=== PATIENT | male | born 1950 | race Caucasian/White ===

== ENCOUNTER 2019-11-28 08:07 | Outpatient (REF) | payer MEDICARE, MEDICAID, SELFPAY ==
[2019-11-28 08:52] LABS: MANUAL DIFF FLAG NO
[2019-11-28 08:55] LABS: Basophils Absolute Auto 0.1 X10*3/uL (0.0-0.2); Basophils Percent Auto 0.6 % (0-2); Eosinophils Absolute Auto 0.5 X10*3/uL (0.0-0.4); Eosinophils Percent Auto 5.3 % (0-4); Hematocrit 42.8 % (42-52); Hemoglobin 14.1 g/dl (14.0-18.0); Imm Gran Abs Auto 0.03 X10*3/uL (0.00-0.03); Imm Gran Pct Auto 0.3 % (0.0-0.4); Lymphocytes Percent Auto 22.2 % (20-40); Mean Corpuscular HGB Conc 32.9 g/dl (31.0-36.0); Mean Corpuscular Hemoglobin 32.6 pg (27.0-33.0); Mean Corpuscular Volume 98.8 fL (80-98); Mean Platelet Volume 11.3 fL (9.4-12.4); Monocytes Absolute Auto 0.8 X10*3/uL (0.1-1.2); Monocytes Percent Auto 8.6 % (2-11); Neutrophils Absolute Auto 5.7 X10*3/uL (2.0-8.3); Platelet Count 175 X10*3/uL (160-400); Red Blood Count 4.33 X10*6/uL (4.60-5.80); Red Cell Distribution Width 14.8 % (11.0-16.0); White Blood Count 9.1 X10*3/uL (4.8-10.8)
[2019-11-28 09:18] LABS: Alanine Aminotransferase 37 U/L (0-40); Albumin Level 4.1 g/dL (3.5-5.0); Alkaline Phosphatase 116 U/L (39-117); Anion Gap 10 (12-20); Aspartate Amino Transferase 24 U/L (5-37); Bilirubin Total 0.6 mg/dL (0.0-1.0); Blood Urea Nitrogen 16 mg/dL (9-16); Calcium 8.7 mg/dL (8.4-10.2); Carbon Dioxide 28 mmol/L (22-29); Chloride 107 mmol/L (96-108); Cholesterol 112 mg/dL; Estimated Glomerular Filt Rate > 60; Glucose Fasting 97 mg/dL (60-99); HDL Cholesterol 36 mg/dL; LDL Cholesterol Calculated 64 mg/dl; Potassium 4.4 mmol/l (3.3-5.1); Sodium 141 mmol/L (135-145); Total Protein 6.4 g/dL (6.5-8.0); Triglycerides 60 mg/dL
[2019-11-28 09:22] LABS: Digoxin 0.7 ng/mL (0.8-2.0)
[2019-11-28 09:23] LABS: B Type Natriuretic Peptide 89 pg/mL (<100)
[2019-11-28 09:29] LABS: Estimated Average Glucose 108 mg/dL; Hemoglobin A1c % 5.4 %
[2019-11-28 09:39] LABS: T4 Thyroxine 7.2 ug/dL (4.5-12.0); Thyroid Stimulating Hormone 1.44 mIU/mL (0.32-4.0)
[2019-11-29 19:50] LABS: Folate 13.4 ng/mL (> or = 4.0); Vitamin B12 320 pg/mL (200-900)
== END 2019-11-28 08:08 | disposition home or self-care (01) ==
LOC: HO.LAB 08:07
PROVIDERS: PCP Internal Medicine; Visit Provider Internal Medicine
DX: I48.19 Other persistent atrial fibrillation (principal); E78.00 Pure hypercholesterolemia, unspecified; I10 Essential (primary) hypertension; J45.909 Unspecified asthma, uncomplicated; G47.33 Obstructive sleep apnea (adult) (pediatric); R73.02 Impaired glucose tolerance (oral); Z79.899 Other long term (current) drug therapy
CPT/HCPCS: 36415; 80053; 80061; 80162; 82607; 82746; 83036; 83880; 84436; 84443; 85025

== ENCOUNTER → 2020-02-06 14:12 | Outpatient (BNVA) | payer MEDICARE, MEDICAID, SELFPAY | PROVIDERS: PCP Internal Medicine; Visit Provider Internal Medicine | DX: Z13.89 Encounter for screening for other disorder (principal) | CPT/HCPCS: Q3014 ==

== ENCOUNTER 2020-08-26 10:08 | Outpatient (REF) | payer MEDICARE, MEDICAID, SELFPAY ==
--- NOTE | ~2020-08-26 | CT_ITS ---
EXAMINATION: CT CHEST SCREENING CLINICAL INFORMATION: Lung cancer screening COMPARISON: Previous chest x-ray April 2018 TECHNIQUE: Multidetector volumetric CT imaging of the chest is performed without contrast using low dose technique. Additional 2D coronal and sagittal reformatted images and axial 3D maximum intensity projection (MIP) images are generated on the CT workstation. This CT examination was performed using dose optimization techniques as appropriate, variously including the following: *Automated exposure control *Adjustment of mA and/or kV according to patient size (this includes techniques or standardized protocols for targeted exams where dose is matched to indication/reason for exam; i.e. extremities or head) *Use of iterative reconstruction technique DLP: 156 mGy-cm FINDINGS: LUNGS: There is evidence of emphysema. There is a 4 mm groundglass attenuation left upper lobe nodule axial image 93 series. The lungs are otherwise clear. MEDIASTINUM: There are small mediastinal lymph nodes. There is severe coronary artery calcification. The mediastinum is otherwise normal. PLEURA: There is no pleural effusion. No pleural mass or thickening. AXILLA: No lymphadenopathy. UPPER ABDOMEN: There is diverticulosis of the colon. OSSEOUS STRUCTURES: There are degenerative changes of the spine. There are postsurgical changes to the right distal clavicle. CT/CT lung screening IMPRESSION: Emphysema. Small 4 mm groundglass attenuation left upper lobe nodule. Severe coronary artery calcification. ASSESSMENT: Lung-RADS category 2: Benign RECOMMENDATION: Annual low-dose chest CT follow-up recommended.
== END 2020-08-26 10:09 | disposition home or self-care (01) ==
LOC: HO.CT 10:08
PROVIDERS: PCP Internal Medicine; Visit Provider Physician Assistant Medical
DX: Z12.2 Encounter for screening for malignant neoplasm of respiratory organs (principal); F17.210 Nicotine dependence, cigarettes, uncomplicated
CPT/HCPCS: 71271

== ENCOUNTER → 2020-08-28 11:16 | Outpatient (BNVA) | payer MEDICARE, MEDICAID, SELFPAY | PROVIDERS: PCP Internal Medicine; Visit Provider Physician Assistant Medical | DX: F17.210 Nicotine dependence, cigarettes, uncomplicated (principal) ==

== ENCOUNTER → 2020-09-03 10:50 | Outpatient (BNVA) | payer MEDICARE, MEDICAID, SELFPAY | PROVIDERS: PCP Internal Medicine; Visit Provider Family Medicine Adult Medicine | DX: M47.812 Spondylosis without myelopathy or radiculopathy, cervical region (principal); M47.816 Spondylosis without myelopathy or radiculopathy, lumbar region; Z79.899 Other long term (current) drug therapy | CPT/HCPCS: 99202 ==

== ENCOUNTER → 2020-09-22 08:27 | Outpatient (BNVA) | payer MEDICARE, MEDICAID, SELFPAY | PROVIDERS: PCP Internal Medicine; Visit Provider Family Medicine Adult Medicine | DX: M47.812 Spondylosis without myelopathy or radiculopathy, cervical region (principal); M47.816 Spondylosis without myelopathy or radiculopathy, lumbar region | CPT/HCPCS: 99212; Q3014 ==

== ENCOUNTER → 2020-10-09 09:47 | Outpatient (BNVA) | payer MEDICARE, MEDICAID, SELFPAY | PROVIDERS: PCP Internal Medicine; Visit Provider Internal Medicine | DX: M47.812 Spondylosis without myelopathy or radiculopathy, cervical region (principal); M47.816 Spondylosis without myelopathy or radiculopathy, lumbar region; Z79.891 Long term (current) use of opiate analgesic | CPT/HCPCS: 99212 ==

== ENCOUNTER → 2020-10-21 10:23 | Outpatient (REF) | payer MEDICARE, MEDICAID, SELFPAY ==
--- NOTE | 2020-10-21 10:15 | ECG_ITS ---
Hook-up date: 2020-10-21 11:35:00 Duration: 26:15:00 Test Indications: PERSISTANT AFIB Medications: 166256 QRS complexes 54 Ventricular ectopics which represent <1 % of total QRS comp. * Supraventricular ectopics which represent % of total QRS comp. * Paced QRS complexs which represent % of total QRS comp. VENTRICULAR ECTOPY 52 Isolated 0 Bigeminal Cycles 1 Couplets 0 Runs 0 Beats in Runs * Beats LONGEST at * BPM at :: -- * Beats FASTEST at * BPM at :: -- SUPRAVENTRICULAR ECTOPY * Isolated * Couplets * Runs * Beats in Runs * Beats LONGEST at * BPM at :: -- * Beats FASTEST at * BPM at :: -- HEART RATES 49 MIN at 07:00:02 2020-10-22 84 AVG 170 MAX at 18:51:42 2020-10-21 LONGEST RR 2.2960 secs at 07:29:20 2020-10-22 S-T LEVELS Channel 1 - 128 mm at 11:35:00 2020-10-21 - 128 mm at 11:35:00 2020-10-21 Channel 2 - 128 mm at 11:35:00 2020-10-21 - 128 mm at 11:35:00 2020-10-21 Channel 3 - 128 mm at 03:05:41 -- - 128 mm at 03:05:41 Basic rhythm Atrial fibrillation No long pause or profound bradycardia Overall adequate rate control with avergae HR of 84 bpm Rare Premature ventricular complexes Patient reported symptoms corrleated with AF Referred By: Wally Sen Overread By: FABIOLA MCMULLEN MD
--- NOTE | 2020-10-21 10:36 | CA_ITS ---
Transthoracic Echocardiogram Patient (Last, First, Middle): Alli Latham A Gender: Male Date of : 1950 Age: 70 Procedure Date: 10/21/2020 Procedure Type: Transthoracic Echocardiogram Location: OP Height: 177.8 cm Weight: 106.6 kg BSA: 2.24 m2 Heart Rate: bpm BP: 136 / 80 mmHg Foreign Policy Officer: Referring MD: Wally Sen MD Symptoms: I48.19 - Other persistent atrial fibrillation Study Quality: Fair ECG Rhythm: Atrial Fibrillation Conclusions: - 1. Normal LV systolic function 2. Mildly dilated left atrium 3. Normal cardiac valvular Doppler 4. Normal RV systolic pressure 5. No pericardial effusion Findings Left Ventricle Normal left ventricular size, thickness, and systolic function. The visually estimated ejection fraction is between 60-65%. Diastolic function is indeterminate on the basis of available data. Right Ventricle Normal right ventricular cavity size and systolic function. Atria The left atrium is mildly dilated. There is lipomatous hypertrophy of the interatrial septum. There is no evidence of interatrial shunt. The right atrium is likely dilated. Aortic Valve The aortic valve structure and function is likely normal. There is no aortic valve stenosis. There is no aortic valve regurgitation. Mitral Valve Normal mitral valve structure and function. There is trace mitral valve regurgitation. There is no mitral valve stenosis. Pulmonic Valve The pulmonic valve was not well visualized. Tricuspid Valve Likely normal tricuspid valve structure and function. Mildly elevated right atrial pressure. There is no evidence of pulmonary hypertension. Great Vessels All visible segments of the aorta are normal in size. The pulmonary artery was not well visualized. Venous The inferior vena cava is moderately dilated and collapses less than 50% with inspiration. Pericardium/Pleural There is no evidence of pericardial effusion. Prior Study Comparison No significant change compared to prior study dated: 09/18/2019. Measurements 2D Linear Measurements IVSd: 1.33 0.6-0.9/0.6-1.0 cm LVIDd: 4.06 3.9-5.3/4.2-5.9 cm LVIDd Index: 1.81 2.4-3.2/2.2-3.1 cm/m2 LVIDs: 2.74 2.0-3.6 cm LVPWd: 1.36 0.7-1.1 cm Ao Root: 3.20 2.1-3.5 cm LA Diam: 4.20 2.7-3.8/3.0-4.0 cm LAIDs Index: 1.88 1.5-2.3 cm/m2 LV Mass: 250.25 67-162/88-224 g LV Mass Index: 111.72 43-95/49-115 g/m2 LVOT Diam: 2.10 3.0+(-)1.3 cm Mitral Valve MV Pk E: 1.29 MV Decel Time: 136.00 E'Lateral: 8.38 E'Medial: 8.49 E/E' Med: 15.20 E/E' Lat: 15.40 PHT: 40.00 MVA PHT: 5.50 Decel [place]: 9.45 Aortic Valve AoV Pk Ramiro: 1.88 AoV Mn Ramiro: 1.15 AoV VTI: 0.36 AoV Pk Grad: 14.00 Aov Mn Grad: 6.00 STEPHANIE Cont.VTI: 2.20 LVOT LVOT Pk Ramiro: 1.12 LVOT Mn Ramiro: 0.81 LVOT VTI: 0.23 LVOT Pk Grad: 5.00 LVOT Mn Grad: 3.00 LVOT Diam: 2.10 LVOT Area: 3.46 Diastolic Function MV Pk E: 1.29 E'Medial: 8.49 E/E' Med: 15.20 E' Laterial: 8.38 E/E' Lat: 15.40 Tricuspid Valve TR Pk Ramiro: 2.66 TR Pk Grad: 28.00 RA Press: 8.00 RVSP: 36.00 Great Vessels Aorta Ao Root-2D: 3.20 2.0-3.7 cm Ao Asc: 2.90 2.1-3.4 cm Pulmonary Valve PV Pk Ramiro: 1.25 Peak PV Grad: 6.00 Updated in Other Vendor System with Status of Final Boubacar Santiago MD electronically signed on 10/22/2020 12:14:36 PM with status of Final
== END ==
LOC: HO.CARD 10:23
PROVIDERS: Visit Provider Internal Medicine
DX: I48.19 Other persistent atrial fibrillation (principal)
CPT/HCPCS: 93225; 93226; 93306

== ENCOUNTER → 2020-10-21 10:26 | Outpatient (REF) | payer MEDICARE, MEDICAID, SELFPAY | LOC: HO.CARD 10:26 | PROVIDERS: Visit Provider Internal Medicine | DX: Z13.89 Encounter for screening for other disorder (principal) ==

== ENCOUNTER → 2020-10-29 09:21 | Outpatient (BNVA) | payer MEDICARE, MEDICAID, SELFPAY | PROVIDERS: PCP Internal Medicine; Visit Provider Family Medicine Adult Medicine | DX: Z51.81 Encounter for therapeutic drug level monitoring (principal); M17.0 Bilateral primary osteoarthritis of knee; M47.812 Spondylosis without myelopathy or radiculopathy, cervical region; M47.816 Spondylosis without myelopathy or radiculopathy, lumbar region | CPT/HCPCS: 99212 ==

== ENCOUNTER → 2020-11-04 10:05 | Outpatient (BNVA) | payer MEDICARE, MEDICAID, SELFPAY | PROVIDERS: PCP Internal Medicine; Visit Provider Internal Medicine | DX: I48.19 Other persistent atrial fibrillation (principal); I48.3 Typical atrial flutter; I10 Essential (primary) hypertension; G47.33 Obstructive sleep apnea (adult) (pediatric); Z79.01 Long term (current) use of anticoagulants; Z99.89 Dependence on other enabling machines and devices | CPT/HCPCS: Q3014 ==

== ENCOUNTER → 2020-11-26 09:10 | Outpatient (BNVA) | payer MEDICARE, MEDICAID, SELFPAY | PROVIDERS: PCP Internal Medicine; Visit Provider Family Medicine Adult Medicine | DX: Z51.81 Encounter for therapeutic drug level monitoring (principal); M47.812 Spondylosis without myelopathy or radiculopathy, cervical region; M47.816 Spondylosis without myelopathy or radiculopathy, lumbar region; G47.33 Obstructive sleep apnea (adult) (pediatric); Z99.89 Dependence on other enabling machines and devices; Z87.891 Personal history of nicotine dependence | CPT/HCPCS: 99212 ==

== ENCOUNTER 2020-11-27 08:06 | Outpatient (REF) | payer MEDICARE, MEDICAID, SELFPAY ==
[2020-11-27 10:12] LABS: MANUAL DIFF FLAG NO
[2020-11-27 10:18] LABS: Basophils Percent Auto 0.4 % (0-2); Eosinophils Absolute Auto 0.4 X10*3/uL (0.0-0.4); Hematocrit 42.7 % (42-52); Hemoglobin 14.4 g/dl (14.0-18.0); Imm Gran Abs Auto 0.03 X10*3/uL (0.00-0.03); Imm Gran Pct Auto 0.4 % (0.0-0.4); Lymphocytes Absolute Auto 1.9 X10*3/uL (1.2-4.9); Lymphocytes Percent Auto 23.4 % (20-40); Mean Corpuscular HGB Conc 33.7 g/dl (31.0-36.0); Mean Corpuscular Hemoglobin 33.9 pg (27.0-33.0); Mean Corpuscular Volume 100.5 fL (80-98); Mean Platelet Volume 11.3 fL (9.4-12.4); Monocytes Absolute Auto 0.9 X10*3/uL (0.1-1.2); Monocytes Percent Auto 11.2 % (2-11); Neutrophils Absolute Auto 4.9 X10*3/uL (2.0-8.3); Neutrophils Percent Auto 59.6 % (45-73); Platelet Count 177 X10*3/uL (160-400); Red Blood Count 4.25 X10*6/uL (4.60-5.80); Red Cell Distribution Width 13.4 % (11.0-16.0); White Blood Count 8.2 X10*3/uL (4.8-10.8)
[2020-11-27 10:33] LABS: Alanine Aminotransferase 26 U/L (0-40); Albumin Level 4.2 g/dL (3.5-5.0); Alkaline Phosphatase 111 U/L (39-117); Anion Gap 12 (12-20); Aspartate Amino Transferase 23 U/L (5-37); Bilirubin Total 0.7 mg/dL (0.0-1.0); Blood Urea Nitrogen 14 mg/dL (9-16); Calcium 9.1 mg/dL (8.4-10.2); Carbon Dioxide 26 mmol/L (22-29); Chloride 103 mmol/L (96-108); Cholesterol 128 mg/dL; Estimated Glomerular Filt Rate > 60; Glucose Random 103 mg/dL (60-115); HDL Cholesterol 44 mg/dL; LDL Cholesterol Calculated 67 mg/dl; Potassium 4.1 mmol/L (3.3-5.1); Sodium 137 mmol/L (135-145); Total Protein 6.9 g/dL (6.5-8.0); Triglycerides 86 mg/dL
[2020-11-27 10:36] LABS: B Type Natriuretic Peptide 96 pg/mL (<100)
[2020-11-27 10:38] LABS: Estimated Average Glucose 111 mg/dL; Hemoglobin A1c % 5.5 %
[2020-11-27 10:42] LABS: Digoxin 0.8 ng/mL (0.8-2.0)
[2020-11-27 10:56] LABS: Free T4 (Free Thyroxine) 1.11 ng/dL (0.71-1.85)
[2020-11-27 11:10] LABS: Folate > 20.0 ng/mL (> or = 4.0); Vitamin B12 333 pg/mL (200-900)
== END 2020-11-27 08:07 | disposition home or self-care (01) ==
LOC: HO.10HDL 08:06
PROVIDERS: Absent Provider Internal Medicine; Visit Provider Internal Medicine
DX: E78.00 Pure hypercholesterolemia, unspecified (principal); I10 Essential (primary) hypertension; I48.19 Other persistent atrial fibrillation; Z79.899 Other long term (current) drug therapy
CPT/HCPCS: 36415; 80053; 80061; 80162; 82607; 82746; 83036; 83880; 84439; 84443; 85025

== ENCOUNTER → 2020-12-24 09:23 | Outpatient (BNVA) | payer MEDICARE, MEDICAID, SELFPAY | PROVIDERS: PCP Internal Medicine; Visit Provider Family Medicine Adult Medicine | DX: M47.812 Spondylosis without myelopathy or radiculopathy, cervical region (principal); M47.816 Spondylosis without myelopathy or radiculopathy, lumbar region; G47.33 Obstructive sleep apnea (adult) (pediatric); Z87.891 Personal history of nicotine dependence; Z99.89 Dependence on other enabling machines and devices; Z79.899 Other long term (current) drug therapy | CPT/HCPCS: 99212 ==

== ENCOUNTER → 2021-01-28 09:50 | Outpatient (BNVA) | payer MEDICARE, MEDICAID, SELFPAY | PROVIDERS: PCP Internal Medicine; Visit Provider Nurse Practitioner Family | DX: Z51.81 Encounter for therapeutic drug level monitoring (principal); M47.812 Spondylosis without myelopathy or radiculopathy, cervical region; M47.816 Spondylosis without myelopathy or radiculopathy, lumbar region; M17.0 Bilateral primary osteoarthritis of knee | CPT/HCPCS: 99212 ==

== ENCOUNTER → 2021-02-22 10:24 | Outpatient (BNVA) | payer MEDICARE, MEDICAID, SELFPAY | PROVIDERS: PCP Internal Medicine; Visit Provider Anesthesiology | DX: Z51.81 Encounter for therapeutic drug level monitoring (principal); F11.20 Opioid dependence, uncomplicated; M47.812 Spondylosis without myelopathy or radiculopathy, cervical region; M47.816 Spondylosis without myelopathy or radiculopathy, lumbar region; M17.0 Bilateral primary osteoarthritis of knee | CPT/HCPCS: 99212 ==

== ENCOUNTER → 2021-03-22 08:28 | Outpatient (BNVA) | payer MEDICARE, MEDICAID, SELFPAY | PROVIDERS: PCP Internal Medicine; Visit Provider Nurse Practitioner Family | DX: M47.812 Spondylosis without myelopathy or radiculopathy, cervical region (principal); M47.816 Spondylosis without myelopathy or radiculopathy, lumbar region; M17.0 Bilateral primary osteoarthritis of knee; Z79.891 Long term (current) use of opiate analgesic | CPT/HCPCS: 99212 ==

== ENCOUNTER → 2021-03-30 08:33 | Outpatient (BNVA) | payer MEDICARE, MEDICAID, SELFPAY | PROVIDERS: PCP Internal Medicine; Referring Provider Internal Medicine; Visit Provider Internal Medicine | DX: I48.19 Other persistent atrial fibrillation (principal); I48.3 Typical atrial flutter; I10 Essential (primary) hypertension; G47.33 Obstructive sleep apnea (adult) (pediatric); Z79.01 Long term (current) use of anticoagulants; Z99.89 Dependence on other enabling machines and devices | CPT/HCPCS: 93005; 99212 ==

== ENCOUNTER → 2021-04-19 08:51 | Outpatient (BNVA) | payer MEDICARE, MEDICAID, SELFPAY | PROVIDERS: PCP Internal Medicine; Visit Provider Nurse Practitioner Family | DX: M47.812 Spondylosis without myelopathy or radiculopathy, cervical region (principal); M47.816 Spondylosis without myelopathy or radiculopathy, lumbar region; M17.0 Bilateral primary osteoarthritis of knee; Z79.891 Long term (current) use of opiate analgesic | CPT/HCPCS: 99212 ==

== ENCOUNTER → 2021-05-17 08:51 | Outpatient (BNVA) | payer MEDICARE, MEDICAID, SELFPAY | PROVIDERS: PCP Internal Medicine; Visit Provider Nurse Practitioner Family | DX: Z51.81 Encounter for therapeutic drug level monitoring (principal); F11.20 Opioid dependence, uncomplicated; M47.812 Spondylosis without myelopathy or radiculopathy, cervical region; M47.816 Spondylosis without myelopathy or radiculopathy, lumbar region; M17.0 Bilateral primary osteoarthritis of knee | CPT/HCPCS: 99212 ==

== ENCOUNTER 2021-05-17 09:31 | Outpatient (REF) | payer MEDICARE, MEDICAID, SELFPAY ==
[2021-05-17 10:47] LABS: MANUAL DIFF FLAG NO
[2021-05-17 11:05] LABS: Basophils Percent Auto 0.6 % (0-2); Eosinophils Absolute Auto 0.3 X10*3/uL (0.0-0.4); Eosinophils Percent Auto 4.7 % (0-4); Hematocrit 43.1 % (42.0-52.0); Hemoglobin 14.2 g/dl (14.0-18.0); Imm Gran Abs Auto 0.02 X10*3/uL (0.00-0.03); Imm Gran Pct Auto 0.3 % (0.0-0.4); Lymphocytes Absolute Auto 1.5 X10*3/uL (1.2-4.9); Lymphocytes Percent Auto 20.8 % (20-40); Mean Corpuscular HGB Conc 32.9 g/dl (31.0-36.0); Mean Corpuscular Hemoglobin 32.5 pg (27.0-33.0); Mean Corpuscular Volume 98.6 fL (80.0-98.0); Mean Platelet Volume 11.6 fL (9.4-12.4); Monocytes Absolute Auto 0.8 X10*3/uL (0.1-1.2); Monocytes Percent Auto 11.1 % (2-11); Neutrophils Absolute Auto 4.5 x10*3/uL (2.0-8.3); Neutrophils Percent Auto 62.5 % (45-73); Platelet Count 170 X10*3/uL (160-400); Red Blood Count 4.37 X10*6/uL (4.60-5.80); Red Cell Distribution Width 13.7 % (11.0-16.0); White Blood Count 7.2 X10*3/uL (4.8-10.8)
[2021-05-17 11:10] LABS: Alanine Aminotransferase 46 U/L (0-40); Albumin Level 4.2 g/dL (3.5-5.0); Alkaline Phosphatase 119 U/L (39-117); Anion Gap 11 (12-20); Aspartate Amino Transferase 34 U/L (5-37); Bilirubin Total 0.9 mg/dL (0.0-1.0); Blood Urea Nitrogen 17 mg/dL (9-16); Calcium 9.4 mg/dL (8.4-10.2); Carbon Dioxide 29 mmol/L (22-29); Chloride 104 mmol/L (96-108); Cholesterol 140 mg/dL; Estimated Glomerular Filt Rate > 60; Glucose Random 108 mg/dL (60-115); HDL Cholesterol 56 mg/dL; LDL Cholesterol Calculated 70 mg/dl; Potassium 3.8 mmol/L (3.3-5.1); Sodium 140 mmol/L (135-145); Total Protein 7.1 g/dL (6.5-8.0); Triglycerides 70 mg/dL
[2021-05-17 11:32] LABS: Folate 12.2 ng/mL (> or = 4.0); Vitamin B12 311 pg/mL (200-900)
[2021-05-17 11:35] LABS: Free T4 (Free Thyroxine) 1.11 ng/dL (0.71-1.85); Thyroid Stimulating Hormone 1.51 uIU/mL (0.32-4.0)
[2021-05-17 12:02] LABS: B Type Natriuretic Peptide 100 pg/mL (<100)
[2021-05-17 12:15] LABS: Digoxin < 0.3 ng/mL (0.8-2.0)
== END 2021-05-17 09:32 | disposition home or self-care (01) ==
LOC: HO.10HDL 09:31
PROVIDERS: Visit Provider Internal Medicine
DX: M17.0 Bilateral primary osteoarthritis of knee (principal); M47.812 Spondylosis without myelopathy or radiculopathy, cervical region; M47.816 Spondylosis without myelopathy or radiculopathy, lumbar region; E78.00 Pure hypercholesterolemia, unspecified; I10 Essential (primary) hypertension; I48.19 Other persistent atrial fibrillation; I48.91 Unspecified atrial fibrillation; Z79.899 Other long term (current) drug therapy
CPT/HCPCS: 36415; 80053; 80061; 80162; 82607; 82746; 83880; 84439; 84443; 85025; 99212

== ENCOUNTER → 2021-06-14 09:52 | Outpatient (BNVA) | payer MEDICARE, MEDICAID, SELFPAY | PROVIDERS: PCP Internal Medicine; Visit Provider Nurse Practitioner Family | DX: M47.812 Spondylosis without myelopathy or radiculopathy, cervical region (principal); M17.0 Bilateral primary osteoarthritis of knee; J43.1 Panlobular emphysema; G47.33 Obstructive sleep apnea (adult) (pediatric); Z79.891 Long term (current) use of opiate analgesic; Z99.89 Dependence on other enabling machines and devices | CPT/HCPCS: 99212 ==

== ENCOUNTER → 2021-07-08 09:29 | Outpatient (BNVA) | payer MEDICARE, MEDICAID, SELFPAY | PROVIDERS: PCP Internal Medicine; Visit Provider Internal Medicine Pulmonary Disease | DX: J43.1 Panlobular emphysema (principal); G47.33 Obstructive sleep apnea (adult) (pediatric); Z99.89 Dependence on other enabling machines and devices | CPT/HCPCS: 99202 ==

== ENCOUNTER → 2021-07-12 09:22 | Outpatient (BNVA) | payer MEDICARE, MEDICAID, SELFPAY | PROVIDERS: PCP Internal Medicine; Visit Provider Nurse Practitioner Family | DX: Z51.81 Encounter for therapeutic drug level monitoring (principal); F11.20 Opioid dependence, uncomplicated; M47.812 Spondylosis without myelopathy or radiculopathy, cervical region; M47.816 Spondylosis without myelopathy or radiculopathy, lumbar region; M17.0 Bilateral primary osteoarthritis of knee | CPT/HCPCS: 99212 ==

== ENCOUNTER → 2021-08-09 09:15 | Outpatient (BNVA) | payer MEDICARE, MEDICAID, SELFPAY | PROVIDERS: PCP Internal Medicine; Visit Provider Nurse Practitioner Family | DX: Z51.81 Encounter for therapeutic drug level monitoring (principal); M47.812 Spondylosis without myelopathy or radiculopathy, cervical region; M47.816 Spondylosis without myelopathy or radiculopathy, lumbar region; M17.0 Bilateral primary osteoarthritis of knee; G47.20 Circadian rhythm sleep disorder, unspecified type; Z79.891 Long term (current) use of opiate analgesic | CPT/HCPCS: 99212 ==

== ENCOUNTER → 2021-08-17 11:04 | Outpatient (REF) | payer MEDICARE, MEDICAID, SELFPAY ==
--- NOTE | 2021-08-17 11:09 | HM_ITS ---
* Total monitoring time 2 days and 21 hours. * Underlying rhythm is atrial fibrillation. Average rate 87/Min. Range 50 to 179/Min. * About 10% of the time, rate greater than 100/Min. * One pause noted, 2.5 seconds during daytime hours. * Occasional PVCs, minimal burden. * Patient symptoms documented include dizziness, shortness of breath, rapid heartbeat all correlating with atrial fibrillation but rate during those times seem controlled. * During rapid ventricular rate, there is evidence of ST depression in the EKG. Correlate clinically. MTDD
== END ==
LOC: HO.CARD 11:04
PROVIDERS: PCP Internal Medicine; Visit Provider Internal Medicine
DX: I48.19 Other persistent atrial fibrillation (principal)
CPT/HCPCS: 93242

== ENCOUNTER → 2021-09-06 09:23 | Outpatient (BNVA) | payer MEDICARE, MEDICAID, SELFPAY | PROVIDERS: PCP Internal Medicine; Visit Provider Nurse Practitioner Family | DX: Z79.891 Long term (current) use of opiate analgesic (principal) | CPT/HCPCS: 99211 ==

== ENCOUNTER → 2021-10-04 09:10 | Outpatient (BNVA) | payer MEDICARE, MEDICAID, SELFPAY | PROVIDERS: PCP Internal Medicine; Referring Provider Internal Medicine; Visit Provider Internal Medicine | DX: Z51.81 Encounter for therapeutic drug level monitoring (principal); I25.10 Atherosclerotic heart disease of native coronary artery without angina pectoris; I48.19 Other persistent atrial fibrillation; I10 Essential (primary) hypertension; G47.33 Obstructive sleep apnea (adult) (pediatric); F11.20 Opioid dependence, uncomplicated; Z99.89 Dependence on other enabling machines and devices | CPT/HCPCS: 99211; 99212 ==

== ENCOUNTER → 2021-10-19 09:18 | Outpatient (REF) | payer MEDICARE, MEDICAID, SELFPAY ==
--- NOTE | ~2021-10-19 | NM_ITS ---
Lexiscan Myocardial perfusion study Indication: Coronary artery calcification on CT scan, assess for ischemia Technique: The patient was brought in for a Lexiscan perfusion study on 10/19/2021 and was injected 0.4 mg of Lexiscan intravenously. Within a minute of this injection 40 mCi of sestamibi was given intravenously. Images were obtained using the SPECT gamma camera interlaced with the gating device. Images were obtained in supine position. Resting perfusion study was performed on 10/21/2021. Patient was administered 40 mCi of sestamibi intravenously at rest. Images were then obtained in supine position. Total DLP 182mGy-cm. Images were processed with the software and compared side to side in short axis, horizontal long axis and vertical long axis views. Findings: Raw acquisition reviewed. Arms by the patient's side. The stress perfusion study showed mildly diminished tracer uptake in parts of anterior septum and minimally in the anterior wall. However, there is improvement with CT attenuation correction and hence suggestive of soft tissue attenuation artifact. The gated study shows normal LV systolic function with calculated LVEF of 69%. LV cavity is normal in size. The gated study shows normal wall thickening and contraction of segments. Resting study shows diminished tracer uptake along the anterior wall. There is improvement with CT attenuation correction and hence could all be from soft tissue attenuation artifact. Gating at rest reveals normal wall motion with ejection fraction at 75%. The findings are consistent with no clear reversible or fixed perfusion defects. NM/NM cardiolite stress test Impression: 1. Myocardial perfusion imaging study shows likely normal myocardial perfusion. 2. Gated LVEF is 69% during stress and 74% during rest. 3. Transient ischemic dilatation not present. EKG component of the test reported separately.
--- NOTE | 2021-10-19 09:20 | CA_ITS ---
Acquisition Time: 2021-10-19 09:40:20 Total Exercise Time: 00:02:00 Test Indications: AFIB, AFLUTTER Medications: SEE CHART Protocol: LEXISCAN Max HR: 088 BPM 59% of Pred: 147 BPM Max BP: 132/074 mmHG Max Work Load: 1.0 METS Pharmacological stress test with Lexiscan injection, while sitting and kicking his legs, without anginal symptoms, with isolated PVCs, with normotensive response to injection, with nondiagnostic EKG for ischemia. Nuclear images pending. Test reviewed with Dr Santiago Referred By: Wally Sen Overread By: KO DE LEON
== END ==
LOC: HO.CARD 09:18
PROVIDERS: Visit Provider Internal Medicine
DX: I25.10 Atherosclerotic heart disease of native coronary artery without angina pectoris (principal)
CPT/HCPCS: 78452; 93017; A9500; J0280; J2785

== ENCOUNTER → 2021-11-05 10:20 | Outpatient (BNVA) | payer MEDICARE, MEDICAID, SELFPAY | PROVIDERS: PCP Internal Medicine; Visit Provider Nurse Practitioner Family | DX: Z51.81 Encounter for therapeutic drug level monitoring (principal); F11.20 Opioid dependence, uncomplicated; M47.812 Spondylosis without myelopathy or radiculopathy, cervical region; M47.816 Spondylosis without myelopathy or radiculopathy, lumbar region; K59.00 Constipation, unspecified; M17.0 Bilateral primary osteoarthritis of knee | CPT/HCPCS: 99212 ==

== ENCOUNTER → 2021-12-03 09:21 | Outpatient (BNVA) | payer MEDICARE, MEDICAID, SELFPAY | PROVIDERS: PCP Internal Medicine; Visit Provider Nurse Practitioner Family | DX: Z51.81 Encounter for therapeutic drug level monitoring (principal); Z79.899 Other long term (current) drug therapy | CPT/HCPCS: 99211 ==

== ENCOUNTER → 2021-12-31 08:22 | Outpatient (BNVA) | payer MEDICARE, MEDICAID, SELFPAY | PROVIDERS: PCP Internal Medicine; Visit Provider Nurse Practitioner Family | DX: M47.812 Spondylosis without myelopathy or radiculopathy, cervical region (principal); M47.816 Spondylosis without myelopathy or radiculopathy, lumbar region; M17.0 Bilateral primary osteoarthritis of knee; Z79.891 Long term (current) use of opiate analgesic; K59.00 Constipation, unspecified | CPT/HCPCS: 99212 ==

== ENCOUNTER → 2022-01-31 14:54 | Outpatient (BNVA) | payer MEDICARE, MEDICAID, SELFPAY | PROVIDERS: PCP Internal Medicine; Visit Provider Nurse Practitioner Family | DX: M47.812 Spondylosis without myelopathy or radiculopathy, cervical region (principal); M47.816 Spondylosis without myelopathy or radiculopathy, lumbar region; M17.0 Bilateral primary osteoarthritis of knee; Z79.891 Long term (current) use of opiate analgesic | CPT/HCPCS: 99212 ==

== ENCOUNTER → 2022-03-01 12:52 | Outpatient (BNVA) | payer MEDICARE, MEDICAID, SELFPAY | PROVIDERS: PCP Internal Medicine; Visit Provider Nurse Practitioner Family | DX: Z51.81 Encounter for therapeutic drug level monitoring (principal); F11.20 Opioid dependence, uncomplicated | CPT/HCPCS: 99211 ==

== ENCOUNTER → 2022-03-17 13:26 | Outpatient (BNVA) | payer MEDICARE, MEDICAID, SELFPAY | PROVIDERS: PCP Internal Medicine; Visit Provider Internal Medicine | DX: I25.10 Atherosclerotic heart disease of native coronary artery without angina pectoris (principal); I48.19 Other persistent atrial fibrillation; I10 Essential (primary) hypertension; G47.33 Obstructive sleep apnea (adult) (pediatric); Z99.89 Dependence on other enabling machines and devices; Z87.891 Personal history of nicotine dependence | CPT/HCPCS: 93005; 99212 ==

== ENCOUNTER → 2022-03-18 13:15 | Outpatient (REF) | payer MEDICARE, MEDICAID, SELFPAY ==
--- NOTE | 2022-03-18 13:21 | CA_ITS ---
Transthoracic Echocardiogram Patient (Last, First, Middle): Alli Latham A Gender: Male Date of : 1950 Age: 71 Procedure Date: 03/18/2022 Procedure Type: Transthoracic Echocardiogram Location: OP Height: 180.34 cm Weight: 117.94 kg BSA: 2.36 m2 Heart Rate: bpm BP: 126 / 80 mmHg Watermaster: Referring MD: Wally Sen MD Symptoms: I25.10 - Atherosclerotic heart disease of [place] coronary artery without... Study Quality: Good ECG Rhythm: Atrial Fibrillation Conclusions: - The left ventricular systolic function is normal. The calculated ejection fraction is 68% by biplane method. - No obvious valvular pathology seen on this study. Findings Left Ventricle Normal left ventricular cavity size. There is moderately increased left ventricular wall thickness. The left ventricular systolic function is normal. The calculated ejection fraction is 68% by biplane method. There is no evidence of regional wall motion abnormalities. Diastolic function is indeterminate on the basis of available data. Right Ventricle Normal right ventricular cavity size and systolic function. Atria Both atria are normal in size. Aortic Valve The aortic valve was not well visualized. There is no aortic valve stenosis. There is no aortic valve regurgitation. Mitral Valve There is mild mitral annular calcification. There is trace mitral valve regurgitation. There is no mitral valve stenosis. Pulmonic Valve The pulmonic valve is likely normal. Tricuspid Valve Normal tricuspid valve structure. There is trace tricuspid valve regurgitation. There is no evidence of pulmonary hypertension. Great Vessels The asc aorta is normal in size. Venous The inferior vena cava is normal in size and collapses greater than 50% with inspiration. Pericardium/Pleural There is no evidence of pericardial effusion. Prior Study Comparison No significant change compared to prior study dated: 10/21/2020. Recommendations, Care & Conclusions No obvious valvular pathology seen on this study. Measurements 2D Linear Measurements IVSd: 1.31 0.6-0.9/0.6-1.0 cm LVIDd: 4.74 3.9-5.3/4.2-5.9 cm LVIDd Index: 2.01 2.4-3.2/2.2-3.1 cm/m2 LVIDs: 3.05 2.0-3.6 cm LVPWd: 1.26 0.7-1.1 cm Ao Root: 3.40 2.1-3.5 cm LA Diam: 4.90 2.7-3.8/3.0-4.0 cm LAIDs Index: 2.08 1.5-2.3 cm/m2 LV Mass: 295.49 67-162/88-224 g LV Mass Index: 125.21 43-95/49-115 g/m2 LVOT Diam: 2.00 3.0+(-)1.3 cm 2D Systolic Function EF 4C: 65.00 >55% EF 2C: 69.70 >55% EF BiP: 67.90 >55% Mitral Valve MV Pk E: 1.48 MV Decel Time: 172.00 E'Lateral: 7.94 E'Medial: 7.18 E/E' Med: 20.60 E/E' Lat: 18.60 PHT: 50.00 MVA PHT: 4.40 Decel [place]: 8.59 Aortic Valve AoV Pk Ramiro: 1.99 AoV Mn Ramiro: 1.26 AoV VTI: 0.36 AoV Pk Grad: 16.00 Aov Mn Grad: 8.00 STEPHANIE Cont.VTI: 2.06 LVOT LVOT Pk Ramiro: 1.21 LVOT Mn Ramiro: 0.77 LVOT VTI: 0.23 LVOT Pk Grad: 6.00 LVOT Mn Grad: 3.00 LVOT Diam: 2.00 LVOT Area: 3.14 Diastolic Function MV Pk E: 1.48 E'Medial: 7.18 E/E' Med: 20.60 E' Laterial: 7.94 E/E' Lat: 18.60 Right Ventricle TAPSE (mm): 27.00 TVS' Ramiro: 16.00 Tricuspid Valve TR Pk Ramiro: 2.12 TR Pk Grad: 18.00 RA Press: 3.00 RVSP: 21.00 Great Vessels Aorta Ao Root-2D: 3.40 2.0-3.7 cm Ao Asc: 3.10 2.1-3.4 cm Pulmonary Valve PV Pk Ramiro: 1.21 Peak PV Grad: 6.00 Updated in Other Vendor System with Status of Final Wally Sen MD electronically signed on 03/20/2022 12:36:24 PM with status of Final
[2022-03-18 13:58] LABS: Hematocrit 40.7 % (42.0-52.0); Hemoglobin 13.5 g/dl (14.0-18.0); Mean Corpuscular HGB Conc 33.2 g/dl (31.0-36.0); Mean Corpuscular Hemoglobin 31.7 pg (27.0-33.0); Mean Corpuscular Volume 95.5 fL (80.0-98.0); Platelet Count 200 X10*3/uL (160-400); Red Blood Count 4.26 X10*6/uL (4.60-5.80); Red Cell Distribution Width 14.2 % (11.0-16.0); White Blood Count 8.8 X10*3/uL (4.8-10.8)
[2022-03-18 14:07] LABS: INTERNATIONAL NORM RATIO 1.4 (0.9-1.1); Prothrombin Time 16.7 SEC (10.0-13.1)
[2022-03-18 14:43] LABS: Anion Gap 13 (12-20); Blood Urea Nitrogen 21 mg/dL (9-16); Calcium 9.4 mg/dL (8.4-10.2); Carbon Dioxide 28 mmol/L (22-29); Chloride 105 mmol/L (96-108); Cholesterol 117 mg/dL; Estimated Glomerular Filt Rate 56; Glucose Random 100 mg/dL (60-115); HDL Cholesterol 46 mg/dL; LDL Cholesterol Calculated 51 mg/dl; Potassium 4.2 mmol/L (3.3-5.1); Sodium 142 mmol/L (135-145); Triglycerides 102 mg/dL
[2022-03-18 15:22] LABS: Folate 12.7 ng/mL (> or = 4.0); Vitamin B12 430 pg/mL (200-900)
== END ==
LOC: HO.CARD 13:15
PROVIDERS: Internal Medicine; Visit Provider Internal Medicine
DX: I25.10 Atherosclerotic heart disease of native coronary artery without angina pectoris (principal); E78.00 Pure hypercholesterolemia, unspecified
CPT/HCPCS: 36415; 80048; 80061; 82607; 82746; 85027; 85610; 93306

== ENCOUNTER → 2022-03-28 09:48 | Outpatient (BNVA) | payer MEDICARE, MEDICAID, SELFPAY | PROVIDERS: PCP Internal Medicine; Referring Provider Internal Medicine; Visit Provider Internal Medicine | DX: I25.10 Atherosclerotic heart disease of native coronary artery without angina pectoris (principal); I48.19 Other persistent atrial fibrillation; I10 Essential (primary) hypertension; G47.33 Obstructive sleep apnea (adult) (pediatric); R06.02 Shortness of breath; Z79.01 Long term (current) use of anticoagulants; Z79.899 Other long term (current) drug therapy; Z99.89 Dependence on other enabling machines and devices | CPT/HCPCS: 93242; 99212 ==

== ENCOUNTER → 2022-03-28 10:53 | Outpatient (REF) | payer MEDICARE, MEDICAID, SELFPAY ==
--- NOTE | 2022-03-28 11:00 | HM_ITS ---
* Total monitoring time approximately 3 days. * Underlying rhythm is atrial fibrillation. Average ventricular rate 64/Min. Range 33 to 119/Min. * Only 0.13% of the time, rate > 100/Min. * Pauses noted. Longest 3.5 seconds during daytime hours. * Shortness of breath in diary correlated with atrial fibrillation at a rate of 86/Min. Another episode of shortness of breath correlates with atrial fibrillation at 48/Min (but mentioned to be sleeping). * Overall, well controlled atrial fibrillation. Pauses do not reach significance. MTDD
== END ==
LOC: HO.CARD 10:53
PROVIDERS: PCP Internal Medicine; Visit Provider Internal Medicine
DX: Z13.89 Encounter for screening for other disorder (principal)
CPT/HCPCS: 93242

== ENCOUNTER → 2022-03-29 12:48 | Outpatient (BNVA) | payer MEDICARE, MEDICAID, SELFPAY | PROVIDERS: PCP Internal Medicine; Visit Provider Nurse Practitioner Family | DX: M47.812 Spondylosis without myelopathy or radiculopathy, cervical region (principal); M17.0 Bilateral primary osteoarthritis of knee; Z79.891 Long term (current) use of opiate analgesic | CPT/HCPCS: 99212 ==

== ENCOUNTER 2022-04-04 08:28 | Outpatient (REF) | payer MEDICARE, MEDICAID, SELFPAY ==
--- NOTE | ~2022-04-04 | CT_ITS ---
EXAMINATION: CT CHEST SCREENING CLINICAL INFORMATION: Former smoker. Quit 1 year ago. 40 pack year history. COMPARISON: Previous chest CT August 2020 TECHNIQUE: Multidetector volumetric CT imaging of the chest is performed without contrast using low dose technique. Additional 2D coronal and sagittal reformatted images and axial 3D maximum intensity projection (MIP) images are generated on the CT workstation. This CT examination was performed using dose optimization techniques as appropriate, variously including the following: *Automated exposure control *Adjustment of mA and/or kV according to patient size (this includes techniques or standardized protocols for targeted exams where dose is matched to indication/reason for exam; i.e. extremities or head) *Use of iterative reconstruction technique DLP: 96 mGy-cm FINDINGS: LUNGS: Mild emphysema. The lungs are clear with no evidence of inflammation or nodules. No endobronchial or endotracheal lesion. MEDIASTINUM: Atherosclerotic disease. Normal heart size. Normal caliber thoracic aorta. No pericardial effusion. Small stable mediastinal lymph nodes. CORONARY ARTERY CALCIFICATION: Severe PLEURA: There is no pleural effusion. No pleural mass or thickening. AXILLA: No lymphadenopathy. UPPER ABDOMEN: Unremarkable OSSEOUS STRUCTURES: Degenerative changes of the spine. CT/CT lung screening IMPRESSION: Mild emphysema. No pulmonary nodule. Severe coronary artery calcification. ASSESSMENT: Lung-RADS category 1: Negative RECOMMENDATION: Annual low-dose chest CT follow-up.
== END 2022-04-04 08:29 | disposition home or self-care (01) ==
LOC: HO.CT 08:28
PROVIDERS: PCP Internal Medicine; Visit Provider Physician Assistant Medical
DX: Z12.2 Encounter for screening for malignant neoplasm of respiratory organs (principal); Z87.891 Personal history of nicotine dependence
CPT/HCPCS: 71271

== ENCOUNTER → 2022-04-25 14:34 | Outpatient (BNVA) | payer MEDICARE, MEDICAID, SELFPAY | PROVIDERS: PCP Internal Medicine; Referring Provider Internal Medicine; Visit Provider Internal Medicine | DX: I25.10 Atherosclerotic heart disease of native coronary artery without angina pectoris (principal); I48.19 Other persistent atrial fibrillation; I11.0 Hypertensive heart disease with heart failure; I50.32 Chronic diastolic (congestive) heart failure; G47.33 Obstructive sleep apnea (adult) (pediatric); Z79.01 Long term (current) use of anticoagulants; Z79.899 Other long term (current) drug therapy; Z99.89 Dependence on other enabling machines and devices | CPT/HCPCS: 99212 ==

== ENCOUNTER → 2022-04-26 13:21 | Outpatient (BNVA) | payer MEDICARE, MEDICAID, SELFPAY | PROVIDERS: PCP Internal Medicine; Visit Provider Nurse Practitioner Family | DX: Z51.81 Encounter for therapeutic drug level monitoring (principal); M47.812 Spondylosis without myelopathy or radiculopathy, cervical region; M47.816 Spondylosis without myelopathy or radiculopathy, lumbar region; M17.0 Bilateral primary osteoarthritis of knee; Z79.891 Long term (current) use of opiate analgesic | CPT/HCPCS: 99212 ==

== ENCOUNTER → 2022-05-24 09:09 | Outpatient (BNVA) | payer MEDICARE, MEDICAID, SELFPAY | PROVIDERS: PCP Internal Medicine; Visit Provider Nurse Practitioner Family | DX: M47.812 Spondylosis without myelopathy or radiculopathy, cervical region (principal); M47.816 Spondylosis without myelopathy or radiculopathy, lumbar region; M17.0 Bilateral primary osteoarthritis of knee; G89.4 Chronic pain syndrome; Z79.891 Long term (current) use of opiate analgesic; Z79.899 Other long term (current) drug therapy | CPT/HCPCS: 36415; 80053; 80162; 83880; 99212 ==

== ENCOUNTER 2022-05-24 09:46 | Outpatient (REF) | payer MEDICARE, MEDICAID, SELFPAY ==
[2022-05-24 11:09] LABS: Alanine Aminotransferase 26 U/L (0-40); Albumin Level 4.1 g/dL (3.5-5.0); Alkaline Phosphatase 111 U/L (39-117); Anion Gap 14 (12-20); Aspartate Amino Transferase 24 U/L (5-37); Bilirubin Total 0.8 mg/dL (0.0-1.0); Blood Urea Nitrogen 14 mg/dL (9-16); Carbon Dioxide 27 mmol/L (22-29); Chloride 104 mmol/L (96-108); Estimated Glomerular Filt Rate > 60; Glucose Random 107 mg/dL (60-115); Potassium 4.4 mmol/L (3.3-5.1); Sodium 141 mmol/L (135-145)
[2022-05-24 11:11] LABS: B Type Natriuretic Peptide 240 pg/mL (<100)
[2022-05-24 11:13] LABS: Digoxin 0.7 ng/mL (0.8-2.0)
== END 2022-05-24 09:47 | disposition home or self-care (01) ==
LOC: HO.10HDL 09:46
PROVIDERS: Visit Provider Internal Medicine
DX: Z13.89 Encounter for screening for other disorder (principal)
CPT/HCPCS: 36415; 80053; 80162; 83880

== ENCOUNTER → 2022-06-21 09:05 | Outpatient (BNVA) | payer MEDICARE, MEDICAID, SELFPAY | PROVIDERS: PCP Internal Medicine; Visit Provider Nurse Practitioner Family | DX: M17.0 Bilateral primary osteoarthritis of knee (principal); M47.812 Spondylosis without myelopathy or radiculopathy, cervical region; M47.816 Spondylosis without myelopathy or radiculopathy, lumbar region; M62.838 Other muscle spasm; G89.4 Chronic pain syndrome; Z79.891 Long term (current) use of opiate analgesic | CPT/HCPCS: 99212 ==

== ENCOUNTER → 2022-07-19 11:23 | Outpatient (BNVA) | payer MEDICARE, MEDICAID, SELFPAY | PROVIDERS: PCP Internal Medicine; Visit Provider Nurse Practitioner Family | DX: Z79.891 Long term (current) use of opiate analgesic (principal) | CPT/HCPCS: 99211 ==

== ENCOUNTER → 2022-07-25 14:23 | Outpatient (BNVA) | payer MEDICARE, MEDICAID, SELFPAY | PROVIDERS: PCP Internal Medicine; Referring Provider Internal Medicine; Visit Provider Internal Medicine | DX: I11.0 Hypertensive heart disease with heart failure (principal); I50.32 Chronic diastolic (congestive) heart failure; I25.10 Atherosclerotic heart disease of native coronary artery without angina pectoris; I48.19 Other persistent atrial fibrillation; G47.33 Obstructive sleep apnea (adult) (pediatric); Z99.89 Dependence on other enabling machines and devices | CPT/HCPCS: 99212 ==

== ENCOUNTER → 2022-08-16 10:41 | Outpatient (BNVA) | payer MEDICARE, MEDICAID, SELFPAY | PROVIDERS: PCP Internal Medicine; Visit Provider Registered Nurse Emergency | DX: Z79.891 Long term (current) use of opiate analgesic (principal) | CPT/HCPCS: 99211 ==

== ENCOUNTER 2022-09-20 10:48 | Outpatient (AMB) | payer MEDICARE, MEDICAID, SELFPAY ==
--- NOTE | 2022-09-20 10:50 | MHC.OFFVIS ---
Intake Vital Signs 09/20/22 10:56 Height 5 ft 11 in Weight 259 lb 2 oz BMI 36.1 BP 129/67 Blood Pressure Location Lt brachial Position Sitting Pulse 75 Pulse Source Pulse Oximeter Pulse Oximetry (%) 98 Oxygen Delivery Method Room Air Intake Visit Reasons: Pill count Intake Note: Alli comes in today for a pill count to morphine, patient should have 38 tablets and presents with 43 tablets which he last took today 09/20/22 at 6:30am. Pain today 6.5/10. Corporate Strategy Analyst Required: No Accompanied by: Self / Same As Patient Allergies No Known Allergies Allergy (Verified 09/20/22 10:57) HPI HPI Comments History of Present Illness Details Alli presents today for a pill count. Patient is supposed to have morphine IR 15 mg #38 pills, in his possession has #43 pills. This demonstrates a responsible attitude in regards to the medication regimen. Patient reports adequate analgesia on morphine IR 15 mg BID prn for his back and knee pain without noted side effects. Denies any fever, chest pain, headaches, palpitations, nausea, sedation, weakness or urinary retention except occasional constipation. 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 Degenerative joint disease of cervical and lumbar spine Hypercholesterolemia Insomnia Obesity Obstructive sleep apnea on CPAP (~03/2015) Peripheral vascular disease Persistent atrial fibrillation (~2014) Personal history of nicotine dependence Tobacco abuse Surgical History History of bilateral cataract extraction History of cardioversion (~2018) History of carpal tunnel release History of colonoscopy History of hip replacement, total History of removal of cyst History of spinal surgery History of vitrectomy (~11/2019) Family History Father Myocardial infarction Sister Multiple sclerosis Social History Household Members: Spouse Housing: House Alcohol intake: former Patient Tobacco Use Status: Former Tobacco user Quit Date: ~5 weeks ago Years Smoked: 54 on/off - 30pyh e-Cigarette/Vaping Use: Never Used Second Hand Smoke Exposure: Yes Current occupational status: retired Cognitive needs: No Hearing needs: No Vision needs: Yes Review of Systems Const All systems reviewed & are unremarkable except as noted in HPI and below ENT Reports Normal hearing present Neuro Reports Normal hearing present, Denies Abnormal speech present, Denies confusion and Denies Sensory deficit (Neuro) Psych Denies confusion Physical Exam Vital Signs: Last Vital Signs Pulse 75 09/20/22 10:56 BP 129/67 09/20/22 10:56 Pulse Ox 98 09/20/22 10:56 Oxygen Delivery Method Room Air 09/20/22 10:56 BMI result Body Mass Index 36.1 Const General: cooperative, no acute distress, alert, awake and well groomed; No confusion Nutritional Appearance: well nourished and obese Orientation/consciousness: patient oriented x3 and No confusion HEENT Ears: hearing grossly normal bilaterally Eyes General: appearance normal, both eyes and all related structures EOM: EOMs intact bilaterally Neck Neck: Yes normal visual inspection, Yes no lymphadenopathy, No anterior neck swelling and Yes no JVD Resp Effort & Inspection: normal respiratory effort, able to speak in complete sentences, no audible wheezes, no cough, no respiratory distress and symmetric chest movement Cardio Jugular venous distension: no JVD Bruits: no carotid bruits Peripheral pulses: radial pulses present GI Inspection: Yes normal to inspection, No distended and Yes obesity Palpation (GI): nontender Back/Spine/Pelvis Cervical Spine: cervical muscular tenderness, pain with cervical ROM, Cervical spine scars present, No Cervical spine tenderness and No step off deformity Thoracic/Lumbar Spine: No thoracic spinal tenderness and No lumbar spinal tenderness Skin General skin exam: no rashes or lesions noted Neuro General: patient oriented x3 and No confusion Cranial nerves: Yes Normal hearing present Cognition (Neuro): normal cognition Speech: No Abnormal speech present Gait exam (Neuro): Antalgic gait present and No Assistive device used Motor exam (neuro): 5/5 motor strength present throughout Sensory Exam: No Sensory deficit (Neuro) Psych Appearance: grossly normal and well kempt Mental Status: mental status grossly normal Speech and movement: Normal speech and movement present and Clear speech present Affect: normal affect Attitude: cooperative Thought process: Normal thought process present Thought content: Normal thought content present, suicidality (none), no hallucinations and No Depressive thoughts present Insight: Good insight present (Psych) Judgement: Good judgement present (Psych) Assessment & Plan Assessment & Plan (1) Chronic pain syndrome: Code(s): G89.4 - Chronic pain syndrome (2) Muscle spasms of neck: Code(s): M62.838 - Other muscle spasm (3) Opioid contract exists: Code(s): Z79.891 - group home (current) use of opiate analgesic (4) Degenerative joint disease of cervical and lumbar spine: Code(s): M47.812 - Spondylosis without myelopathy or radiculopathy, cervical region; M47.816 - Spondylosis without myelopathy or radiculopathy, lumbar region (5) Bilateral primary osteoarthritis of knee: Code(s): M17.0 - Bilateral primary osteoarthritis of knee Plan Patient has shown accountability for his medication regimen and the pill count was accurate. The patient reported no side effects. There is no evidence of misuse, abuse, or diversion at this time. Mass[employer] reviewed. Patient reports adequate analgesia with Morphine IR with improvement in breathing and pain control. Next morphine IR 15 mg BID prn script refill will be sent on 10/09/22. All questions were answered and patient agreed with the plan. Follow up in 4-5 weeks for pill count and sooner if needed. Medications: Refilled morphine Partial Fill upon patient request. 15 mg PO BID PRN 60 tabs 0RF pain 30 days G89.4 - Chronic pain syndrome, M17.0 - Bilateral primary osteoarthritis of knee, M47.812 - Spondylosis without myelopathy or radiculopathy, cervical region, M47.816 - Spondylosis without myelopathy or radiculopathy, lumbar region, Z79.891 - group home (current) use of opiate analgesic Coding Level of Care Code Est Pt Level 4 (75353) Diagnoses Chronic pain syndrome G89.4 Muscle spasms of neck M62.838 Opioid contract exists Z79.891 Degenerative joint disease of cervical and lumbar spine M47.812; M47.816 Bilateral primary osteoarthritis of knee M17.0
[2022-09-20 10:56] VITALS: BP 129/67; PULSE 75; O2SAT 98; BMI 36.1
== END 2022-09-20 11:00 | disposition home or self-care (01) ==
PROVIDERS: PCP Internal Medicine; Visit Provider Nurse Practitioner Family
DX: G89.4 Chronic pain syndrome (principal); M62.838 Other muscle spasm; Z79.891 Long term (current) use of opiate analgesic; M47.812 Spondylosis without myelopathy or radiculopathy, cervical region; M47.816 Spondylosis without myelopathy or radiculopathy, lumbar region; M17.0 Bilateral primary osteoarthritis of knee
CPT/HCPCS: 99214

== ENCOUNTER → 2022-09-20 10:48 | Outpatient (BNVA) | payer MEDICARE, MEDICAID, SELFPAY | PROVIDERS: PCP Internal Medicine; Visit Provider Nurse Practitioner Family | DX: Z51.81 Encounter for therapeutic drug level monitoring (principal); M62.838 Other muscle spasm; M47.812 Spondylosis without myelopathy or radiculopathy, cervical region; M47.816 Spondylosis without myelopathy or radiculopathy, lumbar region; M17.0 Bilateral primary osteoarthritis of knee; G89.4 Chronic pain syndrome; Z79.891 Long term (current) use of opiate analgesic | CPT/HCPCS: 99212 ==

== ENCOUNTER 2022-09-26 13:02 | Outpatient (AMB) | payer MEDICARE, MEDICAID, SELFPAY ==
[2022-09-26 13:10] VITALS: BP 138/72; PULSE 79; O2SAT 96; BMI 36.5
--- NOTE | 2022-09-26 13:10 | MHC.PC.OV ---
Vital Signs 09/26/22 13:10 Height 5 ft 11 in Weight 262 lb BMI 36.5 BP 138/72 Blood Pressure Location Lt brachial Position Sitting Pulse 79 Pulse Source Pulse Oximeter Pulse Oximetry (%) 96 Oxygen Delivery Method Room Air Intake Visit Reasons: CHF. Atrial fib Allergies No Known Allergies Allergy (Verified 09/26/22 13:11) Medication List - Last Reconciled 09/26/22 by Pauline Noriega MD albuterol sulfate 2.5 mg (3 mL) inhalation Q4-6H PRN apixaban (Eliquis) 5 mg PO BID 90 days atorvastatin 40 mg PO DAILY baclofen 10 mg PO TID PRN bupropion HCl (Wellbutrin SR) 150 mg PO QAM [CPAP full face mask 14 cm h20 humidified Air As directed] dapagliflozin propanediol (Farxiga) 5 mg (1/2 x 10 mg) PO DAILY digoxin 125 mcg PO DAILY diltiazem HCl ER 360 mg PO DAILY [id number]-[id number]-lvovtgxi 200-62.5-25 mcg (Trelegy Ellipta) 1 inh inhalation DAILY furosemide 80 mg (2 x 40 mg) PO DAILY 90 days furosemide (Lasix) 40 mg PO DAILY ipratropium-albuterol 20-100 mcg/actuation (Combivent Respimat) 1 puff PO QID metoprolol tartrate 25 mg PO BID 90 days morphine 15 mg PO BID PRN 30 days naloxone 4 mg/actuation (Narcan) 4 mg intranasal Q2M PRN polyethylene glycol 3350 (Miralax) 17 grams PO DAILY trazodone 50 mg PO BEDTIME PRN Tobacco use date assessed: 03/07/22 Fall risk assessment: No Falls in past year Last assessed Fall Risk: 09/26/22 Dental Screening Dental Screen Date: 09/26/22 Did you have a dental visit in the last 12 months?: Yes Did you have a dental problem in the last 6 months where you did not have access to dental care?: No Was dental information given to patient?: Patient has dentist HPI CHF. Atrial fib HPI Details 22-year-old obese male with congestive heart failure diastolic coronary artery disease obstructive sleep apnea hypertension atrial fibrillation COPD hypercholesterolemia last seen in May 2022 coming in for follow-up. Blood work requested. Patient is up-to-date with colonoscopy patient with the chronic pain seeing pain management for cervical and lumbar radiculopathy and bilateral arthritis of knee. Patient follows up with Pulmonary July 2022 increase in the diuretic to 120 mg once a day as for the CAD recent catheterization minimal irregularities patient has failed 2 cardioversions including amiodarone presently on diltiazem metoprolol digoxin and continue with anticoagulation for the obstructive sleep apnea on CPAP. Patient has been started on furosemide and Farga [facility] Medical History (Updated 09/26/22 @ 13:46 by Pauline Noriega MD) Bilateral primary osteoarthritis of knee COPD (chronic obstructive pulmonary disease) Current use of group home anticoagulation Degenerative joint disease of cervical and lumbar spine Hypercholesterolemia Insomnia Obesity Obstructive sleep apnea on CPAP (~03/2015) Peripheral vascular disease Persistent atrial fibrillation (~2014) Personal history of nicotine dependence Tobacco abuse Surgical History History of bilateral cataract extraction History of cardioversion (~2018) History of carpal tunnel release History of colonoscopy History of hip replacement, total History of removal of cyst History of spinal surgery History of vitrectomy (~11/2019) Family History Father Myocardial infarction Sister Multiple sclerosis Social History Household Members: Spouse Housing: House Alcohol intake: former Patient Tobacco Use Status: Former Tobacco user Quit Date: ~5 weeks ago Tobacco use type: Cigarette Years Smoked: 54 on/off - 30pyh e-Cigarette/Vaping Use: Never Used Second Hand Smoke Exposure: Yes Current occupational status: retired Cognitive needs: No Hearing needs: No Vision needs: Yes Questionnaire PHQ-9 Over the last 2 weeks, how often have you been bothered by any of the following problems? 1. Little interest or pleasure in doing things: not at all 2. Feeling down, depressed, or hopeless: not at all 3. Trouble falling or staying asleep, or sleeping too much: not at all 4. Feeling tired or having little energy: not at all 5. Poor appetite or overeating: not at all 6. Feeling bad about yourself - or that you are a failure or have let yourself or your family down: not at all 7. Trouble concentrating on things, such as reading the newspaper or watching television: not at all 8. Moving or speaking so slowly that other people could have noticed. Or the opposite - being so fidgety or restless that you have been moving around a lot more than usual: not at all 9. Thoughts that you would be better off or of hurting yourself in some way: not at all Total score: 0 Depression Screening Interpretation: Negative Source: Developed by Drs. Alli Chen, Miya Oneil, Umair Whitten and colleagues, with an educational megha from [employer]. Thrive Questionnaire Date Thrive assessed: 03/07/22 AUDIT C Alcohol Use Questionnaire (AUDIT-C) 1. How often do you have a drink containing alcohol?: 2-3 times a week 2. How many drinks containing alcohol do you have on a typical day when you are drinking?: 1 or 2 3. How often do you have six or more drinks on one occasion?: Never Total Score: 3 LUCY-7 AMB Questionnaire LUCY-7 Date LUCY - 7 assessed: 03/07/22 Source: Developed by Drs. Alli Chen, Miya Oneil, Umair Whitten and colleagues, with an educational megha from [employer]. Physical exam (Primary Care) Vital Signs: Last Vital Signs Pulse 79 09/26/22 13:10 BP 138/72 09/26/22 13:10 Pulse Ox 96 09/26/22 13:10 Oxygen Delivery Method Room Air 09/26/22 13:10 BMI result Body Mass Index 36.5 Tobacco/Smoking Status: Tobacco use Status Tobacco use date assessed 03/07/22 09/26/22 13:17 Patient Tobacco Use Status Former Tobacco user 09/26/22 13:17 Tobacco use type Cigarette 09/26/22 13:17 e-Cigarette/Vaping Use Never Used 09/26/22 13:17 PHQ-9: PHQ-9 Score PHQ-9: Total score 0 09/26/22 13:34 Depression Screening Interpretation: Negative Thrive Assessment: Date of Thrive Assessment Date Thrive assessed 03/07/22 09/26/22 13:17 Const General: alert; No acute distress Eyes Conjunctivae: conjunctivae normal Resp Auscultation: clear to auscultation bilaterally Cardio Rate: regular rate Rhythm: regular rhythm GI Inspection: Yes normal to inspection Extrem Other: 2+ edema in lower extremity General: Yes edema Assessment and Plan Assessment & Plan (1) Chronic diastolic (congestive) heart failure: Code(s): I50.32 - Chronic diastolic (congestive) heart failure Plan: Patient has been follow-up with cardiology increased diuretic and the started on Farxiga (2) Atherosclerotic cardiovascular disease: Code(s): I25.10 - Atherosclerotic heart disease of [place] coronary artery without angina pectoris Plan: Control the cholesterol, weight, blood pressure (3) YUNIEL on CPAP: Code(s): G47.33 - Obstructive sleep apnea (adult) (pediatric); Z99.89 - Dependence on other enabling machines and devices Plan: Continue with CPAP more than 4 hours a night and benefits from this (4) Essential hypertension: Code(s): I10 - Essential (primary) hypertension Plan: Continue with blood pressure medication. Decrease salt intake and exercise patient is on diltiazem 360 mg once a day metoprolol 25 mg twice a day (5) Persistent atrial fibrillation: Onset Date: ~2014 Code(s): I48.19 - Other persistent atrial fibrillation Plan: Continue with anticoagulation (6) COPD (chronic obstructive pulmonary disease): Code(s): J44.9 - Chronic obstructive pulmonary disease, unspecified Qualifiers: COPD type: emphysema Emphysema type: panlobular Qualified Code(s): J43.1 - Panlobular emphysema Plan: Continue with a inhaler as needed (7) Hypercholesterolemia: Code(s): E78.00 - Pure hypercholesterolemia, unspecified Plan: Avoid fried foods, chicken skin, eggs, butter margarine, pastries and meat. Be it pork or beef they have a lot of cholesterol LDL goal of less than 70 and triglyceride of less than 150 (8) Bilateral primary osteoarthritis of knee: Code(s): M17.0 - Bilateral primary osteoarthritis of knee Plan: Patient is seeing pain management and on narcotic pain medication (9) Insomnia: Code(s): G47.00 - Insomnia, unspecified (10) Peripheral vascular disease: Code(s): I73.9 - Peripheral vascular disease, unspecified Plan: When sitting down elevate the legs, exercise, and support stockings. Discussed about wrapping with Ananth to get the swelling down. Continue with diuretic but monitor for the renal function Medications: New trazodone 50 mg PO BEDTIME PRN 30 tabs 2RF sleep G47.00 - Insomnia, unspecified ipratropium-albuterol 20-100 mcg/actuation (Combivent Respimat) space evenly during waking hours 1 puff inhalation QID 4 grams 0RF G47.00 - Insomnia, unspecified Changed From dapagliflozin propanediol (Farxiga) 10 mg PO DAILY 90 tabs 3RF To dapagliflozin propanediol (Farxiga) 5 mg (1/2 x 10 mg) PO DAILY 90 tabs 3RF Coding Level of Care Code Est Pt Level 4 (10632) Diagnoses Chronic diastolic (congestive) heart failure I50.32 Atherosclerotic cardiovascular disease I25.10 YUNIEL on CPAP G47.33; Z99.89 Essential hypertension I10 Persistent atrial fibrillation I48.19 COPD (chronic obstructive pulmonary disease) J43.1 COPD type: emphysema Emphysema type: panlobular Hypercholesterolemia E78.00 Bilateral primary osteoarthritis of knee M17.0 Insomnia G47.00 Peripheral vascular disease I73.9
== END 2022-09-26 14:05 | disposition home or self-care (01) ==
PROVIDERS: Visit Provider Internal Medicine
DX: I11.0 Hypertensive heart disease with heart failure (principal); I50.32 Chronic diastolic (congestive) heart failure; I48.19 Other persistent atrial fibrillation; J43.1 Panlobular emphysema; I25.10 Atherosclerotic heart disease of native coronary artery without angina pectoris; G47.33 Obstructive sleep apnea (adult) (pediatric); Z99.89 Dependence on other enabling machines and devices; E78.00 Pure hypercholesterolemia, unspecified; M17.0 Bilateral primary osteoarthritis of knee; G47.00 Insomnia, unspecified; I73.9 Peripheral vascular disease, unspecified
CPT/HCPCS: 99214

== ENCOUNTER 2022-10-13 08:35 | Outpatient (REF) | payer MEDICARE, MEDICAID, SELFPAY ==
[2022-10-13 10:41] LABS: MANUAL DIFF FLAG NO
[2022-10-13 10:42] LABS: Basophils Absolute Auto 0.1 X10*3/uL (0.0-0.2); Basophils Percent Auto 0.5 % (0-2); Eosinophils Absolute Auto 0.4 X10*3/uL (0.0-0.4); Eosinophils Percent Auto 3.8 % (0-4); Hematocrit 39.6 % (42.0-52.0); Hemoglobin 12.5 g/dl (14.0-18.0); Imm Gran Abs Auto 0.06 X10*3/uL (0.00-0.03); Imm Gran Pct Auto 0.5 % (0.0-0.4); Immature Retic Fraction 20.3 % (2.3-13.4); Lymphocytes Absolute Auto 1.8 X10*3/uL (1.2-4.9); Lymphocytes Percent Auto 16.6 % (20-40); Mean Corpuscular HGB Conc 31.6 g/dl (31.0-36.0); Mean Corpuscular Hemoglobin 30.8 pg (27.0-33.0); Mean Corpuscular Volume 97.5 fL (80.0-98.0); Mean Platelet Volume 12.1 fL (9.4-12.4); Monocytes Absolute Auto 0.9 X10*3/uL (0.1-1.2); Monocytes Percent Auto 8.4 % (2-11); Neutrophils Absolute Auto 7.7 x10*3/uL (2.0-8.3); Neutrophils Percent Auto 70.2 % (45-73); Platelet Count 179 X10*3/uL (160-400); Red Blood Count 4.06 X10*6/uL (4.60-5.80); Red Cell Distribution Width 15.8 % (11.0-16.0); Retic HGB Equivalent 35.4 pg (30.0-35.0); Reticulocyte Percent 1.7 % (0.5-1.8); Reticulocytes Absolute 0.069 X10*6/uL (0.026-0.095)
[2022-10-13 11:09] LABS: Alanine Aminotransferase 22 U/L (0-40); Albumin Level 3.7 g/dL (3.5-5.0); Alkaline Phosphatase 88 U/L (39-117); Anion Gap 13 (12-20); Aspartate Amino Transferase 23 U/L (5-37); Bilirubin Total 0.6 mg/dL (0.0-1.0); Blood Urea Nitrogen 13 mg/dL (9-16); Calcium 9.3 mg/dL (8.4-10.2); Carbon Dioxide 27 mmol/L (22-29); Chloride 105 mmol/L (96-108); Estimated Glomerular Filt Rate 58; Glucose Random 113 mg/dL (60-115); Iron 44 mcg/dL (45-160); Percent Iron Saturation 17 % (15-50); Phosphorus 3.8 mg/dL (2.7-4.5); Potassium 4.3 mmol/L (3.3-5.1); Sodium 141 mmol/L (135-145); Total Iron Binding Capacity 259 mcg/dL (228-428); Total Protein 7.1 g/dL (6.5-8.0); Unsaturated Iron Binding 215 ug/dL
[2022-10-13 11:29] LABS: Ferritin 233 ng/mL (20-250); Free T4 (Free Thyroxine) 1.04 ng/dL (0.71-1.85); Thyroid Stimulating Hormone 1.76 uIU/mL (0.32-4.0)
[2022-10-13 11:33] LABS: Folate 11.3 ng/mL (> or = 4.0); Vitamin B12 438 pg/mL (200-900)
[2022-10-13 11:37] LABS: B Type Natriuretic Peptide 289 pg/mL (<100)
== END 2022-10-13 08:36 | disposition home or self-care (01) ==
LOC: HO.10HDL 08:35
PROVIDERS: Visit Provider Internal Medicine
DX: I50.32 Chronic diastolic (congestive) heart failure (principal)
CPT/HCPCS: 36415; 80053; 82607; 82728; 82746; 83540; 83735; 83880; 84100; 84439; 84443; 85025; 85045

== ENCOUNTER 2022-10-25 10:30 | Outpatient (AMB) | payer MEDICARE, MEDICAID, SELFPAY ==
--- NOTE | 2022-10-25 10:43 | MHC.OFFVIS ---
Intake Vital Signs 10/25/22 10:51 Height 5 ft 11 in Weight 255 lb 4 oz BMI 35.6 BP 131/63 Blood Pressure Location Rt brachial Position Sitting Pulse 71 Pulse Source Pulse Oximeter Pulse Oximetry (%) 98 Oxygen Delivery Method Room Air Intake Visit Reasons: Pill count Intake Note: Alli comes in today for a pill count to morphine, patient should have 28 tablets and presents with 34 tablets which he last took today 10/25/22 at 4am. Pain today 08/29. 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 Patient is supposed to have morphine IR 15 mg #28 pills, in his possession has #34 pills. This demonstrates a responsible attitude in regards to the medication regimen. Patient reports moderate pain relief on morphine IR 15 mg BID prn for his back and knee pain without noted side effects. However reports no pain relief for his chronic lower legs and foot pain. Patient denies previous vascular evaluation for PVD. He reports cold feet while wearing wool socks in 90 degree weather and hot burning pain with numbness and tingling in his lower legs with rest or ambulation. Patient is currently wearing compression stockings with mild ankle edema bilaterally. He is interested to undergo Vascular evaluation. Denies any fever, chest pain, headaches, palpitations, nausea, sedation, weakness or urinary retention except occasional constipation. 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 Degenerative joint disease of cervical and lumbar spine Hypercholesterolemia Insomnia Obesity Obstructive sleep apnea on CPAP (~03/2015) Peripheral vascular disease Persistent atrial fibrillation (~2014) Personal history of nicotine dependence Tobacco abuse Surgical History History of bilateral cataract extraction History of cardioversion (~2018) History of carpal tunnel release History of colonoscopy History of hip replacement, total History of removal of cyst History of spinal surgery History of vitrectomy (~11/2019) Family History Father Myocardial infarction Sister Multiple sclerosis Social History Household Members: Spouse Housing: House Alcohol intake: former Patient Tobacco Use Status: Former Tobacco user Quit Date: ~5 weeks ago Tobacco use type: Cigarette Years Smoked: 54 on/off - 30pyh e-Cigarette/Vaping Use: Never Used Second Hand Smoke Exposure: Yes Current occupational status: retired Cognitive needs: No Hearing needs: No Vision needs: Yes Review of Systems Const All systems reviewed & are unremarkable except as noted in HPI and below ENT Reports Normal hearing present Neuro Reports Normal hearing present, Denies Abnormal speech present and Denies confusion Psych Denies confusion Physical Exam Vital Signs: Last Vital Signs Pulse 71 10/25/22 10:51 BP 131/63 10/25/22 10:51 Pulse Ox 98 10/25/22 10:51 Oxygen Delivery Method Room Air 10/25/22 10:51 BMI result Body Mass Index 35.6 Const General: cooperative, no acute distress, alert, awake and well groomed; No confusion Nutritional Appearance: obese Orientation/consciousness: patient oriented x3 and No confusion HEENT Ears: hearing grossly normal bilaterally Eyes General: appearance normal, both eyes and all related structures EOM: EOMs intact bilaterally Resp Effort & Inspection: normal respiratory effort, able to speak in complete sentences, no audible wheezes, no cough and no respiratory distress Cardio Jugular venous distension: no JVD Bruits: no carotid bruits Peripheral pulses: radial pulses present, posterior tibial pulses present and dorsalis pedis present GI Inspection: Yes normal to inspection, No distended and Yes obesity Palpation (GI): Soft to palpation and nontender Back/Spine/Pelvis Cervical Spine: cervical muscular tenderness, pain with cervical ROM, Cervical spine scars present, No Cervical spine tenderness and No step off deformity Thoracic/Lumbar Spine: thoracic and lumbar spine normal to inspection, Lasegue's sign negative, pain with thoraco-lumbar ROM, No thoracic spinal tenderness and No lumbar spinal tenderness Skin General skin exam: no rashes or lesions noted Neuro General: patient oriented x3 and No confusion Cranial nerves: Yes Normal hearing present Cognition (Neuro): normal cognition Speech: No Abnormal speech present Gait exam (Neuro): Antalgic gait present and No Assistive device used Motor exam (neuro): 5/5 motor strength present throughout, no tremor noted and Motor abnormalities not present Extrem General: Yes capillary refill normal, Yes no calf tenderness and Yes pedal edema (ankle/pedal +1. Wearing compression stockings.) Psych Appearance: grossly normal and well kempt Mental Status: mental status grossly normal Speech and movement: Normal speech and movement present and Clear speech present Affect: normal affect Attitude: cooperative Thought process: Normal thought process present Thought content: Normal thought content present, suicidality (none), no hallucinations and No Depressive thoughts present Insight: Good insight present (Psych) Judgement: Good judgement present (Psych) Assessment & Plan Assessment & Plan (1) Chronic pain syndrome: Code(s): G89.4 - Chronic pain syndrome (2) Peripheral neuropathy: Code(s): G62.9 - Polyneuropathy, unspecified (3) Peripheral vascular disease: Code(s): I73.9 - Peripheral vascular disease, unspecified (4) Degenerative joint disease of cervical and lumbar spine: Code(s): M47.812 - Spondylosis without myelopathy or radiculopathy, cervical region; M47.816 - Spondylosis without myelopathy or radiculopathy, lumbar region (5) Bilateral primary osteoarthritis of knee: Code(s): M17.0 - Bilateral primary osteoarthritis of knee (6) Opioid contract exists: Code(s): Z79.891 - senior living (current) use of opiate analgesic Plan Patient has shown accountability for his medication regimen and the pill count was accurate. The patient reported no side effects. There is no evidence of misuse, abuse, or diversion at this time. MassPat reviewed. Patient reports adequate analgesia with Morphine IR. Next morphine IR 15 mg BID prn script refill will be sent on 11/08/22. Vascular Referral for chronic lower extremity and foot pain. If no significant findings, will proceed with Neurodiagnostic studies to evaluate peripheral neuropathy. Discussed Qutenza patch, informational brochure provided. In meantime, patient will start on gabapentin 300 mg at bedtime for one week and titrate up to twice daily starting 2nd week if well tolerated. Side effects and precautions were reviewed with patient. Patient reports taking gabapentin in the past with good tolerance. All questions were answered and patient agreed with the plan. Follow up in 4-5 weeks for pill count and sooner if needed. Orders: Referrals Vascular Surgery Referral G62.9 - Polyneuropathy, unspecified, I73.9 - Peripheral vascular disease, unspecified Medications: New gabapentin 300 mg PO BID 30 days 60 caps 0RF pain G62.9 - Polyneuropathy, unspecified, G89.4 - Chronic pain syndrome Refilled morphine Partial Fill upon patient request. 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
[2022-10-25 10:51] VITALS: BP 131/63; PULSE 71; O2SAT 98; BMI 35.6
== END 2022-10-25 11:03 | disposition home or self-care (01) ==
PROVIDERS: PCP Internal Medicine; Visit Provider Nurse Practitioner Family
DX: G89.4 Chronic pain syndrome (principal); G62.9 Polyneuropathy, unspecified; M47.812 Spondylosis without myelopathy or radiculopathy, cervical region; Z79.891 Long term (current) use of opiate analgesic; M47.816 Spondylosis without myelopathy or radiculopathy, lumbar region; M17.0 Bilateral primary osteoarthritis of knee
CPT/HCPCS: 99214

== ENCOUNTER → 2022-10-25 10:30 | Outpatient (BNVA) | payer MEDICARE, MEDICAID, SELFPAY | PROVIDERS: PCP Internal Medicine; Visit Provider Nurse Practitioner Family | DX: I11.0 Hypertensive heart disease with heart failure (principal); I50.32 Chronic diastolic (congestive) heart failure; I25.10 Atherosclerotic heart disease of native coronary artery without angina pectoris; I48.19 Other persistent atrial fibrillation; G47.33 Obstructive sleep apnea (adult) (pediatric); Z79.01 Long term (current) use of anticoagulants; Z79.899 Other long term (current) drug therapy; Z99.89 Dependence on other enabling machines and devices; G89.4 Chronic pain syndrome; G62.9 Polyneuropathy, unspecified; I73.9 Peripheral vascular disease, unspecified; M47.812 Spondylosis without myelopathy or radiculopathy, cervical region; M17.0 Bilateral primary osteoarthritis of knee; Z79.891 Long term (current) use of opiate analgesic | CPT/HCPCS: 99212 ==

== ENCOUNTER 2022-10-25 11:10 | Outpatient (AMB) | payer MEDICARE, MEDICAID, SELFPAY ==
[2022-10-25 11:12] VITALS: BP 136/64; PULSE 75; BMI 35.7
--- NOTE | 2022-10-25 11:12 | MHC.OFFVIS ---
Intake Vital Signs 10/25/22 11:12 Height 5 ft 11 in Weight 255 lb 11.779 oz BMI 35.7 BP 136/64 Blood Pressure Location Lt brachial Position Sitting Pulse 75 Intake Visit Reasons: 3 month f/u Intake Note: 3 month follow up Severity Of Illness Coordinator Required: No Accompanied by: Self / Same As Patient Allergies No Known Allergies Allergy (Verified 10/25/22 11:17) Medication List - Last Reconciled 10/25/22 by Wally Sen MD albuterol sulfate 2.5 mg (3 mL) inhalation Q4-6H PRN apixaban (Eliquis) 5 mg PO BID 90 days atorvastatin 40 mg PO DAILY baclofen 10 mg PO TID PRN bupropion HCl (Wellbutrin SR) 150 mg PO QAM [CPAP full face mask 14 cm h20 humidified Air As directed] dapagliflozin propanediol (Farxiga) 5 mg (1/2 x 10 mg) PO DAILY digoxin 125 mcg PO DAILY diltiazem HCl ER 360 mg PO DAILY kvcqfzcypgr-wfiaptrqf-fjmnzsal 200-62.5-25 mcg (Trelegy Ellipta) 1 inh inhalation DAILY furosemide 80 mg (2 x 40 mg) PO DAILY 90 days furosemide (Lasix) 40 mg PO DAILY gabapentin 300 mg PO BID 30 days ipratropium-albuterol 20-100 mcg/actuation (Combivent Respimat) 1 puff inhalation QID ipratropium-albuterol 20-100 mcg/actuation (Combivent Respimat) 1 puff PO QID metoprolol tartrate 25 mg PO BID 90 days morphine 15 mg PO BID PRN 30 days naloxone 4 mg/actuation (Narcan) 4 mg intranasal Q2M PRN polyethylene glycol 3350 (Miralax) 17 grams PO DAILY trazodone 50 mg PO BEDTIME PRN HPI HPI Comments History of Present Illness Details Alli returns for follow-up regarding follow-up of atrial flutter/fibrillation. Atrial flutter was originally detected during an office visit many years ago around 2014. At that time, he reverted back to sinus rhythm in a short time. He was okay for couple of years then started going back in atrial fibrillation. Cardioversion was unsuccessful. Even with amiodarone use we re-attempted but did not last and he went back into atrial fibrillation. Then he was left on rate control only. Overall, he is generally feeling okay. No specific complaints. Shortness of breath is at baseline. Has some leg swelling but under control. No angina. Otherwise, seems to be getting along okay. [facility] Medical History Bilateral primary osteoarthritis of knee COPD (chronic obstructive pulmonary disease) Current use of half-way anticoagulation Degenerative joint disease of cervical and lumbar spine Hypercholesterolemia Insomnia Obesity Obstructive sleep apnea on CPAP (~03/2015) Peripheral vascular disease Persistent atrial fibrillation (~2014) Personal history of nicotine dependence Tobacco abuse Surgical History History of bilateral cataract extraction History of cardioversion (~2018) History of carpal tunnel release History of colonoscopy History of hip replacement, total History of removal of cyst History of spinal surgery History of vitrectomy (~11/2019) Family History Father Myocardial infarction Sister Multiple sclerosis Social History Household Members: Spouse Housing: House Alcohol intake: former Patient Tobacco Use Status: Former Tobacco user Quit Date: ~5 weeks ago Tobacco use type: Cigarette Years Smoked: 54 on/off - 30pyh e-Cigarette/Vaping Use: Never Used Second Hand Smoke Exposure: Yes Current occupational status: retired Cognitive needs: No Hearing needs: No Vision needs: Yes Review of Systems Const Denies weakness ENT Denies dizziness Card Denies chest pain, Denies chest pain with activity, Denies syncope, Denies rapid heart rate, Denies pedal edema, Denies edema, Denies leg edema, Denies lightheadedness, Denies palpitations, Denies dyspnea, Denies dyspnea on exertion and Denies orthopnea Resp Denies cough, Denies dyspnea and Denies dyspnea on exertion GI Denies hematochezia and Denies change in stool character Musc Denies abnormal gait, Denies muscle cramps, Denies muscle weakness, Denies numbness, Denies radiating pain into limb and Denies tingling Neuro Denies abnormal gait, Denies dizziness, Denies syncope, Denies numbness, Denies tingling and Denies weakness Endo Denies palpitations Physical Exam Vital Signs: Last Vital Signs Pulse 75 10/25/22 11:12 BP 136/64 10/25/22 11:12 BMI result Body Mass Index 35.7 Const General: comfortable and no acute distress Orientation/consciousness: patient oriented x3 HEENT Other: Unremarkable Head: Yes normal to inspection Neck Neck: Yes normal visual inspection Chest Chest palpation & inspection: normal inspection of the chest Resp Auscultation: clear to auscultation bilaterally Cardio Palpation: normal PMI Heart sounds: S1 normal heart sound present, S2 normal heart sound present, no gallops, no murmurs and no rubs GI Palpation (GI): Soft to palpation Back/Spine/Pelvis Other: unremarkable Skin General skin exam: no rashes or lesions noted Neuro General: patient oriented x3 Extrem Other: 1+ edema b/l General: Yes normal to inspection Psych Mental Status: mental status grossly normal Assessment & Plan Assessment & Plan (1) Chronic diastolic (congestive) heart failure: Code(s): I50.32 - Chronic diastolic (congestive) heart failure Plan: Shortness of breath probably multifactorial. Likely some combination of CHF/COPD-asthma. Continue diuretics. Continue Farxiga. PFTs from 2016 had shown moderately severe obstructive pulmonary disease, consistent with asthma. This also likely contributes to his shortness of breath. (2) Atherosclerotic cardiovascular disease: Code(s): I25.10 - Atherosclerotic heart disease of [place] coronary artery without angina pectoris Plan: Cardiac catheterization showed minimal irregularities only but nothing otherwise of significance. No angina. Continue statins. (3) Persistent atrial fibrillation: Onset Date: ~2014 Code(s): I48.19 - Other persistent atrial fibrillation Plan: He has failed 2 cardioversions including with Amiodarone. Hence on rate control medications. On a combination of diltiazem, metoprolol, digoxin. Continue Eliquis. Holter shows well controlled atrial fibrillation. Stable digoxin levels. (4) Essential hypertension: Code(s): I10 - Essential (primary) hypertension Plan: Stable. No changes. (5) Obstructive sleep apnea on CPAP: Onset Date: ~03/2015 Code(s): G47.33 - Obstructive sleep apnea (adult) (pediatric); Z99.89 - Dependence on other enabling machines and devices Plan: CPAP. Plan Follow-up in 6 months. He will call us with any interim concerns. Coding Level of Care Code Est Pt Level 4 (49853) Diagnoses Chronic diastolic (congestive) heart failure I50.32 Atherosclerotic cardiovascular disease I25.10 Persistent atrial fibrillation I48.19 Essential hypertension I10 Obstructive sleep apnea on CPAP G47.33; Z99.89
== END 2022-10-25 11:31 | disposition home or self-care (01) ==
PROVIDERS: PCP Internal Medicine; Referring Provider Internal Medicine; Visit Provider Internal Medicine
DX: I50.32 Chronic diastolic (congestive) heart failure (principal); I25.10 Atherosclerotic heart disease of native coronary artery without angina pectoris; I48.19 Other persistent atrial fibrillation; I10 Essential (primary) hypertension; G47.33 Obstructive sleep apnea (adult) (pediatric); Z99.89 Dependence on other enabling machines and devices
CPT/HCPCS: 99214

== ENCOUNTER 2022-11-29 10:42 | Outpatient (AMB) | payer MEDICARE, MEDICAID, SELFPAY ==
--- NOTE | 2022-11-29 10:45 | MHC.OFFVIS ---
Intake Vital Signs 11/29/22 10:53 Height 5 ft 11 in Weight 252 lb 8 oz BMI 35.2 BP 136/69 Blood Pressure Location Lt brachial Position Sitting Pulse 72 Pulse Source Pulse Oximeter Pulse Oximetry (%) 97 Oxygen Delivery Method Room Air Intake Visit Reasons: Medication Count Intake Note: Alli comes in today for a pill count to morphine, patient should have 22 tablets and presents with 27 tablets which he last took today 11/29/22 at 5am. Pain today 09/29. Irrigation Equipment Remover Required: No Accompanied by: Self / Same As Patient Allergies No Known Allergies Allergy (Verified 11/29/22 10:52) HPI HPI Comments History of Present Illness Details Alli presents today for a pill count. Patient is supposed to have morphine IR 15 mg #22 pills, in his possession has #27 pills. This demonstrates a responsible attitude in regards to the medication regimen. Patient reports mild to moderate pain relief on morphine IR 15 mg BID prn for his back and knee pain without noted side effects but no pain relief for his worsening neck pain. He has limited cervical spine ROM, especially on the right with muscle stiffness and spasms. Reports chronic numbness and tingling in both hands with prior history of right carpal tunnel release. He has history of prior lumbar spine surgery for lumbar DDD and cervical spine surgery for spinal stenosis. Baclofen, gabapentin, Tylenol has been minimally effective. Reports worsening neck pain while working on his computer to the point that he cries due to significant neck pain. Patient is interested to undergo interventional treatments for his chronic neck pain. Will update his cervical spine imaging. Denies any fever, chest pain, headaches, palpitations, nausea, sedation, weakness or urinary retention except occasional constipation. 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 Degenerative joint disease of cervical and lumbar spine Hypercholesterolemia Insomnia Obesity Obstructive sleep apnea on CPAP (~03/2015) Peripheral vascular disease Persistent atrial fibrillation (~2014) Personal history of nicotine dependence Tobacco abuse Surgical History History of bilateral cataract extraction History of cardioversion (~2018) History of carpal tunnel release History of colonoscopy History of hip replacement, total History of removal of cyst History of spinal surgery History of vitrectomy (~11/2019) Family History Father Myocardial infarction Sister Multiple sclerosis Social History Household Members: Spouse Housing: House Alcohol intake: former Patient Tobacco Use Status: Former Tobacco user Quit Date: ~5 weeks ago Tobacco use type: Cigarette Years Smoked: 54 on/off - 30pyh e-Cigarette/Vaping Use: Never Used Second Hand Smoke Exposure: Yes Current occupational status: retired Cognitive needs: No Hearing needs: No Vision needs: Yes Review of Systems Const All systems reviewed & are unremarkable except as noted in HPI and below ENT Reports Normal hearing present Neuro Reports Normal hearing present, Denies Abnormal speech present, Denies confusion and Denies Sensory deficit (Neuro) Psych Denies confusion Physical Exam Vital Signs: Last Vital Signs Pulse 72 11/29/22 10:53 BP 136/69 11/29/22 10:53 Pulse Ox 97 11/29/22 10:53 Oxygen Delivery Method Room Air 11/29/22 10:53 BMI result Body Mass Index 35.2 Const General: cooperative, no acute distress, alert, awake and well groomed; No confusion Nutritional Appearance: well nourished and obese Orientation/consciousness: patient oriented x3 and No confusion HEENT Head: Yes normal to inspection and Yes normocephalic Ears: hearing grossly normal bilaterally General nose exam: No nasal discharge present Face and sinus: Yes normal facial exam and Yes face symmetric Eyes General: appearance normal, both eyes and all related structures Visual Donohue: normal visual donohue by confrontation Eyelids: Yes eyelids normal EOM: EOMs intact bilaterally Neck Neck: Yes normal visual inspection, Yes no lymphadenopathy, No anterior neck swelling, Yes no JVD and Yes prominent dorsocervical fat pad Resp Effort & Inspection: normal respiratory effort, able to speak in complete sentences, no audible wheezes, no cough and symmetric chest movement Cardio Jugular venous distension: no JVD Bruits: no carotid bruits Peripheral pulses: radial pulses present GI Inspection: Yes normal to inspection, No distended and Yes obesity Palpation (GI): Soft to palpation and nontender Back/Spine/Pelvis Cervical Spine: loss of normal cervical lordosis, cervical muscular tenderness, pain with cervical ROM, Cervical spine scars present, cervical spasm, No Cervical spine tenderness and No step off deformity Thoracic/Lumbar Spine: thoracic and lumbar spine normal to inspection, Thoracic/lumbar spine scar(s), paraspinal muscle tenderness, thoraco-lumbar ROM limited, No thoracic spinal tenderness and lumbar spinal tenderness at L4 and at L5 Skin General skin exam: no rashes or lesions noted Neuro General: patient oriented x3, moves all extremities and No confusion Cranial nerves: Yes Bilaterally intact EOM present, Yes Nystagmus not present, Yes Normal facial strength present, Yes Normal hearing present and Yes Ability to bilaterally rotate head present Cognition (Neuro): normal cognition Speech: No Abnormal speech present Gait exam (Neuro): Antalgic gait present and No Assistive device used Motor exam (neuro): 5/5 motor strength present throughout and no tremor noted Sensory Exam: No Sensory deficit (Neuro) Extrem General: Yes capillary refill normal, Yes no calf tenderness, No clubbing and No cyanosis Psych Appearance: grossly normal and well kempt Mental Status: mental status grossly normal Speech and movement: Normal speech and movement present and Clear speech present Affect: normal affect Attitude: cooperative Thought process: Normal thought process present Thought content: Normal thought content present, suicidality (none), no hallucinations and No Depressive thoughts present Insight: Good insight present (Psych) Judgement: Good judgement present (Psych) Results Reviewed Results Reviewed: XR CERVICAL SPINE 2017 FINDINGS: Examination showing degeneration, most noted in the articulating facets, which is significant. Upper cervical spine on the right and mid cervical spine right and left and lower cervical spine right greater than left. The alignment is normal. No significant posterior spurring is seen. The oblique imaging is suboptimal. I would consider foraminal narrowing at C3-C4 and C2-C3 on the right. Left foramina are inadequately visualized due to technique. There is no listhesis or compression injury. IMPRESSION: Degenerative changes which appear significant in the posterior articulating facets as described. Alignment is normal. No listhesis or compression injury. The foramina are inadequately visualized. Assessment & Plan Assessment & Plan (1) Cervical spondylosis: Code(s): M47.812 - Spondylosis without myelopathy or radiculopathy, cervical region (2) Degenerative cervical disc: Code(s): M50.30 - Other cervical disc degeneration, unspecified cervical region (3) Chronic pain syndrome: Code(s): G89.4 - Chronic pain syndrome (4) Peripheral neuropathy: Code(s): G62.9 - Polyneuropathy, unspecified (5) Degenerative joint disease of cervical and lumbar spine: Code(s): M47.812 - Spondylosis without myelopathy or radiculopathy, cervical region; M47.816 - Spondylosis without myelopathy or radiculopathy, lumbar region (6) Opioid contract exists: Code(s): Z79.891 - extermination inspector (current) 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 Will consider diagnostic cervical medial branch blocks for potential therapeutic injections, peripheral nerve stimulation or RFA procedures. Patient has shown accountability for his medication regimen and the pill count was accurate. The patient reported no side effects. There is no evidence of misuse, abuse, or diversion at this time. [employer] reviewed. Patient reports adequate analgesia with Morphine IR. Script sent for morphine IR 15 mg BID prn script refill will be sent on 12/09/22. Continue baclofen, Tylenol, and gabapentin. All questions were answered and patient agreed with the plan. Follow up in 4 weeks for pill count and sooner if needed. Orders: Orders XR cervical spine min 6V Today M47.812 - Spondylosis without myelopathy or radiculopathy, cervical region, M50.30 - Other cervical disc degeneration, unspecified cervical region Medications: Refilled morphine Partial Fill upon patient request. 15 mg PO BID 30 days PRN 60 tabs 0RF pain G89.4 - Chronic pain syndrome, M17.0 - Bilateral primary osteoarthritis of knee, M47.812 - Spondylosis without myelopathy or radiculopathy, cervical region, M47.816 - Spondylosis without myelopathy or radiculopathy, lumbar region, Z79.891 - extermination inspector (current) use of opiate analgesic Coding Level of Care Code Est Pt Level 4 (07268) Diagnoses Cervical spondylosis M47.812 Degenerative cervical disc M50.30 Chronic pain syndrome G89.4 Peripheral neuropathy G62.9 Degenerative joint disease of cervical and lumbar spine M47.812; M47.816 Opioid contract exists Z79.895
[2022-11-29 10:53] VITALS: BP 136/69; PULSE 72; O2SAT 97; BMI 35.2
== END 2022-11-29 11:08 | disposition home or self-care (01) ==
PROVIDERS: PCP Internal Medicine; Visit Provider Nurse Practitioner Family
DX: G89.4 Chronic pain syndrome (principal); M47.812 Spondylosis without myelopathy or radiculopathy, cervical region; M50.30 Other cervical disc degeneration, unspecified cervical region; Z79.891 Long term (current) use of opiate analgesic; G62.9 Polyneuropathy, unspecified; M47.816 Spondylosis without myelopathy or radiculopathy, lumbar region
CPT/HCPCS: 99214

== ENCOUNTER → 2022-11-29 10:42 | Outpatient (BNVA) | payer MEDICARE, MEDICAID, SELFPAY | PROVIDERS: PCP Internal Medicine; Visit Provider Nurse Practitioner Family | DX: Z51.81 Encounter for therapeutic drug level monitoring (principal); M47.812 Spondylosis without myelopathy or radiculopathy, cervical region; M50.30 Other cervical disc degeneration, unspecified cervical region; M47.816 Spondylosis without myelopathy or radiculopathy, lumbar region; G89.4 Chronic pain syndrome; G62.9 Polyneuropathy, unspecified; Z79.891 Long term (current) use of opiate analgesic | CPT/HCPCS: 99212 ==

== ENCOUNTER 2022-12-23 10:28 | Outpatient (REF) | payer MEDICARE, MEDICAID, SELFPAY ==
--- NOTE | ~2022-12-23 | XR_ITS ---
EXAMINATION: XR CERVICAL SPINE CLINICAL INFORMATION: Cervical spondylosis COMPARISON: None available. TECHNIQUE: 5 views of the cervical spine. FINDINGS: The visualized cervical vertebrae are intact with normal alignment. Odontoid process is intact with normal C1/C2 lateral masses alignment. Pre-dental interval is normal. Pre vertebral soft tissue is normal in thickness. Prominent bilateral apophyseal joints and uncovertebral joint osteophytes are present. Bilateral oblique x-rays of cervical spine show normal apophyseal joint alignment. However, evaluation of cervical neural foramina remains limited by suboptimal positioning. The left cervical neural foramina and right C2-C3 neural foramen appear patent. XR/XR cervical spine min 6V IMPRESSION: 1. Unchanged multilevel advanced cervical spondylosis. 2. No fracture or dislocation of cervical spine is seen.
== END 2022-12-23 10:29 | disposition home or self-care (01) ==
LOC: HO.XRAY 10:28
PROVIDERS: PCP Internal Medicine; Visit Provider Nurse Practitioner Family
DX: M47.812 Spondylosis without myelopathy or radiculopathy, cervical region (principal); M50.30 Other cervical disc degeneration, unspecified cervical region
CPT/HCPCS: 72052

== ENCOUNTER 2022-12-27 11:02 | Outpatient (AMB) | payer MEDICARE, MEDICAID, SELFPAY ==
--- NOTE | 2022-12-27 11:04 | A.OFFVIS_ITS ---
Intake Vital Signs 12/27/22 11:10 Height 5 ft 11 in Weight 258 lb 8 oz BMI 36.0 BP 113/79 Blood Pressure Location Lt brachial Position Sitting Pulse 91 Pulse Source Pulse Oximeter Pulse Oximetry (%) 94 Oxygen Delivery Method Room Air Intake Visit Reasons: PILL COUNT Intake Note: Alli comes in today for a pill count to morphine, patient should have 24 tablets and presents with 28 tablets which he last took today 12/27/22 at 5:30 am. Pain today 8.5 Residential Subcontractor Required: No Accompanied by: Self / Same As Patient Allergies No Known Allergies Allergy (Verified 12/27/22 11:11) HPI HPI Comments History of Present Illness Details Alli presents today for a pill count. Patient is supposed to have morphine IR 15 mg #24 pills, in his possession has #28 pills. This demonstrates a responsible attitude in regards to the medication regimen. Patient reports mild to moderate pain relief on morphine IR 15 mg BID prn for his neck, back and knee pain without noted side effects. Patient continues to endorse axial cervical spine pain with limited ROM, muscle stiffness and spasms. Reports chronic numbness and tingling in both hands with prior history of right carpal tunnel release. Recent cervical spine xray results reviewed with patient and noted below. Patient is interested to undergo interventional treatments for his chronic neck pain. Denies any fever, chest pain, headaches, palpitations, nausea, sedation, weakness or urinary retention except occasional constipation. Patient uses CPAP machine regularly and feels more rested when he uses it. [facility] [place] Medical History Personal history of nicotine dependence Obstructive sleep apnea on CPAP (~03/2015) Current use of [facility] anticoagulation Degenerative joint disease of cervical and lumbar spine Tobacco abuse Persistent atrial fibrillation (~2014) Peripheral vascular disease Obesity Insomnia COPD (chronic obstructive pulmonary disease) Bilateral primary osteoarthritis of knee Hypercholesterolemia Surgical History History of spinal surgery History of colonoscopy History of cardioversion (~2018) History of carpal tunnel release History of bilateral cataract extraction History of hip replacement, total History of removal of cyst History of vitrectomy (~11/2019) Family History Father Myocardial infarction Sister Multiple sclerosis Social History Household Members: Spouse Housing: House Alcohol intake: former Patient Tobacco Use Status: Former Tobacco user Quit Date: ~5 weeks ago Tobacco use type: Cigarette Years Smoked: 52 on/off - 30pyh e-Cigarette/Vaping Use: Never Used Second Hand Smoke Exposure: Yes Current occupational status: retired Cognitive needs: No Hearing needs: No Vision needs: Yes Review of Systems Const All systems reviewed & are unremarkable except as noted in HPI and below Denies body aches, Denies chills, Denies difficulty sleeping, Reports fatigue, Denies fever(s), Denies frequent falls, Denies malaise, Denies night sweats, Reports snoring (uses CPAP) and Denies weight loss ENT Reports Normal hearing present and Reports neck pain Card Denies dyspnea on exertion Resp Denies cough, Denies dyspnea on exertion, Reports snoring (uses CPAP) and Denies wheezing Musc Reports as per HPI, Reports back pain, Reports arthralgias, Denies joint swelling, Reports neck pain, Reports numbness, Reports radiating pain into limb, Reports stiffness and Reports tingling Neuro Reports Normal hearing present, Denies frequent falls, Reports numbness and Reports tingling Endo Reports fatigue Aller/Immun Denies wheezing Physical Exam Vital Signs: Last Vital Signs Pulse 91 12/27/22 11:10 BP 113/79 12/27/22 11:10 Pulse Ox 94 12/27/22 11:10 Oxygen Delivery Method Room Air 12/27/22 11:10 BMI result Body Mass Index 36.0 Const General: cooperative, no acute distress, alert and awake Nutritional Appearance: obese Orientation/consciousness: patient oriented x3 HEENT Head: Yes normal to inspection and Yes normocephalic Ears: hearing grossly normal bilaterally Eyes General: appearance normal, both eyes and all related structures Neck Neck: Yes normal visual inspection, Yes no lymphadenopathy, Yes supple, No anterior neck swelling, Yes no JVD and Yes prominent dorsocervical fat pad Resp Effort & Inspection: normal respiratory effort, able to speak in complete sentences, no audible wheezes, no cough and no respiratory distress Cardio Jugular venous distension: no JVD Bruits: no carotid bruits Peripheral pulses: radial pulses present Back/Spine/Pelvis Cervical Spine: loss of normal cervical lordosis, cervical muscular tenderness, pain with cervical ROM, Cervical spine scars present, cervical spasm, No Cervical spine tenderness and No step off deformity Thoracic/Lumbar Spine: thoracic and lumbar spine normal to inspection, Thoracic/lumbar spine scar(s), No thoracic spinal tenderness and lumbar spinal tenderness at L4 and at L5 Skin General skin exam: no rashes or lesions noted Neuro General: patient oriented x3 Cranial nerves: Yes Bilaterally intact EOM present, Yes Normal hearing present and Yes Ability to bilaterally rotate head present Cognition (Neuro): normal cognition Gait exam (Neuro): Antalgic gait present and No Assistive device used Motor exam (neuro): 5/5 motor strength present throughout and no tremor noted Extrem General: Yes capillary refill normal, Yes no calf tenderness, No clubbing and No cyanosis Psych Appearance: grossly normal Mental Status: mental status grossly normal Speech and movement: Normal speech and movement present Affect: normal affect Attitude: cooperative Thought process: Normal thought process present Thought content: Normal thought content present, suicidality (none), no hallucinations and No Depressive thoughts present Insight: Good insight present (Psych) Judgement: Good judgement present (Psych) Results Reviewed Results Reviewed: XR CERVICAL SPINE 12/23/22 FINDINGS: The visualized cervical vertebrae are intact with normal alignment. Odontoid process is intact with normal C1/C2 lateral masses alignment. Pre-dental interval is normal. Pre vertebral soft tissue is normal in thickness. Prominent bilateral apophyseal joints and uncovertebral joint osteophytes are present. Bilateral oblique x-rays of cervical spine show normal apophyseal joint alignment. However, evaluation of cervical neural foramina remains limited by suboptimal positioning. The left cervical neural foramina and right C2-C3 neural foramen appear patent. IMPRESSION: 1. Unchanged multilevel advanced cervical spondylosis. 2. No fracture or dislocation of cervical spine is seen. Assessment & Plan Assessment & Plan (1) Cervical spondylosis: Code(s): M47.812 - Spondylosis without myelopathy or radiculopathy, cervical region (2) Degenerative cervical disc: Code(s): M50.30 - Other cervical disc degeneration, unspecified cervical region (3) Chronic pain syndrome: Code(s): G89.4 - Chronic pain syndrome (4) Peripheral neuropathy: Code(s): G62.9 - Polyneuropathy, unspecified (5) Degenerative joint disease of cervical and lumbar spine: Code(s): M47.812 - Spondylosis without myelopathy or radiculopathy, cervical region; M47.816 - Spondylosis without myelopathy or radiculopathy, lumbar region (6) Opioid contract exists: Code(s): Z79.891 - longterm (current) use of opiate analgesic Plan Cervical spine imaging results reviewed with patient. Schedule diagnostic cervical medial branch blocks with local and fluoroscopy for potential therapeutic injections, peripheral nerve stimulation or RFA procedures.. Patient has shown accountability for his medication regimen and the pill count was accurate. The patient reported no side effects. There is no evidence of misuse, abuse, or diversion at this time. [employer] reviewed. Patient reports adequate analgesia with Morphine IR. Script sent for morphine IR 15 mg BID prn script refill will be sent on 01/08/23. Continue baclofen, Tylenol, and gabapentin. All questions were answered and patient agreed with the plan. Follow up in 4 weeks for pill count and sooner if needed. Medications: Refilled gabapentin 300 mg PO BID 60 caps 0RF pain 30 days G62.9 - Polyneuropathy, unspec ified, G89.4 - Chronic pain syndrome morphine Partial Fill upon patient request. 15 mg PO BID PRN 60 tabs 0RF pain 30 days G89.4 - Chronic pain syndrome, M17.0 - Bilateral primary osteoarthritis of knee, M47.812 - Spondylosis without myelopathy or radiculopathy, cervical region, M47.816 - Spondylosis without myelopathy or radiculopathy, lumbar region, Z79.891 - longterm (current) use of opiate analgesic Coding Level of Care Code Est Pt Level 4 (92198) Diagnoses Cervical spondylosis M47.812 Degenerative cervical disc M50.30 Chronic pain syndrome G89.4 Peripheral neuropathy G62.9 Degenerative joint disease of cervical and lumbar spine M47.812; M47.816 Opioid contract exists Z79.891
[2022-12-27 11:10] VITALS: BP 113/79; PULSE 91; O2SAT 94; BMI 36.0
== END 2022-12-27 11:20 | disposition home or self-care (01) ==
PROVIDERS: PCP Internal Medicine; Visit Provider Nurse Practitioner Family
DX: M47.812 Spondylosis without myelopathy or radiculopathy, cervical region (principal); M50.30 Other cervical disc degeneration, unspecified cervical region; G89.4 Chronic pain syndrome; G62.9 Polyneuropathy, unspecified; M47.816 Spondylosis without myelopathy or radiculopathy, lumbar region; Z79.891 Long term (current) use of opiate analgesic
CPT/HCPCS: 99214

== ENCOUNTER → 2022-12-27 11:02 | Outpatient (BNVA) | payer MEDICARE, MEDICAID, SELFPAY | PROVIDERS: PCP Internal Medicine; Visit Provider Nurse Practitioner Family | DX: M17.0 Bilateral primary osteoarthritis of knee (principal); M47.812 Spondylosis without myelopathy or radiculopathy, cervical region; M50.30 Other cervical disc degeneration, unspecified cervical region; M47.816 Spondylosis without myelopathy or radiculopathy, lumbar region; G89.4 Chronic pain syndrome; G62.9 Polyneuropathy, unspecified; I73.9 Peripheral vascular disease, unspecified; Z79.01 Long term (current) use of anticoagulants; Z79.891 Long term (current) use of opiate analgesic | CPT/HCPCS: 99212 ==

== ENCOUNTER 2023-01-04 12:24 | Outpatient (AMB) | payer MEDICARE, MEDICAID, SELFPAY ==
[2023-01-04 12:31] VITALS: BP 124/68; PULSE 89; O2SAT 95; BMI 35.7
--- NOTE | 2023-01-04 12:31 | MHC.PC.OV ---
Vital Signs 01/04/23 12:31 Height 5 ft 11 in Weight 256 lb BMI 35.7 BP 124/68 Blood Pressure Location Lt brachial Position Sitting Pulse 89 Pulse Source Pulse Oximeter Pulse Oximetry (%) 95 Oxygen Delivery Method Room Air Intake Visit Reasons: HTN, CHF Allergies No Known Allergies Allergy (Verified 01/04/23 12:31) Medication List - Last Reconciled 01/04/23 by Pauline Noriega MD albuterol sulfate 2.5 mg (3 mL) inhalation Q4-6H PRN apixaban (Eliquis) 5 mg PO BID 90 days ascorbic acid (vitamin C) 500 mg PO .QD atorvastatin 40 mg PO DAILY baclofen 10 mg PO TID PRN bupropion HCl (Wellbutrin SR) 150 mg PO QAM [CPAP full face mask 14 cm h20 humidified Air As directed] dapagliflozin propanediol (Farxiga) 5 mg (1/2 x 10 mg) PO DAILY digoxin 125 mcg PO DAILY diltiazem HCl ER 360 mg PO DAILY ferrous sulfate (Feosol) 325 mg PO DAILY [id number]-znqkfyvfz-acygyzpm 200-62.5-25 mcg (Trelegy Ellipta) 1 inh inhalation DAILY furosemide 80 mg (2 x 40 mg) PO DAILY 90 days furosemide (Lasix) 40 mg PO DAILY gabapentin 300 mg PO BID 30 days ipratropium-albuterol 20-100 mcg/actuation (Combivent Respimat) 1 puff inhalation QID ipratropium-albuterol 20-100 mcg/actuation (Combivent Respimat) 1 puff PO QID metoprolol tartrate 25 mg PO BID 90 days morphine 15 mg PO BID PRN 30 days naloxone 4 mg/actuation (Narcan) 4 mg intranasal Q2M PRN polyethylene glycol 3350 (Miralax) 17 grams PO DAILY trazodone 50 mg PO BEDTIME PRN Tobacco use date assessed: 03/07/22 Fall risk assessment: No Falls in past year Last assessed Fall Risk: 01/04/23 Dental Screening Dental Screen Date: 01/04/23 Did you have a dental visit in the last 12 months?: Yes Did you have a dental problem in the last 6 months where you did not have access to dental care?: No Was dental information given to patient?: Patient has dentist HPI HTN, CHF HPI Details 72-year-old obese male with congestive heart failure coronary artery disease obstructive sleep apnea hypertension atrial fibrillation COPD hypercholesterolemia osteoarthritis of the knee insomnia and peripheral vascular disease . Coming in today for follow-up last seen in September 2022 colonoscopy is up-to-date with his degenerative cervical disc cervical spondylosis and chronic pain on pain medication under pain management x-ray done in December 26 showing multilevel advanced cervical spondylosis. 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 Degenerative joint disease of cervical and lumbar spine Persistent atrial fibrillation (~2014) Peripheral vascular disease Obesity Insomnia COPD (chronic obstructive pulmonary disease) Bilateral primary osteoarthritis of knee Hypercholesterolemia Surgical History History of spinal surgery History of colonoscopy History of cardioversion (~2018) History of carpal tunnel release History of bilateral cataract extraction History of hip replacement, total History of removal of cyst History of vitrectomy (~11/2019) Family History Father Myocardial infarction Sister Multiple sclerosis Social History Household Members: Spouse Housing: House Alcohol intake: former Patient Tobacco Use Status: Former Tobacco user Quit Date: ~5 weeks ago Tobacco use type: Cigarette Years Smoked: 54 on/off - 30pyh e-Cigarette/Vaping Use: Never Used Second Hand Smoke Exposure: Yes Current occupational status: retired Cognitive needs: No Hearing needs: No Vision needs: Yes Questionnaire PHQ-9 Over the last 2 weeks, how often have you been bothered by any of the following problems? 1. Little interest or pleasure in doing things: not at all 2. Feeling down, depressed, or hopeless: not at all 3. Trouble falling or staying asleep, or sleeping too much: not at all 4. Feeling tired or having little energy: not at all 5. Poor appetite or overeating: not at all 6. Feeling bad about yourself - or that you are a failure or have let yourself or your family down: not at all 7. Trouble concentrating on things, such as reading the newspaper or watching television: not at all 8. Moving or speaking so slowly that other people could have noticed. Or the opposite - being so fidgety or restless that you have been moving around a lot more than usual: not at all 9. Thoughts that you would be better off or of hurting yourself in some way: not at all Total score: 0 Depression Screening Interpretation: Negative Depression Screening Done: Yes Source: Developed by Drs. Alli Chen, Miya Oneil, Umair Whitten and colleagues, with an educational megha from [employer]. Thrive Questionnaire Date Thrive assessed: 03/07/22 AUDIT C Alcohol Use Questionnaire (AUDIT-C) 1. How often do you have a drink containing alcohol?: 2-3 times a week 2. How many drinks containing alcohol do you have on a typical day when you are drinking?: 1 or 2 3. How often do you have six or more drinks on one occasion?: Never Total Score: 3 LUCY-7 AMB Questionnaire LUCY-7 Date LUCY - 7 assessed: 03/07/22 Source: Developed by Drs. Alli Chen, Miya Oneil, Umair Whitten and colleagues, with an educational megha from [employer]. Physical exam (Primary Care) Vital Signs: Oxygen Delivery Method Room Air 01/04/23 12:31 Tobacco/Smoking Status: Tobacco use Status Tobacco use date assessed 03/07/22 01/04/23 12:32 Patient Tobacco Use Status Former Tobacco user 01/04/23 12:32 Tobacco use type Cigarette 01/04/23 12:32 e-Cigarette/Vaping Use Never Used 01/04/23 12:32 Depression Screening Interpretation: Negative Thrive Assessment: Date of Thrive Assessment Date Thrive assessed 03/07/22 01/04/23 12:32 Const General: alert; No acute distress Eyes Conjunctivae: conjunctivae normal Resp Auscultation: clear to auscultation bilaterally Cardio Rate: regular rate Rhythm: regular rhythm GI Inspection: Yes normal to inspection Extrem General: Yes normal to inspection and No edema Assessment and Plan Assessment & Plan (1) Persistent atrial fibrillation: Onset Date: ~2014 Code(s): I48.19 - Other persistent atrial fibrillation Plan: Continue with anticoagulation. rate control strategy patient on Eliquis digoxin diltiazem (2) COPD (chronic obstructive pulmonary disease): Code(s): J44.9 - Chronic obstructive pulmonary disease, unspecified Qualifiers: COPD type: emphysema Emphysema type: panlobular Qualified Code(s): J43.1 - Panlobular emphysema Plan: Continue with inhaler on Trelegy (3) Hypercholesterolemia: Code(s): E78.00 - Pure hypercholesterolemia, unspecified Plan: Avoid fried foods, chicken skin, eggs, butter margarine, pastries and meat. Be it pork or beef they have a lot of cholesterol LDL goal of less than 70 patient is on atorvastatin 40 mg once a day (4) Obesity: Code(s): E66.9 - Obesity, unspecified Qualifiers: Body mass index: BMI 32.0-32.9 Obesity classification: adult class 1 (BMI 30 - 34.9) Obesity type: due to excess calories Serious obesity comorbidity presence: with serious comorbidity Qualified Code(s): E66.09 - Other obesity due to excess calories; Z68.32 - Body mass index [BMI] 32.0-32.9, adult Plan: Diet and exercise (5) Chronic diastolic (congestive) heart failure: Code(s): I50.32 - Chronic diastolic (congestive) heart failure Plan: Continue with diuretic and weigh daily patient has been placed on Farxiga (6) Cervical spondylosis: Code(s): M47.812 - Spondylosis without myelopathy or radiculopathy, cervical region Plan: Patient is under pain management on morphine (7) YUNIEL on CPAP: Code(s): G47.33 - Obstructive sleep apnea (adult) (pediatric); Z99.89 - Dependence on other enabling machines and devices Plan: Continue to use the CPAP more than 4 hours a night and benefits from this Orders: Orders Complete Blood Count Auto Diff 2 Months E78.00 - Pure hypercholesterolemia, unspecified Comprehensive Met. Panel 2 Months E78.00 - Pure hypercholesterolemia, unspecified Vitamin B12 and Folate 2 Months E78.00 - Pure hypercholesterolemia, unspecified Lipid Panel 2 Months E78.00 - Pure hypercholesterolemia, unspecified Reticulocyte Count 2 Months I48.19 - Other persistent atrial fibrillation Free T4 (Free Thyroxine) 2 Months E78.00 - Pure hypercholesterolemia, unspecified Thyroid Stimulating Hormone 2 Months E78.00 - Pure hypercholesterolemia, unspecified Ferritin 2 Months E78.00 - Pure hypercholesterolemia, unspecified IRON PROFILE 2 Months E78.00 - Pure hypercholesterolemia, unspecified B Type Natriuretic Peptide 2 Months I50.32 - Chronic diastolic (congestive) heart failure Medications: New ferrous sulfate (Feosol) 325 mg PO DAILY 30 tabs 3RF I50.32 - Chronic diastolic (congestive) heart failure ascorbic acid (vitamin C) 500 mg PO .QD 30 caps 0RF I50.32 - Chronic diastolic (congestive) heart failure Coding Level of Care Code Est Pt Level 4 (82955) Diagnoses Persistent atrial fibrillation I48.19 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 type: emphysema Emphysema type: panlobular Hypercholesterolemia E78.00 Class 1 obesity due to excess calories with serious comorbidity and body mass index (BMI) of 32.0 to 32.9 in adult E66.09; Z68.32 Body mass index: BMI 32.0-32.9 Obesity classification: adult class 1 (BMI 30 - 34.9) Obesity type: due to excess calories Serious obesity comorbidity presence: with serious comorbidity Chronic diastolic (congestive) heart failure I50.32 Cervical spondylosis M47.812 YUNIEL on CPAP G47.33; Z99.89
== END 2023-01-04 12:53 | disposition home or self-care (01) ==
PROVIDERS: PCP Internal Medicine; Visit Provider Internal Medicine
DX: I48.19 Other persistent atrial fibrillation (principal); J43.1 Panlobular emphysema; I50.32 Chronic diastolic (congestive) heart failure; E66.09 Other obesity due to excess calories; Z68.32 Body mass index [BMI] 32.0-32.9, adult; E78.00 Pure hypercholesterolemia, unspecified; M47.812 Spondylosis without myelopathy or radiculopathy, cervical region; G47.33 Obstructive sleep apnea (adult) (pediatric); Z99.89 Dependence on other enabling machines and devices
CPT/HCPCS: 99214

== ENCOUNTER 2023-01-05 11:24 | Outpatient (AMB) | payer MEDICARE, MEDICAID, SELFPAY ==
[2023-01-05 11:29] VITALS: BMI 35.7
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
== END 2023-01-05 11:47 | disposition home or self-care (01) ==
PROVIDERS: PCP Internal Medicine; Visit Provider Surgery Vascular Surgery
DX: I83.12 Varicose veins of left lower extremity with inflammation (principal)
CPT/HCPCS: 99203

== ENCOUNTER → 2023-01-05 11:24 | Outpatient (BNVA) | payer MEDICARE, MEDICAID, SELFPAY | PROVIDERS: PCP Internal Medicine; Visit Provider Surgery Vascular Surgery | DX: I83.12 Varicose veins of left lower extremity with inflammation (principal) | CPT/HCPCS: 99202 ==

== ENCOUNTER 2023-01-31 10:22 | Outpatient (AMB) | payer MEDICARE, MEDICAID, SELFPAY ==
--- NOTE | 2023-01-31 10:28 | A.OFFVIS_ITS ---
Intake Vital Signs 01/31/23 10:36 Height 5 ft 11 in Weight 255 lb BMI 35.6 BP 149/68 H Blood Pressure Location Lt brachial Position Sitting Pulse 79 Pulse Source Pulse Oximeter Pulse Oximetry (%) 94 Oxygen Delivery Method Room Air Intake Visit Reasons: Medication Count/lvm Intake Note: Alli comes in today for a pill count to morphine, patient should have 14 tablets and presents with 17 tablets which he last took today 01/31/23 at 5:30am. Pain today 5.5/10. Appointment Clerk Required: No Accompanied by: Self / Same As Patient Allergies No Known Allergies Allergy (Verified 01/31/23 10:37) HPI HPI Comments History of Present Illness Details Alli presents today for a pill count. Patient is supposed to have morphine IR 15 mg #14 pills, in his possession has #17 pills. This demonstrates a responsible attitude in regards to the medication regimen. Patient reports adequate analgesia on morphine IR 15 mg BID prn for his chronic pain generators, including neck, back and knee pain without noted side effects. Patient continues to endorse axial cervical spine pain with limited ROM, muscle stiffness and spasms. Patient is scheduled diagnostic cervical medial branch blocks on 02/15/2023 and 02/22/[address] Cifuentes. Denies any fever, chest pain, headaches, palpitations, nausea, sedation, weakness or urinary retention except occasional constipation. Patient uses CPAP machine regularly. Reports intermittent COPD exacerbations episodes. Patient encouraged to follow up with Dr. Fields who he last saw in June 2021. [facility] Medical History Degenerative cervical disc Shortness of breath Constipation Circadian rhythm sleep disorder Vision changes Personal history of nicotine dependence Tobacco abuse Obstructive sleep apnea on CPAP (~03/2015) Current use of [facility] anticoagulation Degenerative joint disease of cervical and lumbar spine Persistent atrial fibrillation (~2014) Peripheral vascular disease Obesity Insomnia COPD (chronic obstructive pulmonary disease) Bilateral primary osteoarthritis of knee Hypercholesterolemia Surgical History History of spinal surgery History of colonoscopy History of cardioversion (~2018) History of carpal tunnel release History of bilateral cataract extraction History of hip replacement, total History of removal of cyst History of vitrectomy (~11/2019) Family History Father Myocardial infarction Sister Multiple sclerosis Social History Household Members: Spouse Housing: House Alcohol intake: former Patient Tobacco Use Status: Former Tobacco user Quit Date: 08/31/2019 Tobacco use type: Cigarette Years Smoked: 52 on/off - 30pyh e-Cigarette/Vaping Use: Never Used Second Hand Smoke Exposure: Yes Current occupational status: retired Cognitive needs: No Hearing needs: No Vision needs: Yes Review of Systems Const All systems reviewed & are unremarkable except as noted in HPI and below Physical Exam Vital Signs: Last Vital Signs Pulse 79 01/31/23 10:36 BP 149/68 H 01/31/23 10:36 Pulse Ox 94 01/31/23 10:36 Oxygen Delivery Method Room Air 01/31/23 10:36 BMI result Body Mass Index 35.6 General: Appears afebrile. Alert and oriented. Mood and affect appropriate. Follows and participates in conversation appropriately. Respiratory effort is unlabored. Occasional nonproductive cough. Able to transition from sit to stand unassisted. Ambulates with bilaterally normal heel strike and toe off. Resp Effort & Inspection: normal respiratory effort, able to speak in complete sentences, no audible wheezes and symmetric chest movement Cardio Jugular venous distension: no JVD Rate: regular rate Rhythm: regular rhythm Bruits: no carotid bruits Peripheral pulses: radial pulses present bilateral Back/Spine/Pelvis Cervical Spine: cervical muscular tenderness, pain with cervical ROM and No Cervical spine tenderness Thoracic/Lumbar Spine: pain with thoraco-lumbar ROM, thoraco-lumbar ROM limited, No thoracic spinal tenderness and lumbar spinal tenderness Results Reviewed Results Reviewed: XR CERVICAL SPINE 12/23/22 FINDINGS: The visualized cervical vertebrae are intact with normal alignment. Odontoid process is intact with normal C1/C2 lateral masses alignment. Pre-dental interval is normal. Pre vertebral soft tissue is normal in thickness. Prominent bilateral apophyseal joints and uncovertebral joint osteophytes are present. Bilateral oblique x-rays of cervical spine show normal apophyseal joint alignment. However, evaluation of cervical neural foramina remains limited by suboptimal positioning. The left cervical neural foramina and right C2-C3 neural foramen appear patent. IMPRESSION: 1. Unchanged multilevel advanced cervical spondylosis. 2. No fracture or dislocation of cervical spine is seen. 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 Patient has shown accountability for his medication regimen and the pill count was accurate. The patient reported no side effects. There is no evidence of misuse, abuse, or diversion at this time. [employer] reviewed. Patient reports adequate analgesia with Morphine IR. Script sent for morphine IR 15 mg BID prn script refill will be sent on 02/06/23. Follow-up with Dr. Fields for COPD follow-up. All questions were answered and patient agreed with the plan. Follow up in 4 weeks for pill count and sooner if needed. Medications: Refilled morphine Partial Fill upon patient request. 15 mg PO BID PRN 60 tabs 0RF pain 30 days G89.4 - Chronic pain syndrome, M17.0 - Bilateral primary osteoarthritis of knee, M47.812 - Spondylosis without myelopathy or radiculopathy, cervical region, M47.816 - Spondylosis without myelopathy or radiculopathy, lumbar region, Z79.891 - [facility] (current) use of opiate analgesic Coding Level of Care Code Est Pt Level 4 (99575) Diagnoses Cervical spondylosis M47.812 Degenerative cervical disc M50.30 Chronic pain syndrome G89.4 Degenerative joint disease of cervical and lumbar spine M47.812; M47.816 Opioid contract exists Z79.894
[2023-01-31 10:36] VITALS: BP 149/68; PULSE 79; O2SAT 94; BMI 35.6
== END 2023-01-31 10:46 | disposition home or self-care (01) ==
PROVIDERS: PCP Internal Medicine; Visit Provider Nurse Practitioner Family
DX: G89.4 Chronic pain syndrome (principal); M47.812 Spondylosis without myelopathy or radiculopathy, cervical region; M47.816 Spondylosis without myelopathy or radiculopathy, lumbar region; Z79.891 Long term (current) use of opiate analgesic; M50.30 Other cervical disc degeneration, unspecified cervical region
CPT/HCPCS: 99214

== ENCOUNTER → 2023-01-31 10:22 | Outpatient (BNVA) | payer MEDICARE, MEDICAID, SELFPAY | PROVIDERS: PCP Internal Medicine; Visit Provider Nurse Practitioner Family | DX: Z51.81 Encounter for therapeutic drug level monitoring (principal); F11.20 Opioid dependence, uncomplicated; M47.812 Spondylosis without myelopathy or radiculopathy, cervical region; M50.30 Other cervical disc degeneration, unspecified cervical region; M47.816 Spondylosis without myelopathy or radiculopathy, lumbar region; G89.4 Chronic pain syndrome; Z79.891 Long term (current) use of opiate analgesic | CPT/HCPCS: 99212 ==

== ENCOUNTER 2023-02-15 05:35 | Outpatient (REF) | payer MEDICARE, MEDICAID, SELFPAY ==
--- NOTE | ~2023-02-15 | FL_ITS ---
EXAMINATION: XR FLUOROSCOPY WITH IMAGES CLINICAL INFORMATION: Spondylosis without myelopathy or radiculopathy, cervical region. COMPARISON: None available. TECHNIQUE: Fluoroscopy Supervised By: Dr. Ze Cifuentes. Fluoroscopy Time: 0.1 minute. Cumulative Dose: 3.71 mGy. DAP: 0.448 Gycm2. Images: 2. FINDINGS: Images demonstrate needle placement and contrast injection adjacent to the left lateral cervical spine. FL/FL guidance in treatment room IMPRESSION: Fluoroscopy guidance for pain management procedure.
== END 2023-02-15 05:36 | disposition home or self-care (01) ==
LOC: CF 05:35
PROVIDERS: Visit Provider Internal Medicine
DX: M47.812 Spondylosis without myelopathy or radiculopathy, cervical region (principal)
CPT/HCPCS: 64490; 64491

== ENCOUNTER 2023-02-15 08:26 | Outpatient (AMB) | payer MEDICARE, MEDICAID, SELFPAY ==
[2023-02-15 08:35] VITALS: BP 122/66; PULSE 88; RESP 12; O2SAT 95
--- NOTE | 2023-02-15 08:35 | MHC.OFFVIS ---
Intake Vital Signs 02/15/23 08:35 BP 122/66 Blood Pressure Location Lt brachial Position Sitting Respiration 12 Pulse 88 Pulse Source Pulse Oximeter Pulse Oximetry (%) 95 Oxygen Delivery Method Room Air Intake Visit Reasons: Left Dx C4-C5-C6 MBB Allergies No Known Allergies Allergy (Verified 02/15/23 08:35) HPI Left Dx C4-C5-C6 MBB HPI Details Patient presents for scheduled procedure. Denies any recent cough, cold, infection, fever or other significant changes in medical history since last office visit. [facility] Medical History Degenerative cervical disc Shortness of breath Constipation Circadian rhythm sleep disorder Vision changes Personal history of nicotine dependence Tobacco abuse Obstructive sleep apnea on CPAP (~03/2015) Current use of fci anticoagulation Degenerative joint disease of cervical and lumbar spine Persistent atrial fibrillation (~2014) Peripheral vascular disease Obesity Insomnia COPD (chronic obstructive pulmonary disease) Bilateral primary osteoarthritis of knee Hypercholesterolemia Surgical History History of spinal surgery History of colonoscopy History of cardioversion (~2018) History of carpal tunnel release History of bilateral cataract extraction History of hip replacement, total History of removal of cyst History of vitrectomy (~11/2019) Family History Father Myocardial infarction Sister Multiple sclerosis Social History Household Members: Spouse Housing: House Alcohol intake: former Patient Tobacco Use Status: Former Tobacco user Quit Date: 08/31/2019 Tobacco use type: Cigarette Years Smoked: 54 on/off - 30pyh e-Cigarette/Vaping Use: Never Used Second Hand Smoke Exposure: Yes Current occupational status: retired Cognitive needs: No Hearing needs: No Vision needs: Yes Physical Exam Vital Signs: Last Vital Signs Pulse 88 02/15/23 08:35 Resp 12 02/15/23 08:35 BP 122/66 02/15/23 08:35 Pulse Ox 95 02/15/23 08:35 Oxygen Delivery Method Room Air 02/15/23 08:35 Office Procedures Cervical/Thoracic Facet Inj Details: Diagnostic Cervical Medial Branch Block, Left C4, C5, C6 medial branches After obtaining written consent, pre-procedure blood pressure and pulse were recorded and are in the nursing record for review. The patient was placed in a lateral position. The respective cervical area was prepped with chloraprep and draped in sterile fashion. The skin over the target medial branch nerves was anesthetized with 0.5% lidocaine. A 25 gauge 1.5 inch needle was inserted into the target medial branch nerve under fluoroscopic guidance. No paresthesias were elicited with needle placement and aspiration was negative for blood and CSF. Next, 0.2cc of omnipaque 180 was injected to verify positioning. Next 0.5 ml 0.5% ropivicaine was injected (0.5 cc total per level). The identical procedure was performed at the remaining levels. The skin was cleansed and a sterile bandage was applied. Following the procedure the patient's vital signs were stable. The patient tolerated the procedure well and no complications were encountered. Following the procedure the patient's vital signs were stable. The patient was discharged home in good condition with post-procedural instructions. Time Out: Immediately prior to the procedure, the following was verbally confirmed that there is a signed consent form and that the correct patient, planned procedure, site and side are consistent with documentation and that necessary equipment and/or blood products are available prior to the start of the case. Complications: none EBL: <5 cc 96956 - second level, with Fluoroscopy Procedure code (CPT) selection complete Assessment & Plan Assessment & Plan (1) Cervical spondylosis: Code(s): M47.812 - Spondylosis without myelopathy or radiculopathy, cervical region Plan Patient is status post left C4, C5, C6 diagnostic MBBs. Patient tolerated procedure well and was discharged home in stable condition with discharge instructions. All questions were answered. We will follow-up via telephone or in clinic to assess response to therapy. A follow-up appointment was made during today's visit. Orders: Orders FL guidance in treatment room Today M47.812 - Spondylosis without myelopathy or radiculopathy, cervical region Coding Level of Care Code Procedure Only Diagnoses Cervical spondylosis M47.812 CPT Codes Facet Injection Cervical/Thoracic - CPT: 28152 - second level, with Fluoroscopy ([id number])
== END 2023-02-15 09:03 | disposition home or self-care (01) ==
LOC: HO.PMCPRC 08:26
PROVIDERS: PCP Internal Medicine; Visit Provider Internal Medicine
DX: M47.812 Spondylosis without myelopathy or radiculopathy, cervical region (principal)
CPT/HCPCS: 64490; 64491

== ENCOUNTER 2023-02-24 11:37 | Outpatient (AMB) | payer MEDICARE, MEDICAID, SELFPAY ==
--- NOTE | 2023-02-24 11:36 | A.OFFVIS_ITS ---
Intake Intake Visit Reasons: s/p odalys Dx C4-C5-C6 MBB/lvm Allergies No Known Allergies Allergy (Verified 02/28/23 10:08) HPI s/p odalys Dx C4-C5-C6 MBB/lvm HPI Details 72-year-old male who presents today via telehealth visit for a status post bilateral diagnostic C4-C5-C6 MBB. The patient reports no significant relief following the procedure. He has tried chiropractor manipulation for his neck. He has not tried acupuncture therapy and trigger point injections. Past procedures: 02/15/23: Diagnostic Cervical Medial Bra nch Block, Left C4, C5, C6 medial branches: No significant relief. 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 Degenerative joint disease of cervical and lumbar spine Persistent atrial fibrillation (~2014) Peripheral vascular disease Obesity Insomnia COPD (chronic obstructive pulmonary disease) Bilateral primary osteoarthritis of knee Hypercholesterolemia Surgical History History of spinal surgery History of colonoscopy History of cardioversion (~2018) History of carpal tunnel release History of bilateral cataract extraction History of hip replacement, total History of removal of cyst History of vitrectomy (~11/2019) Family History Father Myocardial infarction Sister Multiple sclerosis Social History Household Members: Spouse Housing: House Alcohol intake: former Patient Tobacco Use Status: Former Tobacco user Quit Date: 08/31/2019 Tobacco use type: Cigarette Years Smoked: 54 on/off - 30pyh e-Cigarette/Vaping Use: Never Used Second Hand Smoke Exposure: Yes Current occupational status: retired Cognitive needs: No Hearing needs: No Vision needs: Yes Review of Systems Const All systems reviewed & are unremarkable except as noted in HPI and below Results Reviewed Results Reviewed: No imaging is available for review. Assessment & Plan Assessment & Plan (1) Cervical spondylosis: Code(s): M47.812 - Spondylosis without myelopathy or radiculopathy, cervical region Plan The patient had no significant relief from the diagnostic facet blocks, so we will proceed with conservative measures for his neck pain. I recommended trying acupuncture, CBD topical cream, Gator topical cream, or trigger point injection as a possible treatment option. Patient will follow-up as needed. Scribed for Dr. Cifuentes by Juan Manuel Calhoun, medical technologist hematology, on 02/24/2022. I, Dr. Cifuentes, have personally reviewed and agree with the information entered by the scribe. Telehealth Telehealth Location of provider rendering services: practice address Location of patient: address on file Patient Identification confirmed using: Name, : Yes Telehealth method: voice only Patient verbally consented to treatment: Yes Patient verbally consented to billing insurance company: Yes Patient informed of any privacy concerns related to visit: Yes Minutes spent on Phone/Video with Pt.: 6 Coding Level of Care Code Tele Est Pt Level 3 (41632) Diagnoses Cervical spondylosis M47.812
== END 2023-02-24 11:53 | disposition home or self-care (01) ==
LOC: HO.PMC 11:37
PROVIDERS: PCP Internal Medicine; Visit Provider Internal Medicine
DX: M47.812 Spondylosis without myelopathy or radiculopathy, cervical region (principal)
CPT/HCPCS: 99441

== ENCOUNTER → 2023-02-24 11:37 | Outpatient (BNVA) | payer MEDICARE, MEDICAID, SELFPAY | PROVIDERS: PCP Internal Medicine; Visit Provider Internal Medicine ==

== ENCOUNTER 2023-02-28 09:57 | Outpatient (AMB) | payer MEDICARE, MEDICAID, SELFPAY ==
--- NOTE | 2023-02-28 10:00 | MHC.OFFVIS ---
Intake Vital Signs 02/28/23 10:08 Height 5 ft 11 in Weight 255 lb 6 oz BMI 35.6 BP 131/86 Blood Pressure Location Rt brachial Position Sitting Pulse 88 Pulse Source Pulse Oximeter Pulse Oximetry (%) 94 Oxygen Delivery Method Room Air Intake Visit Reasons: Pill Count Intake Note: Alli comes in today for a pill count to morphine, patient should have 20 tablets and presents with 25 tablets which he last took today 02/28/23 at 4am. Pain today 5.5/10. Patient also signed updated opioid contract in office, signed copy was provided to patient. 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 Patient is supposed to have morphine IR 15 mg #20 pills, in his possession has #25 pills. This demonstrates a responsible attitude in regards to the medication regimen. Patient reports adequate analgesia on morphine IR 15 mg BID prn for his chronic pain generators, including neck, back and knee pain without noted side effects. Patient continues to endorse axial cervical spine pain with limited ROM, muscle stiffness and spasms. Patient completed diagnostic cervical medial branch blocks on 02/15/2023 and 02/22/[address] Cifuentes without pain relief. He is interested in pursuing Acupuncture therapy for trial of cupping and acupressure treatments for chronic neck pain. Patient continues on long-term anticoagulation with Eliquis. Denies any fever, chest pain, headaches, palpitations, nausea, sedation, weakness or urinary retention except occasional constipation. Patient uses CPAP machine regularly. 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 Degenerative joint disease of cervical and lumbar spine Persistent atrial fibrillation (~2014) Peripheral vascular disease Obesity Insomnia COPD (chronic obstructive pulmonary disease) Bilateral primary osteoarthritis of knee Hypercholesterolemia Surgical History History of spinal surgery History of colonoscopy History of cardioversion (~2018) History of carpal tunnel release History of bilateral cataract extraction History of hip replacement, total History of removal of cyst History of vitrectomy (~11/2019) Family History Father Myocardial infarction Sister Multiple sclerosis Social History Household Members: Spouse Housing: House Alcohol intake: former Patient Tobacco Use Status: Former Tobacco user Quit Date: 08/31/2019 Tobacco use type: Cigarette Years Smoked: 54 on/off - 30pyh e-Cigarette/Vaping Use: Never Used Second Hand Smoke Exposure: Yes Current occupational status: retired Cognitive needs: No Hearing needs: No Vision needs: Yes Review of Systems Const All systems reviewed & are unremarkable except as noted in HPI and below Physical Exam Vital Signs: Last Vital Signs Pulse 88 02/28/23 10:08 BP 131/86 02/28/23 10:08 Pulse Ox 94 02/28/23 10:08 Oxygen Delivery Method Room Air 02/28/23 10:08 BMI result Body Mass Index 35.6 General: Appears afebrile. Alert and oriented. Mood and affect appropriate. Follows and participates in conversation appropriately. Respiratory effort is unlabored. Occasional nonproductive cough. Able to transition from sit to stand unassisted. Ambulates with bilaterally normal heel strike and toe off. Resp Effort & Inspection: normal respiratory effort, able to speak in complete sentences, no audible wheezes and symmetric chest movement Back/Spine/Pelvis Cervical Spine: cervical muscular tenderness, pain with cervical ROM and No Cervical spine tenderness Thoracic/Lumbar Spine: pain with thoraco-lumbar ROM, thoraco-lumbar ROM limited, No thoracic spinal tenderness and lumbar spinal tenderness Psych Appearance: grossly normal and well kempt Mental Status: mental status grossly normal Speech and movement: Normal speech and movement present and Clear speech present Affect: normal affect Attitude: cooperative Thought process: Normal thought process present Thought content: Normal thought content present, suicidality (none), no hallucinations and No Depressive thoughts present Insight: Good insight present (Psych) Judgement: Good judgement present (Psych) Assessment & Plan Assessment & Plan (1) Cervical spondylosis: Code(s): M47.812 - Spondylosis without myelopathy or radiculopathy, cervical region (2) Degenerative joint disease of cervical and lumbar spine: Code(s): M47.812 - Spondylosis without myelopathy or radiculopathy, cervical region; M47.816 - Spondylosis without myelopathy or radiculopathy, lumbar region (3) Chronic pain syndrome: Code(s): G89.4 - Chronic pain syndrome (4) Degenerative cervical disc: Code(s): M50.30 - Other cervical disc degeneration, unspecified cervical region (5) Opioid contract exists: Code(s): Z79.891 - custodial (current) use of opiate analgesic Plan Patient has shown accountability for his medication regimen and the pill count was accurate. The patient reported no side effects. There is no evidence of misuse, abuse, or diversion at this time. MassPat reviewed. Patient reports adequate analgesia with Morphine IR. Script sent for morphine IR 15 mg BID prn script refill will be sent on 03/10/23. Acupuncture referral for potential acupressure and cupping therapies. Patient is on Eliquis and will require prescribing physician to hold it prior to acupuncture treatment. All questions were answered and patient agreed with the plan. Follow up in 4 weeks for pill count and sooner if needed. Orders: Referrals Acupuncture Referral G89.4 - Chronic pain syndrome, M47.812 - Spondylosis without myelopathy or radiculopathy, cervical region, M47.816 - Spondylosis without myelopathy or radiculopathy, lumbar region Medications: Refilled morphine Partial Fill upon patient request. 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
[2023-02-28 10:08] VITALS: BP 131/86; PULSE 88; O2SAT 94; BMI 35.6
== END 2023-02-28 10:16 | disposition home or self-care (01) ==
LOC: HO.PMC 09:57
PROVIDERS: PCP Internal Medicine; Visit Provider Nurse Practitioner Family
DX: M47.812 Spondylosis without myelopathy or radiculopathy, cervical region (principal); M47.816 Spondylosis without myelopathy or radiculopathy, lumbar region; G89.4 Chronic pain syndrome; M50.30 Other cervical disc degeneration, unspecified cervical region; Z79.891 Long term (current) use of opiate analgesic
CPT/HCPCS: 99214

== ENCOUNTER → 2023-02-28 09:57 | Outpatient (BNVA) | payer MEDICARE, MEDICAID, SELFPAY | PROVIDERS: PCP Internal Medicine; Visit Provider Nurse Practitioner Family | DX: Z51.81 Encounter for therapeutic drug level monitoring (principal); M47.812 Spondylosis without myelopathy or radiculopathy, cervical region; M47.816 Spondylosis without myelopathy or radiculopathy, lumbar region; M50.30 Other cervical disc degeneration, unspecified cervical region; G89.4 Chronic pain syndrome; Z79.891 Long term (current) use of opiate analgesic | CPT/HCPCS: 99212 ==

== ENCOUNTER 2023-03-28 09:24 | Outpatient (AMB) | payer MEDICARE, MEDICAID, SELFPAY ==
--- NOTE | 2023-03-28 09:27 | MHC.OFFVIS ---
Intake Vital Signs 03/28/23 09:33 Height 5 ft 11 in Weight 255 lb BMI 35.6 BP 129/60 Blood Pressure Location Lt brachial Position Sitting Pulse 89 Pulse Source Pulse Oximeter Pulse Oximetry (%) 96 Oxygen Delivery Method Room Air Intake Visit Reasons: Pill Count confirmed Intake Note: Alli comes in today for a pill count to morphine, patient should have 24 tablets and presented with 31 tablets which he last took today 03/28/23 at 5am. 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 Patient is supposed to have morphine IR 15 mg #24 pills, in his possession has #31 pills. This demonstrates a responsible attitude in regards to the medication regimen. Patient reports adequate analgesia on morphine IR 15 mg BID prn for his chronic pain generators, including neck, back and knee pain without noted side effects. Patient continues to endorse axial cervical spine pain with limited ROM, muscle stiffness and spasms. Patient completed diagnostic cervical medial branch blocks on 02/15/2023 and 02/22/[address] Cifuentes without pain relief. Patient attended Acupuncture therapy 4 sessions with mild relief and significant out of pocket expenses. He is interested in TENS unit device for chronic neck pain with muscle stiffness and spasms. Denies any fever, chest pain, headaches, palpitations, nausea, sedation, weakness or urinary retention except occasional constipation. Patient uses CPAP machine regularly. [facility] Medical History Degenerative cervical disc Shortness of breath Constipation Circadian rhythm sleep disorder Vision changes Personal history of nicotine dependence Tobacco abuse Obstructive sleep apnea on CPAP (~03/2015) Current use of custodial anticoagulation Degenerative joint disease of cervical and lumbar spine Persistent atrial fibrillation (~2014) Peripheral vascular disease Obesity Insomnia COPD (chronic obstructive pulmonary disease) Bilateral primary osteoarthritis of knee Hypercholesterolemia Surgical History History of spinal surgery History of colonoscopy History of cardioversion (~2018) History of carpal tunnel release History of bilateral cataract extraction History of hip replacement, total History of removal of cyst History of vitrectomy (~11/2019) Family History Father Myocardial infarction Sister Multiple sclerosis Social History Household Members: Spouse Housing: House Alcohol intake: former Patient Tobacco Use Status: Former Tobacco user Quit Date: 08/31/2019 Tobacco use type: Cigarette Years Smoked: 52 on/off - 30pyh e-Cigarette/Vaping Use: Never Used Second Hand Smoke Exposure: Yes Current occupational status: retired Cognitive needs: No Hearing needs: No Vision needs: Yes Review of Systems Const All systems reviewed & are unremarkable except as noted in HPI and below Physical Exam General: Appears afebrile. Alert and oriented. Mood and affect appropriate. Follows and participates in conversation appropriately. Respiratory effort is unlabored. Occasional nonproductive cough. Able to transition from sit to stand unassisted. Ambulates with bilaterally normal heel strike and toe off. Neck Neck: Yes no lymphadenopathy, Yes supple, No anterior neck swelling, Yes no JVD and No prominent dorsocervical fat pad Resp Effort & Inspection: normal respiratory effort, able to speak in complete sentences, no audible wheezes, Actively coughing (occasional, non-productive), no respiratory distress and symmetric chest movement Back/Spine/Pelvis Cervical Spine: cervical muscular tenderness, pain with cervical ROM and No Cervical spine tenderness Thoracic/Lumbar Spine: thoracic and lumbar spine normal to inspection, pain with thoraco-lumbar ROM, thoraco-lumbar ROM limited, No thoracic spinal tenderness and lumbar spinal tenderness Psych Appearance: grossly normal and well kempt Mental Status: mental status grossly normal Speech and movement: Normal speech and movement present and Clear speech present Affect: normal affect Attitude: cooperative Thought process: Normal thought process present Thought content: Normal thought content present, suicidality (none), no hallucinations and No Depressive thoughts present Insight: Good insight present (Psych) Judgement: Good judgement present (Psych) Results Reviewed Results Reviewed: XR CERVICAL SPINE 12/23/22 FINDINGS: The visualized cervical vertebrae are intact with normal alignment. Odontoid process is intact with normal C1/C2 lateral masses alignment. Pre-dental interval is normal. Pre vertebral soft tissue is normal in thickness. Prominent bilateral apophyseal joints and uncovertebral joint osteophytes are present. Bilateral oblique x-rays of cervical spine show normal apophyseal joint alignment. However, evaluation of cervical neural foramina remains limited by suboptimal positioning. The left cervical neural foramina and right C2-C3 neural foramen appear patent. IMPRESSION: 1. Unchanged multilevel advanced cervical spondylosis. 2. No fracture or dislocation of cervical spine is seen. Assessment & Plan Assessment & Plan (1) Cervical spondylosis: Code(s): M47.812 - Spondylosis without myelopathy or radiculopathy, cervical region (2) Degenerative joint disease of cervical and lumbar spine: Code(s): M47.812 - Spondylosis without myelopathy or radiculopathy, cervical region; M47.816 - Spondylosis without myelopathy or radiculopathy, lumbar region (3) Chronic pain syndrome: Code(s): G89.4 - Chronic pain syndrome (4) Degenerative cervical disc: Code(s): M50.30 - Other cervical disc degeneration, unspecified cervical region (5) Opioid contract exists: Code(s): Z79.891 - assisted (current) use of opiate analgesic Plan Patient has shown accountability for his medication regimen and the pill count was accurate. The patient reported no side effects. There is no evidence of misuse, abuse, or diversion at this time. [employer] reviewed. Patient reports adequate analgesia with Morphine IR. Script sent for morphine IR 15 mg BID prn script refill will be sent on 04/10/23. Script faxed to [facility] for TENS unit for chronic neck pain with muscle stiffness and spasms. All questions were answered and patient agreed with the plan. Follow up in one month for pill count and sooner if needed. Medications: Refilled morphine Partial Fill upon patient request. 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
[2023-03-28 09:33] VITALS: BP 129/60; PULSE 89; O2SAT 96; BMI 35.6
== END 2023-03-28 09:45 | disposition home or self-care (01) ==
PROVIDERS: PCP Internal Medicine; Visit Provider Nurse Practitioner Family
DX: G89.4 Chronic pain syndrome (principal); M47.812 Spondylosis without myelopathy or radiculopathy, cervical region; M47.816 Spondylosis without myelopathy or radiculopathy, lumbar region; Z79.891 Long term (current) use of opiate analgesic; M50.30 Other cervical disc degeneration, unspecified cervical region; M62.838 Other muscle spasm
CPT/HCPCS: 99214

== ENCOUNTER → 2023-03-28 09:24 | Outpatient (BNVA) | payer MEDICARE, MEDICAID, SELFPAY | PROVIDERS: PCP Internal Medicine; Visit Provider Nurse Practitioner Family | DX: Z51.81 Encounter for therapeutic drug level monitoring (principal); M62.838 Other muscle spasm; M47.812 Spondylosis without myelopathy or radiculopathy, cervical region; M47.816 Spondylosis without myelopathy or radiculopathy, lumbar region; M50.30 Other cervical disc degeneration, unspecified cervical region; G89.4 Chronic pain syndrome; Z79.891 Long term (current) use of opiate analgesic | CPT/HCPCS: 99212 ==

== ENCOUNTER 2023-04-17 11:54 | Outpatient (REF) | payer MEDICARE, MEDICAID, SELFPAY ==
[2023-04-17 13:44] LABS: MANUAL DIFF FLAG NO
[2023-04-17 13:47] LABS: Basophils Absolute Auto 0.1 X10*3/uL (0.0-0.2); Basophils Percent Auto 0.5 % (0-2); Eosinophils Absolute Auto 0.3 X10*3/uL (0.0-0.4); Eosinophils Percent Auto 3.3 % (0-4); Hematocrit 42.6 % (42.0-52.0); Imm Gran Abs Auto 0.06 X10*3/uL (0.00-0.03); Imm Gran Pct Auto 0.6 % (0.0-0.4); Lymphocytes Absolute Auto 1.6 X10*3/uL (1.2-4.9); Lymphocytes Percent Auto 15.8 % (20-40); Mean Corpuscular HGB Conc 32.9 g/dl (31.0-36.0); Mean Corpuscular Hemoglobin 31.1 pg (27.0-33.0); Mean Corpuscular Volume 94.7 fL (80.0-98.0); Mean Platelet Volume 11.8 fL (9.4-12.4); Monocytes Absolute Auto 0.7 X10*3/uL (0.1-1.2); Monocytes Percent Auto 7.3 % (2-11); Neutrophils Absolute Auto 7.2 x10*3/uL (2.0-8.3); Neutrophils Percent Auto 72.5 % (45-73); Platelet Count 197 X10*3/uL (160-400); Red Cell Distribution Width 15.4 % (11.0-16.0); Retic HGB Equivalent 34.3 pg (30.0-35.0); Reticulocyte Percent 1.7 % (0.5-1.8); Reticulocytes Absolute 0.075 X10*6/uL (0.026-0.095); White Blood Count 9.9 X10*3/uL (4.8-10.8)
[2023-04-17 14:43] LABS: B Type Natriuretic Peptide 194 pg/mL (<100)
[2023-04-17 14:47] LABS: Alanine Aminotransferase 27 U/L (0-40); Albumin Level 4.1 g/dL (3.5-5.0); Alkaline Phosphatase 101 U/L (39-117); Anion Gap 13 (12-20); Aspartate Amino Transferase 22 U/L (5-37); Bilirubin Total 0.8 mg/dL (0.0-1.0); Blood Urea Nitrogen 21 mg/dL (9-16); Carbon Dioxide 25 mmol/L (22-29); Chloride 105 mmol/L (96-108); Cholesterol 106 mg/dL (<200); Estimated Glomerular Filt Rate > 60; Glucose Random 101 mg/dL (60-115); HDL Cholesterol 41 mg/dL (>40); Iron 74 mcg/dL (45-160); LDL Cholesterol Calculated 52 mg/dL (<100); Percent Iron Saturation 25 % (15-50); Potassium 3.4 mmol/L (3.3-5.1); Sodium 140 mmol/L (135-145); Total Iron Binding Capacity 294 mcg/dL (228-428); Total Protein 7.6 g/dL (6.5-8.0); Triglycerides 68 mg/dL (<150); Unsaturated Iron Binding 220 ug/dL
[2023-04-17 15:06] LABS: Ferritin 191 ng/mL (20-250); Thyroid Stimulating Hormone 0.78 uIU/mL (0.32-4.0)
[2023-04-17 15:12] LABS: Folate 10.3 ng/mL (> or = 4.0); Vitamin B12 1054 pg/mL (200-900)
== END 2023-04-17 11:55 | disposition home or self-care (01) ==
LOC: HO.HMGCLDS 11:54
PROVIDERS: PCP Internal Medicine; Visit Provider Internal Medicine
DX: I48.19 Other persistent atrial fibrillation (principal); I50.32 Chronic diastolic (congestive) heart failure; E78.00 Pure hypercholesterolemia, unspecified
CPT/HCPCS: 36415; 80053; 80061; 82607; 82728; 82746; 83540; 83880; 84439; 84443; 85025; 85045

== ENCOUNTER 2023-04-20 11:10 | Outpatient (AMB) | payer MEDICARE, MEDICAID, SELFPAY ==
[2023-04-20 11:11] VITALS: BP 158/76; PULSE 73; O2SAT 94; BMI 35.7
--- NOTE | 2023-04-20 11:11 | MHC.PC.OV ---
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 Patient is up-to-date with colonoscopy October 2014. Patient regularly follows up with pain management for cervical spondylosis with chronic pain syndrome. Patient follows up with vascular December 2022 peripheral vascular disease. 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 Degenerative joint disease of cervical and lumbar spine Persistent atrial fibrillation (~2014) Peripheral vascular disease Obesity Insomnia COPD (chronic obstructive pulmonary disease) Bilateral primary osteoarthritis of knee Hypercholesterolemia Surgical History History of spinal surgery History of colonoscopy History of cardioversion (~2018) History of carpal tunnel release History of bilateral cataract extraction History of hip replacement, total History of removal of cyst History of vitrectomy (~11/2019) Family History Father Myocardial infarction Sister Multiple sclerosis Social History Household Members: Spouse Housing: House Alcohol intake: former Patient Tobacco Use Status: Former Tobacco user Quit Date: 08/31/2019 Tobacco use type: Cigarette Years Smoked: 54 on/off - 30pyh e-Cigarette/Vaping Use: Never Used Second Hand Smoke Exposure: Yes Current occupational status: retired Cognitive needs: No Hearing needs: No Vision needs: Yes Questionnaire Thrive Questionnaire Date Thrive assessed: 03/07/22 AUDIT C Alcohol Use Questionnaire (AUDIT-C) 1. How often do you have a drink containing alcohol?: 2-3 times a week 2. How many drinks containing alcohol do you have on a typical day when you are drinking?: 1 or 2 3. How often do you have six or more drinks on one occasion?: Never Total Score: 3 LUCY-7 AMB Questionnaire LUCY-7 Date LUCY - 7 assessed: 04/20/23 Source: Developed by Drs. Alli Chen, Miya Oneil, Umair Whitten and colleagues, with an educational megha from [employer]. Physical exam (Primary Care) Vital Signs: Last Vital Signs Pulse 73 04/20/23 11:11 BP 158/76 H 04/20/23 11:11 Pulse Ox 94 04/20/23 11:11 Oxygen Delivery Method Room Air 04/20/23 11:11 BMI result Body Mass Index 35.7 Tobacco/Smoking Status: Tobacco use Status Tobacco use date assessed 04/20/23 04/20/23 11:12 Patient Tobacco Use Status Former Tobacco user 04/20/23 11:12 Tobacco use type Cigarette 04/20/23 11:12 e-Cigarette/Vaping Use Never Used 04/20/23 11:12 Thrive Assessment: Date of Thrive Assessment Date Thrive assessed 03/07/22 04/20/23 11:12 Const General: alert; No acute distress Eyes Conjunctivae: conjunctivae normal Resp Auscultation: clear to auscultation bilaterally Cardio Rate: regular rate Rhythm: regular rhythm GI Inspection: Yes normal to inspection Extrem General: Yes normal to inspection and No edema Assessment and Plan Assessment & Plan (1) YUNIEL on CPAP: Comment: CPAP Code(s): G47.33 - Obstructive sleep apnea (adult) (pediatric); Z99.89 - Dependence on other enabling machines and devices Plan: Continue to use the CPAP more than 4 hours a night and benefits from this (2) Persistent atrial fibrillation: Onset Date: ~2014 Code(s): I48.19 - Other persistent atrial fibrillation Plan: Continue with anticoagulation with Eliquis twice a day year blood work requested March 2023 (3) Essential hypertension: Code(s): I10 - Essential (primary) hypertension Plan: Continue with blood pressure medication. Decrease salt intake and exercise presently on diltiazem 360 mg once a day metoprolol 25 mg twice a day (4) COPD (chronic obstructive pulmonary disease): Code(s): J44.9 - Chronic obstructive pulmonary disease, unspecified Qualifiers: COPD type: emphysema Emphysema type: panlobular Qualified Code(s): J43.1 - Panlobular emphysema Plan: Continue with the inhaler as needed (5) Hypercholesterolemia: Code(s): E78.00 - Pure hypercholesterolemia, unspecified Plan: Avoid fried foods, chicken skin, eggs, butter margarine, pastries and meat. Be it pork or beef they have a lot of cholesterol LDL goal of less than 70 and triglyceride of less than 150 presently on atorvastatin 40 mg once a day (6) Atherosclerotic cardiovascular disease: Code(s): I25.10 - Atherosclerotic heart disease of [place] coronary artery without angina pectoris Plan: Control the cholesterol, weight, blood pressure, diabetes on anticoagulation (7) Chronic diastolic (congestive) heart failure: Code(s): I50.32 - Chronic diastolic (congestive) heart failure Plan: Continue with furosemide and keep weighing and recording every day (8) Otitis media: Comment: R ear Code(s): H66.90 - Otitis media, unspecified, unspecified ear Orders: Orders Comprehensive Met. Panel 6 Months I25.10 - Atherosclerotic heart disease of [place] coronary artery without angina pectoris B Type Natriuretic Peptide 6 Months I25.10 - Atherosclerotic heart disease of [place] coronary artery without angina pectoris Free T4 (Free Thyroxine) 6 Months I25.10 - Atherosclerotic heart disease of [place] coronary artery without angina pectoris Vitamin B12 and Folate 6 Months I25.10 - Atherosclerotic heart disease of [place] coronary artery without angina pectoris Lipid Panel 6 Months E78.00 - Pure hypercholesterolemia, unspecified, I25.10 - Atherosclerotic heart disease of [place] coronary artery without angina pectoris Complete Blood Count Auto Diff 6 Months I25.10 - Atherosclerotic heart disease of [place] coronary artery without angina pectoris Magnesium 6 Months I25.10 - Atherosclerotic heart disease of [place] coronary artery without angina pectoris Medications: New amoxicillin-pot clavulanate 875-125 mg 1 tab PO BID 14 tabs 0RF H66.90 - Otitis media, unspecified, unspecified ear qpscefep-asmzgwmqm-MR 3.5-10,000-1 mg/mL-unit/mL-% 4 drps otic (ear) right TID 10 days 10 mL 0RF H66.90 - Otitis media, unspecified, unspecified ear Coding Level of Care Code Est Pt Level 4 (26533) Diagnoses YUNIEL on CPAP G47.33; Z99.89 Persistent atrial fibrillation I48.19 Essential hypertension I10 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 type: emphysema Emphysema type: panlobular Hypercholesterolemia E78.00 Atherosclerotic cardiovascular disease I25.10 Chronic diastolic (congestive) heart failure I50.32 Otitis media H66.90
== END 2023-04-20 11:58 | disposition home or self-care (01) ==
PROVIDERS: PCP Internal Medicine; Visit Provider Internal Medicine
DX: I48.19 Other persistent atrial fibrillation (principal); J43.1 Panlobular emphysema; I50.32 Chronic diastolic (congestive) heart failure; G47.33 Obstructive sleep apnea (adult) (pediatric); Z99.89 Dependence on other enabling machines and devices; I10 Essential (primary) hypertension; E78.00 Pure hypercholesterolemia, unspecified; I25.10 Atherosclerotic heart disease of native coronary artery without angina pectoris; H66.91 Otitis media, unspecified, right ear
CPT/HCPCS: 99214

== ENCOUNTER 2023-04-27 09:25 | Outpatient (AMB) | payer MEDICARE, MEDICAID, SELFPAY ==
--- NOTE | 2023-04-27 09:27 | A.OFFVIS_ITS ---
Intake Vital Signs 04/27/23 09:33 Height 5 ft 11 in Weight 255 lb BMI 35.6 BP 124/72 Blood Pressure Location Lt brachial Position Sitting Pulse 89 Pulse Source Pulse Oximeter Pulse Oximetry (%) 97 Oxygen Delivery Method Room Air Intake Visit Reasons: Pill Count Intake Note: Alli comes in today for a pill count to morphine, patient should have 26 tablets and presents with 33 tablets which he last took today 04/27/23 at 5:30am. Pain today 5.5/10. [place] Sewer Required: No Accompanied by: Self / Same As Patient Allergies No Known Allergies Allergy (Verified 04/27/23 09:34) HPI HPI Comments History of Present Illness Details Alli presents today for a pill count. Patient is supposed to have morphine IR 15 mg #26 pills, in his possession has #33 pills. This demonstrates a responsible attitude in regards to the medication regimen. Patient reports adequate analgesia on morphine IR 15 mg BID prn for his chronic pain generators, including neck, back and knee pain without noted side effects. Patient reports current medication regime allows him to be less symptomatic and more functional. Denies any fever, chest pain, headaches, palpitations, nausea, sedation, weakness or urinary retention except occasional constipation. Patient uses CPAP machine regularly. Denies any recent cough, cold, infection, any significant changes in her medical history, medications or recent hospitalizations. [facility] Medical History Degenerative cervical disc Shortness of breath Constipation Circadian rhythm sleep disorder Vision changes Personal history of nicotine dependence Tobacco abuse Obstructive sleep apnea on CPAP (~03/2015) Current use of fpc anticoagulation Degenerative joint disease of cervical and lumbar spine Persistent atrial fibrillation (~2014) Peripheral vascular disease Obesity Insomnia COPD (chronic obstructive pulmonary disease) Bilateral primary osteoarthritis of knee Hypercholesterolemia Surgical History History of spinal surgery History of colonoscopy History of cardioversion (~2018) History of carpal tunnel release History of bilateral cataract extraction History of hip replacement, total History of removal of cyst History of vitrectomy (~11/2019) Family History Father Myocardial infarction Sister Multiple sclerosis Social History Household Members: Spouse Housing: House Alcohol intake: former Patient Tobacco Use Status: Former Tobacco user Quit Date: 08/31/2019 Tobacco use type: Cigarette Years Smoked: 54 on/off - 30pyh e-Cigarette/Vaping Use: Never Used Second Hand Smoke Exposure: Yes Current occupational status: retired Cognitive needs: No Hearing needs: No Vision needs: Yes Review of Systems Const All systems reviewed & are unremarkable except as noted in HPI and below Physical Exam Vital Signs: Last Vital Signs Pulse 89 04/27/23 09:33 BP 124/72 04/27/23 09:33 Pulse Ox 97 04/27/23 09:33 Oxygen Delivery Method Room Air 04/27/23 09:33 BMI result Body Mass Index 35.6 General: Appears afebrile. Alert and oriented. Mood and affect appropriate. Follows and participates in conversation appropriately. Respiratory effort is unlabored. Occasional nonproductive cough. Able to transition from sit to stand unassisted. Ambulates with bilaterally normal heel strike and toe off. Resp Effort & Inspection: normal respiratory effort, able to speak in complete sentences, no audible wheezes, Actively coughing (occasional, non-productive), no respiratory distress and symmetric chest movement Back/Spine/Pelvis Cervical Spine: cervical muscular tenderness, pain with cervical ROM and No Cervical spine tenderness Thoracic/Lumbar Spine: thoracic and lumbar spine normal to inspection, pain with thoraco-lumbar ROM, thoraco-lumbar ROM limited, No thoracic spinal tenderness and lumbar spinal tenderness Psych Appearance: grossly normal and well kempt Mental Status: mental status grossly normal Speech and movement: Normal speech and movement present and Clear speech present Affect: normal affect Attitude: cooperative Thought process: Normal thought process present Thought content: Normal thought content present, suicidality (none), no hallucinations and No Depressive thoughts present Insight: Good insight present (Psych) Judgement: Good judgement present (Psych) Results Reviewed Results Reviewed: XR CERVICAL SPINE 12/23/22 FINDINGS: The visualized cervical vertebrae are intact with normal alignment. Odontoid process is intact with normal C1/C2 lateral masses alignment. Pre-dental interval is normal. Pre vertebral soft tissue is normal in thickness. Prominent bilateral apophyseal joints and uncovertebral joint osteophytes are present. Bilateral oblique x-rays of cervical spine show normal apophyseal joint alignment. However, evaluation of cervical neural foramina remains limited by suboptimal positioning. The left cervical neural foramina and right C2-C3 neural foramen appear patent. IMPRESSION: 1. Unchanged multilevel advanced cervical spondylosis. 2. No fracture or dislocation of cervical spine is seen. MR LUMBAR SPINE WITHOUT IV CONTRAST 10/07/2015 CLINICAL INFORMATION: Back pain and bruising in the right buttock and thigh. FINDINGS: There are 5 nonrib-bearing lumbar-type vertebral bodies. Lumbar alignment is normal. The vertebral body heights are maintained. There is moderate disc volume loss at L1-L2. Disc desiccation at L1-L2 and L3-L4. Mild Modic type I degenerative endplate changes anteriorly at L1-L2. There is no additional bone marrow edema. There are no acute fractures. Conus terminates at the T12-L1 disc level. There is left iliopsoas muscle atrophy that is partially imaged. No additional significant soft tissue findings. L1-L2: There is a small annular disc bulge and there is mild bilateral facet arthropathy with no central canal stenosis and no significant foraminal stenosis. L2-L3: The disc contour is normal. There is no central canal stenosis and there is no foraminal stenosis. L3-L4: Small annular disc bulge exhibiting a ventral annular fissure. There is moderate bilateral facet arthropathy. There is no central canal stenosis and there is mild foraminal narrowing bilaterally, slightly greater on the right side. L4-L5: There is a diffuse annular disc bulge and there is severe bilateral hypertrophic facet arthropathy and ligamentum flavum thickening. No central canal stenosis. No significant foraminal stenosis. L5-S1: There is a diffuse annular disc bulge and there is severe left and moderate right hypertrophic facet arthropathy. There is no central canal stenosis and there is no foraminal stenosis. IMPRESSION: - Small disc bulges at the L1-L2, L3-L4, L4-L5, and L5-S1 levels, at L3-L4 associated with a ventral annular fissure. There is severe bilateral hypertrophic facet arthropathy at L4-L5 and severe left and moderate right hypertrophic facet arthropathy at L5-S1. No severe central canal stenosis and no severe foraminal stenosis within the lumbar spine. - Severe left iliopsoas muscle atrophy. Assessment & Plan Assessment & Plan (1) Cervical spondylosis: Code(s): M47.812 - Spondylosis without myelopathy or radiculopathy, cervical region (2) Degenerative joint disease of cervical and lumbar spine: Code(s): M47.812 - Spondylosis without myelopathy or radiculopathy, cervical region; M47.816 - Spondylosis without myelopathy or radiculopathy, lumbar region (3) Chronic pain syndrome: Code(s): G89.4 - Chronic pain syndrome (4) Degenerative cervical disc: Code(s): M50.30 - Other cervical disc degeneration, unspecified cervical region (5) Opioid contract exists: Code(s): Z79.891 - [facility] (current) use of opiate analgesic Plan Patient has shown accountability for his medication regimen and the pill count was accurate. The patient reported no side effects. There is no evidence of misuse, abuse, or diversion at this time. [employer] reviewed. Patient reports adequate analgesia with Morphine IR. Script sent for morphine IR 15 mg BID prn script refill will be sent on 05/08/23. All questions were answered and patient agreed with the plan. Follow up in one month for pill count and sooner if needed. Medications: Refilled morphine Partial Fill upon patient request. 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
[2023-04-27 09:33] VITALS: BP 124/72; PULSE 89; O2SAT 97; BMI 35.6
== END 2023-04-27 09:37 | disposition home or self-care (01) ==
PROVIDERS: PCP Internal Medicine; Visit Provider Nurse Practitioner Family
DX: G89.4 Chronic pain syndrome (principal); M47.812 Spondylosis without myelopathy or radiculopathy, cervical region; M47.816 Spondylosis without myelopathy or radiculopathy, lumbar region; Z79.891 Long term (current) use of opiate analgesic; M50.30 Other cervical disc degeneration, unspecified cervical region
CPT/HCPCS: 99214

== ENCOUNTER → 2023-04-27 09:25 | Outpatient (BNVA) | payer MEDICARE, MEDICAID, SELFPAY | PROVIDERS: PCP Internal Medicine; Visit Provider Nurse Practitioner Family | DX: Z51.81 Encounter for therapeutic drug level monitoring (principal); M47.812 Spondylosis without myelopathy or radiculopathy, cervical region; M47.816 Spondylosis without myelopathy or radiculopathy, lumbar region; M50.30 Other cervical disc degeneration, unspecified cervical region; G89.4 Chronic pain syndrome; Z79.891 Long term (current) use of opiate analgesic | CPT/HCPCS: 99212 ==

== ENCOUNTER 2023-06-01 09:01 | Outpatient (AMB) | payer MEDICARE, MEDICAID, SELFPAY ==
--- NOTE | 2023-06-01 09:10 | A.OFFVIS_ITS ---
Intake Vital Signs 06/01/23 09:19 Height 5 ft 11 in Weight 258 lb 8 oz BMI 36.0 BP 133/60 Blood Pressure Location Lt brachial Position Sitting Pulse 88 Pulse Source Pulse Oximeter Pulse Oximetry (%) 97 Oxygen Delivery Method Room Air Intake Visit Reasons: Pill Count Intake Note: Alli comes in today for a pill count to morphine, patient should have 16 tablets and presents with 22 tablets which he last took today 06/01/23 at 4am. 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 Patient is supposed to have morphine IR 15 mg #16 pills, in his possession has #22 pills. This demonstrates a responsible attitude in regards to the medication regimen. Patient reports inadequate analgesia on morphine IR 15 mg BID prn for his chronic pain generators, including neck, back and knee pain without noted side effects. Reports pain with movements, walking, bending, changing positions and cold and rainy weather. He has been taking OTC topical and oral medications, along with gabapentin and muscle relaxants with minimal relief. He was previously on oxycodone which minimally controlling his pain. Denies any recent trauma, injury or falls. Denies any fever, chest pain, headaches, palpitations, nausea, sedation, weakness or urinary retention except occasional constipation. Patient uses CPAP machine regularly. Denies daytime napping or dozing off during conversations. Denies any recent cough, cold, infection, any significant changes in his medical history, medications or recent hospitalizations. [facility] Medical History Degenerative cervical disc Shortness of breath Constipation Circadian rhythm sleep disorder Vision changes Personal history of nicotine dependence Tobacco abuse Obstructive sleep apnea on CPAP (~03/2015) Current use of welt slasher anticoagulation Degenerative joint disease of cervical and lumbar spine Persistent atrial fibrillation (~2014) Peripheral vascular disease Obesity Insomnia COPD (chronic obstructive pulmonary disease) Bilateral primary osteoarthritis of knee Hypercholesterolemia Surgical History History of spinal surgery History of colonoscopy History of cardioversion (~2018) History of carpal tunnel release History of bilateral cataract extraction History of hip replacement, total History of removal of cyst History of vitrectomy (~11/2019) Family History Father Myocardial infarction Sister Multiple sclerosis Social History Household Members: Spouse Housing: House Alcohol intake: former Patient Tobacco Use Status: Former Tobacco user Quit Date: 08/31/2019 Tobacco use type: Cigarette Years Smoked: 54 on/off - 30pyh e-Cigarette/Vaping Use: Never Used Second Hand Smoke Exposure: Yes Current occupational status: retired Cognitive needs: No Hearing needs: No Vision needs: Yes Review of Systems Const All systems reviewed & are unremarkable except as noted in HPI and below Physical Exam Vital Signs: Last Vital Signs Pulse 88 06/01/23 09:19 BP 133/60 06/01/23 09:19 Pulse Ox 97 06/01/23 09:19 Oxygen Delivery Method Room Air 06/01/23 09:19 BMI result Body Mass Index 36.0 General: Appears afebrile. Alert and oriented. Mood and affect appropriate. Follows and participates in conversation appropriately. Respiratory effort is unlabored. Occasional nonproductive cough. Able to transition from sit to stand unassisted. Ambulates with bilaterally normal heel strike and toe off. Resp Effort & Inspection: normal respiratory effort, able to speak in complete sentences, no audible wheezes, Actively coughing (occasional, non-productive), not labored, no respiratory distress, no stridor and no use of accessory muscles Back/Spine/Pelvis Cervical Spine: cervical muscular tenderness, pain with cervical ROM and No Cervical spine tenderness Thoracic/Lumbar Spine: thoracic and lumbar spine normal to inspection, pain with thoraco-lumbar ROM, thoraco-lumbar ROM limited, No thoracic spinal tenderness and lumbar spinal tenderness Psych Appearance: grossly normal and well kempt Mental Status: mental status grossly normal Speech and movement: Normal speech and movement present and Clear speech present Affect: normal affect Attitude: cooperative Thought process: Normal thought process present Thought content: Normal thought content present, suicidality (none), no halluc inations and No Depressive thoughts present Insight: Good insight present (Psych) Judgement: Good judgement present (Psych) Results Reviewed Results Reviewed: XR CERVICAL SPINE 12/23/22 FINDINGS: The visualized cervical vertebrae are intact with normal alignment. Odontoid process is intact with normal C1/C2 lateral masses alignment. Pre-dental interval is normal. Pre vertebral soft tissue is normal in thickness. Prominent bilateral apophyseal joints and uncovertebral joint osteophytes are present. Bilateral oblique x-rays of cervical spine show normal apophyseal joint alignment. However, evaluation of cervical neural foramina remains limited by suboptimal positioning. The left cervical neural foramina and right C2-C3 neural foramen appear patent. IMPRESSION: 1. Unchanged multilevel advanced cervical spondylosis. 2. No fracture or dislocation of cervical spine is seen. MR LUMBAR SPINE WITHOUT IV CONTRAST 10/07/2015 CLINICAL INFORMATION: Back pain and bruising in the right buttock and thigh. FINDINGS: There are 5 nonrib-bearing lumbar-type vertebral bodies. Lumbar alignment is normal. The vertebral body heights are maintained. There is moderate disc volume loss at L1-L2. Disc desiccation at L1-L2 and L3-L4. Mild Modic type I degenerative endplate changes anteriorly at L1-L2. There is no additional bone marrow edema. There are no acute fractures. Conus terminates at the T12-L1 disc level. There is left iliopsoas muscle atrophy that is partially imaged. No additional significant soft tissue findings. L1-L2: There is a small annular disc bulge and there is mild bilateral facet arthropathy with no central canal stenosis and no significant foraminal stenosis. L2-L3: The disc contour is normal. There is no central canal stenosis and there is no foraminal stenosis. L3-L4: Small annular disc bulge exhibiting a ventral annular fissure. There is moderate bilateral facet arthropathy. There is no central canal stenosis and there is mild foraminal narrowing bilaterally, slightly greater on the right side. L4-L5: There is a diffuse annular disc bulge and there is severe bilateral hypertrophic facet arthropathy and ligamentum flavum thickening. No central canal stenosis. No significant foraminal stenosis. L5-S1: There is a diffuse annular disc bulge and there is severe left and moderate right hypertrophic facet arthropathy. There is no central canal stenosis and there is no foraminal stenosis. IMPRESSION: - Small disc bulges at the L1-L2, L3-L4, L4-L5, and L5-S1 levels, at L3-L4 associated with a ventral annular fissure. There is severe bilateral hypertrophic facet arthropathy at L4-L5 and severe left and moderate right hypertrophic facet arthropathy at L5-S1. No severe central canal stenosis and no severe foraminal stenosis within the lumbar spine. - Severe left iliopsoas muscle atrophy. Assessment & Plan Assessment & Plan (1) Cervical spondylosis: Code(s): M47.812 - Spondylosis without myelopathy or radiculopathy, cervical region (2) Degenerative joint disease of cervical and lumbar spine: Code(s): M47.812 - Spondylosis without myelopathy or radiculopathy, cervical region; M47.816 - Spondylosis without myelopathy or radiculopathy, lumbar region (3) Chronic pain syndrome: Code(s): G89.4 - Chronic pain syndrome (4) Degenerative cervical disc: Code(s): M50.30 - Other cervical disc degeneration, unspecified cervical region (5) Opioid contract exists: Code(s): Z79.891 - [facility] (current) use of opiate analgesic Plan Patient has shown accountability for his medication regimen and the pill count was accurate. The patient reported no side effects. There is no evidence of misuse, abuse, or diversion at this time. MassPat reviewed. We discussed opioid rotation and adjustment to obtain adequate analgesia. We will proceed with increase in Morphine IR 15 mg from BID to TID prn for moderate-severe pain. Script sent for morphine IR 15 mg TID prn with advanced date of 06/06/23. Reviewed with patient the benefits and risks of opioids. Patient has Narcan at home. All questions were answered and patient agreed with the plan. Follow up in one month for pill count and sooner if needed. Medications: Changed From morphine Partial Fill upon patient request. 15 mg PO BID 30 days PRN 60 tabs 0RF pain G89.4 - Chronic pain syndrome, M17.0 - Bilateral primary osteoarthritis of knee, M47.812 - Spondylosis without myelopathy or radiculopathy, cervical region, M47.816 - Spondylosis without myelopathy or radiculopathy, lumbar region, Z79.891 - [facility] (current) use of opiate analgesic To morphine Partial Fill upon patient request. 15 mg PO Q8H 30 days PRN 90 tabs 0RF pain (scale score 7-10) G89.4 - Chronic pain syndrome, M17.0 - Bilateral primary osteoarthritis of knee, M47.812 - Spondylosis without myelopathy or radiculopathy, cervical region, M47.816 - Spondylosis without myelopathy or radiculopathy, lumbar region, Z79.891 - [facility] (current) use of opiate esthela lgesic Refilled gabapentin 300 mg PO BID 90 days 180 caps 3RF pain G62.9 - Polyneuropathy, unspecified, G89.4 - Chronic pain syndrome, M62.838 - Other muscle spasm Coding Level of Care Code Est Pt Level 4 (05165) Diagnoses Cervical spondylosis M47.812 Degenerative joint disease of cervical and lumbar spine M47.812; M47.816 Chronic pain syndrome G89.4 Degenerative cervical disc M50.30 Opioid contract exists Z79.891
[2023-06-01 09:19] VITALS: BP 133/60; PULSE 88; O2SAT 97; BMI 36.0
== END 2023-06-01 09:29 | disposition home or self-care (01) ==
PROVIDERS: PCP Internal Medicine; Visit Provider Nurse Practitioner Family
DX: G89.4 Chronic pain syndrome (principal); M47.812 Spondylosis without myelopathy or radiculopathy, cervical region; M47.816 Spondylosis without myelopathy or radiculopathy, lumbar region; Z79.891 Long term (current) use of opiate analgesic; M50.30 Other cervical disc degeneration, unspecified cervical region
CPT/HCPCS: 99214

== ENCOUNTER → 2023-06-01 09:01 | Outpatient (BNVA) | payer MEDICARE, MEDICAID, SELFPAY | PROVIDERS: PCP Internal Medicine; Visit Provider Nurse Practitioner Family | DX: Z51.81 Encounter for therapeutic drug level monitoring (principal); M47.812 Spondylosis without myelopathy or radiculopathy, cervical region; M47.816 Spondylosis without myelopathy or radiculopathy, lumbar region; M50.30 Other cervical disc degeneration, unspecified cervical region; G89.4 Chronic pain syndrome; Z79.891 Long term (current) use of opiate analgesic | CPT/HCPCS: 99212 ==

== ENCOUNTER 2023-06-12 08:03 | Outpatient (AMB) | payer MEDICARE, MEDICAID, SELFPAY ==
[2023-06-12 08:22] VITALS: BP 140/72; PULSE 78; BMI 35.7
--- NOTE | 2023-06-12 08:22 | MHC.OFFVIS ---
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 Accompanied by: Self / Same As Patient Allergies No Known Allergies Allergy (Verified 06/01/23 09:19) Medication List - Last Reconciled 06/12/23 by Wally Sen MD albuterol sulfate 2.5 mg (3 mL) inhalation Q4-6H PRN apixaban (Eliquis) 5 mg PO BID 90 days ascorbic acid (vitamin C) 500 mg PO .QD atorvastatin 40 mg PO DAILY baclofen 10 mg PO TID PRN bupropion HCl SR (Wellbutrin SR) 150 mg PO QAM [CPAP full face mask 14 cm h20 humidified Air As directed] dapagliflozin propanediol (Farxiga) 5 mg (1/2 x 10 mg) PO DAILY digoxin 125 mcg PO DAILY diltiazem HCl ER 360 mg PO DAILY ferrous sulfate (Feosol) 325 mg PO DAILY bjhkskjhakq-dqdxohtui-wfnuavjq 200-62.5-25 mcg (Trelegy Ellipta) 1 inh inhalation DAILY furosemide 80 mg (2 x 40 mg) PO DAILY 90 days furosemide (Lasix) 40 mg PO DAILY gabapentin 300 mg PO BID 90 days hydrocortisone-acetic acid 1-2 % 4 drps otic (ears) TID ipratropium-albuterol 20-100 mcg/actuation (Combivent Respimat) 1 puff inhalation QID ipratropium-albuterol 20-100 mcg/actuation (Combivent Respimat) 1 puff PO QID metoprolol tartrate 25 mg PO BID morphine 15 mg PO Q8H PRN 30 days naloxone 4 mg/actuation (Narcan) 4 mg intranasal Q2M PRN usapxjsi-qtdscxqqm-AH 3.5-10,000-1 mg/mL-unit/mL-% 4 drps otic (ear) right TID 10 days polyethylene glycol 3350 (Miralax) 17 grams PO DAILY trazodone 50 mg PO BEDTIME PRN HPI Comments Details: Alli returns for follow-up regarding follow-up of atrial flutter/fibrillation. Atrial flutter was originally detected during an office visit many years ago around 2014. At that time, he reverted back to sinus rhythm in a short time. He was okay for couple of years then started going back in atrial fibrillation. Cardioversion was unsuccessful. Even with amiodarone use we re-attempted but did not last and he went back into atrial fibrillation. Then he was left on rate control only. Since last seen, he is just about the same as before. Shortness of breath is at baseline. No palpitations or any other complaints. 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 Degenerative joint disease of cervical and lumbar spine Persistent atrial fibrillation (~2014) Peripheral vascular disease Obesity Insomnia COPD (chronic obstructive pulmonary disease) Bilateral primary osteoarthritis of knee Hypercholesterolemia Surgical History History of spinal surgery History of colonoscopy History of cardioversion (~2018) History of carpal tunnel release History of bilateral cataract extraction History of hip replacement, total History of removal of cyst History of vitrectomy (~11/2019) Family History Father Myocardial infarction Sister Multiple sclerosis Social History Household Members: Spouse Housing: House Alcohol intake: former Patient Tobacco Use Status: Former Tobacco user Quit Date: 08/31/2019 Tobacco use type: Cigarette Years Smoked: 54 on/off - 30pyh e-Cigarette/Vaping Use: Never Used Second Hand Smoke Exposure: Yes Current occupational status: retired Cognitive needs: No Hearing needs: No Vision needs: Yes Review of Systems Const Denies chills, Denies fatigue, Denies fever(s), Denies frequent falls, Denies weakness, Denies weight gain and Denies weight loss ENT Denies dizziness Card Denies chest pain, Denies leg edema, Denies lightheadedness, Denies palpitations, Denies dyspnea and Denies dyspnea on exertion Resp Denies cough, Denies dyspnea and Denies dyspnea on exertion GI Denies hematochezia Musc Denies abnormal gait, Denies muscle weakness, Denies numbness, Denies radiating pain into limb and Denies tingling Neuro Denies abnormal gait, Denies dizziness, Denies frequent falls, Denies numbness, Denies tingling and Denies weakness Endo Denies fatigue and Denies palpitations Physical Exam Vital Signs: Last Vital Signs Pulse 78 06/12/23 08:22 BP 140/72 H 06/12/23 08:22 BMI result Body Mass Index 35.7 Const General: comfortable and no acute distress Orientation/consciousness: patient oriented x3 HEENT Other: Unremarkable Head: Yes normal to inspection Neck Neck: Yes normal visual inspection Chest Chest palpation & inspection: normal inspection of the chest Resp Auscultation: clear to auscultation bilaterally Cardio Palpation: normal PMI Heart sounds: S1 normal heart sound present, S2 normal heart sound present, no gallops, no murmurs and no rubs GI Palpation (GI): Soft to palpation Back/Spine/Pelvis Other: unremarkable Skin General skin exam: no rashes or lesions noted Neuro General: patient oriented x3 Extrem General: Yes normal to inspection Psych Mental Status: mental status grossly normal Office Procedures EKG Details: EKG with atrial fibrillation at a rate of 78/Min; can not exclude old septal infarct; nonspecific ST-T changes. [id number], Complete Assessment & Plan Assessment & Plan (1) Chronic diastolic (congestive) heart failure: Code(s): I50.32 - Chronic diastolic (congestive) heart failure Category: Medical Plan: Shortness of breath probably multifactorial. Likely some combination of CHF/COPD-asthma. Continue diuretics. Continue Farxiga. PFTs from 2016 had shown moderately severe obstructive pulmonary disease, consistent with asthma. (2) Atherosclerotic cardiovascular disease: Code(s): I25.10 - Atherosclerotic heart disease of the [place] coronary artery without angina pectoris Category: Medical Plan: Cardiac catheterization showed minimal irregularities only but nothing otherwise of significance. No angina. Continue statins. (3) Persistent atrial fibrillation: Onset Date: ~2014 Code(s): I48.19 - Other persistent atrial fibrillation Category: Medical Plan: He has failed 2 cardioversions including with Amiodarone. Hence on rate control medications. On a combination of diltiazem, metoprolol, digoxin. Continue Eliquis. Check digoxin levels. (4) Essential hypertension: Code(s): I10 - Essential (primary) hypertension Category: Medical Plan: Continue current meds. (5) Obstructive sleep apnea on CPAP: Onset Date: ~03/2015 Code(s): G47.33 - Obstructive sleep apnea (adult) (pediatric); Z99.89 - Dependence on other enabling machines and devices Category: Medical Plan: CPAP. Orders: Orders Digoxin Today I48.19 - Other persistent atrial fibrillation Medications: New metoprolol succinate ER (Toprol XL) 50 mg PO DAILY 90 tabs 3RF 90 days Discontinued metoprolol tartrate Discontinued Reason: Doctor's Order 25 mg PO BID 180 tabs 3RF I25.10 - Atherosclerotic heart disease of [place] coronary artery without angina pectoris
== END 2023-06-12 08:41 | disposition home or self-care (01) ==
PROVIDERS: PCP Internal Medicine; Visit Provider Internal Medicine
DX: I50.32 Chronic diastolic (congestive) heart failure (principal); I25.10 Atherosclerotic heart disease of native coronary artery without angina pectoris; I48.19 Other persistent atrial fibrillation; I10 Essential (primary) hypertension; G47.33 Obstructive sleep apnea (adult) (pediatric); Z99.89 Dependence on other enabling machines and devices
CPT/HCPCS: 93010; 99214

== ENCOUNTER → 2023-06-12 08:03 | Outpatient (BNVA) | payer MEDICARE, MEDICAID, SELFPAY | PROVIDERS: PCP Internal Medicine; Visit Provider Internal Medicine | DX: I48.19 Other persistent atrial fibrillation (principal); I11.0 Hypertensive heart disease with heart failure; I50.32 Chronic diastolic (congestive) heart failure; I25.10 Atherosclerotic heart disease of native coronary artery without angina pectoris; G47.33 Obstructive sleep apnea (adult) (pediatric); Z98.890 Other specified postprocedural states; Z99.89 Dependence on other enabling machines and devices | CPT/HCPCS: 93005; 99212 ==

== ENCOUNTER 2023-06-27 17:37 | Emergency (ER) | payer MEDICARE, MEDICAID, SELFPAY ==
--- NOTE | ~2023-06-27 | XR_ITS ---
EXAMINATION: XR HAND, RIGHT CLINICAL INFORMATION: Third digit pain and swelling. COMPARISON: Radiograph right hand 11/07/2009. TECHNIQUE: PA, lateral, and oblique views of the right hand. FINDINGS: No fracture or subluxation. Moderate to severe multifocal degenerative arthrosis with joint space narrowing, subcortical sclerosis and prominent marginal osteophytes more noticeable in the first carpometacarpal joint and multiple interphalangeal joints. No osseous erosions. Diffuse soft tissue swelling. XR/XR hand RT min 3V IMPRESSION: 1. No fracture or subluxation. 2. Moderate to severe multifocal degenerative arthrosis.
[2023-06-27 18:37] VITALS: BP 136/75; PULSE 81; RESP 16; TEMP 36.3; O2SAT 95; BMI 36.6
--- NOTE | 2023-06-27 18:40 | ED.UPPEXIN ---
HPI - Extremity Injury (Upper) General Chief Complaint: Extremity Injury, Upper Stated Complaint: RT hand swelling Related Data Home Medications ?Medication ?Instructions ?Recorded ?Confirmed bupropion HCl 150 mg tablet,12 hr 150 mg PO QAM 03/17/22 06/12/23 sustained-release (Wellbutrin SR) Previous Rx's ?Medication ?Instructions ?Recorded CPAP full face mask 14 cm h20 #1 ea 05/05/21 humidified Air naloxone 4 mg/actuation nasal 4 mg intranasal Q2M PRN opioid 06/14/21 spray (Narcan) overdose #2 ea polyethylene glycol 3350 17 gram 17 g PO DAILY pain #30 ea 11/05/21 oral powder packet (Miralax) furosemide 40 mg tablet 80 mg (2 x 40 mg) PO DAILY 90 days 06/15/22 #180 tabs albuterol sulfate 2.5 mg/3 mL 2.5 mg (3 mL) inhalation Q4-6H PRN 06/21/22 (0.083 %) solution for nebulization for wheezing #180 mL furosemide 40 mg tablet (Lasix) 40 mg PO DAILY #90 tabs 07/25/22 diltiazem HCl 360 mg capsule,24 360 mg PO DAILY #90 caps 08/10/22 hr,extended release ipratropium 20 mcg-albuterol 100 1 puff inhalation QID #4 grams 09/26/22 mcg/actuation mist for inhalation (Combivent Respimat) apixaban 5 mg tablet (Eliquis) 5 mg PO BID 90 days #180 tabs 09/30/22 fluticasone fur. 200 mcg-umeclid 1 inh inhalation DAILY #60 ea 10/23/22 62.5 mcg-vilant 25 mcg inhalat.powder (Trelegy Ellipta) ipratropium 20 mcg-albuterol 100 1 puff PO QID #4 grams 10/31/22 mcg/actuation mist for inhalation (Combivent Respimat) baclofen 10 mg tablet 10 mg PO TID PRN for muscle spasm 11/03/22 #90 tabs trazodone 50 mg tablet 50 mg PO BEDTIME PRN sleep #90 tabs 12/26/22 ascorbic acid (vitamin C) 500 mg 500 mg PO .QD #30 caps 01/04/23 capsule ferrous sulfate 325 mg (65 mg 325 mg PO DAILY #30 tabs 01/04/23 iron) tablet (Feosol) vumwrxkc-skdwukbas-wnhrnovwj 3.5 4 drp otic (ear) right TID 10 days 04/20/23 mg/mL-10,000 unit/mL-1 % ear #10 mL solution hydrocortisone-acetic acid 1 %-2 % 4 drp otic (ears) TID #10 mL 04/27/23 ear drops atorvastatin 40 mg tablet 40 mg PO DAILY #90 tabs 04/28/23 gabapentin 300 mg capsule 300 mg PO BID pain 90 days #180 06/01/23 caps morphine 15 mg immediate release 15 mg PO Q8H PRN pain (scale score 06/01/23 tablet 7-10) 30 days #90 tabs digoxin 125 mcg (0.125 mg) tablet 125 mcg PO DAILY #90 tabs 06/09/23 metoprolol succinate 50 mg 50 mg PO DAILY 90 days #90 tabs 06/12/23 tablet,extended release 24 hr (Toprol XL) dapagliflozin propanediol 10 mg 5 mg (1/2 x 10 mg) PO DAILY #90 06/18/23 tablet (Farxiga) tabs Allergies Allergy/AdvReac Type Severity Reaction Status Date / Time No Known Allergies Allergy Verified 06/27/23 18:40 [facility] Past Medical History Medical History Degenerative cervical disc Shortness of breath Constipation Circadian rhythm sleep disorder Vision changes Personal history of nicotine dependence Tobacco abuse Obstructive sleep apnea on CPAP (~03/2015) 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 Degenerative joint disease of cervical and lumbar spine Persistent atrial fibrillation (~2014) Peripheral vascular disease Obesity Insomnia COPD (chronic obstructive pulmonary disease) Bilateral primary osteoarthritis of knee Hypercholesterolemia Surgical History History of spinal surgery History of colonoscopy History of cardioversion (~2018) History of carpal tunnel release History of bilateral cataract extraction History of hip replacement, total History of removal of cyst History of vitrectomy (~11/2019) Family History Family History Father Myocardial infarction Sister Multiple sclerosis Social History Social History Household Members: Spouse Housing: House Alcohol intake: former Patient Tobacco Use Status: Former Tobacco user Quit Date: 08/31/2019 Tobacco use type: Cigarette Years Smoked: 54 on/off - 30pyh e-Cigarette/Vaping Use: Never Used Second Hand Smoke Exposure: Yes Advance Directives: No Advance Directives Information Provided: No Current occupational status: retired Cognitive needs: No Hearing needs: No Vision needs: Yes Physical Exam Vital Signs: Vital Signs: Last Vital Signs Temp 97.3 F 06/27/23 18:37 Pulse 81 06/27/23 18:37 Resp 16 06/27/23 18:37 BP 136/75 06/27/23 18:37 Pulse Ox 95 06/27/23 18:37 O2 Del Method Room Air 06/27/23 18:37 BMI result Body Mass Index 36.6 Course Course Course Narrative: This is a Rapid Medical Examination (RME) performed by Monalisa Guzman PA-C in triage. Full HPI, ROS, assessment and treatment plan per primary provider in the Main ED. 72 y/o right hand dominant male with history of chronic pain on chronic opiates who presents to the ER for evaluation of right 3rd digit swelling and pain that started 2 days ago and has been getting worse. he reports pain extends into the right hand and wrist. on physical exam 3rd digit is swollen with limited but present ROM in the DIP and PIP joints. mild tenderness into the hand. no hand swelling. there is erythema and yellow discoloration of the lateral nail bed c/w paronychia. entire finger is very tender, pain out of proportion. Plan: XR hand, basic labs, concern for possible evolving tenosynovitis given his radiating pain. no fevers or tachycardia. Medical Decision Making Lab Data 06/27/23 21:11 06/27/23 21:11 Labs: Lab Results 06/27/23 Range/Units 21:11 WBC 13.1 H (4.8-10.8) X10*3/uL RBC 4.00 L (4.60-5.80) X10*6/uL Hgb 13.0 L (14.0-18.0) g/dl Hct 38.3 L (42.0-52.0) % MCV 95.8 (80.0-98.0) fL MCH 32.5 (27.0-33.0) pg MCHC 33.9 (31.0-36.0) g/dl RDW 15.6 (11.0-16.0) % Plt Count 179 (160-400) X10*3/uL MPV 10.5 (9.4-12.4) fL Immature Gran % (Auto) 0.5 H (0.0-0.4) % Neut % (Auto) 76.2 H (45-73) % Lymph % (Auto) 12.7 L (20-40) % [place] % (Auto) 7.5 (2-11) % Eos % (Auto) 2.7 (0-4) % Baso % (Auto) 0.4 (0-2) % Lymph # (Auto) 1.7 (1.2-4.9) X10*3/uL [place] # (Auto) 1.0 (0.1-1.2) X10*3/uL Eos # (Auto) 0.4 (0.0-0.4) X10*3/uL Baso # (Auto) 0.1 (0.0-0.2) X10*3/uL Abs Immat Gran (auto) 0.06 H (0.00-0.03) X10*3/uL Absolute Neuts (auto) 10.0 H (2.0-8.3) x10*3/uL Absolute Nucleated RBC 0.000 (0.0-0.012) X10*3/uL Nucleated RBC % (auto) 0.0 (0.0-0.2) /100WBC ESR 25 H (0-15) MM/HR Sodium 141 (135-145) mmol/L Potassium 3.8 (3.3-5.1) mmol/L Chloride 104 (96-108) mmol/L Carbon Dioxide 25 (22-29) mmol/L Anion Gap 16 (12-20) BUN 16 (9-16) mg/dL Creatinine 1.05 (0.5-1.4) mg/dL Estim Creat Clear Calc 81.0 Estimated GFR > 60 Random Glucose 90 (60-115) mg/dL Calcium 9.2 (8.4-10.2) mg/dL C-Reactive Protein 1.17 H (< or = 0.50) mg/dL Discharge Plan Discharge Clinical Impression: Paronychia of finger Qualifiers: Laterality: right Qualified Code(s): L03.011 - Cellulitis of right finger Patient Disposition: Left W/O Completing Treatment Prescriptions: No Action albuterol sulfate 2.5 mg /3 mL (0.083 %) solution for nebulization 2.5 mg inhalation Q4-6H PRN (Reason: for wheezing) Qty: 180 3RF diltiazem HCl 360 mg capsule,extended release 24 hr 360 mg PO DAILY Qty: 90 3RF Eliquis 5 mg tablet 5 mg PO BID 90 Days Qty: 180 3RF Trelegy Ellipta 200-62.5-25 mcg blister with device 1 inh inhalation DAILY Qty: 60 12RF Combivent Respimat 20-100 mcg/actuation mist 1 puff PO QID Qty: 4 3RF baclofen 10 mg tablet 10 mg PO TID PRN (Reason: for muscle spasm) Qty: 90 3RF trazodone 50 mg tablet 50 mg PO BEDTIME PRN (Reason: sleep) Qty: 90 2RF hydrocortisone-acetic acid 1-2 % drops 4 drp otic (ears) TID Qty: 10 0RF atorvastatin 40 mg tablet 40 mg PO DAILY Qty: 90 3RF digoxin 125 mcg (0.125 mg) tablet 125 mcg PO DAILY Qty: 90 3RF Farxiga 10 mg tablet 5 mg PO DAILY Qty: 90 3RF ferrous sulfate [Feosol] 325 mg (65 mg iron) tablet 325 mg PO DAILY Qty: 30 3RF ascorbic acid (vitamin C) 500 mg capsule 500 mg PO .QD Qty: 30 0RF yjlwdiln-srojybxkv-ZF 3.5-10,000-1 mg/mL-unit/mL-% solution 4 drp otic (ear) right TID 10 Days Qty: 10 0RF (DME) CPAP full face mask 14 cm h20 humidified Air See Rx Instructions .Route .MEDSUPPLY Qty: 1 0RF Rx Instructions: As directed furosemide 40 mg tablet 80 mg PO DAILY 90 Days Qty: 180 3RF Rx Instructions: Take one 40 mg tab daily, and one 40 mg table NEEDED for weight gain or swelling of extremities. Combivent Respimat 20-100 mcg/actuation mist 1 puff inhalation QID Qty: 4 0RF Rx Instructions: space evenly during waking hours polyethylene glycol 3350 [Miralax] 17 gram powder in packet 17 g PO DAILY Qty: 30 0RF bupropion HCl [Wellbutrin SR] 150 mg tablet sustained-release 12 hr 150 mg PO QAM furosemide [Lasix] 40 mg tablet 40 mg PO DAILY Qty: 90 3RF Rx Instructions: Take 80mg am and 40mg pm. naloxone [Narcan] 4 mg/actuation spray,non-aerosol 4 mg intranasal Q2M PRN (Reason: opioid overdose) Qty: 2 0RF Rx Instructions: spray 1 dose into ONE nostril; alternate nostrils w each dose until help arrives gabapentin 300 mg capsule 300 mg PO BID 90 Days Qty: 180 3RF morphine 15 mg tablet 15 mg PO Q8H PRN (Reason: pain (scale score 7-10)) 30 Days Qty: 90 0RF Rx Instructions: Partial Fill upon patient request. metoprolol succinate [Toprol XL] 50 mg tablet extended release 24 hr 50 mg PO DAILY 90 Days Qty: 90 3RF Discharge Date/Time: 06/27/23 23:01
[2023-06-27 21:21] LABS: MANUAL DIFF FLAG NO
[2023-06-27 21:28] LABS: Basophils Absolute Auto 0.1 X10*3/uL (0.0-0.2); Basophils Percent Auto 0.4 % (0-2); Eosinophils Absolute Auto 0.4 X10*3/uL (0.0-0.4); Eosinophils Percent Auto 2.7 % (0-4); Hematocrit 38.3 % (42.0-52.0); Imm Gran Abs Auto 0.06 X10*3/uL (0.00-0.03); Imm Gran Pct Auto 0.5 % (0.0-0.4); Lymphocytes Absolute Auto 1.7 X10*3/uL (1.2-4.9); Lymphocytes Percent Auto 12.7 % (20-40); Mean Corpuscular HGB Conc 33.9 g/dl (31.0-36.0); Mean Corpuscular Hemoglobin 32.5 pg (27.0-33.0); Mean Corpuscular Volume 95.8 fL (80.0-98.0); Mean Platelet Volume 10.5 fL (9.4-12.4); Monocytes Percent Auto 7.5 % (2-11); Neutrophils Percent Auto 76.2 % (45-73); Platelet Count 179 X10*3/uL (160-400); Red Cell Distribution Width 15.6 % (11.0-16.0); White Blood Count 13.1 X10*3/uL (4.8-10.8)
[2023-06-27 21:43] LABS: Anion Gap 16 (12-20); Blood Urea Nitrogen 16 mg/dL (9-16); C Reactive Protein 1.17 mg/dL (< or = 0.50); Calcium 9.2 mg/dL (8.4-10.2); Carbon Dioxide 25 mmol/L (22-29); Chloride 104 mmol/L (96-108); Estimated Glomerular Filt Rate > 60; Glucose Random 90 mg/dL (60-115); Potassium 3.8 mmol/L (3.3-5.1); Sodium 141 mmol/L (135-145)
[2023-06-27 22:02] LABS: Erythrocyte Sedimentation Rate 25 MM/HR (0-15)
--- NOTE | 2023-06-27 22:44 | PC.NURSE ---
pt not in waiting room at this time.
== END 2023-06-27 23:01 | disposition left against medical advice (07) ==
LOC: HO.ED 22:53
PROVIDERS: Physician Assistant; Emergency Provider Emergency Medicine
DX: L03.011 Cellulitis of right finger (principal)
CPT/HCPCS: 36415; 73130; 80048; 85025; 85652; 86140; 99281; 99283

== ENCOUNTER 2023-07-06 09:50 | Outpatient (AMB) | payer MEDICARE, MEDICAID, SELFPAY ==
--- NOTE | 2023-07-06 09:53 | A.OFFVIS_ITS ---
Vital Signs 07/06/23 10:01 Height 5 ft 11 in Weight 255 lb BMI 35.6 BP 149/68 H Blood Pressure Location Lt brachial Position Sitting Pulse 86 Pulse Source Pulse Oximeter Pulse Oximetry (%) 97 Oxygen Delivery Method Room Air Intake Visit Reasons: PILL COUNT Intake Note: Alli comes in today for a pill count to morphine, patient should have 0 tablets and presents with 8 tablets which he last took today 07/06/23 at 5:30am. 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 Patient is supposed to have morphine IR 15 mg #0 pills, in his possession has #8 pills. This demonstrates a responsible attitude in regards to the medication regimen. Patient reports adequate a nalgesia since increasing morphine IR 15 mg from BID to TID prn last month for his chronic pain generators, including neck, back and knee pain without noted side effects. Denies any fever, chest pain, headaches, palpitations, nausea, sedation, weakness or urinary retention except occasional constipation. Patient uses CPAP machine regularly. Denies daytime napping or dozing off during conversations. Patient reports recent ER visit on 06/27/23 for right 3rd digit swelling and pain due to paronychia. Patient reports due to long-waiting time, he left home without treatment. Patient reports he drained abscess at home and pain and swelling resolved after significant amount of brownish drainage came out. He also reports soaking his right hand in Epson salts. Today, patient presents without no pain, swelling or tenderness to right 3rd digit, has mild pale redness with good healing along lateral border of finger. Patient is aware of his lab work results on 06/27/23, declined repeat of labs at this time. 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 Degenerative joint disease of cervical and lumbar spine Persistent atrial fibrillation (~2014) Peripheral vascular disease Obesity Insomnia COPD (chronic obstructive pulmonary disease) Bilateral primary osteoarthritis of knee Hypercholesterolemia Surgical History History of spinal surgery History of colonoscopy History of cardioversion (~2018) History of carpal tunnel release History of bilateral cataract extraction History of hip replacement, total History of removal of cyst History of vitrectomy (~11/2019) Family History Father Myocardial infarction Sister Multiple sclerosis Social History Household Members: Spouse Housing: House Alcohol intake: former Patient Tobacco Use Status: Former Tobacco user Quit Date: 08/31/2019 Tobacco use type: Cigarette Years Smoked: 54 on/off - 30pyh e-Cigarette/Vaping Use: Never Used Second Hand Smoke Exposure: Yes Current occupational status: retired Cognitive needs: No Hearing needs: No Vision needs: Yes Review of Systems Const All systems reviewed & are unremarkable except as noted in HPI and below Physical Exam Vital Signs: Last Vital Signs Pulse 86 07/06/23 10:01 BP 149/68 H 07/06/23 10:01 Pulse Ox 97 07/06/23 10:01 Oxygen Delivery Method Room Air 07/06/23 10:01 BMI result Body Mass Index 35.6 General: Appears afebrile. Alert and oriented. Mood and affect appropriate. Follows and participates in conversation appropriately. Respiratory effort is unlabored. Occasional nonproductive cough. Able to transition from sit to stand unassisted. Ambulates with bilaterally normal heel strike and toe off. Neck Neck: Yes no lymphadenopathy, Yes supple, No anterior neck swelling and Yes no JVD Resp Effort & Inspection: normal respiratory effort, able to speak in complete sentences, no audible wheezes, Actively coughing (occasional, non-productive), not labored, no respiratory distress, no stridor and no use of accessory muscles Back/Spine/Pelvis Cervical Spine: cervical muscular tenderness and No Cervical spine tenderness Thoracic/Lumbar Spine: thoracic and lumbar spine normal to inspection, pain with thoraco-lumbar ROM, thoraco-lumbar ROM limited, No thoracic spinal tenderness an d lumbar spinal tenderness Extrem Right upper extremity: Extremity exam: right hand (Mild pale redness to right 3rd digit lateral aspect. No tenderness.) Details: normal to inspection, normal capillary refill and no swelling; no unusual warmth, no ecchymosis and no foreign bodies Psych Appearance: grossly normal and well kempt Mental Status: mental status grossly normal Speech and movement: Normal speech and movement present and Clear speech present Affect: normal affect Attitude: cooperative Thought process: Normal thought process present Thought content: Normal thought content present, suicidality (none), no hallucinations and No Depressive thoughts present Insight: Good insight present (Psych) Judgement: Good judgement present (Psych) Results Reviewed Results Reviewed: XR CERVICAL SPINE 12/23/22 FINDINGS: The visualized cervical vertebrae are intact with normal alignment. Odontoid process is intact with normal C1/C2 lateral masses alignment. Pre-dental interval is normal. Pre vertebral soft tissue is normal in thickness. Prominent bilateral apophyseal joints and uncovertebral joint osteophytes are present. Bilateral oblique x-rays of cervical spine show normal apophyseal joint alignment. However, evaluation of cervical neural foramina remains limited by suboptimal positioning. The left cervical neural foramina and right C2-C3 neural foramen appear patent. IMPRESSION: 1. Unchanged multilevel advanced cervical spondylosis. 2. No fracture or dislocation of cervical spine is seen. MR LUMBAR SPINE WITHOUT IV CONTRAST 10/07/2015 CLINICAL INFORMATION: Back pain and bruising in the right buttock and thigh. FINDINGS: There are 5 nonrib-bearing lumbar-type vertebral bodies. Lumbar alignment is normal. The vertebral body heights are maintained. There is moderate disc volume loss at L1-L2. Disc desiccation at L1-L2 and L3-L4. Mild Modic type I degenerative endplate changes anteriorly at L1-L2. There is no additional bone marrow edema. There are no acute fractures. Conus terminates at the T12-L1 disc level. There is left iliopsoas muscle atrophy that is partially imaged. No additional significant soft tissue findings. L1-L2: There is a small annular disc bulge and there is mild bilateral facet arthropathy with no central canal stenosis and no significant foraminal stenosis. L2-L3: The disc contour is normal. There is no central canal stenosis and there is no foraminal stenosis. L3-L4: Small annular disc bulge exhibiting a ventral annular fissure. There is moderate bilateral facet arthropathy. There is no central canal stenosis and there is mild foraminal narrowing bilaterally, slightly greater on the right side. L4-L5: There is a diffuse annular disc bulge and there is severe bilateral hypertrophic facet arthropathy and ligamentum flavum thickening. No central canal stenosis. No significant foraminal stenosis. L5-S1: There is a diffuse annular disc bulge and there is severe left and moderate right hypertrophic facet arthropathy. There is no central canal stenosis and there is no foraminal stenosis. IMPRESSION: - Small disc bulges at the L1-L2, L3-L4, L4-L5, and L5-S1 levels, at L3-L4 associated with a ventral annular fissure. There is severe bilateral hypertrophic facet arthropathy at L4-L5 and severe left and moderate right hypertrophic facet arthropathy at L5-S1. No severe central canal stenosis and no severe foraminal stenosis within the lumbar spine. - Severe left iliopsoas muscle atrophy. XR HAND, RIGHT 06/27/23 CLINICAL INFORMATION: Third digit pain and swelling. COMPARISON: Radiograph right hand 11/07/2009. FINDINGS: No fracture or subluxation. Moderate to severe multifocal degenerative arthrosis with joint space narrowing, subcortical sclerosis and prominent marginal osteophytes more noticeable in the first carpometacarpal joint and multiple interphalangeal joints. No osseous erosions. Diffuse soft tissue swelling. IMPRESSION: 1. No fracture or subluxation. 2. Moderate to severe multifocal degenerative arthrosis. Assessment & Plan Assessment & Plan (1) Cervical spondylosis: Code(s): M47.812 - Spondylosis without myelopathy or radiculopathy, cervical region Category: Medical (2) Degenerative joint disease of cervical and lumbar spine: Code(s): M47.812 - Spondylosis without myelopathy or radiculopathy, cervical region; M47.816 - Spondylosis without myelopathy or radiculopathy, lumbar region Category: Medical (3) Chronic pain syndrome: Code(s): G89.4 - Chronic pain syndrome Category: Medical (4) Degenerative cervical disc: Code(s): M50.30 - Other cervical disc degeneration, unspecified cervical region Category: Medical (5) Opioid contract exists: Code(s): 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 The patient reported no side effects. There is no evidence of misuse, abuse, or diversion at this time. [place] reviewed. Script sent for morphine IR 15 mg TID prn with advanced date of 05/17/24. Patient has Narcan at home. All questions were answered and patient agreed with the plan. Follow up in one month for pill count and sooner if needed. Medications: Refilled morphine Partial Fill upon patient request. 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
[2023-07-06 10:01] VITALS: BP 149/68; PULSE 86; O2SAT 97; BMI 35.6
== END 2023-07-06 10:13 | disposition home or self-care (01) ==
PROVIDERS: PCP Internal Medicine; Visit Provider Nurse Practitioner Family
DX: M47.812 Spondylosis without myelopathy or radiculopathy, cervical region (principal); M47.816 Spondylosis without myelopathy or radiculopathy, lumbar region; G89.4 Chronic pain syndrome; M50.30 Other cervical disc degeneration, unspecified cervical region; Z79.891 Long term (current) use of opiate analgesic
CPT/HCPCS: 99214

== ENCOUNTER → 2023-07-06 09:50 | Outpatient (BNVA) | payer MEDICARE, MEDICAID, SELFPAY | PROVIDERS: PCP Internal Medicine; Visit Provider Nurse Practitioner Family | DX: M47.812 Spondylosis without myelopathy or radiculopathy, cervical region (principal); M47.816 Spondylosis without myelopathy or radiculopathy, lumbar region; G89.4 Chronic pain syndrome; M50.30 Other cervical disc degeneration, unspecified cervical region; Z79.891 Long term (current) use of opiate analgesic | CPT/HCPCS: 99212 ==

== ENCOUNTER 2023-08-10 09:55 | Outpatient (AMB) | payer MEDICARE, SELFPAY ==
--- NOTE | 2023-08-10 09:57 | A.OFFVIS_ITS ---
Vital Signs 08/10/23 10:09 Height 5 ft 11 in Weight 254 lb 2 oz BMI 35.4 BP 141/65 H Blood Pressure Location Lt brachial Position Sitting Pulse 80 Pulse Source Pulse Oximeter Pulse Oximetry (%) 98 Oxygen Delivery Method Room Air Intake Visit Reasons: PILL COUNT Intake Note: Alli comes in today for a pill count to morphine, patient should have 0 tablets and presents with 1 tablet which he last took today 08/10/23 at 3:30am. 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 Patient is supposed to have morphine IR 15 mg #0 pills, in his possession has #1 pills. This demonstrates a responsible attitude in regards to the medication regimen. Patient reports adequate analgesia on current regime of morphine IR 15 mg from TID prn for his chronic pain generators, including neck, back and knee pain without noted side effects. Denies any fever, chest pain, headaches, palpitations, nausea, sedation, weakness or urinary retention except occasional constipation. Patient uses CPAP machine regularly. Patient also reports left 3rd digit swelling without redness and pain that started few days ago and has been getting worse. Patient reports last month he had same symptoms to his right 3rd digit and went to ER but left without treatment due to long waiting hours. He reports right finger symptoms improved on its own with Epsom salt water soaks but this time left finger is not improving with conservative treatments at home. He is concerned that pain extends into the left hand. [facility] Medical History Degenerative cervical disc Shortness of breath Constipation Circadian rhythm sleep disorder Vision changes Personal history of nicotine dependence Tobacco abuse Obstructive sleep apnea on CPAP (~03/2015) Current use of longterm anticoagulation Degenerative joint disease of cervical and lumbar spine Persistent atrial fibrillation (~2014) Peripheral vascular disease Obesity Insomnia COPD (chronic obstructive pulmonary disease) Bilateral primary osteoarthritis of knee Hypercholesterolemia Surgical History History of spinal surgery History of colonoscopy History of cardioversion (~2018) History of carpal tunnel release History of bilateral cataract extraction History of hip replacement, total History of removal of cyst History of vitrectomy (~11/2019) Family History Father Myocardial infarction Sister Multiple sclerosis Social History Household Members: Spouse Housing: House Alcohol intake: former Patient Tobacco Use Status: Former Tobacco user Tobacco use type: Cigarette Years Smoked: 54 on/off - 30pyh e-Cigarette/Vaping Use: Never Used Second Hand Smoke Exposure: Yes Current occupational status: retired Cognitive needs: No Hearing needs: No Vision needs: Yes Review of Systems Const All systems reviewed & are unremarkable except as noted in HPI and below Reports as per HPI, Denies body aches, Denies chills, Reports difficulty sleeping, Denies fatigue, Denies fever(s), Denies headache(s), Denies malaise, Denies night sweats and Denies weight loss ENT Denies headache(s) Neuro Denies headache(s) Endo Denies fatigue Physical Exam Vital Signs: Last Vital Signs Pulse 80 08/10/23 10:09 BP 141/65 H 08/10/23 10:09 Pulse Ox 98 08/10/23 10:09 Oxygen Delivery Method Room Air 08/10/23 10:09 BMI result Body Mass Index 35.4 General: Appears afebrile. Alert and oriented. Mood and affect appropriate. Follows and participates in conversation appropriately. Respiratory effort is unlabored. Able to transition from sit to stand unassisted. Ambulates with bilaterally normal heel strike and toe off. Neck Neck: Yes no lymphadenopathy, Yes supple, No anterior neck swelling and Yes no JVD Resp Effort & Inspection: normal respiratory effort, able to speak in complete s entences, no audible wheezes, Actively coughing (occasional, non-productive), not labored, no respiratory distress, no stridor and no use of accessory muscles Back/Spine/Pelvis Cervical Spine: cervical muscular tenderness and No Cervical spine tenderness Thoracic/Lumbar Spine: thoracic and lumbar spine normal to inspection, pain with thoraco-lumbar ROM, thoraco-lumbar ROM limited, No thoracic spinal tenderness and lumbar spinal tenderness Extrem General: Yes capillary refill normal, Yes no clubbing, cyanosis or edema and Yes no calf tenderness Left upper extremity: hand (3rd digit is swollen, mild erythema, tenderness, limited ROM due to pain) Details: normal capillary refill, neurosensory exam normal, tenderness Location: of the 3rd digit and swelling Location: of the 3rd digit Location: at the nailbed (mild yellow discoloration lateral aspect); no ecchymosis and no foreign bodies Psych Appearance: grossly normal Mental Status: mental status grossly normal Speech and movement: Normal speech and movement present and Clear speech present Affect: normal affect Attitude: cooperative Thought process: Normal thought process present Thought content: Normal thought content present, suicidality (none), no hallucinations and No Depressive thoughts present Insight: Good insight present (Psych) Judgement: Good judgement present (Psych) Results Reviewed Results Reviewed: No imaging results are available for review. Assessment & Plan Assessment & Plan (1) Paronychia of finger of left hand: Code(s): L03.012 - Cellulitis of left finger Category: Medical (2) Paronychia of finger of left hand: Code(s): L03.012 - Cellulitis of left finger Category: Medical (3) Cervical spondylosis: Code(s): M47.812 - Spondylosis without myelopathy or radiculopathy, cervical region Category: Medical (4) Degenerative joint disease of cervical and lumbar spine: Code(s): M47.812 - Spondylosis without myelopathy or radiculopathy, cervical region; M47.816 - Spondylosis without myelopathy or radiculopathy, lumbar region Category: Medical (5) Chronic pain syndrome: Code(s): G89.4 - Chronic pain syndrome Category: Medical (6) Degenerative cervical disc: Code(s): M50.30 - Other cervical disc degeneration, unspecified cervical region Category: Medical (7) Opioid contract exists: Code(s): 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 The patient reported no side effects. There is no evidence of misuse, abuse, or diversion at this time. [employer] reviewed. Script sent for morphine IR 15 mg TID prn today. Patient has Narcan at home. Continue water soaks with Epsom salts 10-15 min TID left hand. Scripts provided for mupirocin topical cream and doxycycline. Side effects reviewed. Patient is aware to follow up with his PCP or return to Urgent clinic if symptoms worsen. All questions were answered and patient agreed with the plan. Follow up in one month for pill count and sooner if needed. Medications: New mupirocin 2% 1 appl topical BID 22 grams 0RF L03.012 - Cellulitis of left finger doxycycline hyclate 100 mg PO BID 7 days 14 caps 0RF L03.012 - Cellulitis of left finger Refilled morphine Partial Fill upon patient request. 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
[2023-08-10 10:09] VITALS: BP 141/65; PULSE 80; O2SAT 98; BMI 35.4
== END 2023-08-10 10:25 | disposition home or self-care (01) ==
PROVIDERS: PCP Internal Medicine; Visit Provider Nurse Practitioner Family
DX: G89.4 Chronic pain syndrome (principal); L03.012 Cellulitis of left finger; M47.812 Spondylosis without myelopathy or radiculopathy, cervical region; M47.816 Spondylosis without myelopathy or radiculopathy, lumbar region; M50.30 Other cervical disc degeneration, unspecified cervical region; Z79.891 Long term (current) use of opiate analgesic
CPT/HCPCS: 99214

== ENCOUNTER → 2023-08-10 09:55 | Outpatient (BNVA) | payer MEDICARE, SELFPAY | PROVIDERS: PCP Internal Medicine; Visit Provider Nurse Practitioner Family | DX: Z51.81 Encounter for therapeutic drug level monitoring (principal); M47.812 Spondylosis without myelopathy or radiculopathy, cervical region; M47.816 Spondylosis without myelopathy or radiculopathy, lumbar region; M50.30 Other cervical disc degeneration, unspecified cervical region; G89.4 Chronic pain syndrome; Z79.891 Long term (current) use of opiate analgesic | CPT/HCPCS: 99212 ==

== ENCOUNTER 2023-09-11 09:50 | Outpatient (AMB) | payer MEDICARE, SELFPAY ==
--- NOTE | 2023-09-11 09:54 | A.OFFVIS_ITS ---
Vital Signs 09/11/23 10:04 Height 5 ft 11 in Weight 248 lb BMI 34.6 BP 136/60 Blood Pressure Location Lt brachial Position Sitting Pulse 85 Pulse Source Pulse Oximeter Pulse Oximetry (%) 97 Oxygen Delivery Method Room Air Intake Visit Reasons: Pill Count Intake Note: Alli comes in today for a pill count to morphine, patient should have 0 tablets and presents with 4 tablets which he last took today 09/11/23 at 5am. 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 Patient is supposed to have morphine IR 15 mg #0 pills, in his possession has #4 pills. This demonstrates a responsible attitude in regards to the medication regimen. Patient reports adequate analgesia on current regime of morphine IR 15 mg from TID prn for his chronic pain generators, including neck, back and knee pain without noted side effects. Denies any fever, chest pain, headaches, palpitations, nausea, sedation, weakness or urinary retention except occasional constipation. Patient uses CPAP machine regularly. 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 Degenerative joint disease of cervical and lumbar spine Persistent atrial fibrillation (~2014) Peripheral vascular disease Obesity Insomnia COPD (chronic obstructive pulmonary disease) Bilateral primary osteoarthritis of knee Hypercholesterolemia Surgical History History of spinal surgery History of colonoscopy History of cardioversion (~2018) History of carpal tunnel release History of bilateral cataract extraction History of hip replacement, total History of removal of cyst History of vitrectomy (~11/2019) Family History Father Myocardial infarction Sister Multiple sclerosis Social History Household Members: Spouse Housing: House Alcohol intake: former Patient Tobacco Use Status: Former Tobacco user Tobacco use type: Cigarette Years Smoked: 54 on/off - 30pyh e-Cigarette/Vaping Use: Never Used Second Hand Smoke Exposure: Yes Current occupational status: retired Cognitive needs: No Hearing needs: No Vision needs: Yes Review of Systems Const All systems reviewed & are unremarkable except as noted in HPI and below Physical Exam Vital Signs: Last Vital Signs Pulse 85 09/11/23 10:04 BP 136/60 09/11/23 10:04 Pulse Ox 97 09/11/23 10:04 Oxygen Delivery Method Room Air 09/11/23 10:04 BMI result Body Mass Index 34.6 General: Appears afebrile. Alert and oriented. Mood and affect appropriate. Follows and participates in conversation appropriately. Respiratory effort is unlabored. Able to transition from sit to stand unassisted. Ambulates with bilaterally normal heel strike and toe off. Resp Effort & Inspection: normal respiratory effort, able to speak in complete sentences, no audible wheezes, Actively coughing (occasional, non-productive), not labored, no respiratory distress, no stridor and no use of accessory muscles Extrem General: Yes capillary refill normal, Yes no clubbing, cyanosis or edema and Yes no calf tenderness Psych Appearance: grossly normal Mental Status: mental status grossly normal Speech and movement: Normal speech and movement present and Clear speech present Affect: normal affect Attitude: cooperative Thought process: Normal thought process present Thought content: Normal thought content present, suicidality (none), no hallucinations and No Depressive thoughts present Insight: Good insight present (Psych) Judgement: Good judgement present (Psych) Results Reviewed Results Reviewed: No imaging results are available for review. Assessment & Plan Assessment & Plan (1) Cervical spondylosis: Code(s): M47.812 - Spondylosis without myelopathy or radiculopathy, cervical region Category: Medical (2) Degenerative joint disease of cervical and lumbar spine: Code(s): M47.812 - Spondylosis without myelopathy or radiculopathy, cervical region; M47.816 - Spondylosis without myelopathy or radiculopathy, lumbar region Category: Medical (3) Chronic pain syndrome: Code(s): G89.4 - Chronic pain syndrome Category: Medical (4) Degenerative cervical disc: Code(s): M50.30 - Other cervical disc degeneration, unspecified cervical region Category: Medical (5) Opioid contract exists: Code(s): 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 The patient reported no side effects. There is no evidence of mi suse, abuse, or diversion at this time. [employer] reviewed. Script sent for morphine IR 15 mg TID prn today. Patient has Narcan at home. All questions were answered and patient agreed with the plan. Follow up in one month for pill count and sooner if needed. Medications: Refilled morphine Partial Fill upon patient request. 15 mg PO Q8H 30 days PRN 90 tabs 0RF pain (scale score 7-10) G89.4 - Chronic pain syndrome, M17.0 - Bilateral primary osteoarthritis of knee, M47.812 - Spondylosis without myelopathy or radiculopathy, cervical region, M47.816 - Spondylosis without myelopathy or radiculopathy, lumbar region, Z79.891 - alf (current) use of opiate analgesic Coding Level of Care Code Est Pt Level 4 (89306) Diagnoses Cervical spondylosis M47.812 Degenerative joint disease of cervical and lumbar spine M47.812; M47.816 Chronic pain syndrome G89.4 Degenerative cervical disc M50.30 Opioid contract exists Z79.891
[2023-09-11 10:04] VITALS: BP 136/60; PULSE 85; O2SAT 97; BMI 34.6
== END 2023-09-11 10:16 | disposition home or self-care (01) ==
PROVIDERS: PCP Internal Medicine; Visit Provider Nurse Practitioner Family
DX: M47.812 Spondylosis without myelopathy or radiculopathy, cervical region (principal); M47.816 Spondylosis without myelopathy or radiculopathy, lumbar region; G89.4 Chronic pain syndrome; M50.30 Other cervical disc degeneration, unspecified cervical region; Z79.891 Long term (current) use of opiate analgesic
CPT/HCPCS: 99214

== ENCOUNTER → 2023-09-11 09:50 | Outpatient (BNVA) | payer MEDICARE, SELFPAY | PROVIDERS: PCP Internal Medicine; Visit Provider Nurse Practitioner Family | DX: M47.812 Spondylosis without myelopathy or radiculopathy, cervical region (principal); G89.4 Chronic pain syndrome; M50.30 Other cervical disc degeneration, unspecified cervical region; M17.0 Bilateral primary osteoarthritis of knee; M47.816 Spondylosis without myelopathy or radiculopathy, lumbar region; Z51.81 Encounter for therapeutic drug level monitoring; Z79.891 Long term (current) use of opiate analgesic | CPT/HCPCS: 99212 ==

== ENCOUNTER 2023-10-12 10:04 | Outpatient (AMB) | payer MEDICARE, SELFPAY ==
[2023-10-12 10:12] VITALS: BP 129/74; PULSE 74; O2SAT 96; BMI 34.2
--- NOTE | 2023-10-12 10:12 | A.OFFVIS_ITS ---
Vital Signs 10/12/23 10:12 Height 5 ft 11 in Weight 245 lb BMI 34.2 BP 129/74 Blood Pressure Location Lt brachial Position Sitting Pulse 74 Pulse Source Pulse Oximeter Pulse Oximetry (%) 96 Oxygen Delivery Method Room Air Intake Visit Reasons: PILL COUNT Allergies No Known Allergies Allergy (Verified 09/11/23 10:05) HPI Comments Details: Alli presents to the office for follow up chronic pain and chronic opioid therapy management. Patient is prescribed morphine IR 15 mg tablets, 3 times daily as needed. Patient arrived today with the expectation of having 0 pills, she presented 4 pills which were counted in the presence of two staff members and returned to the patient in the original prescription bottle. This demonstrates responsible attitude toward patient's opioid medications. Pain is reported today as 8/10 and last dose of pain medication was taken at 5:30 this morning. Patient denies side effects including somnolence, constipation, itching, dyspnea, rash, dizziness or weakness. Prior visit with Rachel Campos NP: Alli presents today for a pill count. Patient is supposed to have morphine IR 15 mg #0 pills, in his possession has #4 pills. This demonstrates a responsible attitude in regards to the medication regimen. Patient reports adequate analgesia on current regime of morphine IR 15 mg from TID prn for his chronic pain generators, including neck, back and knee pain without noted side effects. Denies any fever, chest pain, headaches, palpitations, nausea, sedation, weakness or urinary retention except occasional constipation. Patient uses CPAP machine regularly. [facility] Medical History Degenerative cervical disc Shortness of breath Constipation Circadian rhythm sleep disorder Vision changes Personal history of nicotine dependence Tobacco abuse Obstructive sleep apnea on CPAP (~03/2015) Current use of correction anticoagulation Degenerative joint disease of cervical and lumbar spine Persistent atrial fibrillation (~2014) Peripheral vascular disease Obesity Insomnia COPD (chronic obstructive pulmonary disease) Bilateral primary osteoarthritis of knee Hypercholesterolemia Surgical History History of spinal surgery History of colonoscopy History of cardioversion (~2018) History of carpal tunnel release History of bilateral cataract extraction History of hip replacement, total History of removal of cyst History of vitrectomy (~11/2019) Family History Father Myocardial infarction Sister Multiple sclerosis Social History Household Members: Spouse Housing: House Alcohol intake: former Patient Tobacco Use Status: Former Tobacco user Tobacco use type: Cigarette Years Smoked: 54 on/off - 30pyh e-Cigarette/Vaping Use: Never Used Second Hand Smoke Exposure: Yes Current occupational status: retired Cognitive needs: No Hearing needs: No Vision needs: Yes Review of Systems Const All systems reviewed & are unremarkable except as noted in HPI and below Physical Exam Vital Signs: Last Vital Signs Pulse 74 10/12/23 10:12 BP 129/74 10/12/23 10:12 Pulse Ox 96 10/12/23 10:12 Oxygen Delivery Method Room Air 10/12/23 10:12 BMI result Body Mass Index 34.2 General: awake, alert, oriented. Answers questions appropriately. Fully engaged in examination. Skin: warm, dry, intact HEENT: Normocephalic. Hearing intact. Cardiac: External chest normal in appearance. Respiratory: No cough, audible wheezing or stridor. Abdomen: without gross distension. MS: No obvious swelling or deformities. Able to transition from sit to stand unassisted. Ambulates with bilaterally normal heel strike and toe off Tenderness to palpation right trapezius Neurological: Oriented to person, place, time and situation. Thought process intact. No gait abnormalities appreciated. Psychiatric: Appropriate mood and affect. Good judgment and insight. Assessment & Plan Assessment & Plan (1) Cervical spondylosis: Code(s): M47.812 - Spondylosis without myelopathy or radiculopathy, cervical region Category: Medical (2) Degenerative joint disease of cervical and lumbar spine: Code(s): M47.812 - Spondylosis without myelopathy or radiculopathy, cervical region; M47.816 - Spondylosis without myelopathy or radiculopathy, lumbar region Category: Medical (3) Chronic pain syndrome: Code(s): G89.4 - Chronic pain syndrome Category: Medical (4) Degenerative cervical disc: Code(s): M50.30 - Other cervical disc degeneration, unspecified cervical region Category: Medical (5) Opioid contract exists: Code(s): Z79.891 - jail (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 No obvious signs of diversion, abuse or misuse of the opioid medications. Will send in prescription for morphine IR 15 mg TID prn Continue with gabapentin and baclofen. Patient declines need for refills today. Patient to follow-up in the office in 1 month, sooner if needed. All questions and concerns have been answered and patient agrees with the plan. Medications: Refilled morphine Partial Fill upon patient request. 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
== END 2023-10-12 10:35 | disposition home or self-care (01) ==
PROVIDERS: PCP Internal Medicine; Referring Provider Registered Nurse Emergency; Visit Provider Registered Nurse Emergency
DX: G89.4 Chronic pain syndrome (principal); M47.812 Spondylosis without myelopathy or radiculopathy, cervical region; M47.816 Spondylosis without myelopathy or radiculopathy, lumbar region; Z79.891 Long term (current) use of opiate analgesic; M50.30 Other cervical disc degeneration, unspecified cervical region
CPT/HCPCS: 99214

== ENCOUNTER → 2023-10-12 10:05 | Outpatient (BNVA) | payer MEDICARE, SELFPAY | PROVIDERS: PCP Internal Medicine; Visit Provider Registered Nurse Emergency | DX: M47.812 Spondylosis without myelopathy or radiculopathy, cervical region (principal); M47.816 Spondylosis without myelopathy or radiculopathy, lumbar region; G89.4 Chronic pain syndrome; M50.30 Other cervical disc degeneration, unspecified cervical region; M17.0 Bilateral primary osteoarthritis of knee; Z51.81 Encounter for therapeutic drug level monitoring; Z79.891 Long term (current) use of opiate analgesic | CPT/HCPCS: 99212 ==

== ENCOUNTER 2023-10-19 10:36 | Outpatient (AMB) | payer MEDICARE, SELFPAY ==
--- NOTE | 2023-10-19 10:41 | MHC.PC.OV ---
Vital Signs 10/19/23 10:47 Height 5 ft 11 in Weight 247 lb BMI 34.4 BP 156/82 H Blood Pressure Location Lt brachial Position Sitting Pulse 88 Pulse Source Pulse Oximeter Pulse Oximetry (%) 96 Oxygen Delivery Method Room Air Intake Visit Reasons: 6 month f/u Intake Note: Just had coffee prior to coming to appt. Allergies No Known Allergies Allergy (Verified 10/19/23 10:47) Tobacco use date assessed: 04/20/23 Fall risk assessment: No Falls in past year Last assessed Fall Risk: 10/19/23 Dental Screening Dental Screen Date: 04/20/23 HPI 6 month f/u HPI Details 73-year-old obese male with sleep apnea atrial fibrillation hypertension COPD hypercholesterolemia coronary artery disease with congestive heart failure last seen in 04/11/2023. Patient is presently seeing pain management for the cervical spondylosis. On morphine. Gabapentin and baclofen. Patient has seen Cardiology May for the atrial fibrillation cardioversion unsuccessful rate control only continuing with diuretic and Farxigapatient is metoprolol was increased to 50 mg once a day. 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 Degenerative joint disease of cervical and lumbar spine Persistent atrial fibrillation (~2014) Peripheral vascular disease Obesity Insomnia COPD (chronic obstructive pulmonary disease) Bilateral primary osteoarthritis of knee Hypercholesterolemia Surgical History History of spinal surgery History of colonoscopy History of cardioversion (~2018) History of carpal tunnel release History of bilateral cataract extraction History of hip replacement, total History of removal of cyst History of vitrectomy (~11/2019) Family History Father Myocardial infarction Sister Multiple sclerosis Social History Household Members: Spouse Housing: House Alcohol intake: former Patient Tobacco Use Status: Former Tobacco user Tobacco use type: Cigarette Years Smoked: 54 on/off - 30pyh e-Cigarette/Vaping Use: Never Used Second Hand Smoke Exposure: Yes Current occupational status: retired Cognitive needs: No Hearing needs: No Vision needs: Yes Questionnaire PHQ-9 Over the last 2 weeks, how often have you been bothered by any of the following problems? 1. Little interest or pleasure in doing things: not at all 2. Feeling down, depressed, or hopeless: not at all 3. Trouble falling or staying asleep, or sleeping too much: not at all 4. Feeling tired or having little energy: not at all 5. Poor appetite or overeating: not at all 6. Feeling bad about yourself - or that you are a failure or have let yourself or your family down: not at all 7. Trouble concentrating on things, such as reading the newspaper or watching television: not at all 8. Moving or speaking so slowly that other people could have noticed. Or the opposite - being so fidgety or restless that you have been moving around a lot more than usual: not at all 9. Thoughts that you would be better off or of hurting yourself in some way: not at all Total score: 0 Depression Screening Interpretation: Negative Depression Screening Done: Yes Source: Developed by Drs. Alli Chen, Miya Oneil, Umair Whitten and colleagues, with an educational megha from [employer]. Thrive Questionnaire Date Thrive assessed: 10/19/23 I am a: Patient What is your living situation today?: I have a steady place to live Within the past 12 months, did the food you bought not last and you didn't have the money to get more?: Never true Within the past 12 months, did you worry whether your food would run out before you got money to buy more?: Never true Do you have trouble paying for medicines?: No Do you have trouble getting transportation to medical appointments?: No Do you have trouble paying your heating and electricity bill?: No Do you have trouble taking care of your child, family member or friend?: No Do you have trouble with day-to-day activities such as bathing, preparing meals, shopping, managing finances, etc.?: No Are you currently unemployed and looking for a job?: No Are you interested in more education?: No Currently or been in a relationship where the following occur: No concerns reported THRIVE Score: 0 AUDIT C Alcohol Use Questionnaire (AUDIT-C) 1. How often do you have a drink containing alcohol?: 2-3 times a week 2. How many drinks containing alcohol do you have on a typical day when you are drinking?: 1 or 2 3. How often do you have six or more drinks on one occasion?: Never Total Score: 3 LUCY-7 AMB Questionnaire LUCY-7 Date LUCY - 7 assessed: 04/20/23 Source: Developed by Drs. Alli Chen, Miya Oneil, Umair Whitten and colleagues, with an educational megha from [employer]. Physical exam (Primary Care) Vital Signs: Last Vital Signs Pulse 88 10/19/23 10:47 BP 156/82 H 10/19/23 10:47 Pulse Ox 96 10/19/23 10:47 Oxygen Delivery Method Room Air 10/19/23 10:47 BMI result Body Mass Index 34.4 Tobacco/Smoking Status: Tobacco use Status Tobacco use date assessed 04/20/23 10/19/23 10:41 Patient Tobacco Use Status Former Tobacco user 10/19/23 10:41 Tobacco use type Cigarette 10/19/23 10:41 e-Cigarette/Vaping Use Never Used 10/19/23 10:41 PHQ-9: PHQ-9 Score PHQ-9: Total score 0 10/19/23 11:22 Depression Screening Interpretation: Negative Thrive Assessment: Date of Thrive Assessment Date Thrive assessed 10/19/23 10/19/23 10:48 Currently or been in a relationship where the following occur: No concerns reported Const General: alert; No acute distress Eyes Conjunctivae: conjunctivae normal Resp Auscultation: clear to auscultation bilaterally Cardio Rate: regular rate Rhythm: regular rhythm GI Inspection: Yes normal to inspection Extrem General: Yes normal to inspection and No edema Results AMB Hemoglobin A1c AMB Hemoglobin A1c 5.9 % Last Edit by Jade Fall CMA on 10/19/23 11:22 Results Reviewed Results Reviewed: Laboratory Last Values Hgb A1c (Clinic) 5.9 % (4.0-6.0) 10/19/23 10:48 Assessment and Plan Assessment & Plan (1) Cervical spondylosis: Code(s): M47.812 - Spondylosis without myelopathy or radiculopathy, cervical region Plan: Patient continues to follow-up with pain management on morphine baclofen and gabapentin (2) Persistent atrial fibrillation: Onset Date: ~2014 Code(s): I48.19 - Other persistent atrial fibrillation Plan: Continue to be on anticoagulation and twice a day year of blood work for renal function (3) Essential hypertension: Code(s): I10 - Essential (primary) hypertension Plan: Continue with metoprolol and diltiazem (4) Atherosclerotic cardiovascular disease: Code(s): I25.10 - Atherosclerotic heart disease of [place] coronary artery without angina pectoris Plan: Control the cholesterol, weight, blood pressure, on anticoagulation (5) YUNIEL on CPAP: Comment: CPAP Code(s): G47.33 - Obstructive sleep apnea (adult) (pediatric); Z99.89 - Dependence on other enabling machines and devices Plan: Continue to use the CPAP more than 4 hours a night and benefits from this. (6) Chronic diastolic (congestive) heart failure: Code(s): I50.32 - Chronic diastolic (congestive) heart failure Plan: Continue presently on diuretics (7) Hypercholesterolemia: Code(s): E78.00 - Pure hypercholesterolemia, unspecified Plan: Avoid fried foods, chicken skin, eggs, butter margarine, pastries and meat. Be it pork or beef they have a lot of cholesterol LDL goal of less than 70 04/11/2023 was last blood work (8) COPD (chronic obstructive pulmonary disease): Code(s): J44.9 - Chronic obstructive pulmonary disease, unspecified Qualifiers: COPD type: emphysema Emphysema type: panlobular Qualified Code(s): J43.1 - Panlobular emphysema Plan: Continue with albuterol and Combivent (9) Generalized anxiety disorder: Code(s): F41.1 - Generalized anxiety disorder Orders: Orders AMB Hemoglobin A1c Today Z13.9 - Encounter for screening, unspecified Medications: New lorazepam (Ativan) 0.5 mg PO DAILY PRN 7 tabs 0RF anxiety F41.1 - Generalized anxiety disorder Discontinued trazodone Discontinued Reason: Doctor's Order 50 mg PO BEDTIME PRN 90 tabs 2RF sleep G47.00 - Insomnia, unspecified Coding Level of Care Code Est Pt Level 4 (27075) Diagnoses Cervical spondylosis M47.812 Persistent atrial fibrillation I48.19 Essential hypertension I10 Atherosclerotic cardiovascular disease I25.10 YUNIEL on CPAP G47.33; Z99.89 Chronic diastolic (congestive) heart failure I50.32 Hypercholesterolemia E78.00 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 type: emphysema Emphysema type: panlobular Generalized anxiety disorder F41.1
[2023-10-19 10:47] VITALS: BP 156/82; PULSE 88; O2SAT 96; BMI 34.4
== END 2023-10-19 11:47 | disposition home or self-care (01) ==
PROVIDERS: PCP Internal Medicine; Visit Provider Internal Medicine
DX: I11.0 Hypertensive heart disease with heart failure (principal); I48.19 Other persistent atrial fibrillation; I50.32 Chronic diastolic (congestive) heart failure; J43.1 Panlobular emphysema; E78.00 Pure hypercholesterolemia, unspecified; M47.812 Spondylosis without myelopathy or radiculopathy, cervical region; I25.10 Atherosclerotic heart disease of native coronary artery without angina pectoris; G47.33 Obstructive sleep apnea (adult) (pediatric); Z99.89 Dependence on other enabling machines and devices; F41.1 Generalized anxiety disorder
CPT/HCPCS: 83036; 99214

== ENCOUNTER 2023-11-09 10:09 | Outpatient (AMB) | payer MEDICARE, SELFPAY ==
--- NOTE | 2023-11-09 10:11 | A.OFFVIS_ITS ---
Vital Signs 11/09/23 10:25 Height 5 ft 11 in Weight 250 lb 8 oz BMI 34.9 BP 123/70 Blood Pressure Location Lt brachial Position Sitting Pulse 81 Pulse Source Pulse Oximeter Pulse Oximetry (%) 96 Oxygen Delivery Method Room Air Intake Visit Reasons: PILL COUNT/ Random UDS Intake Note: Alli comes in today for a pill count to morphine, patient should have 9 tablets and presents with 8 tablets which he last took today 11/09/23 at 7am. 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 Patient is supposed to have morphine IR 15 mg #9 pills, in his possession has #8 pills. This demonstrates a responsible attitude in regards to the medication regimen. Patient reports mild to moderate analgesia on current regime of morphine IR 15 mg from TID prn for his chronic pain generators, including neck, back and knee pain without noted side effects. He reports difficulty sleeping which he attributes to disrupted Circadian rhythm. Patient reports 2 episodes of not sleeping for 30-40 hours for the past month. I will refer patient to Dr. Kaur, Neuro/Sleep evaluation. Denies any fever, chest pain, headaches, palpitations, nausea, sedation, weakness or urinary retention except occasional constipation. Patient uses CPAP machine regularly. [facility] Medical History Degenerative cervical disc Shortness of breath Constipation Circadian rhythm sleep disorder Vision changes Personal history of nicotine dependence Tobacco abuse Obstructive sleep apnea on CPAP (~03/2015) Current use of senior care anticoagulation Degenerative joint disease of cervical and lumbar spine Persistent atrial fibrillation (~2014) Peripheral vascular disease Obesity Insomnia COPD (chronic obstructive pulmonary disease) Bilateral primary osteoarthritis of knee Hypercholesterolemia Surgical History History of spinal surgery History of colonoscopy History of cardioversion (~2018) History of carpal tunnel release History of bilateral cataract extraction History of hip replacement, total History of removal of cyst History of vitrectomy (~11/2019) Family History Father Myocardial infarction Sister Multiple sclerosis Social History Household Members: Spouse Housing: House Alcohol intake: former Patient Tobacco Use Status: Former Tobacco user Tobacco use type: Cigarette Years Smoked: 54 on/off - 30pyh e-Cigarette/Vaping Use: Never Used Second Hand Smoke Exposure: Yes Current occupational status: retired Cognitive needs: No Hearing needs: No Vision needs: Yes Review of Systems Const All systems reviewed & are unremarkable except as noted in HPI and below Physical Exam Vital Signs: Last Vital Signs Pulse 81 11/09/23 10:25 BP 123/70 11/09/23 10:25 Pulse Ox 96 11/09/23 10:25 Oxygen Delivery Method Room Air 11/09/23 10:25 BMI result Body Mass Index 34.9 General: Appears afebrile. Alert and oriented. Mood and affect appropriate. Follows and participates in conversation appropriately. Respiratory effort is unlabored. No cough. Able to transition from sit to stand unassisted. Ambulates with bilaterally normal heel strike and toe off. Resp Effort & Inspection: normal respiratory effort, able to speak in complete sentences, no audible wheezes, Actively coughing (occasional, non-productive), not labored, no respiratory distress, no stridor and no use of accessory muscles Extrem General: Yes capillary refill normal, Yes no clubbing, cyanosis or edema and Yes no calf tenderness Psych Appearance: grossly normal Mental Status: mental status grossly normal Speech and movement: Normal speech and movement present and Clear speech present Affect: normal affect Attitude: cooperative Thought process: Normal thought process present Thought content: Normal thought content present, suicidality (none), no hallucinations and No Depressive thoughts present Insight: Good insight present (Psych) Judgement: Good judgement present (Psych) Results Reviewed Results Reviewed: XR CERVICAL SPINE 12/23/22 FINDINGS: The visualized cervical vertebrae are intact with normal alignment. Odontoid process is intact with normal C1/C2 lateral masses alignment. Pre-dental interval is normal. Pre vertebral soft tissue is normal in thickness. Prominent bilateral apophyseal joints and uncovertebral joint osteophytes are present. Bilateral oblique x-rays of cervical spine show normal apophyseal joint alignment. However, evaluation of cervical neural foramina remains limited by suboptimal positioning. The left cervical neural foramina and right C2-C3 neural foramen appear patent. IMPRESSION: 1. Unchanged multilevel advanced cervical spondylosis. 2. No fracture or dislocation of cervical spine is seen. MR LUMBAR SPINE WITHOUT IV CONTRAST 10/07/2015 CLINICAL INFORMATION: Back pain and bruising in the right buttock and thigh. FINDINGS: There are 5 nonrib-bearing lumbar-type vertebral bodies. Lumbar alignment is normal. The vertebral body heights are maintained. There is moderate disc volume loss at L1-L2. Disc desiccation at L1-L2 and L3-L4. Mild Modic type I degenerative endplate changes anteriorly at L1-L2. There is no additional bone marrow edema. There are no acute fractures. Conus terminates at the T12-L1 disc level. There is left iliopsoas muscle atrophy that is partially imaged. No additional significant soft tissue findings. L1-L2: There is a small annular disc bulge and there is mild bilateral facet arthropathy with no central canal stenosis and no significant foraminal stenosis. L2-L3: The disc contour is normal. There is no central canal stenosis and there is no foraminal stenosis. L3-L4: Small annular disc bulge exhibiting a ventral annular fissure. There is moderate bilateral facet arthropathy. There is no central canal stenosis and there is mild foraminal narrowing bilaterally, slightly greater on the right side. L4-L5: There is a diffuse annular disc bulge and there is severe bilateral hypertrophic facet arthropathy and ligamentum flavum thickening. No central canal stenosis. No significant foraminal stenosis. L5-S1: There is a diffuse annular disc bulge and there is severe left and moderate right hypertrophic facet arthropathy. There is no central canal stenosis and there is no foraminal stenosis. IMPRESSION: - Small disc bulges at the L1-L2, L3-L4, L4-L5, and L5-S1 levels, at L3-L4 associated with a ventral annular fissure. There is severe bilateral hypertrophic facet arthropathy at L4-L5 and severe left and moderate right hypertrophic facet arthropathy at L5-S1. No severe central canal stenosis and no severe foraminal stenosis within the lumbar spine. - Severe left iliopsoas muscle atrophy. XR HAND, RIGHT 06/27/23 CLINICAL INFORMATION: Third digit pain and swelling. COMPARISON: Radiograph right hand 11/07/2009. FINDINGS: No fracture or subluxation. Moderate to severe multifocal degenerative arthrosis with joint space narrowing, subcortical sclerosis and prominent marginal osteophytes more noticeable in the first carpometacarpal joint and multiple interphalangeal joints. No osseous erosions. Diffuse soft tissue swelling. IMPRESSION: 1. No fracture or subluxation. 2. Moderate to severe multifocal degenerative arthrosis. Assessment & Plan Assessment & Plan (1) Insomnia: Code(s): G47.00 - Insomnia, unspecified Category: Medical (2) Cervical spondylosis: Code(s): M47.812 - Spondylosis without myelopathy or radiculopathy, cervical region Category: Medical (3) Degenerative joint disease of cervical and lumbar spine: Code(s): M47.812 - Spondylosis without myelopathy or radiculopathy, cervical region; M47.816 - Spondylosis without myelopathy or radiculopathy, lumbar region Category: Medical (4) Chronic pain syndrome: Code(s): G89.4 - Chronic pain syndrome Category: Medical (5) Degenerative cervical disc: Code(s): M50.30 - Other cervical disc degeneration, unspecified cervical region Category: Medical (6) Opioid contract exists: Code(s): 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 The patient reported no side effects. There is no evidence of misuse, abuse, or diversion at this time. [employer] reviewed. Script sent for morphine IR 15 mg TID prn with advanced date of 11/11/23. Patient has Narcan at home. Neuro/Sleep Referral to Dr. Kaur for further evaluation of insomnia. All questions were answered and patient agreed with the plan. Follow up in one month for pill count and sooner if needed. Orders: Referrals Neurology Referral G47.00 - Insomnia, unspecified Medications: Refilled morphine Partial Fill upon patient request. 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
[2023-11-09 10:25] VITALS: BP 123/70; PULSE 81; O2SAT 96; BMI 34.9
== END 2023-11-09 10:42 | disposition home or self-care (01) ==
PROVIDERS: PCP Internal Medicine; Visit Provider Nurse Practitioner Family
DX: G47.00 Insomnia, unspecified (principal); M47.812 Spondylosis without myelopathy or radiculopathy, cervical region; M47.816 Spondylosis without myelopathy or radiculopathy, lumbar region; G89.4 Chronic pain syndrome; M50.30 Other cervical disc degeneration, unspecified cervical region; Z79.891 Long term (current) use of opiate analgesic
CPT/HCPCS: 99214; G2211

== ENCOUNTER → 2023-11-09 10:09 | Outpatient (BNVA) | payer MEDICARE, SELFPAY | PROVIDERS: PCP Internal Medicine; Visit Provider Nurse Practitioner Family | DX: Z51.81 Encounter for therapeutic drug level monitoring (principal); M47.812 Spondylosis without myelopathy or radiculopathy, cervical region; M47.816 Spondylosis without myelopathy or radiculopathy, lumbar region; M50.30 Other cervical disc degeneration, unspecified cervical region; G89.4 Chronic pain syndrome; G47.00 Insomnia, unspecified; Z79.891 Long term (current) use of opiate analgesic | CPT/HCPCS: 99212 ==

== ENCOUNTER 2023-12-08 09:55 | Outpatient (AMB) | payer MEDICARE, SELFPAY ==
--- NOTE | 2023-12-08 09:56 | A.OFFVIS_ITS ---
Vital Signs 12/08/23 10:03 Height 5 ft 11 in Weight 249 lb 6 oz BMI 34.8 BP 156/75 H Blood Pressure Location Lt brachial Position Sitting Pulse 100 Pulse Source Pulse Oximeter Pulse Oximetry (%) 98 Oxygen Delivery Method Room Air Intake Visit Reasons: PILL COUNT Intake Note: Alli comes in today for a pill count to morphine, patient should have 9 tablets and presents with 14 tablets which he last took today 12/08/23 at 5:30am. 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 Patient is supposed to have morphine IR 15 mg #9 pills, in his possession has #14 pills. This demonstrates a responsible attitude in regards to the medication regimen. Patient reports a reasonable analgesia on current regime of morphine IR 15 mg from TID prn for his chronic pain generators, including neck, back and knee pain without noted side effects. Denies any fever, chest pain, headaches, palpitations, nausea, sedation, weakness or urinary retention except occasional constipation. Patient uses CPAP machine regularly. [facility] Medical History Degenerative cervical disc Shortness of breath Constipation Circadian rhythm sleep disorder Vision changes Personal history of nicotine dependence Tobacco abuse Obstructive sleep apnea on CPAP (~03/2015) Current use of penitentiary anticoagulation Degenerative joint disease of cervical and lumbar spine Persistent atrial fibrillation (~2014) Peripheral vascular disease Obesity Insomnia COPD (chronic obstructive pulmonary disease) Bilateral primary osteoarthritis of knee Hypercholesterolemia Surgical History History of spinal surgery History of colonoscopy History of cardioversion (~2018) History of carpal tunnel release History of bilateral cataract extraction History of hip replacement, total History of removal of cyst History of vitrectomy (~11/2019) Family History Father Myocardial infarction Sister Multiple sclerosis Social History Household Members: Spouse Housing: House Alcohol intake: former Patient Tobacco Use Status: Former Tobacco user Tobacco use type: Cigarette Years Smoked: 54 on/off - 30pyh e-Cigarette/Vaping Use: Never Used Second Hand Smoke Exposure: Yes Current occupational status: retired Cognitive needs: No Hearing needs: No Vision needs: Yes Review of Systems Const All systems reviewed & are unremarkable except as noted in HPI and below Physical Exam Vital Signs: Last Vital Signs Pulse 100 12/08/23 10:03 BP 156/75 H 12/08/23 10:03 Pulse Ox 98 12/08/23 10:03 Oxygen Delivery Method Room Air 12/08/23 10:03 BMI result Body Mass Index 34.8 General: Appears afebrile. Alert and oriented. Mood and affect appropriate. Follows and participates in conversation appropriately. Respiratory effort is unlabored. No cough. Able to transition from sit to stand unassisted. Ambulates with bilaterally normal heel strike and toe off. Resp Effort & Inspection: normal respiratory effort, able to speak in complete sentences, no audible wheezes, no cough, not labored and no respiratory distress Extrem General: Yes capillary refill normal, Yes no clubbing, cyanosis or edema and Yes no calf tenderness Psych Appearance: grossly normal and well kempt Mental Status: mental status grossly normal Speech and movement: Normal speech and movement present and Clear speech present Affect: normal affect Attitude: cooperative Thought process: Normal thought process present Thought content: Normal thought content present, suicidality (none), no hallucinations and No Depressive thoughts present Insight: Good insight present (Psych) Judgement: Good judgement present (Psych) Results Reviewed Results Reviewed: XR CERVICAL SPINE 12/23/22 FINDINGS: The visualized cervical vertebrae are intact with normal alignment. Odontoid process is intact with normal C1/C2 lateral masses alignment. Pre-dental interval is normal. Pre vertebral soft tissue is normal in thickness. Prominent bilateral apophyseal joints and uncovertebral joint osteophytes are present. Bilateral oblique x-rays of cervical spine show normal apophyseal joint alignment. However, evaluation of cervical neural foramina remains limited by suboptimal positioning. The left cervical neural foramina and right C2-C3 neural foramen appear patent. IMPRESSION: 1. Unchanged multilevel advanced cervical spondylosis. 2. No fracture or dislocation of cervical spine is seen. MR LUMBAR SPINE WITHOUT IV CONTRAST 10/07/2015 CLINICAL INFORMATION: Back pain and bruising in the right buttock and thigh. FINDINGS: There are 5 nonrib-bearing lumbar-type vertebral bodies. Lumbar alignment is normal. The vertebral body heights are maintained. There is moderate disc volume loss at L1-L2. Disc desiccation at L1-L2 and L3-L4. Mild Modic type I degenerative endplate changes anteriorly at L1-L2. There is no additional bone marrow edema. There are no acute fractures. Conus terminates at the T12-L1 disc level. There is left iliopsoas muscle atrophy that is partially imaged. No additional significant soft tissue findings. L1-L2: There is a small annular disc bulge and there is mild bilateral facet arthropathy with no central canal stenosis and no significant foraminal stenosis. L2-L3: The disc contour is normal. There is no central canal stenosis and there is no foraminal stenosis. L3-L4: Small annular disc bulge exhibiting a ventral annular fissure. There is moderate bilateral facet arthropathy. There is no central canal stenosis and there is mild foraminal narrowing bilaterally, slightly greater on the right side. L4-L5: There is a diffuse annular disc bulge and there is severe bilateral hypertrophic facet arthropathy and ligamentum flavum thickening. No central canal stenosis. No significant foraminal stenosis. L5-S1: There is a diffuse annular disc bulge and there is severe left and moderate right hypertrophic facet arthropathy. There is no central canal stenosis and there is no foraminal stenosis. IMPRESSION: - Small disc bulges at the L1-L2, L3-L4, L4-L5, and L5-S1 levels, at L3-L4 associated with a ventral annular fissure. There is severe bilateral hypertrophic facet arthropathy at L4-L5 and severe left and moderate right hypertrophic facet arthropathy at L5-S1. No severe central canal stenosis and no severe foraminal stenosis within the lumbar spine. - Severe left iliopsoas muscle atrophy. XR HAND, RIGHT 06/27/23 CLINICAL INFORMATION: Third digit pain and swelling. COMPARISON: Radiograph right hand 11/07/2009. FINDINGS: No fracture or subluxation. Moderate to severe multifocal degenerative arthrosis with joint space narrowing, subcortical sclerosis and prominent marginal osteophytes more noticeable in the first carpometacarpal joint and multiple interphalangeal joints. No osseous erosions. Diffuse soft tissue swelling. IMPRESSION: 1. No fracture or subluxation. 2. Moderate to severe multifocal degenerative arthrosis. Assessment & Plan Assessment & Plan (1) Cervical spondylosis: Code(s): M47.812 - Spondylosis without myelopathy or radiculopathy, cervical region Category: Medical (2) Degenerative joint disease of cervical and lumbar spine: Code(s): M47.812 - Spondylosis without myelopathy or radiculopathy, cervical region; M47.816 - Spondylosis without myelopathy or radiculopathy, lumbar region Category: Medical (3) Chronic pain syndrome: Code(s): G89.4 - Chronic pain syndrome Category: Medical (4) Degenerative cervical disc: Code(s): M50.30 - Other cervical disc degeneration, unspecified cervical region Category: Medical (5) Opioid contract exists: Code(s): 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 The patient reported no side effects. There is no evidence of misuse, abuse, or diversion at this time. [facility] reviewed. Script sent for morphine IR 15 mg TID prn with advanced date of 12/11/23. Patient has Narcan at home. All questions were answered and patient agreed with the plan. Follow up in one month for pill count and sooner if needed. Medications: Refilled morphine Partial Fill upon patient request. 15 mg PO Q8H PRN 90 tabs 0RF pain (scale score 7-10) 30 days G89.4 - Chronic pain syndrome, M17.0 - Bilateral primary osteoarthritis of knee, M47.812 - Spondylosis without myelopathy or radiculopathy, cervical region, M47.816 - Spondylosis without myelopathy or radiculopathy, lumbar region, Z79.891 - [facility] (current) use of opiate analgesic Coding Level of Care Code Est Pt Level 4 (28207) Complex EM visit Add On G2211 Diagnoses Cervical spondylosis M47.812 Degenerative joint disease of cervical and lumbar spine M47.812; M47.816 Chronic pain syndrome G89.4 Degenerative cervical disc M50.30 Opioid contract exists Z79.891
[2023-12-08 10:03] VITALS: BP 156/75; PULSE 100; O2SAT 98; BMI 34.8
== END 2023-12-08 10:09 | disposition home or self-care (01) ==
PROVIDERS: PCP Internal Medicine; Visit Provider Nurse Practitioner Family
DX: M47.812 Spondylosis without myelopathy or radiculopathy, cervical region (principal); M47.816 Spondylosis without myelopathy or radiculopathy, lumbar region; G89.4 Chronic pain syndrome; M50.30 Other cervical disc degeneration, unspecified cervical region; Z79.891 Long term (current) use of opiate analgesic
CPT/HCPCS: 99214; G2211

== ENCOUNTER → 2023-12-08 09:55 | Outpatient (BNVA) | payer MEDICARE, SELFPAY | PROVIDERS: PCP Internal Medicine; Visit Provider Nurse Practitioner Family | DX: M50.30 Other cervical disc degeneration, unspecified cervical region (principal); M47.812 Spondylosis without myelopathy or radiculopathy, cervical region; M47.816 Spondylosis without myelopathy or radiculopathy, lumbar region; G89.4 Chronic pain syndrome; Z79.891 Long term (current) use of opiate analgesic; Z51.81 Encounter for therapeutic drug level monitoring | CPT/HCPCS: 99212 ==

== ENCOUNTER 2023-12-11 10:25 | Outpatient (AMB) | payer MEDICARE, SELFPAY ==
[2023-12-11 10:26] VITALS: BP 118/56; PULSE 91; BMI 34.7
--- NOTE | 2023-12-11 10:26 | A.OFFVIS_ITS ---
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 Accompanied by: Self / Same As Patient Allergies No Known Allergies Allergy (Verified 12/08/23 10:03) Medication List - Last Reconciled 12/11/23 by Wally Sen MD albuterol sulfate 2.5 mg (3 mL) inhalation Q4-6H PRN apixaban (Eliquis) 5 mg PO BID 90 days ascorbic acid (vitamin C) 500 mg PO .QD atorvastatin 40 mg PO DAILY baclofen 10 mg PO TID PRN bupropion HCl SR (Wellbutrin SR) 150 mg PO QAM [CPAP full face mask 14 cm h20 humidified Air As directed] dapagliflozin propanediol (Farxiga) 5 mg (1/2 x 10 mg) PO DAILY digoxin 125 mcg PO DAILY diltiazem HCl ER 360 mg PO DAILY doxycycline hyclate 100 mg PO BID 7 days ferrous sulfate (Feosol) 325 mg PO DAILY [id number] 200-62.5-25 mcg (Trelegy Ellipta) 1 inh inhalation DAILY furosemide 80 mg (2 x 40 mg) PO DAILY 90 days ipratropium-albuterol 20-100 mcg/actuation (Combivent Respimat) 1 puff PO QID lorazepam (Ativan) 0.5 mg PO DAILY PRN metoprolol tartrate 25 mg PO BID morphine 15 mg PO Q8H PRN 30 days naloxone 4 mg/actuation (Narcan) 4 mg intranasal Q2M PRN polyethylene glycol 3350 (Miralax) 17 grams PO DAILY HPI Comments Details: Alli returns for follow-up regarding follow-up of atrial flutter/fibrillation. Atrial flutter was originally detected during an office visit many years ago around 2014. At that time, he reverted back to sinus rhythm in a short time. He was okay for couple of years then started going back in atrial fibrillation. Cardioversion was unsuccessful. Even with amiodarone use we re-attempted but did not last and he went back into atrial fibrillation. Then he was left on rate control only. Overall, he states he feels good. Shortness of breath does not bother him much and it is at baseline. No angina. No other concerns. He does not feel any palpitations either. [facility] Medical History Degenerative cervical disc Shortness of breath Constipation Circadian rhythm sleep disorder Vision changes Personal history of nicotine dependence Tobacco abuse Obstructive sleep apnea on CPAP (~03/2015) Current use of intermediate anticoagulation Degenerative joint disease of cervical and lumbar spine Persistent atrial fibrillation (~2014) Peripheral vascular disease Obesity Insomnia COPD (chronic obstructive pulmonary disease) Bilateral primary osteoarthritis of knee Hypercholesterolemia Surgical History History of spinal surgery History of colonoscopy History of cardioversion (~2018) History of carpal tunnel release History of bilateral cataract extraction History of hip replacement, total History of removal of cyst History of vitrectomy (~11/2019) Family History Father Myocardial infarction Sister Multiple sclerosis Social History Household Members: Spouse Housing: House Alcohol intake: former Patient Tobacco Use Status: Former Tobacco user Tobacco use type: Cigarette Years Smoked: 54 on/off - 30pyh e-Cigarette/Vaping Use: Never Used Second Hand Smoke Exposure: Yes Current occupational status: retired Cognitive needs: No Hearing needs: No Vision needs: Yes Review of Systems Const Denies chills, Denies fatigue, Denies fever(s), Denies weight gain and Denies weight loss ENT Denies dizziness Card Denies chest pain, Denies leg edema, Denies lightheadedness, Denies palpitations, Reports dyspnea on exertion, Denies orthopnea and Denies other Resp Denies cough and Reports dyspnea on exertion GI Denies hematochezia and Denies change in stool character Musc Denies abnormal gait, Denies muscle weakness, Denies numbness, Denies radiating pain into limb and Denies tingling Neuro Denies abnormal gait, Denies dizziness, Denies numbness and Denies tingling Endo Denies fatigue and Denies palpitations Physical Exam Vital Signs: Last Vital Signs Pulse 91 12/11/23 10:26 BP 118/56 L 12/11/23 10:26 BMI result Body Mass Index 34.7 Const General: comfortable and no acute distress Orientation/consciousness: patient oriented x3 HEENT Other: Unremarkable Head: Yes normal to inspection Neck Neck: Yes normal visual inspection Chest Chest palpation & inspection: normal inspection of the chest Resp Auscultation: clear to auscultation bilaterally Cardio Palpation: normal PMI Heart sounds: S1 normal heart sound present, S2 normal heart sound present, no gallops, no murmurs and no rubs GI Palpation (GI): Soft to palpation Back/Spine/Pelvis Other: unremarkable Skin General skin exam: no rashes or lesions noted Neuro General: patient oriented x3 Extrem General: Yes normal to inspection Psych Mental Status: mental status grossly normal Assessment & Plan Assessment & Plan (1) Chronic diastolic (congestive) heart failure: Code(s): I50.32 - Chronic diastolic (congestive) heart failure Category: Medical Plan: Shortness of breath probably multifactorial. Likely some combination of CHF/COPD-asthma. PFTs from 2016 had shown moderately severe obstructive pulmonary disease, consistent with asthma. Continue diuretics. Continue Farxiga. (2) Atherosclerotic cardiovascular disease: Code(s): I25.10 - Atherosclerotic heart disease of [place] coronary artery without angina pectoris Category: Medical Plan: Cardiac catheterization 2022 showed minimal irregularities only but nothing otherwise of significance. No angina. Continue statins. (3) Persistent atrial fibrillation: Onset Date: ~2014 Code(s): I48.19 - Other persistent atrial fibrillation Category: Medical Plan: He has failed 2 cardioversions including with Amiodarone. Hence on rate control medications. On a combination of diltiazem, metoprolol, digoxin. Continue Eliquis. Check digoxin levels. (4) Essential hypertension: Code(s): I10 - Essential (primary) hypertension Category: Medical Plan: Stable. No changes. (5) Obstructive sleep apnea on CPAP: Onset Date: ~03/2015 Code(s): G47.33 - Obstructive sleep apnea (adult) (pediatric); Z99.89 - Dependence on other enabling machines and devices Category: Medical Plan: CPAP. Coding Level of Care Code Est Pt Level 4 (18842) Diagnoses Chronic diastolic (congestive) heart failure I50.32 Atherosclerotic cardiovascular disease I25.10 Persistent atrial fibrillation I48.19 Essential hypertension I10 Obstructive sleep apnea on CPAP G47.33; Z99.89
== END 2023-12-11 10:48 | disposition home or self-care (01) ==
PROVIDERS: PCP Internal Medicine; Visit Provider Internal Medicine
DX: I50.32 Chronic diastolic (congestive) heart failure (principal); I25.10 Atherosclerotic heart disease of native coronary artery without angina pectoris; I48.19 Other persistent atrial fibrillation; I10 Essential (primary) hypertension; G47.33 Obstructive sleep apnea (adult) (pediatric); Z99.89 Dependence on other enabling machines and devices
CPT/HCPCS: 99214

== ENCOUNTER → 2023-12-11 10:25 | Outpatient (BNVA) | payer MEDICARE, SELFPAY | PROVIDERS: PCP Internal Medicine; Visit Provider Internal Medicine | DX: I11.0 Hypertensive heart disease with heart failure (principal); I50.32 Chronic diastolic (congestive) heart failure; I25.10 Atherosclerotic heart disease of native coronary artery without angina pectoris; I48.19 Other persistent atrial fibrillation; G47.33 Obstructive sleep apnea (adult) (pediatric); Z99.89 Dependence on other enabling machines and devices | CPT/HCPCS: 99212 ==

== ENCOUNTER 2024-01-08 10:20 | Outpatient (AMB) | payer MEDICARE, SELFPAY ==
--- NOTE | 2024-01-08 10:20 | MHC.OFFVIS ---
Vital Signs 01/08/24 10:26 Height 5 ft 11 in Weight 246 lb 6 oz BMI 34.4 BP 150/70 H Blood Pressure Location Lt brachial Position Sitting Respiration 18 Pulse 87 Pulse Source Pulse Oximeter Pulse Oximetry (%) 94 Oxygen Delivery Method Room Air Intake Visit Reasons: Medication Count Intake Note: Patient comes in for pill count. Presented with 12 tablets and should have 6 tablets. Which he took last this morning at 6 am. Patient reports pain level today of 5.5/10. Allergies No Known Allergies Allergy (Verified 01/08/24 10:29) HPI Comments Details: Patient presents today for a pill count. Patient is supposed to have morphine IR 15 mg #6 pills, in his possession has #12 pills. This demonstrates a responsible attitude in regards to the medication regimen. Patient reports a reasonable analgesia on current regime of morphine IR 15 mg from TID prn for his chronic pain generators, including neck, back and knee pain without noted side effects. He also takes baclofen for muscles spasms in his neck with good relief. Denies any fever or chills, chest pain, shortness of breaths, headaches, palpitations, nausea, sedation, weakness or urinary retention except occasional constipation. Patient uses CPAP machine regularly. 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 Degenerative joint disease of cervical and lumbar spine Persistent atrial fibrillation (~2014) Peripheral vascular disease Obesity Insomnia COPD (chronic obstructive pulmonary disease) Bilateral primary osteoarthritis of knee Hypercholesterolemia Surgical History History of spinal surgery History of colonoscopy History of cardioversion (~2018) History of carpal tunnel release History of bilateral cataract extraction History of hip replacement, total History of removal of cyst History of vitrectomy (~11/2019) Family History Father Myocardial infarction Sister Multiple sclerosis Social History Household Members: Spouse Housing: House Alcohol intake: former Patient Tobacco Use Status: Former Tobacco user Tobacco use type: Cigarette Years Smoked: 54 on/off - 30pyh e-Cigarette/Vaping Use: Never Used Second Hand Smoke Exposure: Yes Current occupational status: retired Cognitive needs: No Hearing needs: No Vision needs: Yes Review of Systems Const All systems reviewed & are unremarkable except as noted in HPI and below Physical Exam Vital Signs: Last Vital Signs Pulse 87 01/08/24 10:26 Resp 18 01/08/24 10:26 BP 150/70 H 01/08/24 10:26 Pulse Ox 94 01/08/24 10:26 Oxygen Delivery Method Room Air 01/08/24 10:26 BMI result Body Mass Index 34.4 General: Appears afebrile. Alert and oriented. Mood and affect appropriate. Follows and participates in conversation appropriately. Respiratory effort is unlabored. No cough. Able to transition from sit to stand unassisted. Ambulates with bilaterally normal heel strike and toe off. Neck Neck: Yes no lymphadenopathy, Yes supple, No anterior neck swelling, Yes no JVD, No prominent supraclavicular fat pad and Yes prominent dorsocervical fat pad Resp Effort & Inspection: normal respiratory effort, able to speak in complete sentences, no audible wheezes, no cough, not labored and no respiratory distress Back/Spine/Pelvis Cervical Spine: loss of normal cervical lordosis, cervical muscular tenderness, cervical spasm and No Cervical spine tenderness Thoracic/Lumbar Spine: thoracic and lumbar spine normal to inspection, Lasegue's sign negative, straight leg raise negative bilaterally, No thoracic spinal tenderness and No lumbar spinal tenderness Extrem General: Yes capillary refill normal, Yes no clubbing, cyanosis or edema and Yes no calf tenderness Psych Appearance: grossly normal and well kempt Mental Status: mental status grossly normal Speech and movement: Normal speech and movement present and Clear speech present Affect: normal affect Attitude: cooperative Thought process: Normal thought process present Thought content: Normal thought content present, suicidality (none), no hallucinations and No Depressive thoughts present Insight: Good insight present (Psych) Judgement: Good judgement present (Psych) Results Reviewed Results Reviewed: XR CERVICAL SPINE 12/23/22 FINDINGS: The visualized cervical vertebrae are intact with normal alignment. Odontoid process is intact with normal C1/C2 lateral masses alignment. Pre-dental interval is normal. Pre vertebral soft tissue is normal in thickness. Prominent bilateral apophyseal joints and uncovertebral joint osteophytes are present. Bilateral oblique x-rays of cervical spine show normal apophyseal joint alignment. However, evaluation of cervical neural foramina remains limited by suboptimal positioning. The left cervical neural foramina and right C2-C3 neural foramen appear patent. IMPRESSION: 1. Unchanged multilevel advanced cervical spondylosis. 2. No fracture or dislocation of cervical spine is seen. MR LUMBAR SPINE WITHOUT IV CONTRAST 10/07/2015 CLINICAL INFORMATION: Back pain and bruising in the right buttock and thigh. FINDINGS: There are 5 nonrib-bearing lumbar-type vertebral bodies. Lumbar alignment is normal. The vertebral body heights are maintained. There is moderate disc volume loss at L1-L2. Disc desiccation at L1-L2 and L3-L4. Mild Modic type I degenerative endplate changes anteriorly at L1-L2. There is no additional bone marrow edema. There are no acute fractures. Conus terminates at the T12-L1 disc level. There is left iliopsoas muscle atrophy that is partially imaged. No additional significant soft tissue findings. L1-L2: There is a small annular disc bulge and there is mild bilateral facet arthropathy with no central canal stenosis and no significant foraminal stenosis. L2-L3: The disc contour is normal. There is no central canal stenosis and there is no foraminal stenosis. L3-L4: Small annular disc bulge exhibiting a ventral annular fissure. There is moderate bilateral facet arthropathy. There is no central canal stenosis and there is mild foraminal narrowing bilaterally, slightly greater on the right side. L4-L5: There is a diffuse annular disc bulge and there is severe bilateral hypertrophic facet arthropathy and ligamentum flavum thickening. No central canal stenosis. No significant foraminal stenosis. L5-S1: There is a diffuse annular disc bulge and there is severe left and moderate right hypertrophic facet arthropathy. There is no central canal stenosis and there is no foraminal stenosis. IMPRESSION: - Small disc bulges at the L1-L2, L3-L4, L4-L5, and L5-S1 levels, at L3-L4 associated with a ventral annular fissure. There is severe bilateral hypertrophic facet arthropathy at L4-L5 and severe left and moderate right hypertrophic facet arthropathy at L5-S1. No severe central canal stenosis and no severe foraminal stenosis within the lumbar spine. - Severe left iliopsoas muscle atrophy. Assessment & Plan Assessment & Plan (1) Cervical spondylosis: Code(s): M47.812 - Spondylosis without myelopathy or radiculopathy, cervical region Category: Medical (2) Degenerative joint disease of cervical and lumbar spine: Code(s): M47.812 - Spondylosis without myelopathy or radiculopathy, cervical region; M47.816 - Spondylosis without myelopathy or radiculopathy, lumbar region Category: Medical (3) Chronic pain syndrome: Code(s): G89.4 - Chronic pain syndrome Category: Medical (4) Degenerative cervical disc: Code(s): M50.30 - Other cervical disc degeneration, unspecified cervical region Category: Medical (5) Opioid contract exists: Code(s): Z79.891 - longterm (current) use of opiate analgesic Category: Medical (6) Muscle spasms of neck: Code(s): M62.838 - Other muscle spasm Category: Medical Plan Patient has shown accountability for his medication regimen and the pill count was accurate. The patient reported no side effects. There is no evidence of misuse, abuse, or diversion at this time. [email or web address] reviewed. Script sent for morphine IR 15 mg TID prn with advanced date of 01/10/24. Patient has Narcan at home. Continue baclofen prn. All questions were answered and patient agreed with the plan. Follow up in 4-5 weeks for pill count and sooner if needed. Medications: Refilled morphine Partial Fill upon patient request. 15 mg PO Q8H 30 days PRN 90 tabs 0RF pain (scale score 7-10) G89.4 - Chronic pain syndrome, M17.0 - Bilateral primary osteoarthritis of knee, M47.812 - Spondylosis without myelopathy or radiculopathy, cervical region, M47.816 - Spondylosis without myelopathy or radiculopathy, lumbar region, Z79.891 - longterm (current) use of opiate analgesic Coding Level of Care Code Est Pt Level 4 (26614) Complex EM visit Add On G2211 Diagnoses Cervical spondylosis M47.812 Degenerative joint disease of cervical and lumbar spine M47.812; M47.816 Chronic pain syndrome G89.4 Degenerative cervical disc M50.30 Opioid contract exists Z79.891 Muscle spasms of neck M62.838
[2024-01-08 10:26] VITALS: BP 150/70; PULSE 87; RESP 18; O2SAT 94; BMI 34.4
== END 2024-01-08 10:34 | disposition home or self-care (01) ==
PROVIDERS: PCP Internal Medicine; Visit Provider Nurse Practitioner Family
DX: M47.812 Spondylosis without myelopathy or radiculopathy, cervical region (principal); M47.816 Spondylosis without myelopathy or radiculopathy, lumbar region; G89.4 Chronic pain syndrome; M50.30 Other cervical disc degeneration, unspecified cervical region; Z79.891 Long term (current) use of opiate analgesic; M62.838 Other muscle spasm
CPT/HCPCS: 99214; G2211

== ENCOUNTER → 2024-01-08 10:20 | Outpatient (BNVA) | payer MEDICARE, SELFPAY | PROVIDERS: PCP Internal Medicine; Visit Provider Nurse Practitioner Family | DX: M47.812 Spondylosis without myelopathy or radiculopathy, cervical region (principal); G89.4 Chronic pain syndrome; M50.30 Other cervical disc degeneration, unspecified cervical region; M62.838 Other muscle spasm; M17.0 Bilateral primary osteoarthritis of knee; Z51.81 Encounter for therapeutic drug level monitoring; Z79.891 Long term (current) use of opiate analgesic | CPT/HCPCS: 99212 ==

== ENCOUNTER 2024-02-05 10:19 | Outpatient (AMB) | payer MEDICARE, SELFPAY ==
--- NOTE | 2024-02-05 10:21 | MHC.OFFVIS ---
Vital Signs 02/05/24 10:27 Height 5 ft 11 in Weight 247 lb BMI 34.4 BP 145/67 H Blood Pressure Location Lt brachial Position Sitting Pulse 90 Pulse Source Pulse Oximeter Pulse Oximetry (%) 95 Oxygen Delivery Method Room Air Intake Visit Reasons: PILL COUNT Intake Note: Alli comes in today for a pill count to morphine, patient should have 12 tablets and presents with 17 tablets which he last took today 02/05/24 at 6am. 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 Patient is supposed to have morphine IR 15 mg #12 pills, in his possession has #17 pills. This demonstrates a responsible attitude in regards to the medication regimen. Patient reports inadequate analgesia on current regime of morphine IR 15 mg from TID prn for his chronic pain generators, including neck, back and knee pain without noted side effects. He reports recent flare up in his back pain with bilateral leg pain and left knee pain with movements, activities or climbing stairs. He was told previously he needs total knee replacement but has deferred that at this time. Denies any fever or chills, chest pain, shortness of breaths, headaches, palpitations, nausea, sedation, weakness or urinary retention except occasional constipation. Patient uses CPAP machine regularly. 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 Degenerative joint disease of cervical and lumbar spine Persistent atrial fibrillation (~2014) Peripheral vascular disease Obesity Insomnia COPD (chronic obstructive pulmonary disease) Bilateral primary osteoarthritis of knee Hypercholesterolemia Surgical History History of spinal surgery History of colonoscopy History of cardioversion (~2018) History of carpal tunnel release History of bilateral cataract extraction History of hip replacement, total History of removal of cyst History of vitrectomy (~11/2019) Family History Father Myocardial infarction Sister Multiple sclerosis Social History Household Members: Spouse Housing: House Alcohol intake: former Patient Tobacco Use Status: Former Tobacco user Tobacco use type: Cigarette Years Smoked: 54 on/off - 30pyh e-Cigarette/Vaping Use: Never Used Second Hand Smoke Exposure: Yes Current occupational status: retired Cognitive needs: No Hearing needs: No Vision needs: Yes Review of Systems Const All systems reviewed & are unremarkable except as noted in HPI and below Physical Exam Vital Signs: Last Vital Signs Pulse 90 02/05/24 10:27 BP 145/67 H 02/05/24 10:27 Pulse Ox 95 02/05/24 10:27 Oxygen Delivery Method Room Air 02/05/24 10:27 BMI result Body Mass Index 34.4 General: Appears afebrile. Alert and oriented. Mood and affect appropriate. Follows and participates in conversation appropriately. Respiratory effort is unlabored. No cough. Able to transition from sit to stand unassisted. Ambulates with bilaterally normal heel strike and toe off. Neck Neck: Yes no lymphadenopathy, Yes supple, No anterior neck swelling, Yes no JVD, No prominent supraclavicular fat pad and Yes prominent dorsocervical fat pad Resp Effort & Inspection: normal respiratory effort, able to speak in complete sentences, no audible wheezes, no cough, not labored and no respiratory distress Back/Spine/Pelvis Cervical Spine: loss of normal cervical lordosis, cervical muscular tenderness, pain with cervical ROM, cervical spasm, No Cervical spine tenderness and No step off deformity Thoracic/Lumbar Spine: thoracic and lumbar spine normal to inspection, Lasegue's sign negative, No thoracic spinal tenderness and No lumbar spinal tenderness Pelvis: buttock tenderness Sacroiliac joints: bilaterally nontender Extrem General: Yes capillary refill normal, Yes no calf tenderness, No cyanosis and Yes pedal edema (BLE non-pitting edema) Psych Appearance: grossly normal and well kempt Mental Status: mental status grossly normal Speech and movement: Normal speech and movement present and Clear speech present Affect: normal affect Attitude: cooperative Thought process: Normal thought process present Thought content: Normal thought content present, suicidality (none), no hallucinations and No Depressive thoughts present Insight: Good insight present (Psych) Judgement: Good judgement present (Psych) Results Reviewed Results Reviewed: XR CERVICAL SPINE 12/23/22 FINDINGS: The visualized cervical vertebrae are intact with normal alignment. Odontoid process is intact with normal C1/C2 lateral masses alignment. Pre-dental interval is normal. Pre vertebral soft tissue is normal in thickness. Prominent bilateral apophyseal joints and uncovertebral joint osteophytes are present. Bilateral oblique x-rays of cervical spine show normal apophyseal joint alignment. However, evaluation of cervical neural foramina remains limited by suboptimal positioning. The left cervical neural foramina and right C2-C3 neural foramen appear patent. IMPRESSION: 1. Unchanged multilevel advanced cervical spondylosis. 2. No fracture or dislocation of cervical spine is seen. MR LUMBAR SPINE WITHOUT IV CONTRAST 10/07/2015 CLINICAL INFORMATION: Back pain and bruising in the right buttock and thigh. FINDINGS: There are 5 nonrib-bearing lumbar-type vertebral bodies. Lumbar alignment is normal. The vertebral body heights are maintained. There is moderate disc volume loss at L1-L2. Disc desiccation at L1-L2 and L3-L4. Mild Modic type I degenerative endplate changes anteriorly at L1-L2. There is no additional bone marrow edema. There are no acute fractures. Conus terminates at the T12-L1 disc level. There is left iliopsoas muscle atrophy that is partially imaged. No additional significant soft tissue findings. L1-L2: There is a small annular disc bulge and there is mild bilateral facet arthropathy with no central canal stenosis and no significant foraminal stenosis. L2-L3: The disc contour is normal. There is no central canal stenosis and there is no foraminal stenosis. L3-L4: Small annular disc bulge exhibiting a ventral annular fissure. There is moderate bilateral facet arthropathy. There is no central canal stenosis and there is mild foraminal narrowing bilaterally, slightly greater on the right side. L4-L5: There is a diffuse annular disc bulge and there is severe bilateral hypertrophic facet arthropathy and ligamentum flavum thickening. No central canal stenosis. No significant foraminal stenosis. L5-S1: There is a diffuse annular disc bulge and there is severe left and moderate right hypertrophic facet arthropathy. There is no central canal stenosis and there is no foraminal stenosis. IMPRESSION: - Small disc bulges at the L1-L2, L3-L4, L4-L5, and L5-S1 levels, at L3-L4 associated with a ventral annular fissure. There is severe bilateral hypertrophic facet arthropathy at L4-L5 and severe left and moderate right hypertrophic facet arthropathy at L5-S1. No severe central canal stenosis and no severe foraminal stenosis within the lumbar spine. - Severe left iliopsoas muscle atrophy. Assessment & Plan Assessment & Plan (1) Bilateral primary osteoarthritis of knee: Code(s): M17.0 - Bilateral primary osteoarthritis of knee Category: Medical (2) Degenerative joint disease of cervical and lumbar spine: Code(s): M47.812 - Spondylosis without myelopathy or radiculopathy, cervical region; M47.816 - Spondylosis without myelopathy or radiculopathy, lumbar region Category: Medical (3) Opioid contract exists: Code(s): Z79.891 - [facility] (current) use of opiate analgesic Category: Medical (4) Chronic pain syndrome: Code(s): G89.4 - Chronic pain syndrome Category: Medical (5) Cervical spondylosis: Code(s): M47.812 - Spondylosis without myelopathy or radiculopathy, cervical region Category: Medical (6) Degenerative cervical disc: Code(s): M50.30 - Other cervical disc degeneration, unspecified cervical region Category: Medical (7) Muscle spasms of neck: Code(s): M62.838 - Other muscle spasm Category: Medical Plan Patient has shown accountability for his medication regimen and the pill count was accurate. The patient reported no side effects. There is no evidence of misuse, abuse, or diversion at this time. [employer] reviewed. Script sent for morphine IR 15 mg with increase to QID prn with advanced date of 02/09/24. Patient has Narcan at home. Continue baclofen prn. Patient declined interventional treatments for low back and left knee pain at this time. Patient is aware to call if pain worsens or if he develops any red flag symptoms to seek emergency care. Patient denies any cauda equina syndrome symptoms at this time. All questions were answered and patient agreed with the plan. Follow up in 4-5 weeks for pill count and sooner if needed. Medications: Changed From morphine Partial Fill upon patient request. 15 mg PO Q8H 30 days PRN 90 tabs 0RF pain (scale score 7-10) G89.4 - Chronic pain syndrome, M17.0 - Bilateral primary osteoarthritis of knee, M47.812 - Spondylosis without myelopathy or radiculopathy, cervical region, M47.816 - Spondylosis without myelopathy or radiculopathy, lumbar region, Z79.891 - superintendent terminal (current) use of opiate analgesic To morphine Partial Fill upon patient request. 15 mg PO Q6H 30 days PRN 120 tabs 0RF pain (scale score 7-10) MDD 4 G89.4 - Chronic pain syndrome, M17.0 - Bilateral primary osteoarthritis of knee, M47.812 - Spondylosis without myelopathy or radiculopathy, cervical region, M47.816 - Spondylosis without myelopathy or radiculopathy, lumbar region, Z79.891 - [facility] (current) use of opiate analgesic Coding Level of Care Code Est Pt Level 4 (39761) Complex EM visit Add On G2211 Diagnoses Bilateral primary osteoarthritis of knee M17.0 Degenerative joint disease of cervical and lumbar spine M47.812; M47.816 Opioid contract exists Z79.891 Chronic pain syndrome G89.4 Cervical spondylosis M47.812 Degenerative cervical disc M50.30 Muscle spasms of neck M62.838
[2024-02-05 10:27] VITALS: BP 145/67; PULSE 90; O2SAT 95; BMI 34.4
== END 2024-02-05 10:43 | disposition home or self-care (01) ==
PROVIDERS: PCP Internal Medicine; Visit Provider Nurse Practitioner Family
DX: M17.0 Bilateral primary osteoarthritis of knee (principal); M47.812 Spondylosis without myelopathy or radiculopathy, cervical region; M47.816 Spondylosis without myelopathy or radiculopathy, lumbar region; Z79.891 Long term (current) use of opiate analgesic; G89.4 Chronic pain syndrome; M50.30 Other cervical disc degeneration, unspecified cervical region; M62.838 Other muscle spasm
CPT/HCPCS: 99214; G2211

== ENCOUNTER → 2024-02-05 10:19 | Outpatient (BNVA) | payer MEDICARE, SELFPAY | PROVIDERS: PCP Internal Medicine; Visit Provider Nurse Practitioner Family | DX: M17.0 Bilateral primary osteoarthritis of knee (principal); M47.812 Spondylosis without myelopathy or radiculopathy, cervical region; M47.816 Spondylosis without myelopathy or radiculopathy, lumbar region; G89.4 Chronic pain syndrome; M50.30 Other cervical disc degeneration, unspecified cervical region; M62.838 Other muscle spasm; Z51.81 Encounter for therapeutic drug level monitoring; Z79.891 Long term (current) use of opiate analgesic | CPT/HCPCS: 99212 ==

== ENCOUNTER 2024-02-20 09:46 | Outpatient (REF) | payer MEDICARE, SELFPAY ==
[2024-02-20 10:51] LABS: MANUAL DIFF FLAG NO
[2024-02-20 11:00] LABS: Basophils Absolute Auto 0.1 X10*3/uL (0.0-0.2); Basophils Percent Auto 0.5 % (0-2); Eosinophils Absolute Auto 0.3 X10*3/uL (0.0-0.4); Eosinophils Percent Auto 3.1 % (0-4); Hematocrit 39.9 % (42.0-52.0); Hemoglobin 13.3 g/dl (14.0-18.0); Imm Gran Abs Auto 0.04 X10*3/uL (0.00-0.03); Imm Gran Pct Auto 0.4 % (0.0-0.4); Lymphocytes Absolute Auto 1.8 X10*3/uL (1.2-4.9); Lymphocytes Percent Auto 16.3 % (20-40); Mean Corpuscular HGB Conc 33.3 g/dl (31.0-36.0); Mean Corpuscular Hemoglobin 31.4 pg (27.0-33.0); Mean Corpuscular Volume 94.1 fL (80.0-98.0); Mean Platelet Volume 11.3 fL (9.4-12.4); Monocytes Absolute Auto 0.9 X10*3/uL (0.1-1.2); Neutrophils Absolute Auto 7.8 x10*3/uL (2.0-8.3); Neutrophils Percent Auto 71.7 % (45-73); Platelet Count 208 X10*3/uL (160-400); Red Blood Count 4.24 X10*6/uL (4.60-5.80); Red Cell Distribution Width 14.9 % (11.0-16.0); White Blood Count 10.9 X10*3/uL (4.8-10.8)
[2024-02-20 11:15] LABS: Alanine Aminotransferase 28 U/L (0-40); Albumin Level 3.9 g/dL (3.5-5.0); Alkaline Phosphatase 105 U/L (39-117); Anion Gap 11 (12-20); Aspartate Amino Transferase 27 U/L (5-37); Bilirubin Total 0.8 mg/dL (0.0-1.0); Blood Urea Nitrogen 16 mg/dL (9-16); Carbon Dioxide 26 mmol/L (22-29); Chloride 104 mmol/L (96-108); Cholesterol 111 mg/dL (<200); Estimated Glomerular Filt Rate > 60; Glucose Random 149 mg/dL (60-115); HDL Cholesterol 34 mg/dL (>40); LDL Cholesterol Calculated 58 mg/dL (<100); Magnesium 1.9 mg/dL (1.6-2.6); Potassium 3.2 mmol/L (3.3-5.1); Sodium 138 mmol/L (135-145); Total Protein 7.3 g/dL (6.5-8.0); Triglycerides 96 mg/dL (<150)
[2024-02-20 11:35] LABS: Free T4 (Free Thyroxine) 1.17 ng/dL (0.71-1.85)
[2024-02-20 11:40] LABS: Folate 8.8 ng/mL (> or = 4.0); Vitamin B12 334 pg/mL (200-900)
[2024-02-20 13:32] LABS: B Type Natriuretic Peptide 232 pg/mL (<100)
== END 2024-02-20 09:47 | disposition home or self-care (01) ==
LOC: HO.10HDL 09:46
PROVIDERS: Visit Provider Internal Medicine
DX: I25.10 Atherosclerotic heart disease of native coronary artery without angina pectoris (principal); E78.00 Pure hypercholesterolemia, unspecified
CPT/HCPCS: 36415; 80053; 80061; 82607; 82746; 83735; 83880; 84439; 85025

== ENCOUNTER 2024-02-27 10:26 | Outpatient (AMB) | payer MEDICARE, SELFPAY ==
[2024-02-27 10:29] VITALS: BP 138/62; PULSE 85; O2SAT 96; BMI 34.4
--- NOTE | 2024-02-27 10:29 | A.OFFPC_ITS ---
Vital Signs 02/27/24 10:29 Height 5 ft 11 in Weight 247 lb BMI 34.4 BP 138/62 Blood Pressure Location Lt brachial Position Sitting Pulse 85 Pulse Source Pulse Oximeter Pulse Oximetry (%) 96 Oxygen Delivery Method Room Air Intake Visit Reasons: 3 mo f/u chf,copd Allergies No Known Allergies Allergy (Verified 02/27/24 10:29) Tobacco use date assessed: 02/27/24 Fall risk assessment: No Falls in past year Last assessed Fall Risk: 02/27/24 Dental Screening Dental Screen Date: 02/27/24 Did you have a dental visit in the last 12 months?: Yes Did you have a dental problem in the last 6 months where you did not have access to dental care?: No Was dental information given to patient?: Patient has dentist HPI 3 mo f/u chf,copd HPI Details The patient is a 73-year-old male presenting with hypotension, anemia, low potassium, elevated blood sugar, and other chronic conditions. Initially noted hypotensive episodes, with a blood pressure recorded at 75/48 mmHg, without associated dizziness but occasional tiredness. The patient is currently on metoprolol. Anemia has been mild and persistent over years without significant decline. Alongside this, he has a history of low potassium attributed to diuretic use, with levels consistently recording between 3.2 to 3.8 mmol/L since March 2023. The patient also presented with elevated blood sugar and a hemoglobin A1c of 5.9%, indicating pre-diabetes, worsened by non- fasting state during the previous test. Weight management is complicated given his current dietary habits and uptick in glucose levels. Congestive heart failure is managed pharmacologically, with BNP recently increasing from 194 to 232 ng/L, prompting continued diuretic use. Hyperlipidemia is managed with atorvastatin 40 mg, keeping LDL at 58 mg/dL. Obstructive sleep apnea is being managed with regular CPAP use. [facility] Medical History Muscle spasms of neck Degenerative cervical disc Shortness of breath Constipation Circadian rhythm sleep disorder Vision changes Personal history of nicotine dependence Tobacco abuse Obstructive sleep apnea on CPAP (~03/2015) Current use of custodial anticoagulation Degenerative joint disease of cervical and lumbar spine Persistent atrial fibrillation (~2014) Peripheral vascular disease Obesity Insomnia COPD (chronic obstructive pulmonary disease) Bilateral primary osteoarthritis of knee Hypercholesterolemia Surgical History History of spinal surgery History of colonoscopy History of cardioversion (~2019) History of carpal tunnel release History of bilateral cataract extraction History of hip replacement, total History of removal of cyst History of vitrectomy (~11/2019) Family History Father Myocardial infarction Sister Multiple sclerosis Social History Household Members: Spouse Housing: House Alcohol intake: former Patient Tobacco Use Status: Former Tobacco user Tobacco use type: Cigarette Years Smoked: 54 on/off - 30pyh e-Cigarette/Vaping Use: Never Used Second Hand Smoke Exposure: Yes Current occupational status: retired Cognitive needs: No Hearing needs: No Vision needs: Yes Questionnaire PHQ-9 Over the last 2 weeks, how often have you been bothered by any of the following problems? 1. Little interest or pleasure in doing things: not at all 2. Feeling down, depressed, or hopeless: not at all 3. Trouble falling or staying asleep, or sleeping too much: not at all 4. Feeling tired or having little energy: not at all 5. Poor appetite or overeating: not at all 6. Feeling bad about yourself - or that you are a failure or have let yourself or your family down: not at all 7. Trouble concentrating on things, such as reading the newspaper or watching television: not at all 8. Moving or speaking so slowly that other people could have noticed. Or the opposite - being so fidgety or restless that you have been moving around a lot more than usual: not at all 9. Thoughts that you would be better off or of hurting yourself in some way: not at all Total score: 0 Depression Screening Interpretation: Negative Depression Screening Done: Yes Source: Developed by Drs. Alli Chen, Miya Oneil, Umair Whitten and colleagues, with an educational megha from [employer]. Thrive Questionnaire Date Thrive assessed: 02/27/24 I am a: Patient What is your living situation today?: I have a steady place to live Within the past 12 months, did the food you bought not last and you didn't have the money to get more?: Never true Within the past 12 months, did you worry whether your food would run out before you got money to buy more?: Never true Do you have trouble paying for medicines?: No Do you have trouble getting transportation to medical appointments?: No Do you have trouble paying your heating and electricity bill?: No Do you have trouble taking care of your child, family member or friend?: No Do you have trouble with day-to-day activities such as bathing, preparing meals, shopping, managing finances, etc.?: No Are you currently unemployed and looking for a job?: No Are you interested in more education?: No Currently or been in a relationship where the following occur: No concerns reported THRIVE Score: 0 AUDIT C Alcohol Use Questionnaire (AUDIT-C) 1. How often do you have a drink containing alcohol?: 2-3 times a week 2. How many drinks containing alcohol do you have on a typical day when you are drinking?: 1 or 2 3. How often do you have six or more drinks on one occasion?: Never Total Score: 3 LUCY-7 AMB Questionnaire LUCY-7 Date LUCY - 7 assessed: 02/27/24 Feeling nervous, anxious, or on edge: 0 = Not at all Not being able to stop or control worryin = Not at all Worrying too much about different things: 0 = Not at all Trouble relaxin = Not at all Being so restless that it is hard to sit still: 0 = Not at all Becoming easily annoyed or irritable: 0 = Not at all Feeling afraid as if something awful might happen: 0 = Not at all Total LUCY-7 score (0-4 normal; 5-9 mild; 10-14 moderate; 15-21 severe): 0 Source: Developed by Drs. Alli Chen, Miya Oneil, Umair Whitten and colleagues, with an educational megha from [employer]. Physical exam (Primary Care) Vital Signs: Last Vital Signs Pulse 85 02/27/24 10:29 BP 138/62 02/27/24 10:29 Pulse Ox 96 02/27/24 10:29 Oxygen Delivery Method Room Air 02/27/24 10:29 BMI result Body Mass Index 34.4 Tobacco/Smoking Status: Tobacco use Status Tobacco use date assessed 02/27/24 02/27/24 10:31 Patient Tobacco Use Status Former Tobacco user 02/27/24 10:31 Tobacco use type Cigarette 02/27/24 10:31 e-Cigarette/Vaping Use Never Used 02/27/24 10:31 PHQ-9: PHQ-9 Score PHQ-9: Total score 0 02/27/24 11:46 Depression Screening Interpretation: Negative Thrive Assessment: Date of Thrive Assessment Date Thrive assessed 02/27/24 02/27/24 10:31 Currently or been in a relationship where the following occur: No concerns reported Const General: alert; No acute distress Eyes Conjunctivae: conjunctivae normal Resp Auscultation: clear to auscultation bilaterally Cardio Rate: regular rate Rhythm: regular rhythm GI Inspection: Yes normal to inspection Extrem General: Yes normal to inspection and No edema Coding Level of Care Code Est Pt Level 4 (99416) Complex EM visit Add On G2211 Diagnoses Hypercholesterolemia E78.00 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 type: emphysema Emphysema type: panlobular Persistent atrial fibrillation I48.19 Essential hypertension I10 YUNIEL on CPAP G47.33; Z99.89 Atherosclerotic cardiovascular disease I25.10 Generalized anxiety disorder F41.1 Elevated blood sugar R73.9 Assessment & Plan Assessment & Plan (1) Hypercholesterolemia: Code(s): E78.00 - Pure hypercholesterolemia, unspecified Category: Medical (2) COPD (chronic obstructive pulmonary disease): Code(s): J44.9 - Chronic obstructive pulmonary disease, unspecified Category: Medical Qualifiers: COPD type: emphysema Emphysema type: panlobular Qualified Code(s): J43.1 - Panlobular emphysema (3) Persistent atrial fibrillation: Onset Date: ~2014 Code(s): I48.19 - Other persistent atrial fibrillation Category: Medical (4) Essential hypertension: Code(s): I10 - Essential (primary) hypertension Category: Medical Plan: concern that BP is hypotensive, will decrease diltiazem dose (5) YUNIEL on CPAP: Comment: CPAP Code(s): G47.33 - Obstructive sleep apnea (adult) (pediatric); Z99.89 - Dependence on other enabling machines and devices Category: Medical (6) Atherosclerotic cardiovascular disease: Code(s): I25.10 - Atherosclerotic heart disease of [place] coronary artery without angina pectoris Category: Medical (7) Generalized anxiety disorder: Code(s): F41.1 - Generalized anxiety disorder Category: Medical (8) Elevated blood sugar: Code(s): R73.9 - Hyperglycemia, unspecified Category: Medical Plan - Hypotension: Adjust blood pressure management, including potential modification of metoprolol dosage. Monitor blood pressure regularly. - Anemia: Continue current management; evaluate if additional iron supplementation could improve conditions despite previously adequate levels. - Low Potassium: Reinforce taking potassium supplements concomitantly with the diuretic. Monitor serum potassium levels regularly. - Pre-diabetes: Plan for re-evaluation of fasting blood sugar and hemoglobin A1c in three months. Advise dietary modifications focusing on reduced glucose intake. - Congestive Heart Failure: Maintain current diuretic regimen and monitor BNP levels, with specific attention to clinical symptoms. - Hyperlipidemia: Continue atorvastatin therapy and monitor lipid profile. - Obstructive Sleep Apnea: Ensure adherence to CPAP usage and assess effectiveness during follow-up visits. - General: Continue vaccines upkeep considering the current seasons of flu, COVID-19, RSV, and norovirus. Emphasize proper hygiene practices. Orders: Orders Comprehensive Met. Panel 4 Weeks R73.9 - Hyperglycemia, unspecified Hemoglobin A1c 4 Weeks R73.9 - Hyperglycemia, unspecified Medications: Changed From diltiazem HCl ER 360 mg PO DAILY 90 caps 3RF To diltiazem HCl ER 300 mg PO DAILY 30 caps 3RF
== END 2024-02-27 11:57 | disposition home or self-care (01) ==
PROVIDERS: PCP Internal Medicine; Visit Provider Internal Medicine
DX: E78.00 Pure hypercholesterolemia, unspecified (principal); J43.1 Panlobular emphysema; I48.19 Other persistent atrial fibrillation; I10 Essential (primary) hypertension; G47.33 Obstructive sleep apnea (adult) (pediatric); Z99.89 Dependence on other enabling machines and devices; I25.10 Atherosclerotic heart disease of native coronary artery without angina pectoris; F41.1 Generalized anxiety disorder; R73.9 Hyperglycemia, unspecified

== ENCOUNTER → 2024-02-27 10:26 | Outpatient (BNVA) | payer MEDICARE, SELFPAY | PROVIDERS: PCP Internal Medicine; Visit Provider Internal Medicine | DX: E78.00 Pure hypercholesterolemia, unspecified (principal); J43.1 Panlobular emphysema; I48.91 Unspecified atrial fibrillation; I10 Essential (primary) hypertension; G47.33 Obstructive sleep apnea (adult) (pediatric); Z99.89 Dependence on other enabling machines and devices; I25.10 Atherosclerotic heart disease of native coronary artery without angina pectoris; F41.1 Generalized anxiety disorder | CPT/HCPCS: 96127; 99212 ==

== ENCOUNTER 2024-03-04 09:49 | Outpatient (AMB) | payer MEDICARE, SELFPAY ==
--- NOTE | 2024-03-04 09:58 | MHC.OFFVIS ---
Vital Signs 03/04/24 10:06 Height 5 ft 11 in Weight 247 lb BMI 34.4 BP 131/65 Blood Pressure Location Lt brachial Position Sitting Pulse 83 Pulse Source Pulse Oximeter Pulse Oximetry (%) 98 Oxygen Delivery Method Room Air Intake Visit Reasons: Pill Count/ random UDS Intake Note: Alli comes in today for a pill count to morphine, patient should have 20 tablets and presents with 27 tablets which he last took today 03/04/24 at 6am. Pain today 5.5/10. Patient will have random UDS done today, aware that he will need to go to the lab on the first floor of this building today 03/04/24 before 12pm. Patient resigned opioid contract in office, copy of signed contract was provided to patient. Dependency Counselor Required: No Allergies No Known Allergies Allergy (Verified 03/04/24 10:06) HPI Comments Details: Patient presents today for a pill count. Patient is supposed to have morphine IR 15 mg #20 pills, in his possession has #27 pills. This demonstrates a responsible attitude in regards to the medication regimen. Patient reports reasonable analgesia on current regime of morphine IR 15 mg from TID prn for his chronic pain generators, including neck, back and knee pain without noted side effects. Denies any fever or chills, chest pain, shortness of breaths, headaches, palpitations, nausea, sedation, weakness or urinary retention except occasional constipation. Patient uses CPAP machine regularly. 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 Degenerative joint disease of cervical and lumbar spine Persistent atrial fibrillation (~2014) Peripheral vascular disease Obesity Insomnia COPD (chronic obstructive pulmonary disease) Bilateral primary osteoarthritis of knee Hypercholesterolemia Surgical History History of spinal surgery History of colonoscopy History of cardioversion (~2018) History of carpal tunnel release History of bilateral cataract extraction History of hip replacement, total History of removal of cyst History of vitrectomy (~11/2019) Family History Father Myocardial infarction Sister Multiple sclerosis Social History Household Members: Spouse Housing: House Alcohol intake: former Patient Tobacco Use Status: Former Tobacco user Tobacco use type: Cigarette Years Smoked: 54 on/off - 30pyh e-Cigarette/Vaping Use: Never Used Second Hand Smoke Exposure: Yes Current occupational status: retired Cognitive needs: No Hearing needs: No Vision needs: Yes Review of Systems Const All systems reviewed & are unremarkable except as noted in HPI and below Physical Exam Vital Signs: Last Vital Signs Pulse 83 03/04/24 10:06 BP 131/65 03/04/24 10:06 Pulse Ox 98 03/04/24 10:06 Oxygen Delivery Method Room Air 03/04/24 10:06 BMI result Body Mass Index 34.4 General: Appears afebrile. Alert and oriented. Mood and affect appropriate. Follows and participates in conversation appropriately. Respiratory effort is unlabored. No cough. Able to transition from sit to stand unassisted. Ambulates with bilaterally normal heel strike and toe off. Resp Effort & Inspection: normal respiratory effort, able to speak in complete sentences, no audible wheezes, no cough, not labored and no respiratory distress Psych Appearance: grossly normal and well kempt Mental Status: mental status grossly normal Speech and movement: Normal speech and movement present and Clear speech present Affect: normal affect Attitude: cooperative Thought process: Normal thought process present Thought content: Normal thought content present, suicidality (none), no hallucinations and No Depressive thoughts present Insight: Good insight present (Psych) Judgement: Good judgement present (Psych) Results Reviewed Results Reviewed: XR CERVICAL SPINE 12/23/22 FINDINGS: The visualized cervical vertebrae are intact with normal alignment. Odontoid process is intact with normal C1/C2 lateral masses alignment. Pre-dental interval is normal. Pre vertebral soft tissue is normal in thickness. Prominent bilateral apophyseal joints and uncovertebral joint osteophytes are present. Bilateral oblique x-rays of cervical spine show normal apophyseal joint alignment. However, evaluation of cervical neural foramina remains limited by suboptimal positioning. The left cervical neural foramina and right C2-C3 neural foramen appear patent. IMPRESSION: 1. Unchanged multilevel advanced cervical spondylosis. 2. No fracture or dislocation of cervical spine is seen. MR LUMBAR SPINE WITHOUT IV CONTRAST 10/07/2015 CLINICAL INFORMATION: Back pain and bruising in the right buttock and thigh. FINDINGS: There are 5 nonrib-bearing lumbar-type vertebral bodies. Lumbar alignment is normal. The vertebral body heights are maintained. There is moderate disc volume loss at L1-L2. Disc desiccation at L1-L2 and L3-L4. Mild Modic type I degenerative endplate changes anteriorly at L1-L2. There is no additional bone marrow edema. There are no acute fractures. Conus terminates at the T12-L1 disc level. There is left iliopsoas muscle atrophy that is partially imaged. No additional significant soft tissue findings. L1-L2: There is a small annular disc bulge and there is mild bilateral facet arthropathy with no central canal stenosis and no significant foraminal stenosis. L2-L3: The disc contour is normal. There is no central canal stenosis and there is no foraminal stenosis. L3-L4: Small annular disc bulge exhibiting a ventral annular fissure. There is moderate bilateral facet arthropathy. There is no central canal stenosis and there is mild foraminal narrowing bilaterally, slightly greater on the right side. L4-L5: There is a diffuse annular disc bulge and there is severe bilateral hypertrophic facet arthropathy and ligamentum flavum thickening. No central canal stenosis. No significant foraminal stenosis. L5-S1: There is a diffuse annular disc bulge and there is severe left and moderate right hypertrophic facet arthropathy. There is no central canal stenosis and there is no foraminal stenosis. IMPRESSION: - Small disc bulges at the L1-L2, L3-L4, L4-L5, and L5-S1 levels, at L3-L4 associated with a ventral annular fissure. There is severe bilateral hypertrophic facet arthropathy at L4-L5 and severe left and moderate right hypertrophic facet arthropathy at L5-S1. No severe central canal stenosis and no severe foraminal stenosis within the lumbar spine. - Severe left iliopsoas muscle atrophy. Assessment & Plan Assessment & Plan (1) Bilateral primary osteoarthritis of knee: Code(s): M17.0 - Bilateral primary osteoarthritis of knee Category: Medical (2) Degenerative joint disease of cervical and lumbar spine: Code(s): M47.812 - Spondylosis without myelopathy or radiculopathy, cervical region; M47.816 - Spondylosis without myelopathy or radiculopathy, lumbar region Category: Medical (3) Opioid contract exists: Code(s): Z79.891 - [facility] (current) use of opiate analgesic Category: Medical (4) Chronic pain syndrome: Code(s): G89.4 - Chronic pain syndrome Category: Medical (5) Cervical spondylosis: Code(s): M47.812 - Spondylosis without myelopathy or radiculopathy, cervical region Category: Medical (6) Degenerative cervical disc: Code(s): M50.30 - Other cervical disc degeneration, unspecified cervical region Category: Medical Plan Patient has shown accountability for his medication regimen and the pill count was accurate. The patient reported no side effects. There is no evidence of misuse, abuse, or diversion at this time. [employer] reviewed. Will obtain random UDS today. Script sent for morphine IR 15 mg with increase to QID prn with advanced date of 03/09/24. Narcan refill sent today. Continue Baclofen prn. All questions were answered and patient agreed with the plan. Follow up in one month for pill count/UDS review and sooner if needed. Medications: Refilled naloxone 4 mg/actuation (Narcan) spray 1 dose into ONE nostril; alternate nostrils w each dose until help arrives 4 mg intranasal Q2M PRN 2 ea 0RF opioid overdose morphine Partial Fill upon patient request. 15 mg PO Q6H 30 days PRN 120 tabs 0RF pain (scale score 7-10) MDD 4 G89.4 - Chronic pain syndrome, M17.0 - Bilateral primary osteoarthritis of knee, M47.812 - Spondylosis without myelopathy or radiculopathy, cervical region, M47.816 - Spondylosis without myelopathy or radiculopathy, lumbar region, Z79.891 - [facility] (current) use of opiate analgesic Coding Level of Care Code Est Pt Level 4 (18829) Complex EM visit Add On G2211 Diagnoses Bilateral primary osteoarthritis of knee M17.0 Degenerative joint disease of cervical and lumbar spine M47.812; M47.816 Opioid contract exists Z79.891 Chronic pain syndrome G89.4 Cervical spondylosis M47.812 Degenerative cervical disc M50.30
[2024-03-04 10:06] VITALS: BP 131/65; PULSE 83; O2SAT 98; BMI 34.4
== END 2024-03-04 10:09 | disposition home or self-care (01) ==
PROVIDERS: PCP Internal Medicine; Visit Provider Nurse Practitioner Family
DX: M17.0 Bilateral primary osteoarthritis of knee (principal); M47.812 Spondylosis without myelopathy or radiculopathy, cervical region; M47.816 Spondylosis without myelopathy or radiculopathy, lumbar region; Z79.891 Long term (current) use of opiate analgesic; G89.4 Chronic pain syndrome; M50.30 Other cervical disc degeneration, unspecified cervical region
CPT/HCPCS: 99214; G2211

== ENCOUNTER → 2024-03-04 09:49 | Outpatient (BNVA) | payer MEDICARE, SELFPAY | PROVIDERS: PCP Internal Medicine; Visit Provider Nurse Practitioner Family | DX: Z51.81 Encounter for therapeutic drug level monitoring (principal); M17.0 Bilateral primary osteoarthritis of knee; M47.812 Spondylosis without myelopathy or radiculopathy, cervical region; M47.816 Spondylosis without myelopathy or radiculopathy, lumbar region; M50.30 Other cervical disc degeneration, unspecified cervical region; G89.4 Chronic pain syndrome; Z79.891 Long term (current) use of opiate analgesic | CPT/HCPCS: 99212 ==

== ENCOUNTER 2024-04-04 10:23 | Outpatient (AMB) | payer MEDICARE, SELFPAY ==
--- NOTE | 2024-04-04 10:26 | MHC.OFFVIS ---
Vital Signs 04/04/24 10:33 Height 5 ft 11 in Weight 248 lb 6 oz BMI 34.6 BP 133/75 Blood Pressure Location Lt brachial Position Sitting Pulse 94 Pulse Source Pulse Oximeter Pulse Oximetry (%) 98 Oxygen Delivery Method Room Air Intake Visit Reasons: Pill Count Intake Note: Alli comes in today for a pill count to morphine, patient should have 24 tablets and presents with 24 tablets which he last took today 04/04/24 at 6am. Pain today 5.5/10 Country Singer Required: No Accompanied by: Self / Same As Patient Allergies No Known Allergies Allergy (Verified 04/04/24 10:34) HPI Comments Details: Patient presents today for a pill count. Patient is supposed to have morphine IR 15 mg #24 pills, in his possession has #24 pills. This demonstrates a responsible attitude in regards to the medication regimen. Patient reports reasonable analgesia on current regime of morphine IR 15 mg from TID prn for his chronic pain generators, including neck, back and knee pain without noted side effects. Denies any fever or chills, chest pain, shortness of breaths, headaches, palpitations, nausea, sedation, weakness or urinary retention except occasional constipation. Patient uses CPAP machine regularly. 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 Degenerative joint disease of cervical and lumbar spine Persistent atrial fibrillation (~2014) Peripheral vascular disease Obesity Insomnia COPD (chronic obstructive pulmonary disease) Bilateral primary osteoarthritis of knee Hypercholesterolemia Surgical History History of spinal surgery History of colonoscopy History of cardioversion (~2018) History of carpal tunnel release History of bilateral cataract extraction History of hip replacement, total History of removal of cyst History of vitrectomy (~11/2019) Family History Father Myocardial infarction Sister Multiple sclerosis Social History Household Members: Spouse Housing: House Alcohol intake: former Patient Tobacco Use Status: Former Tobacco user Tobacco use type: Cigarette Years Smoked: 54 on/off - 30pyh e-Cigarette/Vaping Use: Never Used Second Hand Smoke Exposure: Yes Current occupational status: retired Cognitive needs: No Hearing needs: No Vision needs: Yes Review of Systems Const All systems reviewed & are unremarkable except as noted in HPI and below Physical Exam Vital Signs: Last Vital Signs Pulse 94 04/04/24 10:33 BP 133/75 04/04/24 10:33 Pulse Ox 98 04/04/24 10:33 Oxygen Delivery Method Room Air 04/04/24 10:33 BMI result Body Mass Index 34.6 General: Appears afebrile. Alert and oriented. Mood and affect appropriate. Follows and participates in conversation appropriately. Respiratory effort is unlabored. No cough. Able to transition from sit to stand unassisted. Ambulates with bilaterally normal heel strike and toe off. Resp Effort & Inspection: normal respiratory effort, able to speak in complete sentences, no audible wheezes, no cough, not labored and no respiratory distress Back/Spine/Pelvis Cervical Spine: cervical muscular tenderness, pain with cervical ROM, cervical spasm and No Cervical spine tenderness Thoracic/Lumbar Spine: thoracic and lumbar spine normal to inspection, pain with thoraco-lumbar ROM, No thoracic spinal tenderness and No lumbar spinal tenderness Sacroiliac joints: bilaterally tender to palpation Extrem General: Yes capillary refill normal, Yes no clubbing, cyanosis or edema and Yes no calf tenderness Psych Appearance: grossly normal and well kempt Mental Status: mental status grossly normal Speech and movement: Normal speech and movement present and Clear speech present Affect: normal affect Attitude: cooperative Thought process: Normal thought process present Thought content: Normal thought content present, suicidality (none), no hallucinations and No Depressive thoughts present Insight: Good insight present (Psych) Judgement: Good judgement present (Psych) Assessment & Plan Assessment & Plan (1) Bilateral primary osteoarthritis of knee: Code(s): M17.0 - Bilateral primary osteoarthritis of knee Category: Medical (2) Degenerative joint disease of cervical and lumbar spine: Code(s): M47.812 - Spondylosis without myelopathy or radiculopathy, cervical region; M47.816 - Spondylosis without myelopathy or radiculopathy, lumbar region Category: Medical (3) Opioid contract exists: Code(s): Z79.891 - senior living (current) use of opiate analgesic Category: Medical (4) Chronic pain syndrome: Code(s): G89.4 - Chronic pain syndrome Category: Medical (5) Cervical spondylosis: Code(s): M47.812 - Spondylosis without myelopathy or radiculopathy, cervical region Category: Medical (6) Degenerative cervical disc: Code(s): M50.30 - Other cervical disc degeneration, unspecified cervical region Category: Medical Plan Patient has shown accountability for his medication regimen and the pill count was accurate. The patient reported no side effects. There is no evidence of misuse, abuse, or diversion at this time. MassPat reviewed. Recent random UDS was concordant. Script sent for morphine IR 15 mg with increase to QID prn with advanced date of 04/10/24. Patient has Narcan at home. Continue Baclofen prn. All questions were answered and patient agreed with the plan. Follow up in one month for pill count and sooner if needed. Medications: Refilled morphine Partial Fill upon patient request. 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
[2024-04-04 10:33] VITALS: BP 133/75; PULSE 94; O2SAT 98; BMI 34.6
--- OUTSIDE RECORDS SUMMARY | 2024-04-04 11:06 | XMS_ITS | Clinical Summary ---
Author Organization [employer] Address [address] [facility] [address] [place] [address] Care Team Providers Care Supervisor Spinning Name Role Phone Unavailable Primary Care Provider Unavailabl e Social History Tobacco Use Types Packs/Day Years Used Date Smoking Tobacco: Never Assessed Sex and Gender Information Value Date Recorded Sex Assigned at Male 12/20/2021 10:15 AM EDT Legal Sex Male 10:15 AM EDT Gender Identity Male 12/20/2021 10:15 AM EDT Sexual Orientation Straight 12/20/2021 10 :15 AM EDT Plan of Treatment Health Maintenance Due Date Last Done Comments CT Colonography 1948 Colonoscopy 1948 Colorectal Cancer Screening 1948 Depression Screening 1948 FIT DNA/Cologuard 1948 FIT 1948 FOBT 1948 Lipid Panel 1948 Sigmoidoscopy 1948 Alcohol/Substance Use Screening 1960 Tobacco Screening 1960 DTaP/Tdap/Td Vaccines (1 - Tdap) 08/14/1967 Pneumococcal Vaccine: 50+ Ye ars (1 of 1 - PCV) 1998 Zoster Vaccines (1 of 2) 1998 RSV Patients and Pa tients Aged 60 years or older (1 - 1-dose 75+ series) 08/14/2023 COVID-19 Vaccine ( - 2023-2 5 season) 2023 Influenza Vaccine (#1) 2023 HIB Vaccines Aged Out No longer eligi ble based on patient's age to complete this topic HPV Vaccines Aged Out No longer eligi ble based on patient's age to complete this topic Hepatitis A Vaccines Aged Out No long er eligible based on patient's age to complete this topic Hepatitis B Vaccines Aged Out No long er eligible based on patient's age to complete this topic IPV Vaccines Aged Out No longer eligi ble based on patient's age to complete this topic Meningococcal Vaccine Aged Out No jorje lauren eligible based on patient's age to complete this topic RSV under 20 months Aged Out No longe r eligible based on patient's age to complete this topic Rotavirus Vaccines Aged Out No longer eligible based on patient's age to complete this topic
--- OUTSIDE RECORDS SUMMARY | 2024-04-04 11:06 | XMS_ITS | Encounter Summary ---
Author Organization [employer] Address [address] [facility] [address] [place] [address] Care Team Providers Care Pole Maker Name Role Phone Unavailable Primary Care Provider Unavailabl e Encounter Details Date Type Department Care Team (Latest Contact Info) Description 04/10/2020 Abstract [facility] CONVERSIONS Dental, Provider, DDS Social History Tobacco Use Types Packs/Day Years Used Date Smoking Tobacco: Never Assessed Sex and Gender Information Value Date Recorded Sex Assigned at Male 12/20/2021 10:15 AM EDT Legal Sex Male 10:15 AM EDT Gender Identity Male 12/20/2021 10:15 AM EDT Sexual Orientation Straight 12/20/2021 10 :15 AM EDT documented as of this encounter Plan of Treatment Not on file documented as of this encounter Visit Diagnoses Not on filedocumented in this encounter
== END 2024-04-04 10:44 | disposition home or self-care (01) ==
PROVIDERS: PCP Internal Medicine; Visit Provider Nurse Practitioner Family
DX: G89.4 Chronic pain syndrome (principal); M17.0 Bilateral primary osteoarthritis of knee; M47.812 Spondylosis without myelopathy or radiculopathy, cervical region; Z79.891 Long term (current) use of opiate analgesic; M47.816 Spondylosis without myelopathy or radiculopathy, lumbar region; M50.30 Other cervical disc degeneration, unspecified cervical region
CPT/HCPCS: 99214; G2211

== ENCOUNTER → 2024-04-04 10:23 | Outpatient (BNVA) | payer MEDICARE, SELFPAY | PROVIDERS: PCP Internal Medicine; Visit Provider Nurse Practitioner Family | DX: Z51.81 Encounter for therapeutic drug level monitoring (principal); M17.0 Bilateral primary osteoarthritis of knee; M47.812 Spondylosis without myelopathy or radiculopathy, cervical region; M47.816 Spondylosis without myelopathy or radiculopathy, lumbar region; M50.30 Other cervical disc degeneration, unspecified cervical region; G89.4 Chronic pain syndrome; Z79.891 Long term (current) use of opiate analgesic | CPT/HCPCS: 99212 ==

== ENCOUNTER 2024-05-02 10:21 | Outpatient (AMB) | payer MEDICARE, SELFPAY ==
--- NOTE | 2024-05-02 10:22 | A.OFFVIS_ITS ---
Vital Signs 05/02/24 10:29 Height 5 ft 11 in Weight 242 lb 6 oz BMI 33.8 BP 159/78 H Blood Pressure Location Lt brachial Position Sitting Pulse 95 Pulse Source Pulse Oximeter Pulse Oximetry (%) 96 Oxygen Delivery Method Room Air Intake Visit Reasons: PILL COUNT Intake Note: Alli comes in today for a pill count to morphine, patient should have 32 tablets and presents with 32 tablets which he last took today 05/02/24 at 6am. Pain today 5.5/10 Dimension Specification Inspector Required: No Accompanied by: Self / Same As Patient Allergies No Known Allergies Allergy (Verified 05/02/24 10:29) HPI Comments Details: Patient presents today for a pill count and pain management. Patient is supposed to have morphine IR 15 mg #32 pills, in his possession has #32 pills. This demonstrates a responsible attitude in regards to the medication regimen. The patient's medication routine is effective, with his reported pain level being 5.5/10 without significant changes since the last visit. He reports occasional constipation as a side effect of his pain medication, which he mitigates through the use of Maalox to satisfaction. There have been no changes to his medical history, medication regimens, or overall health status since his last visit, and he denies any recent emergency room visits or urgent health concerns. The patient continues to effectively use his CPAP machine and is stable in his current management plan. Denies any fever or chills, chest pain, shortness of breaths, headaches, palpitations, nausea, sedation, weakness or urinary retention except occasional constipation. [facility] Medical History Muscle spasms of neck Degenerative cervical disc Shortness of breath Constipation Circadian rhythm sleep disorder Vision changes Personal history of nicotine dependence Tobacco abuse Obstructive sleep apnea on CPAP (~03/2015) Current use of mcc anticoagulation Degenerative joint disease of cervical and lumbar spine Persistent atrial fibrillation (~2014) Peripheral vascular disease Obesity Insomnia COPD (chronic obstructive pulmonary disease) Bilateral primary osteoarthritis of knee Hypercholesterolemia Surgical History History of spinal surgery History of colonoscopy History of cardioversion (~2018) History of carpal tunnel release History of bilateral cataract extraction History of hip replacement, total History of removal of cyst History of vitrectomy (~11/2019) Family History Father Myocardial infarction Sister Multiple sclerosis Social History Household Members: Spouse Housing: House Alcohol intake: former Patient Tobacco Use Status: Former Tobacco user Tobacco use type: Cigarette Years Smoked: 54 on/off - 30pyh e-Cigarette/Vaping Use: Never Used Second Hand Smoke Exposure: Yes Current occupational status: retired Cognitive needs: No Hearing needs: No Vision needs: Yes Review of Systems Const All systems reviewed & are unremarkable except as noted in HPI and below Card Denies dyspnea on exertion Resp Denies chest congestion, Denies cough and Denies dyspnea on exertion Physical Exam General: Appears afebrile. Alert and oriented. Mood and affect appropriate. Follows and participates in conversation appropriately. Respiratory effort is unlabored. No cough. Able to transition from sit to stand unassisted. Ambulates with bilaterally normal heel strike and toe off. Resp Effort & Inspection: normal respiratory effort, able to speak in complete sentences, no audible wheezes, no cough, not labored and no respiratory distress Back/Spine/Pelvis Cervical Spine: cervical muscular tenderness, pain with cervical ROM, cervical spasm and No Cervical spine tenderness Thoracic/Lumbar Spine: thoracic and lumbar spine normal to inspection, pain with thoraco-lumbar ROM, No thoracic spinal tenderness and No lumbar spinal tenderness Sacroiliac joints: bilaterally tender to palpation Extrem General: Yes capillary refill normal, Yes no clubbing, cyanosis or edema and Yes no calf tenderness Psych Appearance: grossly normal and well kempt Mental Status: mental status grossly normal Speech and movement: Normal speech and movement present and Clear speech present Affect: normal affect Attitude: cooperative Thought process: Normal thought process present Thought content: Normal thought content present, suicidality (none), no hallucinations and No Depressive thoughts present Insight: Good insight present (Psych) Judgement: Good judgement present (Psych) Results Reviewed Results Reviewed: XR CERVICAL SPINE 12/23/22 FINDINGS: The visualized cervical vertebrae are intact with normal alignment. Odontoid process is intact with normal C1/C2 lateral masses alignment. Pre-dental interval is normal. Pre vertebral soft tissue is normal in thickness. Prominent bilateral apophyseal joints and uncovertebral joint osteophytes are present. Bilateral oblique x-rays of cervical spine show normal apophyseal joint alignment. However, evaluation of cervical neural foramina remains limited by suboptimal positioning. The left cervical neural foramina and right C2-C3 neural foramen appear patent. IMPRESSION: 1. Unchanged multilevel advanced cervical spondylosis. 2. No fracture or dislocation of cervical spine is seen. MR LUMBAR SPINE WITHOUT IV CONTRAST 10/07/2015 CLINICAL INFORMATION: Back pain and bruising in the right buttock and thigh. FINDINGS: There are 5 nonrib-bearing lumbar-type vertebral bodies. Lumbar alignment is normal. The vertebral body heights are maintained. There is moderate disc volume loss at L1-L2. Disc desiccation at L1-L2 and L3-L4. Mild Modic type I degenerative endplate changes anteriorly at L1-L2. There is no additional bone marrow edema. There are no acute fractures. Conus terminates at the T12-L1 disc level. There is left iliopsoas muscle atrophy that is partially imaged. No additional significant soft tissue findings. L1-L2: There is a small annular disc bulge and there is mild bilateral facet arthropathy with no central canal stenosis and no significant foraminal stenosis. L2-L3: The disc contour is normal. There is no central canal stenosis and there is no foraminal stenosis. L3-L4: Small annular disc bulge exhibiting a ventral annular fissure. There is moderate bilateral facet arthropathy. There is no central canal stenosis and there is mild foraminal narrowing bilaterally, slightly greater on the right side. L4-L5: There is a diffuse annular disc bulge and there is severe bilateral hypertrophic facet arthropathy and ligamentum flavum thickening. No central canal stenosis. No significant foraminal stenosis. L5-S1: There is a diffuse annular disc bulge and there is severe left and moderate right hypertrophic facet arthropathy. There is no central canal stenosis and there is no foraminal stenosis. IMPRESSION: - Small disc bulges at the L1-L2, L3-L4, L4-L5, and L5-S1 levels, at L3-L4 associated with a ventral annular fissure. There is severe bilateral hypertrophic facet arthropathy at L4-L5 and severe left and moderate right hypertrophic facet arthropathy at L5-S1. No severe central canal stenosis and no severe foraminal stenosis within the lumbar spine. - Severe left iliopsoas muscle atrophy. 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 The patient reported no side effects. There is no evidence of misuse, abuse, or diversion at this time. [employer] reviewed. Recent random UDS was concordant. Script sent for morphine IR 15 mg QID prn with advanced date of 05/07/24. Patient has Narcan at home. Continue Baclofen prn. All questions were answered and patient agreed with the plan. Follow up in one month for pill count and sooner if needed. Patient was informed and verbally consented to the use of an ambient scribe for clinic note documentation during this visit. Medications: Refilled morphine Partial Fill upon patient request. 15 mg PO Q6H 30 days PRN 120 tabs 0RF pain (scale score 7-10) MDD 4 G89.4 - Chronic pain syndrome, M17.0 - Bilateral primary osteoarthritis of knee, M47.812 - Spondylosis without myelopathy or radiculopathy, cervical region, M47.816 - Spondylosis without myelopathy or radiculopathy, lumbar region, Z79.891 - alf (current) use of opiate analgesic Patient Instructions: During the consultation, we reviewed the patient's current pain management regimen, which includes Morphine 15 mg four times daily. The patient confirmed the dosing schedule, accuracy of the pill count, and the absence of side effects except for occasional constipation. Management strategies for constipation such as Maalox were discussed and deemed effective by the patient. The benefits of continuing the Morphine regimen were reinforced, given its effectiveness in managing chronic pain at a stable level of 5.5/10. The patient was informed of the next prescription on 05/07/24, with plans to reassess in 4-5 weeks. - Continue taking Morphine 15 mg four times daily as prescribed. - Use Maalox to manage constipation as needed. - Continue using the CPAP machine regularly. - Monitor for any new symptoms or changes in health. - Return for follow-up in four to five weeks. Coding Level of Care Code Est Pt Level 4 (64502) Complex EM visit Add On G2211 Diagnoses Bilateral primary osteoarthritis of knee M17.0 Degenerative joint disease of cervical and lumbar spine M47.812; M47.816 Opioid contract exists Z79.891 Chronic pain syndrome G89.4 Cervical spondylosis M47.812 Degenerative cervical disc M50.30
[2024-05-02 10:29] VITALS: BP 159/78; PULSE 95; O2SAT 96; BMI 33.8
--- OUTSIDE RECORDS SUMMARY | 2024-05-02 12:54 | XMS_ITS | Encounter Summary ---
Author Organization [employer] Address [address] [facility] [address] [place] [address] Care Team Providers Care Converter Operator Name Role Phone Unavailable Primary Care Provider [...]
--- OUTSIDE RECORDS SUMMARY | 2024-05-02 12:54 | XMS_ITS | Clinical Summary ---
Author Organization [employer] Address [address] [facility] [address] [place] [address] Care Team Providers Care Boring Machine Operator Name Role Phone Unavailable Primary Care [...]
== END 2024-05-02 10:31 | disposition home or self-care (01) ==
LOC: HO.PMC 10:21
PROVIDERS: PCP Internal Medicine; Visit Provider Nurse Practitioner Family
DX: G89.4 Chronic pain syndrome (principal); M17.0 Bilateral primary osteoarthritis of knee; M47.812 Spondylosis without myelopathy or radiculopathy, cervical region; Z79.891 Long term (current) use of opiate analgesic; M47.816 Spondylosis without myelopathy or radiculopathy, lumbar region; M50.30 Other cervical disc degeneration, unspecified cervical region
CPT/HCPCS: 99214; G2211

== ENCOUNTER → 2024-05-02 10:21 | Outpatient (BNVA) | payer MEDICARE, SELFPAY | PROVIDERS: PCP Internal Medicine; Visit Provider Nurse Practitioner Family | DX: M47.812 Spondylosis without myelopathy or radiculopathy, cervical region (principal); M47.816 Spondylosis without myelopathy or radiculopathy, lumbar region; M17.0 Bilateral primary osteoarthritis of knee; G89.4 Chronic pain syndrome; M50.30 Other cervical disc degeneration, unspecified cervical region; Z51.81 Encounter for therapeutic drug level monitoring; Z79.891 Long term (current) use of opiate analgesic | CPT/HCPCS: 99212 ==

== ENCOUNTER 2024-05-09 07:29 | Outpatient (REF) | payer MEDICARE, SELFPAY ==
--- OUTSIDE RECORDS SUMMARY | 2024-05-09 07:30 | XMS_ITS | Clinical Summary ---
Author Organization [employer] Address [address] [facility] [address] [place] [address] Care Team Providers Care Malt House Supervisor Name Role Phone Unavailable Primary Care Provider [...]
--- OUTSIDE RECORDS SUMMARY | 2024-05-09 07:30 | XMS_ITS | Encounter Summary ---
Author Organization [employer] Address [address] [facility] [address] [place] [address] Care Team Providers Care Instrument Maker And Repairer Name Role Phone Unavailable Primary Care Provider [...]
[2024-05-09 10:25] LABS: Estimated Average Glucose 120 mg/dL; Hemoglobin A1C 141.6431 umol/L; Hemoglobin A1c % 5.8 % (<6.0); Total Hemoglobin (HGBA1C) 3556.5369 umol/L
[2024-05-09 10:35] LABS: Alanine Aminotransferase 28 U/L (0-40); Albumin Level 3.8 g/dL (3.5-5.0); Alkaline Phosphatase 105 U/L (39-117); Anion Gap 13 (12-20); Aspartate Amino Transferase 31 U/L (5-37); Bilirubin Total 0.7 mg/dL (0.0-1.0); Blood Urea Nitrogen 16 mg/dL (9-16); Calcium 8.9 mg/dL (8.4-10.2); Carbon Dioxide 26 mmol/L (22-29); Chloride 106 mmol/L (96-108); Estimated Glomerular Filt Rate > 60; Glucose Random 93 mg/dL (60-115); Sodium 141 mmol/L (135-145); Total Protein 7.4 g/dL (6.5-8.0)
== END 2024-05-09 07:30 | disposition home or self-care (01) ==
LOC: HO.HMGCLDS 07:29
PROVIDERS: PCP Internal Medicine; Visit Provider Internal Medicine
DX: R73.9 Hyperglycemia, unspecified (principal)
CPT/HCPCS: 36415; 80053; 83036

== ENCOUNTER 2024-05-14 12:45 | Outpatient (REF) | payer MEDICARE, SELFPAY ==
[2024-05-14 17:43] LABS: Digoxin 0.3 ng/mL (0.8-2.0)
== END 2024-05-14 12:46 | disposition home or self-care (01) ==
LOC: HO.HMGCLDS 12:45
PROVIDERS: PCP Internal Medicine; Visit Provider Internal Medicine
DX: I48.19 Other persistent atrial fibrillation (principal)
CPT/HCPCS: 36415; 80162

== ENCOUNTER 2024-05-27 10:24 | Outpatient (AMB) | payer MEDICARE, SELFPAY ==
[2024-05-27 10:31] VITALS: BP 124/62; PULSE 76; BMI 33.8
--- NOTE | 2024-05-27 10:31 | A.OFFVIS_ITS ---
Vital Signs 05/27/24 10:31 Height 5 ft 11 in Weight 242 lb 1.081 oz BMI 33.8 BP 124/62 Blood Pressure Location Lt brachial Position Sitting Pulse 76 Intake Visit Reasons: 6 mth f/up Toolroom Attendant Required: No Accompanied by: Self / Same As Patient Allergies No Known Allergies Allergy (Verified 05/02/24 10:29) Medication List - Last Reconciled 05/27/24 by Wally Sen MD albuterol sulfate 2.5 mg (3 mL) inhalation Q4-6H PRN apixaban (Eliquis) 5 mg PO BID 90 days ascorbic acid (vitamin C) 500 mg PO .QD atorvastatin 40 mg PO DAILY baclofen 10 mg PO TID PRN bupropion HCl SR (Wellbutrin SR) 150 mg PO QAM [CPAP full face mask 14 cm h20 humidified Air As directed] dapagliflozin propanediol (Farxiga) 5 mg (1/2 x 10 mg) PO DAILY digoxin 125 mcg PO DAILY diltiazem HCl CD 300 mg PO DAILY ferrous sulfate (Feosol) 325 mg PO DAILY fntegvylfku-iytcsppza-piyetcgf 200-62.5-25 mcg (Trelegy Ellipta) 1 inh inhalation DAILY furosemide 80 mg (2 x 40 mg) PO DAILY 90 days gabapentin mg PO ipratropium-albuterol 20-100 mcg/actuation (Combivent Respimat) 1 puff PO QID lorazepam (Ativan) 0.5 mg PO DAILY PRN metoprolol succinate ER 50 mg PO DAILY morphine 15 mg PO Q6H PRN 30 days MDD 4 naloxone 4 mg/actuation (Narcan) 4 mg intranasal Q2M PRN polyethylene glycol 3350 (Miralax) 17 grams PO DAILY potassium chloride ER (Klor-Con M) 20 mEq PO DAILY HPI Comments Details: Alli returns for follow-up regarding follow-up of atrial flutter/fibrillation. Atrial flutter was originally detected during an office visit many years ago around 2014. At that time, he reverted back to sinus rhythm in a short time. He was okay for couple of years then started going back in atrial fibrillation. Cardioversion was unsuccessful. Even with amiodarone use we re-attempted but did not last and he went back into atrial fibrillation. Then he was left on rate control only. Since last seen, no new concerns. He denies any cardiac symptoms. Doing okay. [facility] Medical History Muscle spasms of neck Degenerative cervical disc Shortness of breath Constipation Circadian rhythm sleep disorder Vision changes Personal history of nicotine dependence Tobacco abuse Obstructive sleep apnea on CPAP (~03/2015) Current use of medical terminologist anticoagulation Degenerative joint disease of cervical and lumbar spine Persistent atrial fibrillation (~2014) Peripheral vascular disease Obesity Insomnia COPD (chronic obstructive pulmonary disease) Bilateral primary osteoarthritis of knee Hypercholesterolemia Surgical History History of spinal surgery History of colonoscopy History of cardioversion (~2018) History of carpal tunnel release History of bilateral cataract extraction History of hip replacement, total History of removal of cyst History of vitrectomy (~11/2019) Family History Father Myocardial infarction Sister Multiple sclerosis Social History Household Members: Spouse Housing: House Alcohol intake: former Patient Tobacco Use Status: Former Tobacco user Tobacco use type: Cigarette Years Smoked: 54 on/off - 30pyh e-Cigarette/Vaping Use: Never Used Second Hand Smoke Exposure: Yes Current occupational status: retired Cognitive needs: No Hearing needs: No Vision needs: Yes Review of Systems Const Denies chills, Denies fatigue, Denies fever(s), Denies weight gain and Denies weight loss ENT Denies dizziness Card Denies chest pain, Denies leg edema, Denies lightheadedness, Denies palpitations, Denies dyspnea on exertion, Denies orthopnea and Denies other Resp Denies cough and Denies dyspnea on exertion GI Denies hematochezia and Denies change in stool character Musc Denies abnormal gait, Denies muscle weakness, Denies numbness, Denies radiating pain into limb and Denies tingling Neuro Denies abnormal gait, Denies dizziness, Denies numbness and Denies tingling Endo Denies fatigue and Denies palpitations Physical Exam Vital Signs: Last Vital Signs Pulse 76 05/27/24 10:31 BP 124/62 05/27/24 10:31 BMI result Body Mass Index 33.8 Const General: comfortable and no acute distress Orientation/consciousness: patient oriented x3 HEENT Other: Unremarkable Head: Yes normal to inspection Neck Neck: Yes normal visual inspection Chest Chest palpation & inspection: normal inspection of the chest Resp Auscultation: clear to auscultation bilaterally Cardio Palpation: normal PMI Heart sounds: S1 normal heart sound present, S2 normal heart sound present, no gallops, no murmurs and no rubs GI Palpation (GI): Soft to palpation Back/Spine/Pelvis Other: unremarkable Skin General skin exam: no rashes or lesions noted Neuro General: patient oriented x3 Extrem General: Yes normal to inspection Psych Mental Status: mental status grossly normal Office Procedures EKG Details: EKG with atrial fibrillation rate of 76/Min; nonspecific ST-T changes. 22177-[id number], Complete Assessment & Plan Assessment & Plan (1) Chronic diastolic (congestive) heart failure: Code(s): I50.32 - Chronic diastolic (congestive) heart failure Category: Medical Plan: Shortness of breath probably multifactorial but seems stable. Likely some combination of CHF/COPD-asthma. PFTs from 2016 had shown moderately severe obstructive pulmonary disease, consistent with asthma. Continue diuretics. Continue Farxiga. Last creatinine is 0.96. BUN 16. (2) Atherosclerotic cardiovascular disease: Code(s): I25.10 - Atherosclerotic heart disease of [place] coronary artery without angina pectoris Category: Medical Plan: Cardiac catheterization 2022 showed minimal irregularities only but nothing otherwise of significance. No angina. Continue statins. LDL 58 mg/dL. Triglycerides 96 mg/dL. (3) Persistent atrial fibrillation: Onset Date: ~2014 Code(s): I48.19 - Other persistent atrial fibrillation Category: Medical Plan: He has failed 2 cardioversions including with Amiodarone. Hence on rate control medications. On a combination of diltiazem, metoprolol, digoxin. Continue Eliquis. Stable digoxin level. (4) Essential hypertension: Code(s): I10 - Essential (primary) hypertension Category: Medical Plan: Stable. No changes. (5) Obstructive sleep apnea on CPAP: Onset Date: ~03/2015 Code(s): G47.33 - Obstructive sleep apnea (adult) (pediatric); Z99.89 - Dependence on other enabling machines and devices Category: Medical Plan: CPAP. Coding Level of Care Code Est Pt Level 4 (32660) Complex EM visit Add On G2211 Diagnoses Chronic diastolic (congestive) heart failure I50.32 Atherosclerotic cardiovascular disease I25.10 Persistent atrial fibrillation I48.19 Essential hypertension I10 Obstructive sleep apnea on CPAP G47.33; Z99.89 CPT Codes EKG - CPT: 86616-Oifmpztbehthiocgm, Complete ([id number])
--- OUTSIDE RECORDS SUMMARY | 2024-05-27 12:11 | XMS_ITS | Encounter Summary ---
Author Organization [employer] Address [address] [facility] [address] [place] [address] Care Team Providers Care Investment Banking Associate Name Role Phone Unavailable Primary Care Provider [...]
--- OUTSIDE RECORDS SUMMARY | 2024-05-27 12:11 | XMS_ITS | Clinical Summary ---
Author Organization [employer] Address [address] [facility] [address] [place] [address] Care Team Providers Care Receiving And Processing Supervisor Name Role Phone Unavailable Primary Care [...]
== END 2024-05-27 10:48 | disposition home or self-care (01) ==
PROVIDERS: PCP Internal Medicine; Visit Provider Internal Medicine
DX: I50.32 Chronic diastolic (congestive) heart failure (principal); I25.10 Atherosclerotic heart disease of native coronary artery without angina pectoris; I48.19 Other persistent atrial fibrillation; I10 Essential (primary) hypertension; G47.33 Obstructive sleep apnea (adult) (pediatric); Z99.89 Dependence on other enabling machines and devices
CPT/HCPCS: 93010; 99214; G2211

== ENCOUNTER → 2024-05-27 10:24 | Outpatient (BNVA) | payer MEDICARE, SELFPAY | PROVIDERS: PCP Internal Medicine; Visit Provider Internal Medicine | DX: I11.0 Hypertensive heart disease with heart failure (principal); I50.32 Chronic diastolic (congestive) heart failure; I25.10 Atherosclerotic heart disease of native coronary artery without angina pectoris; I48.19 Other persistent atrial fibrillation; G47.33 Obstructive sleep apnea (adult) (pediatric); Z99.89 Dependence on other enabling machines and devices | CPT/HCPCS: 93005; 99212 ==

== ENCOUNTER 2024-05-29 09:51 | Outpatient (AMB) | payer MEDICARE, SELFPAY ==
--- NOTE | 2024-05-29 09:55 | A.OFFPC_ITS ---
Vital Signs 05/29/24 09:56 Height 5 ft 11 in Weight 240 lb 4 oz BMI 33.5 BP 110/76 Blood Pressure Location Lt brachial Position Sitting Pulse 94 Pulse Source Pulse Oximeter Temp 97.3 F Temp Source Temporal Artery Scan Pulse Oximetry (%) 98 Oxygen Delivery Method Room Air Intake Visit Reasons: htn, a fib Intake Note: Patient is here to follow up on HTN, Afib. Medical File Clerk Required: No Cafe Helper: Not Required per policy Accompanied by: Self / Same As Patient Allergies No Known Allergies Allergy (Verified 05/29/24 09:56) Tobacco use date assessed: 05/29/24 Fall risk assessment: No Falls in past year Last assessed Fall Risk: 05/29/24 Dental Screening Dental Screen Date: 02/27/24 [facility] Medical History Muscle spasms of neck Degenerative cervical disc Shortness of breath Constipation Circadian rhythm sleep disorder Vision changes Personal history of nicotine dependence Tobacco abuse Obstructive sleep apnea on CPAP (~03/2015) 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 Degenerative joint disease of cervical and lumbar spine Persistent atrial fibrillation (~2014) Peripheral vascular disease Obesity Insomnia COPD (chronic obstructive pulmonary disease) Bilateral primary osteoarthritis of knee Hypercholesterolemia Surgical History History of spinal surgery History of colonoscopy History of cardioversion (~2018) History of carpal tunnel release History of bilateral cataract extraction History of hip replacement, total History of removal of cyst History of vitrectomy (~11/2019) Family History Father Myocardial infarction Sister Multiple sclerosis Social History Household Members: Spouse Housing: House Alcohol intake: former Patient Tobacco Use Status: Former Tobacco user Tobacco use type: Cigarette Years Smoked: 54 on/off - 30pyh e-Cigarette/Vaping Use: Never Used Second Hand Smoke Exposure: Yes Current occupational status: retired Cognitive needs: No Hearing needs: No Vision needs: Yes Questionnaire Thrive Questionnaire Date Thrive assessed: 02/27/24 LUCY-7 AMB Questionnaire LUCY-7 Date LUCY - 7 assessed: 02/27/24 Source: Developed by Drs. Alli LMiya Reid, Umair Whitten and colleagues, with an educational megha from [employer]. Physical exam (Primary Care) Vital Signs: Last Vital Signs Temp 97.3 F 05/29/24 09:56 Pulse 94 05/29/24 09:56 BP 110/76 05/29/24 09:56 Pulse Ox 98 05/29/24 09:56 Oxygen Delivery Method Room Air 05/29/24 09:56 BMI result Body Mass Index 33.5 Tobacco/Smoking Status: Tobacco use Status Tobacco use date assessed 05/29/24 05/29/24 10:01 Patient Tobacco Use Status Former Tobacco user 05/29/24 10:01 Tobacco use type Cigarette 05/29/24 10:01 e-Cigarette/Vaping Use Never Used 05/29/24 10:01 Thrive Assessment: Date of Thrive Assessment Date Thrive assessed 02/27/24 05/29/24 10:01 Const General: alert; No acute distress Eyes Conjunctivae: conjunctivae normal Resp Auscultation: clear to auscultation bilaterally Cardio Rate: regular rate Rhythm: regular rhythm GI Inspection: Yes normal to inspection Extrem General: Yes normal to inspection and No edema Coding Level of Care Code Est Pt Level 4 (97411) Diagnoses Glucose intolerance (impaired glucose tolerance) R73.02 Atherosclerotic cardiovascular disease I25.10 Persistent atrial fibrillation I48.19 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 type: emphysema Emphysema type: panlobular Hypercholesterolemia E78.00 Class 1 obesity due to excess calories with serious comorbidity and body mass index (BMI) of 32.0 to 32.9 in adult E66.09; Z68.32 Body mass index: BMI 32.0-32.9 Obesity classification: adult class 1 (BMI 30 - 34.9) Obesity type: due to excess calories Serious obesity comorbidity presence: with serious comorbidity Essential hypertension I10 YUNIEL on CPAP G47.33; Z99.89 Degenerative joint disease of cervical and lumbar spine M47.812; M47.816 Assessment & Plan Assessment & Plan (1) Glucose intolerance (impaired glucose tolerance): Code(s): R73.02 - Impaired glucose tolerance (oral) Category: Medical Plan: Decrease the amount of carbohydrate intake, pasta, bread, rice and potatoes are all sugar and that is aside from all the sweet stuff, remember that fruits are good but they are Sweet also. Patient is on Farxiga 5 mg once a day (2) Atherosclerotic cardiovascular disease: Code(s): I25.10 - Atherosclerotic heart disease of [place] coronary artery without angina pectoris Category: Medical Plan: Control the cholesterol, weight, blood pressure, continuing with anticoagulation (3) Persistent atrial fibrillation: Onset Date: ~2014 Code(s): I48.19 - Other persistent atrial fibrillation Category: Medical Plan: Continue with anticoagulation on digoxin diltiazem metoprolol (4) COPD (chronic obstructive pulmonary disease): Code(s): J44.9 - Chronic obstructive pulmonary disease, unspecified Category: Medical Qualifiers: COPD type: emphysema Emphysema type: panlobular Qualified Code(s): J43.1 - Panlobular emphysema Plan: Patient on Trelegy and albuterol (5) Hypercholesterolemia: Code(s): E78.00 - Pure hypercholesterolemia, unspecified Category: Medical Plan: Avoid fried foods, chicken skin, eggs, butter margarine, pastries and meat. Be it pork or beef they have a lot of cholesterol Wilfredo blood work LDL of less than 70 on atorvastatin 40 mg once a day (6) Obesity: Code(s): E66.9 - Obesity, unspecified Category: Medical Qualifiers: Body mass index: BMI 32.0-32.9 Obesity classification: adult class 1 (BMI 30 - 34.9) Obesity type: due to excess calories Serious obesity comorbidity presence: with serious comorbidity Qualified Code(s): E66.09 - Other obesity due to excess calories; Z68.32 - Body mass index [BMI] 32.0-32.9, adult (7) Essential hypertension: Code(s): I10 - Essential (primary) hypertension Category: Medical Plan: Continue with blood pressure medication. Decrease salt intake and exercise (8) YUNIEL on CPAP: Comment: CPAP Code(s): G47.33 - Obstructive sleep apnea (adult) (pediatric); Z99.89 - Dependence on other enabling machines and devices Category: Medical Plan: Continue with the use of CPAP more than 4 hours a night and benefits from this. (9) Degenerative joint disease of cervical and lumbar spine: Code(s): M47.812 - Spondylosis without myelopathy or radiculopathy, cervical region; M47.816 - Spondylosis without myelopathy or radiculopathy, lumbar region Category: Medical Plan: Continuing with pain management Plan History of Present Illness The patient is a 73-year-old male presenting primarily for medication management and follow-up regarding chronic conditions. He has a complex medical history involving COPD, managed with Trelegy and albuterol, with an interest in cost- effective alternatives due to insurance limitations. He has cardiovascular conditions like atrial fibrillation and congestive heart failure, currently medicated with diuretics, Farxiga, amiodarone, diltiazem, metoprolol, and digoxin, also requiring anticoagulation management due to risk factors. Sleep apnea is managed using a CPAP machine. His lab results indicate chronic anemia with stable renal and liver functions, and a recent improvement in hemoglobin A1c from 5.9% to 5.8%, consistent with his impaired glucose tolerance. Concerns about his medication costs and insurance-related issues are affecting his well- being and stress levels. Health Maintenance - Colonoscopy last performed in 2014. - Monitoring of glucose levels due to impaired glucose tolerance; recent hemoglobin A1c improved to 5.8%. - Ongoing management of COPD with discussions about alternatives to Trelegy due to cost. - Cardiovascular management and follow-up with cardiology recommended. Social History - Affected by stress due to changes in insurance, impacting medication affordability and accessibility. - Alters family interaction and lifestyle, including television watching, due to stress levels. Review of Systems - Respiratory: Reports managed breathing with CPAP and albuterol. - Cardiovascular: Denies acute chest pain, reports stable with medication regimen. - Endocrine: Reports previous elevated hemoglobin A1c, improved to 5.8%. - Gastrointestinal: Reports constipation, using medication to alleviate. - General: Denies acute illness, stress over medication costs affecting lifestyle. Physical Exam Results - Labs: Stable chronic anemia. Mild leukocytosis. Normal electrolytes and renal function reported in April 2024. Improved hemoglobin A1c from 5.9% to 5.8%. Plan I plan to address the patient's COPD by transitioning from Trelegy to a Breo and Spiriva combination due to insurance coverage difficulties. Albuterol remains, and Ventolin will be issued if needed. Cardiovascular management, including anticoagulation for atrial fibrillation, will continue with current medications maintained. The patient's glucose management shall continue watching his hemoglobin A1c and encouraging consistent lifestyle changes to improve these values. Chronic anemia will be monitored closely. A follow-up with cardiology and lab work focusing on renal function efficiency under diuretic therapy is recommended in three months. The use of CPAP for sleep apnea will continue as part of his management plan. Patient was informed and verbally consented to the use of an ambient scribe for clinic note documentation during this visit. Discussion Notes I engaged the patient in a discussion regarding his COPD medication changes, considering alternative therapies due to [facility] insurance coverage issues, selecting Breo and Spiriva for continued management. We addressed cardiovascular stability, maintaining current medication regimens, and persistently managing his atrial fibrillation and congestive heart failure with anticoagulation. Discussions about ongoing glucose monitoring were reinforced, emphasizing lifestyle and medication adherence to manage impaired glucose tolerance. I also educated about regular CPAP use for sleep apnea. We agreed on periodic follow- ups, and he felt informed about discussing any arising medication access issues. Patient Instructions - Continue using CPAP every night for sleep apnea. - Maintain breathing management with albuterol and follow up on Breo and Spiriva options. - Continue current cardiovascular medications as prescribed. - Monitor blood glucose levels, adhere to medication regimen, and report any significant changes. - Follow advised dietary modifications to further improve glucose control. - Ensure timely communication regarding any insurance issues with medications. - Follow up for blood work in three months focusing on kidney function test. - Arrange follow-up visits with cardiology for ongoing heart health management. Orders: Orders Digoxin Today I48.19 - Other persistent atrial fibrillation Thyroid Stimulating Hormone Today I48.19 - Other persistent atrial fibrillation Free T4 (Free Thyroxine) Today I48.19 - Other persistent atrial fibrillation Complete Blood Count Auto Diff Today I48.19 - Other persistent atrial fibrillation Comprehensive Met. Panel Today I48.19 - Other persistent atrial fibrillation Magnesium Today I48.19 - Other persistent atrial fibrillation Medications: New fluticasone furoate-vilanterol 100-25 mcg/dose (Breo Ellipta) 1 inh inhalation DAILY 60 ea 3RF J43.1 - Panlobular emphysema tiotropium bromide (Spiriva with HandiHaler) puncture 1 cap using device; one dose = 2 inhalations 1 cap inhalation DAILY 90 inhalations 1RF J43.1 - Panlobular emphysema albuterol sulfate 90 mcg/actuation (Ventolin HFA) 2 puffs inhalation Q6H PRN 8.5 grams 0RF shortness of breath or wheezing J43.1 - Panlobular emphysema Discontinued xwuphgjowez-rqckgcdum-qcxxkptg 200-62.5-25 mcg (Trelegy Ellipta) Discontinued Reason: Insurance Denied 1 inh inhalation DAILY 60 ea 12RF J43.1 - Panlobular emphysema ipratropium-albuterol 20-100 mcg/actuation (Combivent Respimat) Discontinued Reason: Doctor's Order 1 puff PO QID 4 grams 3RF J43.1 - Panlobular emphysema
[2024-05-29 09:56] VITALS: BP 110/76; PULSE 94; TEMP 36.3; O2SAT 98; BMI 33.5
--- OUTSIDE RECORDS SUMMARY | 2024-05-29 10:52 | XMS_ITS | Encounter Summary ---
Author Organization [employer] Address [address] [facility] [address] [place] [address] Care Team Providers Care Global Marketing Operations Manager Name Role Phone Unavailable Primary Care Provider [...]
--- OUTSIDE RECORDS SUMMARY | 2024-05-29 10:52 | XMS_ITS | Clinical Summary ---
Author Organization [employer] Address [address] [facility] [address] [place] [address] Care Team Providers Care Supervisor Furnace Process Name Role Phone Unavailable Primary Care Provider [...]
== END 2024-05-29 11:06 | disposition home or self-care (01) ==
LOC: HO.HMCH 09:52
PROVIDERS: PCP Internal Medicine; Visit Provider Internal Medicine
DX: R73.02 Impaired glucose tolerance (oral) (principal); I25.10 Atherosclerotic heart disease of native coronary artery without angina pectoris; I48.19 Other persistent atrial fibrillation; J43.1 Panlobular emphysema; E78.00 Pure hypercholesterolemia, unspecified; E66.09 Other obesity due to excess calories; Z68.32 Body mass index [BMI] 32.0-32.9, adult; I10 Essential (primary) hypertension; G47.33 Obstructive sleep apnea (adult) (pediatric); Z99.89 Dependence on other enabling machines and devices; M47.812 Spondylosis without myelopathy or radiculopathy, cervical region; M47.816 Spondylosis without myelopathy or radiculopathy, lumbar region

== ENCOUNTER → 2024-05-29 09:51 | Outpatient (BNVA) | payer MEDICARE, SELFPAY | PROVIDERS: PCP Internal Medicine; Visit Provider Internal Medicine | DX: I11.0 Hypertensive heart disease with heart failure (principal); I50.9 Heart failure, unspecified; R73.02 Impaired glucose tolerance (oral); I25.10 Atherosclerotic heart disease of native coronary artery without angina pectoris; I48.19 Other persistent atrial fibrillation; J43.1 Panlobular emphysema; E78.00 Pure hypercholesterolemia, unspecified; E66.09 Other obesity due to excess calories; G47.33 Obstructive sleep apnea (adult) (pediatric); M47.812 Spondylosis without myelopathy or radiculopathy, cervical region; M47.816 Spondylosis without myelopathy or radiculopathy, lumbar region; J44.9 Chronic obstructive pulmonary disease, unspecified; D64.9 Anemia, unspecified; Z68.32 Body mass index [BMI] 32.0-32.9, adult; Z99.89 Dependence on other enabling machines and devices; Z79.899 Other long term (current) drug therapy | CPT/HCPCS: 99212 ==

== ENCOUNTER 2024-06-03 10:35 | Outpatient (AMB) | payer MEDICARE, SELFPAY ==
--- NOTE | 2024-06-03 10:37 | MHC.OFFVIS ---
Vital Signs 06/03/24 10:42 Height 5 ft 11 in Weight 240 lb BMI 33.5 BP 142/79 H Blood Pressure Location Lt brachial Position Sitting Pulse 91 Pulse Source Pulse Oximeter Pulse Oximetry (%) 97 Oxygen Delivery Method Room Air Intake Visit Reasons: Pill Count Intake Note: Alli comes in today for a pill count to morphine, patient should have 16 tablets and presents with 26 tablets which he last took today 06/03/24 at 7am. Pain today 5/10 Clinical Mental Health Counselor Required: No Accompanied by: Self / Same As Patient Allergies No Known Allergies Allergy (Verified 06/03/24 10:43) HPI Comments Details: Patient presents today for a pill count and pain management. Patient is supposed to have morphine IR 15 mg #16 pills, in his possession has #26 pills. This demonstrates a responsible attitude in regards to the medication regimen. The patient's medication routine is effective, with his reported pain level being 5/10 without significant changes since the last visit. He reports occasional constipation as a side effect of his pain medication, which he mitigates through the use of Maalox to satisfaction. Denies any changes to his medical or surgical history, medication regimens, or overall health status since his last visit, and he denies any recent emergency room visits or urgent health concerns. The patient continues to effectively use his CPAP machine and is stable in his current management plan. Denies any fever or chills, chest pain, shortness of breaths, headaches, palpitations, nausea, sedation, weakness or urinary retention except occasional constipation. [facility] Medical History Muscle spasms of neck Degenerative cervical disc Shortness of breath Constipation Circadian rhythm sleep disorder Vision changes Personal history of nicotine dependence Tobacco abuse Obstructive sleep apnea on CPAP (~03/2015) Current use of intermediate anticoagulation Degenerative joint disease of cervical and lumbar spine Persistent atrial fibrillation (~2014) Peripheral vascular disease Obesity Insomnia COPD (chronic obstructive pulmonary disease) Bilateral primary osteoarthritis of knee Hypercholesterolemia Surgical History History of spinal surgery History of colonoscopy History of cardioversion (~2018) History of carpal tunnel release History of bilateral cataract extraction History of hip replacement, total History of removal of cyst History of vitrectomy (~11/2019) Family History Father Myocardial infarction Sister Multiple sclerosis Social History Household Members: Spouse Housing: House Alcohol intake: former Patient Tobacco Use Status: Former Tobacco user Tobacco use type: Cigarette Years Smoked: 54 on/off - 30pyh e-Cigarette/Vaping Use: Never Used Second Hand Smoke Exposure: Yes Current occupational status: retired Cognitive needs: No Hearing needs: No Vision needs: Yes Review of Systems Const All systems reviewed & are unremarkable except as noted in HPI and below Physical Exam Vital Signs: Last Vital Signs Pulse 91 06/03/24 10:42 BP 142/79 H 06/03/24 10:42 Pulse Ox 97 06/03/24 10:42 Oxygen Delivery Method Room Air 06/03/24 10:42 BMI result Body Mass Index 33.5 General: Appears afebrile. Alert and oriented. Mood and affect appropriate. Follows and participates in conversation appropriately. Respiratory effort is unlabored. No cough. Able to transition from sit to stand unassisted. Ambulates with bilaterally normal heel strike and toe off. Back/Spine/Pelvis Cervical Spine: cervical muscular tenderness, pain with cervical ROM, cervical spasm and No Cervical spine tenderness Thoracic/Lumbar Spine: thoracic and lumbar spine normal to inspection, pain with thoraco-lumbar ROM, No thoracic spinal tenderness and No lumbar spinal tenderness Sacroiliac joints: bilaterally tender to palpation Extrem General: Yes capillary refill normal, Yes no clubbing, cyanosis or edema and Yes no calf tenderness Psych Appearance: grossly normal and well kempt Mental Status: mental status grossly normal Speech and movement: Normal speech and movement present and Clear speech present Affect: normal affect Attitude: cooperative Thought process: Normal thought process present Thought content: Normal thought content present, suicidality (none), no hallucinations and No Depressive thoughts present Insight: Good insight present (Psych) Judgement: Good judgement present (Psych) Results Reviewed Results Reviewed: XR CERVICAL SPINE 12/23/22 FINDINGS: The visualized cervical vertebrae are intact with normal alignment. Odontoid process is intact with normal C1/C2 lateral masses alignment. Pre-dental interval is normal. Pre vertebral soft tissue is normal in thickness. Prominent bilateral apophyseal joints and uncovertebral joint osteophytes are present. Bilateral oblique x-rays of cervical spine show normal apophyseal joint alignment. However, evaluation of cervical neural foramina remains limited by suboptimal positioning. The left cervical neural foramina and right C2-C3 neural foramen appear patent. IMPRESSION: 1. Unchanged multilevel advanced cervical spondylosis. 2. No fracture or dislocation of cervical spine is seen. MR LUMBAR SPINE WITHOUT IV CONTRAST 10/07/2015 CLINICAL INFORMATION: Back pain and bruising in the right buttock and thigh. FINDINGS: There are 5 nonrib-bearing lumbar-type vertebral bodies. Lumbar alignment is normal. The vertebral body heights are maintained. There is moderate disc volume loss at L1-L2. Disc desiccation at L1-L2 and L3-L4. Mild Modic type I degenerative endplate changes anteriorly at L1-L2. There is no additional bone marrow edema. There are no acute fractures. Conus terminates at the T12-L1 disc level. There is left iliopsoas muscle atrophy that is partially imaged. No additional significant soft tissue findings. L1-L2: There is a small annular disc bulge and there is mild bilateral facet arthropathy with no central canal stenosis and no significant foraminal stenosis. L2-L3: The disc contour is normal. There is no central canal stenosis and there is no foraminal stenosis. L3-L4: Small annular disc bulge exhibiting a ventral annular fissure. There is moderate bilateral facet arthropathy. There is no central canal stenosis and there is mild foraminal narrowing bilaterally, slightly greater on the right side. L4-L5: There is a diffuse annular disc bulge and there is severe bilateral hypertrophic facet arthropathy and ligamentum flavum thickening. No central canal stenosis. No significant foraminal stenosis. L5-S1: There is a diffuse annular disc bulge and there is severe left and moderate right hypertrophic facet arthropathy. There is no central canal stenosis and there is no foraminal stenosis. IMPRESSION: - Small disc bulges at the L1-L2, L3-L4, L4-L5, and L5-S1 levels, at L3-L4 associated with a ventral annular fissure. There is severe bilateral hypertrophic facet arthropathy at L4-L5 and severe left and moderate right hypertrophic facet arthropathy at L5-S1. No severe central canal stenosis and no severe foraminal stenosis within the lumbar spine. - Severe left iliopsoas muscle atrophy. 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 The patient reported no side effects. There is no evidence of misuse, abuse, or diversion at this time. Jukely reviewed. Script sent for morphine IR 15 mg QID prn with advanced date of 06/08/24. Patient has Narcan at home. Continue Baclofen prn. All questions were answered and patient agreed with the plan. Follow up in one month for pill count and sooner if needed. Medications: Refilled morphine Partial Fill upon patient request. 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
[2024-06-03 10:42] VITALS: BP 142/79; PULSE 91; O2SAT 97; BMI 33.5
--- OUTSIDE RECORDS SUMMARY | 2024-06-03 12:11 | XMS_ITS | Encounter Summary ---
Author Organization [employer] Address [address] [place] [address] Care Team Providers Care Tapering Machine Operator Name Role Phone Unavailable Primary [...]
--- OUTSIDE RECORDS SUMMARY | 2024-06-03 12:11 | XMS_ITS | Clinical Summary ---
Author Organization [employer] Address [address] [facility] [address] [place] [address] Care Team Providers Care Lining Stuffer Name Role Phone Unavailable Primary Care Provider [...]
== END 2024-06-03 10:49 | disposition home or self-care (01) ==
PROVIDERS: PCP Internal Medicine; Visit Provider Nurse Practitioner Family
DX: M17.0 Bilateral primary osteoarthritis of knee (principal); M47.812 Spondylosis without myelopathy or radiculopathy, cervical region; M47.816 Spondylosis without myelopathy or radiculopathy, lumbar region; Z79.891 Long term (current) use of opiate analgesic; G89.4 Chronic pain syndrome; M50.30 Other cervical disc degeneration, unspecified cervical region
CPT/HCPCS: 99214; G2211

== ENCOUNTER → 2024-06-03 10:35 | Outpatient (BNVA) | payer MEDICARE, SELFPAY | PROVIDERS: PCP Internal Medicine; Visit Provider Nurse Practitioner Family | DX: M17.0 Bilateral primary osteoarthritis of knee (principal); M47.812 Spondylosis without myelopathy or radiculopathy, cervical region; M47.816 Spondylosis without myelopathy or radiculopathy, lumbar region; G89.4 Chronic pain syndrome; M50.30 Other cervical disc degeneration, unspecified cervical region; Z51.81 Encounter for therapeutic drug level monitoring; Z79.891 Long term (current) use of opiate analgesic | CPT/HCPCS: 99212 ==

== ENCOUNTER 2024-07-01 10:19 | Outpatient (AMB) | payer MEDICARE, SELFPAY ==
--- NOTE | 2024-07-01 10:28 | MHC.OFFVIS ---
Vital Signs 07/01/24 10:34 Height 5 ft 11 in Weight 243 lb 2 oz BMI 33.9 BP 138/86 Blood Pressure Location Lt brachial Position Sitting Pulse 78 Pulse Source Pulse Oximeter Pulse Oximetry (%) 98 Oxygen Delivery Method Room Air Intake Visit Reasons: Pill count Intake Note: Alli comes in today for ap ill count to morphine, patient should have 28 tablets and presents with 35 tablets which he last took today 07/01/24 at 6am. 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 Patient is supposed to have morphine IR 15 mg #28 pills, in his possession has #35 pills. This demonstrates a responsible attitude in regards to the medication regimen. The patient's medication routine is effective, with his reported pain level being 7/10 due to flare up in his chronic neck and low back pain. Patient reports current regime allows him to be more functional and less symptomatic. He reports occasional constipation as a side effect of his pain medication, which he mitigates through the use of Maalox to satisfaction. Patient is not interested to pursue interventional treatment for neck or back pain as he reports more good days than bad days and partially attributes his symptoms due to rainy weather changes. Denies any changes to his medical or surgical history, medication regimens, or overall health status since his last visit, and he denies any recent emergency room visits or urgent health concerns. The patient continues to effectively use his CPAP machine and is stable in his current management plan. Denies any fever or chills, chest pain, shortness of breaths, headaches, palpitations, nausea, sedation, weakness or urinary retention except occasional constipation. - Onset and Timing: Chronic, persistent - Quality and Character: Pain level at 7/10, aching, sore, tightness, sharp, fluctuating - Primary Location: Back and neck - Exacerbating Factors: Weather changes, particularly rain - Activities or Functions Affected: Daily activity affected by good and bad days - Affect: Patient experiences variation in pain severity with fluctuations in mood likely related to pain - Analgesia: Current pain level at 7/10; no interventional procedures desired - Adverse Effects: None reported from current medication regimen - Activities of Daily Living: Pain impacts days with variability of good and bad days; no specific functional goals indicated - Aberrant Drug-Related Behaviors: None noted PFSH Medical History Muscle spasms of neck Degenerative cervical disc Shortness of breath Constipation Circadian rhythm sleep disorder Vision changes Personal history of nicotine dependence Tobacco abuse Obstructive sleep apnea on CPAP (~03/2015) Current use of alf anticoagulation Degenerative joint disease of cervical and lumbar spine Persistent atrial fibrillation (~2014) Peripheral vascular disease Obesity Insomnia COPD (chronic obstructive pulmonary disease) Bilateral primary osteoarthritis of knee Hypercholesterolemia Surgical History History of spinal surgery History of colonoscopy History of cardioversion (~2018) History of carpal tunnel release History of bilateral cataract extraction History of hip replacement, total History of removal of cyst History of vitrectomy (~11/2019) Family History Father Myocardial infarction Sister Multiple sclerosis Social History Household Members: Spouse Housing: House Alcohol intake: former Patient Tobacco Use Status: Former Tobacco user Tobacco use type: Cigarette Years Smoked: 54 on/off - 30pyh e-Cigarette/Vaping Use: Never Used Second Hand Smoke Exposure: Yes Current occupational status: retired Cognitive needs: No Hearing needs: No Vision needs: Yes Review of Systems Const Details: - Musculoskeletal: Reports chronic back and neck pain - Respiratory: Denies current smoking use; reports past usage; uses CPAP regularly - General: Denies changes in medication All systems reviewed & are unremarkable except as noted in HPI and below Physical Exam Vital Signs: Last Vital Signs Pulse 78 07/01/24 10:34 BP 138/86 07/01/24 10:34 Pulse Ox 98 07/01/24 10:34 Oxygen Delivery Method Room Air 07/01/24 10:34 BMI result Body Mass Index 33.9 General: Appears afebrile. Alert and oriented. Mood and affect appropriate. Follows and participates in conversation appropriately. Respiratory effort is unlabored. No cough. Able to transition from sit to stand unassisted. Ambulates with bilaterally normal heel strike and toe off. General: Yes no CVA tenderness Back/Spine/Pelvis Back: no CVA tenderness Cervical Spine: cervical muscular tenderness, pain with cervical ROM, cervical spasm and No Cervical spine tenderness Thoracic/Lumbar Spine: thoracic and lumbar spine normal to inspection, Lasegue's sign negative, straight leg raise negative bilaterally, pain with thoraco-lumbar ROM, paraspinal muscle tenderness, thoraco-lumbar ROM limited, No thoracic spinal tenderness and No lumbar spinal tenderness Extrem General: Yes capillary refill normal, Yes no clubbing, cyanosis or edema and Yes no calf tenderness Psych Appearance: grossly normal and well kempt Mental Status: mental status grossly normal Speech and movement: Normal speech and movement present and Clear speech present Affect: normal affect Attitude: cooperative Thought process: Normal thought process present Thought content: Normal thought content present, suicidality (none), no hallucinations and No Depressive thoughts present Insight: Good insight present (Psych) Judgement: Good judgement present (Psych) Results Reviewed Results Reviewed: XR CERVICAL SPINE 12/23/22 FINDINGS: The visualized cervical vertebrae are intact with normal alignment. Odontoid process is intact with normal C1/C2 lateral masses alignment. Pre-dental interval is normal. Pre vertebral soft tissue is normal in thickness. Prominent bilateral apophyseal joints and uncovertebral joint osteophytes are present. Bilateral oblique x-rays of cervical spine show normal apophyseal joint alignment. However, evaluation of cervical neural foramina remains limited by suboptimal positioning. The left cervical neural foramina and right C2-C3 neural foramen appear patent. IMPRESSION: 1. Unchanged multilevel advanced cervical spondylosis. 2. No fracture or dislocation of cervical spine is seen. MR LUMBAR SPINE WITHOUT IV CONTRAST 10/07/2015 CLINICAL INFORMATION: Back pain and bruising in the right buttock and thigh. FINDINGS: There are 5 nonrib-bearing lumbar-type vertebral bodies. Lumbar alignment is normal. The vertebral body heights are maintained. There is moderate disc volume loss at L1-L2. Disc desiccation at L1-L2 and L3-L4. Mild Modic type I degenerative endplate changes anteriorly at L1-L2. There is no additional bone marrow edema. There are no acute fractures. Conus terminates at the T12-L1 disc level. There is left iliopsoas muscle atrophy that is partially imaged. No additional significant soft tissue findings. L1-L2: There is a small annular disc bulge and there is mild bilateral facet arthropathy with no central canal stenosis and no significant foraminal stenosis. L2-L3: The disc contour is normal. There is no central canal stenosis and there is no foraminal stenosis. L3-L4: Small annular disc bulge exhibiting a ventral annular fissure. There is moderate bilateral facet arthropathy. There is no central canal stenosis and there is mild foraminal narrowing bilaterally, slightly greater on the right side. L4-L5: There is a diffuse annular disc bulge and there is severe bilateral hypertrophic facet arthropathy and ligamentum flavum thickening. No central canal stenosis. No significant foraminal stenosis. L5-S1: There is a diffuse annular disc bulge and there is severe left and moderate right hypertrophic facet arthropathy. There is no central canal stenosis and there is no foraminal stenosis. IMPRESSION: - Small disc bulges at the L1-L2, L3-L4, L4-L5, and L5-S1 levels, at L3-L4 associated with a ventral annular fissure. There is severe bilateral hypertrophic facet arthropathy at L4-L5 and severe left and moderate right hypertrophic facet arthropathy at L5-S1. No severe central canal stenosis and no severe foraminal stenosis within the lumbar spine. - Severe left iliopsoas muscle atrophy. 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 The patient reported no side effects. There is no evidence of misuse, abuse, or diversion at this time. [place] reviewed. Management will remain conservative for the patient's chronic back and neck pain, as he does not wish to pursue interventional treatments currently. We will continue to monitor pain fluctuations and observe any aggravating patterns like weather changes. No changes in medications or interventions will occur at this time, allowing stable management of his pain conditions. Script sent for morphine IR 15 mg QID prn with advanced date of 07/06/24. Patient has Narcan at home. All questions were answered and patient agreed with the plan. Follow up in one month for pill count and sooner if needed. Patient was informed and verbally consented to the use of an ambient scribe for clinic note documentation during this visit. Medications: Refilled morphine Partial Fill upon patient request. 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
[2024-07-01 10:34] VITALS: BP 138/86; PULSE 78; O2SAT 98; BMI 33.9
--- OUTSIDE RECORDS SUMMARY | 2024-07-01 10:51 | XMS_ITS | Encounter Summary ---
Author Organization [employer] Address [address] [facility] [address] [place] [address] Care Team Providers Care Payloader Operator Name Role Phone Unavailable Primary Care Provider Unavailabl e Encounter Details Date Type Department Care Team (Latest Contact Info) Description 04/10/2020 Abstract [facility] CONVERSIONS Dental, Provider, DDS Social History Tobacco [...]
--- OUTSIDE RECORDS SUMMARY | 2024-07-01 10:51 | XMS_ITS | Clinical Summary ---
Author Organization [employer] Address [address] [facility] [address] [place] [address] Care Team Providers Care Elevator Mechanic Name Role Phone Unavailable Primary Care Provider [...]
== END 2024-07-01 10:41 | disposition home or self-care (01) ==
LOC: HO.PMC 10:19
PROVIDERS: PCP Internal Medicine; Visit Provider Nurse Practitioner Family
DX: M17.0 Bilateral primary osteoarthritis of knee (principal); M47.812 Spondylosis without myelopathy or radiculopathy, cervical region; M47.816 Spondylosis without myelopathy or radiculopathy, lumbar region; Z79.891 Long term (current) use of opiate analgesic; G89.4 Chronic pain syndrome; M50.30 Other cervical disc degeneration, unspecified cervical region
CPT/HCPCS: 99214; G2211

== ENCOUNTER → 2024-07-01 10:19 | Outpatient (BNVA) | payer MEDICARE, SELFPAY | PROVIDERS: PCP Internal Medicine; Visit Provider Nurse Practitioner Family | DX: Z51.81 Encounter for therapeutic drug level monitoring (principal); M17.0 Bilateral primary osteoarthritis of knee; M47.812 Spondylosis without myelopathy or radiculopathy, cervical region; M47.816 Spondylosis without myelopathy or radiculopathy, lumbar region; M50.30 Other cervical disc degeneration, unspecified cervical region; G89.4 Chronic pain syndrome; Z79.891 Long term (current) use of opiate analgesic | CPT/HCPCS: 99212 ==

== ENCOUNTER 2024-08-05 10:32 | Outpatient (AMB) | payer MEDICARE, SELFPAY ==
--- NOTE | 2024-08-05 10:35 | A.OFFVIS_ITS ---
Vital Signs 08/05/24 10:42 Height 5 ft 11 in Weight 245 lb BMI 34.2 BP 139/68 Blood Pressure Location Lt brachial Position Sitting Pulse 75 Pulse Source Pulse Oximeter Pulse Oximetry (%) 97 Oxygen Delivery Method Room Air Intake Visit Reasons: Pill count Intake Note: Alli comes in today for a pill count to morphine, patient should have 8 tablets and presents with 21 tablets which he last took today 08/05/24 at 6 am. Pain today 6.5/10 Laminator [employer]ed [employer]ards Required: No Accompanied by: Self / Same As Patient Allergies No Known Allergies Allergy (Verified 08/05/24 10:43) HPI Comments Details: Patient presents today for a pill count and pain management. Patient is supposed to have morphine IR 15 mg #8 pills, in his possession has #21 pills. This demonstrates a responsible attitude in regards to the medication regimen. The patient's medication routine is effective, with his reported pain level being 6/10 mainly in his chronic neck and low back pain. Patient reports current regime allows him to be more functional and less symptomatic. He reports occasional constipation as a side effect of his pain medication, which he mitigates through the use of Maalox or magnesium citrate with good results. Denies any changes to his medical or surgical history, medication regimens, or overall health status since his last visit, and he denies any recent emergency room visits or urgent health concerns. The patient continues to effectively use his CPAP machine and is stable in his current management plan. Denies any fever or chills, chest pain, shortness of breaths, headaches, palpitations, nausea, sedation, weakness or urinary retention except occasional constipation. [facility] Medical History Muscle spasms of neck Degenerative cervical disc Shortness of breath Constipation Circadian rhythm sleep disorder Vision changes Personal history of nicotine dependence Tobacco abuse Obstructive sleep apnea on CPAP (~03/2015) Current use of [facility] anticoagulation Degenerative joint disease of cervical and lumbar spine Persistent atrial fibrillation (~2014) Peripheral vascular disease Obesity Insomnia COPD (chronic obstructive pulmonary disease) Bilateral primary osteoarthritis of knee Hypercholesterolemia Surgical History History of spinal surgery History of colonoscopy History of cardioversion (~2018) History of carpal tunnel release History of bilateral cataract extraction History of hip replacement, total History of removal of cyst History of vitrectomy (~11/2019) Family History Father Myocardial infarction Sister Multiple sclerosis Social History Household Members: Spouse Housing: House Alcohol intake: former Patient Tobacco Use Status: Former Tobacco user Tobacco use type: Cigarette Years Smoked: 54 on/off - 30pyh e-Cigarette/Vaping Use: Never Used Second Hand Smoke Exposure: Yes Current occupational status: retired Cognitive needs: No Hearing needs: No Vision needs: Yes Review of Systems Const All systems reviewed & are unremarkable except as noted in HPI and below Physical Exam Vital Signs: Last Vital Signs Pulse 75 08/05/24 10:42 BP 139/68 08/05/24 10:42 Pulse Ox 97 08/05/24 10:42 Oxygen Delivery Method Room Air 08/05/24 10:42 BMI result Body Mass Index 34.2 General: Appears afebrile. Alert and oriented. Mood and affect appropriate. Follows and participates in conversation appropriately. Respiratory effort is unlabored. No cough. Able to transition from sit to stand unassisted. Ambulates with bilaterally normal heel strike and toe off. Eyes General: appearance normal, both eyes and all related structures Resp Effort & Inspection: normal respiratory effort, able to speak in complete sentences, no cough, respiratory effort not decreased, no respiratory distress and No symmetric chest movement General: Yes no CVA tenderness Back/Spine/Pelvis Back: no CVA tenderness Cervical Spine: cervical muscular tenderness, pain with cervical ROM, cervical spasm and No Cervical spine tenderness Thoracic/Lumbar Spine: thoracic and lumbar spine normal to inspection, Lasegue's sign negative, straight leg raise negative bilaterally, pain with thoraco-lumbar ROM, paraspinal muscle tenderness, thoraco-lumbar ROM limited, No thoracic spinal tenderness and No lumbar spinal tenderness Psych Appearance: grossly normal and well kempt Mental Status: mental status grossly normal Speech and movement: Normal speech and movement present and Clear speech present Affect: normal affect Attitude: cooperative Thought process: Normal thought process present Thought content: Normal thought content present, suicidality (none), no hallucinations and No Depressive thoughts present Insight: Good insight present (Psych) Judgement: Good judgement present (Psych) Results Reviewed Results Reviewed: XR CERVICAL SPINE 12/23/22 FINDINGS: The visualized cervical vertebrae are intact with normal alignment. Odontoid process is intact with normal C1/C2 lateral masses alignment. Pre-dental interval is normal. Pre vertebral soft tissue is normal in thickness. Prominent bilateral apophyseal joints and uncovertebral joint osteophytes are present. Bilateral oblique x-rays of cervical spine show normal apophyseal joint alignment. However, evaluation of cervical neural foramina remains limited by suboptimal positioning. The left cervical neural foramina and right C2-C3 neural foramen appear patent. IMPRESSION: 1. Unchanged multilevel advanced cervical spondylosis. 2. No fracture or dislocation of cervical spine is seen. MR LUMBAR SPINE WITHOUT IV CONTRAST 10/07/2015 CLINICAL INFORMATION: Back pain and bruising in the right buttock and thigh. FINDINGS: There are 5 nonrib-bearing lumbar-type vertebral bodies. Lumbar alignment is normal. The vertebral body heights are maintained. There is moderate disc volume loss at L1-L2. Disc desiccation at L1-L2 and L3-L4. Mild Modic type I degenerative endplate changes anteriorly at L1-L2. There is no additional bone marrow edema. There are no acute fractures. Conus terminates at the T12-L1 disc level. There is left iliopsoas muscle atrophy that is partially imaged. No additional significant soft tissue findings. L1-L2: There is a small annular disc bulge and there is mild bilateral facet arthropathy with no central canal stenosis and no significant foraminal stenosis. L2-L3: The disc contour is normal. There is no central canal stenosis and there is no foraminal stenosis. L3-L4: Small annular disc bulge exhibiting a ventral annular fissure. There is moderate bilateral facet arthropathy. There is no central canal stenosis and there is mild foraminal narrowing bilaterally, slightly greater on the right side. L4-L5: There is a diffuse annular disc bulge and there is severe bilateral hypertrophic facet arthropathy and ligamentum flavum thickening. No central canal stenosis. No significant foraminal stenosis. L5-S1: There is a diffuse annular disc bulge and there is severe left and moderate right hypertrophic facet arthropathy. There is no central canal stenosis and there is no foraminal stenosis. IMPRESSION: - Small disc bulges at the L1-L2, L3-L4, L4-L5, and L5-S1 levels, at L3-L4 associated with a ventral annular fissure. There is severe bilateral hypertrophic facet arthropathy at L4-L5 and severe left and moderate right hypertrophic facet arthropathy at L5-S1. No severe central canal stenosis and no severe foraminal stenosis within the lumbar spine. - Severe left iliopsoas muscle atrophy. Assessment & Plan Assessment & Plan (1) Bilateral primary osteoarthritis of knee: Code(s): M17.0 - Bilateral primary osteoarthritis of knee Category: Medical (2) Degenerative joint disease of cervical and lumbar spine: Code(s): M47.812 - Spondylosis without myelopathy or radiculopathy, cervical region; M47.816 - Spondylosis without myelopathy or radiculopathy, lumbar region Category: Medical (3) Opioid contract exists: Code(s): Z79.891 - medical terminologist (current) use of opiate analgesic Category: Medical (4) Chronic pain syndrome: Code(s): G89.4 - Chronic pain syndrome Category: Medical (5) Cervical spondylosis: Code(s): M47.812 - Spondylosis without myelopathy or radiculopathy, cervical region Category: Medical (6) Degenerative cervical disc: Code(s): M50.30 - Other cervical disc degeneration, unspecified cervical region Category: Medical Plan Patient has shown accountability for his medication regimen and the pill count was accurate. The patient reported no side effects. There is no evidence of misuse, abuse, or diversion at this time. [employer] reviewed. Pain management will remain conservative for the patient's chronic back and neck pain, as he does not wish to pursue interventional treatments currently. We will continue to monitor pain fluctuations and observe any aggravating patterns like weather changes. No changes in medications or interventions will occur at this time, allowing stable management of his pain conditions. Script sent for morphine IR 15 mg QID prn with advanced date of 08/09/24. Patient has Narcan at home. All questions were answered and patient agreed with the plan. Follow up in one month for pill count and sooner if needed. Patient was informed and verbally consented to the use of an ambient scribe for clinic note documentation during this visit. Medications: Refilled morphine Partial Fill upon patient request. 15 mg PO Q6H 30 days PRN 120 tabs 0RF pain (scale score 7-10) MDD 4 G89.4 - Chronic pain syndrome, M17.0 - Bilateral primary osteoarthritis of knee, M47.812 - Spondylosis without myelopathy or radiculopathy, cervical region, M47.816 - Spondylosis without myelopathy or radiculopathy, lumbar region, Z79.891 - medical terminologist (current) use of opiate analgesic Coding Level of Care Code Est Pt Level 4 (34837) Complex EM visit Add On G2211 Diagnoses Bilateral primary osteoarthritis of knee M17.0 Degenerative joint disease of cervical and lumbar spine M47.812; M47.816 Opioid contract exists Z79.891 Chronic pain syndrome G89.4 Cervical spondylosis M47.812 Degenerative cervical disc M50.30
[2024-08-05 10:42] VITALS: BP 139/68; PULSE 75; O2SAT 97; BMI 34.2
--- OUTSIDE RECORDS SUMMARY | 2024-08-05 11:47 | XMS_ITS | Clinical Summary ---
Author Organization 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
== END 2024-08-05 10:50 | disposition home or self-care (01) ==
LOC: HO.PMC 10:32
PROVIDERS: PCP Internal Medicine; Visit Provider Nurse Practitioner Family
DX: M17.0 Bilateral primary osteoarthritis of knee (principal); M47.812 Spondylosis without myelopathy or radiculopathy, cervical region; M47.816 Spondylosis without myelopathy or radiculopathy, lumbar region; Z79.891 Long term (current) use of opiate analgesic; G89.4 Chronic pain syndrome; M50.30 Other cervical disc degeneration, unspecified cervical region
CPT/HCPCS: 99214; G2211

== ENCOUNTER → 2024-08-05 10:32 | Outpatient (BNVA) | payer MEDICARE, SELFPAY | PROVIDERS: PCP Internal Medicine; Visit Provider Nurse Practitioner Family | DX: Z51.81 Encounter for therapeutic drug level monitoring (principal); M17.0 Bilateral primary osteoarthritis of knee; M47.812 Spondylosis without myelopathy or radiculopathy, cervical region; M47.816 Spondylosis without myelopathy or radiculopathy, lumbar region; M50.30 Other cervical disc degeneration, unspecified cervical region; G89.4 Chronic pain syndrome; Z79.891 Long term (current) use of opiate analgesic | CPT/HCPCS: 99212 ==

== ENCOUNTER 2024-09-02 10:40 | Outpatient (AMB) | payer MEDICARE, SELFPAY ==
--- NOTE | 2024-09-02 10:42 | A.OFFVIS_ITS ---
Vital Signs 09/02/24 10:50 Height 5 ft 11 in Weight 239 lb 2 oz BMI 33.3 BP 149/68 H Blood Pressure Location Lt brachial Position Sitting Pulse 87 Pulse Source Pulse Oximeter Pulse Oximetry (%) 94 Oxygen Delivery Method Room Air Intake Visit Reasons: Pill Count/random uds Intake Note: Alli comes in today for a pill count to morphine, patient should have 28 tablets and presents with 30 tablets which he last took today 09/02/24 at 7am. Pain today 5.5/10 Patient will also have a random UDS done today, aware that he will need to go to the lab on the first floor of this building today 09/02/24 before 12pm. Engraver Automatic Required: No Accompanied by: Self / Same As Patient Allergies No Known Allergies Allergy (Verified 09/02/24 10:51) HPI Comments Details: Patient presents today for a pill count and pain management. Patient is supposed to have morphine IR 15 mg #28 pills, in his possession has #30 pills. This demonstrates a responsible attitude in regards to the medication regimen. Patient reports adequate analgesia on current regime, with his reported pain level being 5.5/10 mainly in his chronic neck and low back pain. Patient reports occasional constipation as a side effect of his pain medication, for which utilizes Maalox or magnesium citrate with good results. The patient continues to effectively use his CPAP machine and is stable in his current management plan. Denies any fever or chills, chest pain, shortness of breaths, headaches, palpitations, nausea, sedation, weakness or urinary retention except occasional constipation. [facility] Medical History Muscle spasms of neck Degenerative cervical disc Shortness of breath Constipation Circadian rhythm sleep disorder Vision changes Personal history of nicotine dependence Tobacco abuse Obstructive sleep apnea on CPAP (~03/2015) Current use of residential anticoagulation Degenerative joint disease of cervical and lumbar spine Persistent atrial fibrillation (~2014) Peripheral vascular disease Obesity Insomnia COPD (chronic obstructive pulmonary disease) Bilateral primary osteoarthritis of knee Hypercholesterolemia Surgical History History of spinal surgery History of colonoscopy History of cardioversion (~2018) History of carpal tunnel release History of bilateral cataract extraction History of hip replacement, total History of removal of cyst History of vitrectomy (~11/2019) Family History Father Myocardial infarction Sister Multiple sclerosis Social History Household Members: Spouse Housing: House Alcohol intake: former Patient Tobacco Use Status: Former Tobacco user Tobacco use type: Cigarette Years Smoked: 54 on/off - 30pyh e-Cigarette/Vaping Use: Never Used Second Hand Smoke Exposure: Yes Current occupational status: retired Cognitive needs: No Hearing needs: No Vision needs: Yes Review of Systems Const All systems reviewed & are unremarkable except as noted in HPI and below Physical Exam Vital Signs: Last Vital Signs Pulse 87 09/02/24 10:50 BP 149/68 H 09/02/24 10:50 Pulse Ox 94 09/02/24 10:50 Oxygen Delivery Method Room Air 09/02/24 10:50 BMI result Body Mass Index 33.3 General: Appears afebrile. Alert and oriented. Mood and affect appropriate. Follows and participates in conversation appropriately. Respiratory effort is unlabored. No cough. Able to transition from sit to stand unassisted. Ambulates with bilaterally normal heel strike and toe off. Eyes General: appearance normal, both eyes and all related structures Resp Effort & Inspection: normal respiratory effort, able to speak in complete sentences, no cough, respiratory effort not decreased, no respiratory distress and No symmetric chest movement Back/Spine/Pelvis Cervical Spine: cervical muscular tenderness, pain with cervical ROM and No Cervical spine tenderness Thoracic/Lumbar Spine: thoracic and lumbar spine normal to inspection, Lasegue's sign negative, straight leg raise negative bilaterally, pain with thoraco-lumbar ROM, No paraspinal muscle tenderness, thoraco-lumbar ROM limited, No thoracic spinal tenderness and No lumbar spinal tenderness Psych Appearance: grossly normal and well kempt Mental Status: mental status grossly normal Speech and movement: Normal speech and movement present and Clear speech present Affect: normal affect Attitude: cooperative Thought process: Normal thought process present Thought content: Normal thought content present, suicidality (none), no hallucinations and No Depressive thoughts present Insight: Good insight present (Psych) Judgement: Good judgement present (Psych) Results Reviewed Results Reviewed: XR CERVICAL SPINE 12/23/22 FINDINGS: The visualized cervical vertebrae are intact with normal alignment. Odontoid process is intact with normal C1/C2 lateral masses alignment. Pre-dental interval is normal. Pre vertebral soft tissue is normal in thickness. Prominent bilateral apophyseal joints and uncovertebral joint osteophytes are present. Bilateral oblique x-rays of cervical spine show normal apophyseal joint alignment. However, evaluation of cervical neural foramina remains limited by suboptimal positioning. The left cervical neural foramina and right C2-C3 neural foramen appear patent. IMPRESSION: 1. Unchanged multilevel advanced cervical spondylosis. 2. No fracture or dislocation of cervical spine is seen. MR LUMBAR SPINE WITHOUT IV CONTRAST 10/07/2015 CLINICAL INFORMATION: Back pain and bruising in the right buttock and thigh. FINDINGS: There are 5 nonrib-bearing lumbar-type vertebral bodies. Lumbar alignment is normal. The vertebral body heights are maintained. There is moderate disc volume loss at L1-L2. Disc desiccation at L1-L2 and L3-L4. Mild Modic type I degenerative endplate changes anteriorly at L1-L2. There is no additional bone marrow edema. There are no acute fractures. Conus terminates at the T12-L1 disc level. There is left iliopsoas muscle atrophy that is partially imaged. No additional significant soft tissue findings. L1-L2: There is a small annular disc bulge and there is mild bilateral facet arthropathy with no central canal stenosis and no significant foraminal stenosis. L2-L3: The disc contour is normal. There is no central canal stenosis and there is no foraminal stenosis. L3-L4: Small annular disc bulge exhibiting a ventral annular fissure. There is moderate bilateral facet arthropathy. There is no central canal stenosis and there is mild foraminal narrowing bilaterally, slightly greater on the right side. L4-L5: There is a diffuse annular disc bulge and there is severe bilateral hypertrophic facet arthropathy and ligamentum flavum thickening. No central canal stenosis. No significant foraminal stenosis. L5-S1: There is a diffuse annular disc bulge and there is severe left and moderate right hypertrophic facet arthropathy. There is no central canal stenosis and there is no foraminal stenosis. IMPRESSION: - Small disc bulges at the L1-L2, L3-L4, L4-L5, and L5-S1 levels, at L3-L4 associated with a ventral annular fissure. There is severe bilateral hypertrophic facet arthropathy at L4-L5 and severe left and moderate right hypertrophic facet arthropathy at L5-S1. No severe central canal stenosis and no severe foraminal stenosis within the lumbar spine. - Severe left iliopsoas muscle atrophy. Assessment & Plan Assessment & Plan (1) Bilateral primary osteoarthritis of knee: Code(s): M17.0 - Bilateral primary osteoarthritis of knee Category: Medical (2) Degenerative joint disease of cervical and lumbar spine: Code(s): M47.812 - Spondylosis without myelopathy or radiculopathy, cervical region; M47.816 - Spondylosis without myelopathy or radiculopathy, lumbar region Category: Medical (3) Opioid contract exists: Code(s): Z79.891 - senior living (current) use of opiate analgesic Category: Medical (4) Chronic pain syndrome: Code(s): G89.4 - Chronic pain syndrome Category: Medical (5) Cervical spondylosis: Code(s): M47.812 - Spondylosis without myelopathy or radiculopathy, cervical region Category: Medical (6) Degenerative cervical disc: Code(s): M50.30 - Other cervical disc degeneration, unspecified cervical region Category: Medical Plan Patient has shown accountability for his medication regimen and the pill count was accurate. The patient reported no side effects. There is no evidence of misuse, abuse, or diversion at this time. [employer] reviewed. Will obtain random UDS today. Pain management will remain conservative for the patient's chronic back and neck pain, as he does not wish to pursue interventional treatments at this time. No changes in medications or interventions will occur at this time, allowing stable management of his pain conditions. Script sent for morphine IR 15 mg QID prn with advanced date of 09/08/24. Patient has Narcan at home. All questions were answered and patient agreed with the plan. Follow up in one month for pill count/UDS review and sooner if needed. Medications: Refilled morphine Partial Fill upon patient request. 15 mg PO Q6H PRN 120 tabs 0RF pain (scale score 7-10) 30 days MDD 4 G89.4 - Chronic pain syndrome, M17.0 - Bilateral primary osteoarthritis of knee, M47.812 - Spondylosis without myelopathy or radiculopathy, cervical region, M47.816 - Spondylosis without myelopathy or radiculopathy, lumbar region, Z79.891 - senior living (current) use of opiate analgesic Coding Level of Care Code Est Pt Level 4 (25843) Complex EM visit Add On G2211 Diagnoses Bilateral primary osteoarthritis of knee M17.0 Degenerative joint disease of cervical and lumbar spine M47.812; M47.816 Opioid contract exists Z79.891 Chronic pain syndrome G89.4 Cervical spondylosis M47.812 Degenerative cervical disc M50.30
[2024-09-02 10:50] VITALS: BP 149/68; PULSE 87; O2SAT 94; BMI 33.3
--- OUTSIDE RECORDS SUMMARY | 2024-09-02 11:35 | XMS_ITS | Clinical Summary ---
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
== END 2024-09-02 10:54 | disposition home or self-care (01) ==
LOC: HO.PMC 10:41
PROVIDERS: PCP Internal Medicine; Visit Provider Nurse Practitioner Family
DX: M17.0 Bilateral primary osteoarthritis of knee (principal); M47.812 Spondylosis without myelopathy or radiculopathy, cervical region; M47.816 Spondylosis without myelopathy or radiculopathy, lumbar region; Z79.891 Long term (current) use of opiate analgesic; G89.4 Chronic pain syndrome; M50.30 Other cervical disc degeneration, unspecified cervical region
CPT/HCPCS: 99214; G2211

== ENCOUNTER → 2024-09-02 10:40 | Outpatient (BNVA) | payer MEDICARE, SELFPAY | PROVIDERS: PCP Internal Medicine; Visit Provider Nurse Practitioner Family | DX: Z51.81 Encounter for therapeutic drug level monitoring (principal); M17.0 Bilateral primary osteoarthritis of knee; M47.812 Spondylosis without myelopathy or radiculopathy, cervical region; M47.816 Spondylosis without myelopathy or radiculopathy, lumbar region; M50.30 Other cervical disc degeneration, unspecified cervical region; G89.4 Chronic pain syndrome; Z79.891 Long term (current) use of opiate analgesic | CPT/HCPCS: 99212 ==

== ENCOUNTER 2024-09-17 09:45 | Outpatient (AMB) | payer MEDICARE, SELFPAY ==
[2024-09-17 09:47] VITALS: BP 148/80; PULSE 86; RESP 18; TEMP 36.2; O2SAT 96; BMI 33.7
--- NOTE | 2024-09-17 09:47 | MHC.PC.OV ---
Vital Signs 09/17/24 09:47 Height 5 ft 11 in Weight 242 lb BMI 33.7 BP 148/80 H Blood Pressure Location Lt brachial Position Sitting Respiration 18 Pulse 86 Pulse Source Pulse Oximeter Temp 97.1 F Temp Source Temporal Artery Scan Pulse Oximetry (%) 96 Oxygen Delivery Method Room Air Intake Visit Reasons: A fib, CHF, COPD Allergies No Known Allergies Allergy (Verified 09/17/24 09:49) Tobacco use date assessed: 09/17/24 Fall risk assessment: No Falls in past year Last assessed Fall Risk: 09/17/24 Dental Screening Dental Screen Date: 09/17/24 Did you have a dental visit in the last 12 months?: No Did you have a dental problem in the last 6 months where you did not have access to dental care?: No Was dental information given to patient?: Patient has dentist [facility] Medical History Muscle spasms of neck Degenerative cervical disc Shortness of breath Constipation Circadian rhythm sleep disorder Vision changes Personal history of nicotine dependence Tobacco abuse Obstructive sleep apnea on CPAP (~03/2015) 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 Degenerative joint disease of cervical and lumbar spine Persistent atrial fibrillation (~2014) Peripheral vascular disease Obesity Insomnia COPD (chronic obstructive pulmonary disease) Bilateral primary osteoarthritis of knee Hypercholesterolemia Surgical History History of spinal surgery History of colonoscopy History of cardioversion (~2018) History of carpal tunnel release History of bilateral cataract extraction History of hip replacement, total History of removal of cyst History of vitrectomy (~11/2019) Family History Father Myocardial infarction Sister Multiple sclerosis Social History Household Members: Spouse Housing: House Alcohol intake: former Patient Tobacco Use Status: Former Tobacco user Tobacco use type: Cigarette Years Smoked: 54 on/off - 30pyh e-Cigarette/Vaping Use: Never Used Second Hand Smoke Exposure: Yes Current occupational status: retired Cognitive needs: No Hearing needs: No Vision needs: Yes Questionnaire PHQ-9 Over the last 2 weeks, how often have you been bothered by any of the following problems? 1. Little interest or pleasure in doing things: not at all 2. Feeling down, depressed, or hopeless: not at all 3. Trouble falling or staying asleep, or sleeping too much: not at all 4. Feeling tired or having little energy: not at all 5. Poor appetite or overeating: not at all 6. Feeling bad about yourself - or that you are a failure or have let yourself or your family down: not at all 7. Trouble concentrating on things, such as reading the newspaper or watching television: not at all 8. Moving or speaking so slowly that other people could have noticed. Or the opposite - being so fidgety or restless that you have been moving around a lot more than usual: not at all 9. Thoughts that you would be better off or of hurting yourself in some way: not at all Total score: 0 Depression Screening Interpretation: Negative Depression Screening Done: Yes Source: Developed by Drs. Alli Chen, Miya Oneil, Umair Whitten and colleagues, with an educational megha from [employer]. Thrive Questionnaire Date Thrive assessed: 02/27/24 I am a: Patient What is your living situation today?: I have a steady place to live Within the past 12 months, did the food you bought not last and you didn't have the money to get more?: Never true Within the past 12 months, did you worry whether your food would run out before you got money to buy more?: Never true Do you have trouble paying for medicines?: No Do you have trouble getting transportation to medical appointments?: No Do you have trouble paying your heating and electricity bill?: No Do you have trouble taking care of your child, family member or friend?: No Do you have trouble with day-to-day activities such as bathing, preparing meals, shopping, managing finances, etc.?: No Are you currently unemployed and looking for a job?: No Are you interested in more education?: No Currently or been in a relationship where the following occur: No concerns reported THRIVE Score: 0 AUDIT C Alcohol Use Questionnaire (AUDIT-C) 1. How often do you have a drink containing alcohol?: Never 3. How often do you have six or more drinks on one occasion?: Never Total Score: 0 LUCY-7 AMB Questionnaire LUCY-7 Date LUCY - 7 assessed: 02/27/24 Feeling nervous, anxious, or on edge: 0 = Not at all Not being able to stop or control worryin = Not at all Worrying too much about different things: 0 = Not at all Trouble relaxin = Not at all Being so restless that it is hard to sit still: 0 = Not at all Becoming easily annoyed or irritable: 0 = Not at all Feeling afraid as if something awful might happen: 0 = Not at all Total LUCY-7 score (0-4 normal; 5-9 mild; 10-14 moderate; 15-21 severe): 0 Source: Developed by Drs. Alli Chen, Miya Oneil, Umair Whitten and colleagues, with an educational megha from [employer]. Physical exam (Primary Care) Vital Signs: Last Vital Signs Temp 97.1 F 09/17/24 09:47 Pulse 86 09/17/24 09:47 Resp 18 09/17/24 09:47 BP 148/80 H 09/17/24 09:47 Pulse Ox 96 09/17/24 09:47 Oxygen Delivery Method Room Air 09/17/24 09:47 BMI result Body Mass Index 33.7 Tobacco/Smoking Status: Tobacco use Status Tobacco use date assessed 09/17/24 09/17/24 09:51 Patient Tobacco Use Status Former Tobacco user 09/17/24 09:51 Tobacco use type Cigarette 09/17/24 09:51 e-Cigarette/Vaping Use Never Used 09/17/24 09:51 PHQ-9: PHQ-9 Score PHQ-9: Total score 0 09/17/24 10:19 Depression Screening Interpretation: Negative Thrive Assessment: Date of Thrive Assessment Date Thrive assessed 02/27/24 09/17/24 09:51 Currently or been in a relationship where the following occur: No concerns reported Const General: alert; No acute distress Eyes Conjunctivae: conjunctivae normal Resp Auscultation: clear to auscultation bilaterally Cardio Rate: regular rate Rhythm: regular rhythm GI Inspection: Yes normal to inspection Extrem General: Yes normal to inspection and No edema Coding Level of Care Code Est Pt Level 4 (76185) Complex EM visit Add On G2211 Diagnoses Essential hypertension I10 Chronic diastolic (congestive) heart failure I50.32 Atherosclerotic cardiovascular disease I25.10 Persistent atrial fibrillation I48.19 Hypercholesterolemia E78.00 Bilateral primary osteoarthritis of knee M17.0 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 type: emphysema Emphysema type: panlobular YUNIEL on CPAP G47.33; Z99.89 Generalized anxiety disorder F41.1 Colon cancer screening Z12.11 Assessment & Plan Assessment & Plan (1) Essential hypertension: Code(s): I10 - Essential (primary) hypertension Category: Medical Plan: Continue with blood pressure medication. Decrease salt intake and exercise patient is on diltiazem 300 mg once a day metoprolol 50 mg once a day (2) Chronic diastolic (congestive) heart failure: Code(s): I50.32 - Chronic diastolic (congestive) heart failure Category: Medical Plan: Continue with diuretic furosemide 80 mg once a day with potassium weigh daily (3) Atherosclerotic cardiovascular disease: Code(s): I25.10 - Atherosclerotic heart disease of eagle coronary artery without angina pectoris Category: Medical Plan: Control the cholesterol, weight, blood pressure, diabetes patient on anticoagulation with Eliquis (4) Persistent atrial fibrillation: Onset Date: ~2014 Code(s): I48.19 - Other persistent atrial fibrillation Category: Medical Plan: Continue with anticoagulation and metoprolol (5) Hypercholesterolemia: Code(s): E78.00 - Pure hypercholesterolemia, unspecified Category: Medical Plan: Avoid fried foods, chicken skin, eggs, butter margarine, pastries and meat. Be it pork or beef they have a lot of cholesterol patient on atorvastatin 40 mg once a day (6) Bilateral primary osteoarthritis of knee: Code(s): M17.0 - Bilateral primary osteoarthritis of knee Category: Medical Plan: Continue to follow-up with pain management on narcotic pain medication. (7) COPD (chronic obstructive pulmonary disease): Code(s): J44.9 - Chronic obstructive pulmonary disease, unspecified Category: Medical Qualifiers: COPD type: emphysema Emphysema type: panlobular Qualified Code(s): J43.1 - Panlobular emphysema Plan: Patient taking albuterol inhaler as needed with Breo and tiotropium (8) YUNIEL on CPAP: Comment: CPAP Code(s): G47.33 - Obstructive sleep apnea (adult) (pediatric); Z99.89 - Dependence on other enabling machines and devices Category: Medical Plan: Continue to use the CPAP more than 4 hours a night and benefits from this. (9) Generalized anxiety disorder: Code(s): F41.1 - Generalized anxiety disorder Category: Medical Plan: Continue with present medication on lorazepam as needed (10) Colon cancer screening: Code(s): Z12.11 - Encounter for screening for malignant neoplasm of colon Category: Medical Plan History of Present Illness The patient is a 74-year-old male presenting for a follow-up visit. The patient has a history of obesity and hypercholesterolemia. He has been diagnosed with Chronic Obstructive Pulmonary Disease (COPD) and is currently using an albuterol inhaler as needed, along with Breo and tiotropium. The patient has atrial fibrillation and hypertension, for which he is on diltiazem and metoprolol. He also takes furosemide with potassium supplementation and is on anticoagulation therapy with Eliquis. The patient has obstructive sleep apnea and uses a CPAP machine regularly, which he finds beneficial. He has atherosclerotic cardiovascular disease and congestive heart failure. His last cholesterol test showed an LDL of 58 mg/dL and triglycerides of 96 mg/dL. The patient has generalized anxiety disorder and takes lorazepam as needed. He is followed by pain management for bilateral osteoarthritis and cervical and lumbar degenerative disease, and is on narcotic pain medication. He reports no issues with constipation since switching medications. The patient's last blood work in January showed mild anemia with hemoglobin of 13.3 g/dL and hematocrit of 39.9%. April blood work indicated normal electrolytes, renal function, and a blood sugar of 120 mg/dL with a hemoglobin A1c of 5.8%. Preventative care measures include a referral for a colonoscopy, as his last one was in 2014. Health Maintenance - Referral for colonoscopy due to last screening in 2014 - Vaccinations up to date, including shingles and pneumonia Social History Review of Systems - Cardiovascular: Denies chest pain, reports fluctuating blood pressure readings. - Respiratory: Reports use of inhalers for COPD, denies shortness of breath. - Neurological: Denies dizziness, reports no issues with CPAP use. Physical Exam Results - Labs: Mild anemia with hemoglobin 13.3 g/dL, hematocrit 39.9% (January). - Labs: Normal electrolytes, renal function, blood sugar 120 mg/dL, hemoglobin A1c 5.8% (April). - Labs: LDL 58 mg/dL, triglycerides 96 mg/dL (January). Plan The patient's blood pressure management plan includes reducing the diltiazem dosage from 300 mg to 240 mg due to consistently low readings, while continuing metoprolol and furosemide with potassium supplementation. Anticoagulation therapy with Eliquis will be maintained, and the patient is advised to monitor blood pressure regularly. For hypercholesterolemia, the patient will continue atorvastatin 40 mg daily. The patient is advised to continue using the CPAP machine for obstructive sleep apnea and to maintain current inhaler use for COPD. A referral for a colonoscopy has been made, as the last screening was in 2014. Vaccinations are up to date, including shingles and pneumonia. Patient was informed and verbally consented to the use of an ambient scribe for clinic note documentation during this visit. Discussion Notes I discussed with the patient the need to adjust his blood pressure medication due to low readings, specifically reducing diltiazem to 240 mg. We reviewed the importance of continuing anticoagulation therapy with Eliquis and monitoring blood pressure regularly. I emphasized the continuation of atorvastatin for cholesterol management and the use of CPAP for sleep apnea. A referral for a colonoscopy was made, and I confirmed that vaccinations are current. Patient Instructions - Monitor blood pressure regularly and report any significant changes. - Continue taking all prescribed medications as directed, including atorvastatin and Eliquis. - Use CPAP machine nightly for at least 4 hours. - Follow up with the scheduled colonoscopy appointment. Orders: Orders Complete Blood Count Auto Diff Today I25.10 - Atherosclerotic heart disease of eagle coronary artery without angina pectoris Lipid Panel Today E78.00 - Pure hypercholesterolemia, unspecified, I25.10 - Atherosclerotic heart disease of eagle coronary artery without angina pectoris Magnesium Today I50.32 - Chronic diastolic (congestive) heart failure Comprehensive Met. Panel Today I25.10 - Atherosclerotic heart disease of eagle coronary artery without angina pectoris Free T4 (Free Thyroxine) Today I25.10 - Atherosclerotic heart disease of eagle coronary artery without angina pectoris Thyroid Stimulating Hormone Today I25.10 - Atherosclerotic heart disease of eagle coronary artery without angina pectoris Hemoglobin A1c Today I25.10 - Atherosclerotic heart disease of eagle coronary artery without angina pectoris Digoxin Today I50.32 - Chronic diastolic (congestive) heart failure B Type Natriuretic Peptide Today I50.32 - Chronic diastolic (congestive) heart failure Referrals Gastroenterology Referral Z12.11 - Encounter for screening for malignant neoplasm of colon Medications: Changed From diltiazem HCl CD 300 mg PO DAILY 90 caps 2RF I50.32 - Chronic diastolic (congestive) heart failure To diltiazem HCl CD 240 mg PO DAILY 90 caps 1RF I50.32 - Chronic diastolic (congestive) heart failure
--- OUTSIDE RECORDS SUMMARY | 2024-09-17 10:20 | XMS_ITS | Clinical Summary ---
Author Organization [employer] Address [address] [place] [address] Care Team Providers Care Promotional Advertising Assistant Name Role Phone Unavailable Primary Care Provider [...]
--- OUTSIDE RECORDS SUMMARY | 2024-09-17 10:20 | XMS_ITS | Patient Health Record ---
Author Organization [facility] Address [address] [place] [address] Care Team Providers Care Process Mold Technician Name Role Phone Hernesto Jaimes Primary Care Provider Faustino Crockett Jr Allergies Allergen (clinical drug ingredient) Drug/Non Drug Allergy documented on EMR Reaction Allergy Type Onset Date Status enviromental (uncoded) Unknown Allergy Active Reason For Referral No Information Medications Medication SIG (Take, Route, Frequency, Duration) Notes Start Date End Date Status Losartan Potassium 25 MG 1 Orally QD Active Advair HFA 45-21 MCG/ACT 2 puffs Inhalat ion Twice a day Active Combivent Respimat 20-100 MCG/ACT 1 puff Inhalation Four times a day Active hydroCHLOROthiazide 25 MG 1 tablet Orall y Once a day Active Colyte with Flavor Packs 240 GM As direc jaun Orally Over the specified time. for 1 day(s) 07/31/2014 Active Neurontin 300 MG 2 capsule Orally Three times a day Active Immunizations Vaccine Route Administration Date Status Comme nts Flu vaccine no Preserv 3 and > Unknown 04/02/2014 Admin istered Problems Problem Type SNOMED Code ICD Code Onset Dates Problem Status W/U Status Risk Notes Problem 210232097 Colon cancer screening (V76.51) Active confirmed Problem 412521309 Encounter for long-term (current) use of other high-risk medications (V58.69) Active confirmed Problem Hypertension (82568494) Hypertension (401.9) Active confirmed Plan Of Treatment Future Test Test Name Order Date COLONOSCOPY 07/31/2014 Insurance Providers Payer Name Payer Address Payer Phone Subscriber Number Group Number Insured Name Patient Relationship to Insured Coverage Start Date Coverage End Date MEDICARE OF [place] [address] [place] [id number] [phone] [id number] CHARAN VASQUEZ Self - patient is the insured MEDICAID OF [facility] [address] [place] [phone] [id number] CHARAN VASQUEZ Self - patient is the insured Medical (General) History Medical History History ICD Code hypertension degenerative joint disease COPD/asthma he denies cardiac disease Surgical History Surgery Date(Month/Year) left hip replacement 2005 right hip replacement 2010
== END 2024-09-17 10:31 | disposition home or self-care (01) ==
LOC: HO.HMCH 09:46
PROVIDERS: PCP Internal Medicine; Visit Provider Internal Medicine
DX: I11.0 Hypertensive heart disease with heart failure (principal); I50.32 Chronic diastolic (congestive) heart failure; I48.19 Other persistent atrial fibrillation; J43.1 Panlobular emphysema; I25.10 Atherosclerotic heart disease of native coronary artery without angina pectoris; E78.00 Pure hypercholesterolemia, unspecified; M17.0 Bilateral primary osteoarthritis of knee; G47.33 Obstructive sleep apnea (adult) (pediatric); Z99.89 Dependence on other enabling machines and devices; F41.1 Generalized anxiety disorder; Z12.11 Encounter for screening for malignant neoplasm of colon

== ENCOUNTER → 2024-09-17 09:45 | Outpatient (BNVA) | payer MEDICARE, SELFPAY | PROVIDERS: PCP Internal Medicine; Visit Provider Internal Medicine | DX: I11.0 Hypertensive heart disease with heart failure (principal); I50.32 Chronic diastolic (congestive) heart failure; I25.10 Atherosclerotic heart disease of native coronary artery without angina pectoris; I48.19 Other persistent atrial fibrillation; E78.00 Pure hypercholesterolemia, unspecified; M17.0 Bilateral primary osteoarthritis of knee; J43.1 Panlobular emphysema; G47.33 Obstructive sleep apnea (adult) (pediatric); Z99.89 Dependence on other enabling machines and devices; F41.1 Generalized anxiety disorder | CPT/HCPCS: 99212 ==

== ENCOUNTER 2024-09-30 09:50 | Outpatient (AMB) | payer MEDICARE, SELFPAY ==
[2024-09-30 09:53] VITALS: BP 145/70; PULSE 84; RESP 16; O2SAT 95; BMI 33.5
--- NOTE | 2024-09-30 09:53 | A.OFFVIS_ITS ---
Vital Signs 09/30/24 09:53 Height 5 ft 11 in Weight 240 lb BMI 33.5 BP 145/70 H Blood Pressure Location Lt brachial Position Sitting Respiration 16 Pulse 84 Pulse Source Pulse Oximeter Pulse Oximetry (%) 95 Oxygen Delivery Method Room Air Intake Visit Reasons: Pill Count Intake Note: Patient here for a pill count routine for Oxycodone. Per directions patient should have 36 pills. Patient presented 37 pills. Last took 6am. Biogeographer Required: No Accompanied by: Self / Same As Patient Allergies No Known Allergies Allergy (Verified 09/30/24 09:57) HPI Comments Details: Patient presents today for a pill count and pain management. Patient is supposed to have oxycodone 10 mg #36 pills, in his possession has #37 pills. This demonstrates a responsible attitude in regards to the medication regimen. Patient reports adequate analgesia on current regime, with his reported pain level being 5/10 mainly in his chronic neck and low back pain. Patient reports rare constipation since switching to oxycodone from morphine due to national shortage. He continues to utilize Maalox or magnesium citrate as needed. The patient continues to effectively use his CPAP machine and is stable in his current management plan. Denies any fever or chills, chest pain, shortness of breaths, headaches, palpitations, nausea, sedation, weakness or urinary retention except occasional constipation. 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 Degenerative joint disease of cervical and lumbar spine Persistent atrial fibrillation (~2014) Peripheral vascular disease Obesity Insomnia COPD (chronic obstructive pulmonary disease) Bilateral primary osteoarthritis of knee Hypercholesterolemia Surgical History History of spinal surgery History of colonoscopy History of cardioversion (~2018) History of carpal tunnel release History of bilateral cataract extraction History of hip replacement, total History of removal of cyst History of vitrectomy (~11/2019) Family History Father Myocardial infarction Sister Multiple sclerosis Social History (Reviewed 09/30/24 @ 10:03 by PAULA Zuleta Household Members: Spouse Housing: House Alcohol intake: former Patient Tobacco Use Status: Former Tobacco user Tobacco use type: Cigarette Years Smoked: 54 on/off - 30pyh e-Cigarette/Vaping Use: Never Used Second Hand Smoke Exposure: Yes Current occupational status: retired Cognitive needs: No Hearing needs: No Vision needs: Yes Review of Systems Const All systems reviewed & are unremarkable except as noted in HPI and below Physical Exam Vital Signs: Last Vital Signs Pulse 84 09/30/24 09:53 Resp 16 09/30/24 09:53 BP 145/70 H 09/30/24 09:53 Pulse Ox 95 09/30/24 09:53 Oxygen Delivery Method Room Air 09/30/24 09:53 BMI result Body Mass Index 33.5 General: Appears afebrile. Alert and oriented. Mood and affect appropriate. Follows and participates in conversation appropriately. Respiratory effort is unlabored. No cough. Able to transition from sit to stand unassisted. Ambulates with bilaterally normal heel strike and toe off. Back/Spine/Pelvis Cervical Spine: cervical muscular tenderness, pain with cervical ROM and No Cervical spine tenderness Thoracic/Lumbar Spine: thoracic and lumbar spine normal to inspection, Lasegue's sign negative, straight leg raise negative bilaterally, pain with thoraco-lumbar ROM, No paraspinal muscle tenderness, thoraco-lumbar ROM limited, No thoracic spinal tenderness and No lumbar spinal tenderness Psych Appearance: grossly normal and well kempt Mental Status: mental status grossly normal Speech and movement: Normal speech and movement present and Clear speech present Affect: normal affect Attitude: cooperative Thought process: Normal thought process present Thought content: Normal thought content present, suicidality (none), no hallucinations and No Depressive thoughts present Insight: Good insight present (Psych) Judgement: Good judgement present (Psych) Assessment & Plan Assessment & Plan (1) Bilateral primary osteoarthritis of knee: Code(s): M17.0 - Bilateral primary osteoarthritis of knee Category: Medical (2) Degenerative joint disease of cervical and lumbar spine: Code(s): M47.812 - Spondylosis without myelopathy or radiculopathy, cervical region; M47.816 - Spondylosis without myelopathy or radiculopathy, lumbar region Category: Medical (3) Opioid contract exists: Code(s): Z79.891 - intermediate frame tender (current) use of opiate analgesic Category: Medical (4) Chronic pain syndrome: Code(s): G89.4 - Chronic pain syndrome Category: Medical (5) Cervical spondylosis: Code(s): M47.812 - Spondylosis without myelopathy or radiculopathy, cervical region Category: Medical (6) Degenerative cervical disc: Code(s): M50.30 - Other cervical disc degeneration, unspecified cervical region Category: Medical Plan Patient has shown accountability for his medication regimen and the pill count was accurate. The patient reported no side effects. There is no evidence of misuse, abuse, or diversion at this time. MassPat reviewed. Recent random UDS was concordant. Pain management will remain conservative for the patient's chronic back and neck pain, as he does not wish to pursue interventional treatments at this time. No changes in medications or interventions will occur at this time, allowing stable management of his pain conditions. Script sent for oxycodone 10 mg Q6H prn with advanced date of 10/08/24. Patient has Narcan at home. All questions were answered and patient agreed with the plan. Follow up in one month for pill count and sooner if needed. Medications: Refilled oxycodone Partial Fill upon patient request. 10 mg PO Q6H PRN 120 tabs 0RF pain 30 days G89.4 - Chronic pain syndrome, M47.812 - Spondylosis without myelopathy or radiculopathy, cervical region, M47.816 - Spondylosis without myelopathy or radiculopathy, lumbar region, Z79.891 - longterm (current) use of opiate analgesic Coding Level of Care Code Est Pt Level 4 (86942) Complex EM visit Add On G2211 Diagnoses Bilateral primary osteoarthritis of knee M17.0 Degenerative joint disease of cervical and lumbar spine M47.812; M47.816 Opioid contract exists Z79.891 Chronic pain syndrome G89.4 Cervical spondylosis M47.812 Degenerative cervical disc M50.30
--- OUTSIDE RECORDS SUMMARY | 2024-09-30 10:21 | XMS_ITS | Clinical Summary ---
Author Organization [employer] Address [address] [place] [address] Care Team Providers Care Corporate Vp Advertising & Online Name Role Phone Unavailable Primary Care Provider [...]
--- OUTSIDE RECORDS SUMMARY | 2024-09-30 10:22 | XMS_ITS | Patient Health Record ---
Author Organization [facility] Address [address] [place] [address] Care Team Providers Care Hog Scraper Name Role Phone Hernesto Jaimes Primary Care Provider Faustino Crockett Jr [phone] Allergies Allergen (clinical drug ingredient) Drug/Non Drug [...] Problem Status W/U Status Risk Notes Problem [id number] Colon cancer screening (V76.51) Active confirmed Problem [id number] Encounter for long-term (current) use of other high-risk medications (V58.69) Active confirmed Problem Hypertension (401.9) Active confirmed Plan Of Treatment Future Test Test Name Order Date COLONOSCOPY 07/31/2014 Insurance Providers Payer Name Payer Address Payer Phone Subscriber Number Group Number Insured Name Patient Relationship to Insured Coverage Start Date Coverage End Date MEDICARE OF [place] [address] [place] [id number] CHARAN VASQUEZ Self - patient is the insured MEDICAID OF [facility] [address] [place] [phone] [id number] CHARAN VASQUEZ Self - patient is the insured Medical (General) History Medical History History ICD Code hypertension degenerative joint disease COPD/asthma he denies cardiac disease Surgical History Surgery Date(Month/Year) left hip replacement 2005 right hip replacement 2010
== END 2024-09-30 10:06 | disposition home or self-care (01) ==
LOC: HO.PMC 09:51
PROVIDERS: PCP Internal Medicine; Visit Provider Nurse Practitioner Family
DX: M17.0 Bilateral primary osteoarthritis of knee (principal); M47.812 Spondylosis without myelopathy or radiculopathy, cervical region; M47.816 Spondylosis without myelopathy or radiculopathy, lumbar region; Z79.891 Long term (current) use of opiate analgesic; G89.4 Chronic pain syndrome; M50.30 Other cervical disc degeneration, unspecified cervical region
CPT/HCPCS: 99214; G2211

== ENCOUNTER → 2024-09-30 09:50 | Outpatient (BNVA) | payer MEDICARE, SELFPAY | PROVIDERS: PCP Internal Medicine; Visit Provider Nurse Practitioner Family | DX: Z51.81 Encounter for therapeutic drug level monitoring (principal); G89.4 Chronic pain syndrome; Z79.891 Long term (current) use of opiate analgesic | CPT/HCPCS: 99212 ==

== ENCOUNTER 2024-10-28 10:19 | Outpatient (AMB) | payer MEDICARE, SELFPAY ==
--- NOTE | 2024-10-28 10:24 | A.OFFVIS_ITS ---
Vital Signs 10/28/24 10:26 Height 5 ft 11 in Weight 240 lb BMI 33.5 BP 144/72 H Blood Pressure Location Lt brachial Position Sitting Respiration 18 Pulse 86 Pulse Source Pulse Oximeter Pulse Oximetry (%) 97 Oxygen Delivery Method Room Air Intake Visit Reasons: PILL COUNT Intake Note: Patient states he last took his oxycodone at 630am today 9.8.25 MassPAT says he shouldhave 40 he presented with 43 Allergies No Known Allergies Allergy (Verified 10/28/24 10:23) HPI Comments Details: Patient presents today for a pill count and pain management. Patient is supposed to have oxycodone 10 mg #40 pills, in his possession has #43 pills. This dem onstrates a responsible attitude in regards to the medication regimen. Patient reports adequate analgesia on current regime, with his reported pain level being 6/10 mainly in his chronic neck and low back pain. He has been using an air collar to alleviate the pressure around his neck area, which provides some relief. Patient reports rare constipation since switching to oxycodone from morphine due to national shortage. He continues to utilize Maalox or magnesium citrate as needed. The patient continues to effectively use his CPAP machine and is stable in his current management plan. Denies any fever or chills, chest pain, shortness of breaths, headaches, palpitations, nausea, sedation, weakness or urinary retention except occasional constipation. [facility] Medical History Muscle spasms of neck Degenerative cervical disc Shortness of breath Constipation Circadian rhythm sleep disorder Vision changes Personal history of nicotine dependence Tobacco abuse Obstructive sleep apnea on CPAP (~03/2015) Current use of lobsterman anticoagulation Degenerative joint disease of cervical and lumbar spine Persistent atrial fibrillation (~2014) Peripheral vascular disease Obesity Insomnia COPD (chronic obstructive pulmonary disease) Bilateral primary osteoarthritis of knee Hypercholesterolemia Surgical History History of spinal surgery History of colonoscopy History of cardioversion (~2018) History of carpal tunnel release History of bilateral cataract extraction History of hip replacement, total History of removal of cyst History of vitrectomy (~11/2019) Family History Father Myocardial infarction Sister Multiple sclerosis Social History Household Members: Spouse Housing: House Alcohol intake: former Patient Tobacco Use Status: Former Tobacco user Tobacco use type: Cigarette Years Smoked: 54 on/off - 30pyh e-Cigarette/Vaping Use: Never Used Second Hand Smoke Exposure: Yes Current occupational status: retired Cognitive needs: No Hearing needs: No Vision needs: Yes Review of Systems Const All systems reviewed & are unremarkable except as noted in HPI and below Physical Exam Vital Signs: Last Vital Signs Pulse 86 10/28/24 10:26 Resp 18 10/28/24 10:26 BP 144/72 H 10/28/24 10:26 Pulse Ox 97 10/28/24 10:26 Oxygen Delivery Method Room Air 10/28/24 10:26 BMI result Body Mass Index 33.5 General: Appears afebrile. Alert and oriented. Mood and affect appropriate. Follows and participates in conversation appropriately. Respiratory effort is unlabored. No cough. Able to transition from sit to stand unassisted. Ambulates with bilaterally normal heel strike and toe off. Neck Neck: Yes normal visual inspection, Yes no lymphadenopathy, Yes supple, No anterior neck swelling, Yes no JVD, No prominent supraclavicular fat pad and No prominent dorsocervical fat pad Back/Spine/Pelvis Cervical Spine: cervical muscular tenderness, pain with cervical ROM, Cervical spine scars present and No Cervical spine tenderness Thoracic/Lumbar Spine: thoracic and lumbar spine normal to inspection, Lasegue's sign negative, straight leg raise negative bilaterally, pain with thoraco-lumbar ROM, No paraspinal muscle tenderness, thoraco-lumbar ROM limited, No thoracic spinal tenderness and No lumbar spinal tenderness Psych Appearance: grossly normal and well kempt Mental Status: mental status grossly normal Speech and movement: Normal speech and movement present and Clear speech present Affect: normal affect Attitude: cooperative Thought process: Normal thought process present Thought content: Normal thought content present, suicidality (none), no hallucinations and No Depressive thoughts present Insight: Good insight present (Psych) Judgement: Good judgement present (Psych) Results Reviewed Results Reviewed: XR CERVICAL SPINE 12/23/22 FINDINGS: The visualized cervical vertebrae are intact with normal alignment. Odontoid process is intact with normal C1/C2 lateral masses alignment. Pre-dental interval is normal. Pre vertebral soft tissue is normal in thickness. Prominent bilateral apophyseal joints and uncovertebral joint osteophytes are present. Bilateral oblique x-rays of cervical spine show normal apophyseal joint alignment. However, evaluation of cervical neural foramina remains limited by suboptimal positioning. The left cervical neural foramina and right C2-C3 neural foramen appear patent. IMPRESSION: 1. Unchanged multilevel advanced cervical spondylosis. 2. No fracture or dislocation of cervical spine is seen. MR LUMBAR SPINE WITHOUT IV CONTRAST 10/07/2015 CLINICAL INFORMATION: Back pain and bruising in the right buttock and thigh. FINDINGS: There are 5 nonrib-bearing lumbar-type vertebral bodies. Lumbar alignment is normal. The vertebral body heights are maintained. There is moderate disc volume loss at L1-L2. Disc desiccation at L1-L2 and L3-L4. Mild Modic type I degenerative endplate changes anteriorly at L1-L2. There is no additional bone marrow edema. There are no acute fractures. Conus terminates at the T12-L1 disc level. There is left iliopsoas muscle atrophy that is partially imaged. No additional significant soft tissue findings. L1-L2: There is a small annular disc bulge and there is mild bilateral facet arthropathy with no central canal stenosis and no significant foraminal stenosis. L2-L3: The disc contour is normal. There is no central canal stenosis and there is no foraminal stenosis. L3-L4: Small annular disc bulge exhibiting a ventral annular fissure. There is moderate bilateral facet arthropathy. There is no central canal stenosis and there is mild foraminal narrowing bilaterally, slightly greater on the right side. L4-L5: There is a diffuse annular disc bulge and there is severe bilateral hypertrophic facet arthropathy and ligamentum flavum thickening. No central canal stenosis. No significant foraminal stenosis. L5-S1: There is a diffuse annular disc bulge and there is severe left and moderate right hypertrophic facet arthropathy. There is no central canal stenosis and there is no foraminal stenosis. IMPRESSION: - Small disc bulges at the L1-L2, L3-L4, L4-L5, and L5-S1 levels, at L3-L4 associated with a ventral annular fissure. There is severe bilateral hypertrophic facet arthropathy at L4-L5 and severe left and moderate right hypertrophic facet arthropathy at L5-S1. No severe central canal stenosis and no severe foraminal stenosis within the lumbar spine. - Severe left iliopsoas muscle atrophy. Assessment & Plan Assessment & Plan (1) Bilateral primary osteoarthritis of knee: Code(s): M17.0 - Bilateral primary osteoarthritis of knee Category: Medical (2) Degenerative joint disease of cervical and lumbar spine: Code(s): M47.812 - Spondylosis without myelopathy or radiculopathy, cervical region; M47.816 - Spondylosis without myelopathy or radiculopathy, lumbar region Category: Medical (3) Opioid contract exists: Code(s): Z79.891 - senior living (current) use of opiate analgesic Category: Medical (4) Chronic pain syndrome: Code(s): G89.4 - Chronic pain syndrome Category: Medical (5) Cervical spondylosis: Code(s): M47.812 - Spondylosis without myelopathy or radiculopathy, cervical region Category: Medical (6) Degenerative cervical disc: Code(s): M50.30 - Other cervical disc degeneration, unspecified cervical region Category: Medical Plan Patient has shown accountability for his medication regimen and the pill count was accurate. The patient reported no side effects. There is no evidence of misuse, abuse, or diversion at this time. MassPat reviewed. The plan is to continue with the current oxycodone regimen as it effectively manages the patient's pain. The patient should continue using the air collar to alleviate neck pain pressure. Monitoring of constipation is advised, given its improvement, to ensure it remains manageable. Script sent for oxycodone 10 mg Q6H prn with advanced date of 11/07/24. Patient has Narcan at home. All questions were answered and patient agreed with the plan. Follow up in 4-5 weeks for pill count and sooner if needed. Medications: Refilled oxycodone Partial Fill upon patient request. 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 - Use intermittently and short term air collar and gentle stretching exercises to help relieve neck pain. - Monitor constipation and report any changes. Patient was informed and verbally consented to the use of an ambient scribe for clinic note documentation during this visit. Coding Level of Care Code Est Pt Level 4 (53649) Complex EM visit Add On G2211 Diagnoses Bilateral primary osteoarthritis of knee M17.0 Degenerative joint disease of cervical and lumbar spine M47.812; M47.816 Opioid contract exists Z79.891 Chronic pain syndrome G89.4 Cervical spondylosis M47.812 Degenerative cervical disc M50.30
[2024-10-28 10:26] VITALS: BP 144/72; PULSE 86; RESP 18; O2SAT 97; BMI 33.5
--- OUTSIDE RECORDS SUMMARY | 2024-10-28 12:18 | XMS_ITS | Patient Health Record ---
Author Organization [facility] Address [address] [place] [address] Care Team Providers Care Foreign Languages Department Chair Name Role Phone Hernesto Jaimes Primary Care [...] Problem Status W/U Status Risk Notes Problem [id number] Colon cancer screening (V76.51) Active confirmed Problem 287373656 Encounter for long-term (current) use of other high-risk medications (V58.69) Active confirmed Problem Hypertension (55942044) Hypertension (401.9) Active confirmed Plan Of Treatment Future Test Test Name Order Date COLONOSCOPY 07/31/2014 Insurance Providers Payer Name Payer Address Payer Phone Subscriber Number Group Number Insured Name Patient Relationship to Insured Coverage Start Date Coverage End Date MEDICARE OF [place] [address] [place] [id number] CHARAN VASQUEZ Self - patient is the insured MEDICAID OF [facility] [address] [place] [phone] [id number] CHARAN VASQUEZ Self - patient is the insured Medical (General) History Medical History History ICD Code hypertension degenerative joint disease COPD/asthma he denies cardiac disease Surgical History Surgery Date(Month/Year) left hip replacement 2005 right hip replacement 2010
--- OUTSIDE RECORDS SUMMARY | 2024-10-28 12:18 | XMS_ITS | Encounter Summary ---
Author Organization [employer] [facility] Address [address] [place] [address] Care Team Providers Care Supervisor Paper Machine Name Role Phone Unavailable Primary Care Provider Unavailabl e Encounter Details Date Type Department Care Team (Latest Contact Info) Description 04/10/2020 Abstract [facility] CONVERSIONS Dental, Provider, DDS Social History Tobacco [...]
--- OUTSIDE RECORDS SUMMARY | 2024-10-28 12:18 | XMS_ITS | Clinical Summary ---
Author Organization [facility] [facility] Address [address] [place] [address] Care Team Providers Care Desktop Support Specialist Name Role Phone Unavailable Primary Care Provider [...] COVID-19 Vaccine (1 - 2023-2 5 season) 2024 Influenza Vaccine (#1) 2024 HIB Vaccines Aged [...]
== END 2024-10-28 10:35 | disposition home or self-care (01) ==
LOC: HO.PMC 10:20
PROVIDERS: PCP Internal Medicine; Visit Provider Nurse Practitioner Family
DX: M17.0 Bilateral primary osteoarthritis of knee (principal); M47.812 Spondylosis without myelopathy or radiculopathy, cervical region; M47.816 Spondylosis without myelopathy or radiculopathy, lumbar region; Z79.891 Long term (current) use of opiate analgesic; G89.4 Chronic pain syndrome; M50.30 Other cervical disc degeneration, unspecified cervical region
CPT/HCPCS: 99214; G2211

== ENCOUNTER → 2024-10-28 10:19 | Outpatient (BNVA) | payer MEDICARE, SELFPAY | PROVIDERS: PCP Internal Medicine; Visit Provider Nurse Practitioner Family | DX: M17.0 Bilateral primary osteoarthritis of knee (principal); M47.812 Spondylosis without myelopathy or radiculopathy, cervical region; M47.816 Spondylosis without myelopathy or radiculopathy, lumbar region; Z79.891 Long term (current) use of opiate analgesic; G89.4 Chronic pain syndrome; M50.30 Other cervical disc degeneration, unspecified cervical region; G47.33 Obstructive sleep apnea (adult) (pediatric); Z99.89 Dependence on other enabling machines and devices; Z87.891 Personal history of nicotine dependence | CPT/HCPCS: 99212 ==

== ENCOUNTER 2024-10-28 10:39 | Outpatient (REF) | payer MEDICARE, SELFPAY ==
[2024-10-28 12:55] LABS: MANUAL DIFF FLAG NO
[2024-10-28 13:08] LABS: Hemoglobin A1C 162.6040 umol/L; Total Hemoglobin (HGBA1C) 3762.3430 umol/L
[2024-10-28 13:10] LABS: Hematocrit 45.3 % (42.0-52.0); Hemoglobin 14.4 g/dl (14.0-18.0); Imm Gran Abs Auto 0.02 X10*3/uL (0.00-0.03); Imm Gran Pct Auto 0.2 % (0.0-0.4); Lymphocytes Absolute Auto 1.6 X10*3/uL (1.2-4.9); Mean Corpuscular HGB Conc 31.8 g/dl (31.0-36.0); Mean Corpuscular Hemoglobin 30.5 pg (27.0-33.0); Mean Corpuscular Volume 96.0 fL (80.0-98.0); NRBC Abs Auto 0.000 X10*3/uL (0.0-0.012); NRBC Pct Auto 0.0 /100WBC (0.0-0.2); Platelet Count 204 X10*3/uL (160-400); Red Blood Count 4.72 X10*6/uL (4.60-5.80); White Blood Count 9.0 X10*3/uL (4.8-10.8)
[2024-10-28 13:19] LABS: B Type Natriuretic Peptide 287 pg/mL (<100)
[2024-10-28 13:32] LABS: Digoxin 0.7 ng/mL (0.8-2.0)
[2024-10-28 13:53] LABS: Alanine Aminotransferase 25 U/L (0-40); Albumin Level 4.3 g/dL (3.5-5.0); Alkaline Phosphatase 110 U/L (39-117); Anion Gap 16 (12-20); Aspartate Amino Transferase 34 U/L (5-37); Blood Urea Nitrogen 16 mg/dL (9-16); Calcium 9.2 mg/dL (8.4-10.2); Carbon Dioxide 26 mmol/L (22-29); Chloride 104 mmol/L (96-108); Cholesterol 113 mg/dL (<200); Estimated Glomerular Filt Rate 59; HDL Cholesterol 36 mg/dL (>40); Magnesium 2.3 mg/dL (1.6-2.6); Potassium 4.8 mmol/L (3.3-5.1); Sodium 141 mmol/L (135-145); Total Protein 7.6 g/dL (6.5-8.0); Triglycerides 82 mg/dL (<150)
[2024-10-28 13:54] LABS: Free T4 (Free Thyroxine) 1.08 ng/dL (0.71-1.85); Thyroid Stimulating Hormone 1.07 uIU/mL (0.32-4.0)
== END 2024-10-28 10:40 | disposition home or self-care (01) ==
LOC: HO.10HDL 10:39
PROVIDERS: Visit Provider Internal Medicine
DX: E78.00 Pure hypercholesterolemia, unspecified (principal); I50.32 Chronic diastolic (congestive) heart failure; I25.10 Atherosclerotic heart disease of native coronary artery without angina pectoris; Z79.899 Other long term (current) drug therapy
CPT/HCPCS: 36415; 80053; 80061; 80162; 83036; 83735; 83880; 84439; 84443; 85025

== ENCOUNTER 2024-11-25 09:55 | Outpatient (AMB) | payer MEDICARE, SELFPAY ==
--- NOTE | 2024-11-25 09:59 | MHC.OFFVIS ---
Vital Signs 11/25/24 10:04 Height 5 ft 11 in Weight 243 lb BMI 33.9 BP 126/70 Blood Pressure Location Lt brachial Position Sitting Pulse 76 Pulse Source Pulse Oximeter Pulse Oximetry (%) 97 Oxygen Delivery Method Room Air Intake Visit Reasons: PILL COUNT Intake Note: Alli comes in today for a pill count to oxycodone, patient should have 48 tablets and presents with 56 tablets which he last took today 11/25/24 at 3:30am. Pain today 8.5/10 Allergies No Known Allergies Allergy (Verified 11/25/24 10:05) HPI Comments Details: Patient presents today for a pill count and pain management. Patient is supposed to have oxycodone 10 mg #48 pills, in his possession has #56 pills. This demonstrates a responsible attitude in regards to the medication regimen. Patient reports mild to moderate analgesia on current regime, with his reported pain level being 8.5/10 mainly in his chronic neck and low back pain, worse in lower back with intermittent radiation to his bilateral lower legs. The patient reports variability in pain severity, experiencing both good and bad days, with a recent week of increased pain severity. Previous interventions included steroid injections in the neck, which were ineffective. The patient has been using [id number] lidocaine patches, which have provided inconsistent relief. The patient denies any neurological deficits or weakness in the legs, denies bladder or bowel dysfunction or saddle anesthesia. Patient continues to utilize Maalox or magnesium citrate as needed. The patient continues to effectively use his CPAP machine and is stable in his current management plan. Denies any fever or chills, chest pain, shortness of breaths, headaches, palpitations, nausea, sedation, weakness or urinary retention except occasional constipation. [facility] Medical History Muscle spasms of neck Degenerative cervical disc Shortness of breath Constipation Circadian rhythm sleep disorder Vision changes Personal history of nicotine dependence Tobacco abuse Obstructive sleep apnea on CPAP (~03/2015) Current use of shelter anticoagulation Degenerative joint disease of cervical and lumbar spine Persistent atrial fibrillation (~2014) Peripheral vascular disease Obesity Insomnia COPD (chronic obstructive pulmonary disease) Bilateral primary osteoarthritis of knee Hypercholesterolemia Surgical History History of spinal surgery History of colonoscopy History of cardioversion (~2019) History of carpal tunnel release History of bilateral cataract extraction History of hip replacement, total History of removal of cyst History of vitrectomy (~11/2019) Family History Father Myocardial infarction Sister Multiple sclerosis Social History Household Members: Spouse Housing: House Alcohol intake: former Patient Tobacco Use Status: Former Tobacco user Tobacco use type: Cigarette Years Smoked: 54 on/off - 30pyh e-Cigarette/Vaping Use: Never Used Second Hand Smoke Exposure: Yes Current occupational status: retired Cognitive needs: No Hearing needs: No Vision needs: Yes Review of Systems Const Details: - Musculoskeletal: Reports moderate to severe back pain with radiation to the legs. - Neurological: Denies weakness or neurological deficits in the legs. - Gastrointestinal: Denies constipation, reports it is under control. All systems reviewed & are unremarkable except as noted in HPI and below Physical Exam General: Appears afebrile. Alert and oriented. Mood and affect appropriate. Follows and participates in conversation appropriately. Respiratory effort is unlabored. No cough. Able to transition from sit to stand unassisted. Ambulates with bilaterally normal heel strike and toe off. Eyes General: appearance normal, both eyes and all related structures Neck Neck: Yes normal visual inspection, Yes no lymphadenopathy, Yes supple, No anterior neck swelling, Yes no JVD, No prominent supraclavicular fat pad and No prominent dorsocervical fat pad Resp Effort & Inspection: normal respiratory effort, able to speak in complete sentences, no cough, no respiratory distress and symmetric chest movement Back/Spine/Pelvis Cervical Spine: cervical muscular tenderness, pain with cervical ROM, Cervical spine scars present and No Cervical spine tenderness Thoracic/Lumbar Spine: thoracic and lumbar spine normal to inspection, Lasegue's sign positive bilateral and diffuse, pain with thoraco-lumbar ROM, No paraspinal muscle tenderness, thoraco-lumbar ROM limited, No thoracic spinal tenderness and No lumbar spinal tenderness Sacroiliac joints: bilaterally tender to palpation Psych Appearance: grossly normal and well kempt Mental Status: mental status grossly normal Speech and movement: Normal speech and movement present and Clear speech present Affect: normal affect Attitude: cooperative Thought process: Normal thought process present Thought content: Normal thought content present, suicidality (none), no hallucinations and No Depressive thoughts present Insight: Good insight present (Psych) Judgement: Good judgement present (Psych) Assessment & Plan Assessment & Plan (1) Bilateral primary osteoarthritis of knee: Code(s): M17.0 - Bilateral primary osteoarthritis of knee Category: Medical (2) Degenerative joint disease of cervical and lumbar spine: Code(s): M47.812 - Spondylosis without myelopathy or radiculopathy, cervical region; M47.816 - Spondylosis without myelopathy or radiculopathy, lumbar region Category: Medical (3) Opioid contract exists: Code(s): Z79.891 - [facility] (current) use of opiate analgesic Category: Medical (4) Chronic pain syndrome: Code(s): G89.4 - Chronic pain syndrome Category: Medical (5) Cervical spondylosis: Code(s): M47.812 - Spondylosis without myelopathy or radiculopathy, cervical region Category: Medical (6) Degenerative cervical disc: Code(s): M50.30 - Other cervical disc degeneration, unspecified cervical region Category: Medical (7) Lumbar radiculopathy: Code(s): M54.16 - Radiculopathy, lumbar region Category: Medical Plan Patient has shown accountability for his medication regimen and the pill count was accurate. The patient reported no side effects. There is no evidence of misuse, abuse, or diversion at this time. MassPat reviewed. The plan is to continue with the current oxycodone regimen as it effectively manages the patient's pain. The patient should continue using the air collar to alleviate neck pain pressure. Monitoring of constipation is advised, given its improvement, to ensure it remains manageable. The plan for managing the patient's chronic back pain includes continuing the current regimen of oxycodone and considering the use of a 5% lidocaine patch, which may require prior authorization. If the pain worsens, the patient is advised to contact the clinic for a possible prescription of a Medrol pack or prednisone and consideration of lumbar spine MRI. Script sent for oxycodone 10 mg Q6H prn with advanced date of 12/06/24. Patient has Narcan at home. All questions were answered and patient agreed with the plan. Follow up in 4-5 weeks for pill count and sooner if needed. Medications: New lidocaine 5% 1 patch topical DAILY 30 ea 0RF pain 30 days M47.812 - Spondylosis without myelopathy or radiculopathy, cervical region, M47.816 - Spondylosis without myelopathy or radiculopathy, lumbar region, M54.16 - Radiculopathy, lumbar region Refilled oxycodone Partial Fill upon patient request. 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
[2024-11-25 10:04] VITALS: BP 126/70; PULSE 76; O2SAT 97; BMI 33.9
--- OUTSIDE RECORDS SUMMARY | 2024-11-25 11:23 | XMS_ITS | Patient Health Record ---
Author Organization [facility] Address [address] [place] [address] Care Team Providers Care Veneer Splicer Name Role Phone Hernesto Jaimes Primary Care [...] Problem Status W/U Status Risk Notes Problem [id number] Colon cancer screening (V76.51) Active confirmed Problem 430609460 Encounter for long-term (current) use of other high-risk medications (V58.69) Active confirmed Problem Hypertension (43821579) Hypertension (401.9) Active confirmed Plan Of Treatment Future Test Test Name Order Date COLONOSCOPY 07/31/2014 Insurance Providers Payer Name Payer Address Payer Phone Subscriber Number Group Number Insured Name Patient Relationship to Insured Coverage Start Date Coverage End Date MEDICARE OF [place] [address] [place] [id number] CHARAN VASQUEZ Self - patient is the insured MEDICAID OF [facility] [address] [place] [phone] [id number] CHARAN VASQUEZ Self - patient is the insured Medical (General) History Medical History History ICD Code hypertension degenerative joint disease COPD/asthma he denies cardiac disease Surgical History Surgery Date(Month/Year) left hip replacement 2005 right hip replacement 2010
--- OUTSIDE RECORDS SUMMARY | 2024-11-25 11:23 | XMS_ITS | Clinical Summary ---
Author Organization [employer] [facility] Address [address] [place] [address] Care Team Providers Care Credit Investigator Name Role Phone Unavailable Primary Care Provider [...]
--- OUTSIDE RECORDS SUMMARY | 2024-11-25 11:23 | XMS_ITS | Encounter Summary ---
Author Organization [employer] [facility] Address [address] [place] [address] Care Team Providers Care Canvas Products Sales Representative Name Role Phone Unavailable Primary Care Provider Unavailabl e Encounter Details Date Type Department Care Team (Latest Contact Info) Description 04/10/2020 Abstract [facility] CONVERSIONS Dental, Provider, DDS Social History Tobacco [...]
== END 2024-11-25 10:12 | disposition home or self-care (01) ==
LOC: HO.PMC 09:56
PROVIDERS: PCP Internal Medicine; Visit Provider Nurse Practitioner Family
DX: M17.0 Bilateral primary osteoarthritis of knee (principal); M47.812 Spondylosis without myelopathy or radiculopathy, cervical region; M47.816 Spondylosis without myelopathy or radiculopathy, lumbar region; Z79.891 Long term (current) use of opiate analgesic; G89.4 Chronic pain syndrome; M50.30 Other cervical disc degeneration, unspecified cervical region; M54.16 Radiculopathy, lumbar region
CPT/HCPCS: 99214; G2211

== ENCOUNTER → 2024-11-25 09:55 | Outpatient (BNVA) | payer MEDICARE, SELFPAY | PROVIDERS: PCP Internal Medicine; Visit Provider Nurse Practitioner Family | DX: Z51.81 Encounter for therapeutic drug level monitoring (principal); M17.0 Bilateral primary osteoarthritis of knee; M47.812 Spondylosis without myelopathy or radiculopathy, cervical region; M47.816 Spondylosis without myelopathy or radiculopathy, lumbar region; M50.30 Other cervical disc degeneration, unspecified cervical region; M54.16 Radiculopathy, lumbar region; G89.4 Chronic pain syndrome; Z79.891 Long term (current) use of opiate analgesic | CPT/HCPCS: 99212 ==

== ENCOUNTER 2024-12-23 10:27 | Outpatient (AMB) | payer MEDICARE, SELFPAY ==
--- NOTE | 2024-12-23 10:29 | MHC.OFFVIS ---
Vital Signs 12/23/24 10:35 Height 5 ft 11 in Weight 243 lb BMI 33.9 BP 142/72 H Blood Pressure Location Lt brachial Position Sitting Pulse 83 Pulse Source Pulse Oximeter Pulse Oximetry (%) 98 Oxygen Delivery Method Room Air Intake Visit Reasons: Pill Count Intake Note: Alli comes in today for a pill count to oxycodone, patient should have 56 tablets and presents with 60 tablets which he last took today 12/23/24 at 6:30am. Pain today 5.5/10 Painter Required: No Accompanied by: Self / Same As Patient Allergies No Known Allergies Allergy (Verified 12/23/24 10:36) HPI Comments Details: Patient presents today for a pill count and pain management. Patient is supposed to have oxycodone 10 mg #56 pills, in his possession has #60 pills. This demonstrates a responsible attitude in regards to the medication regimen. Patient reports mild to moderate analgesia on current regime, with his reported pain level being 5.5/10 mainly in his chronic neck and low back pain, worse in lower back with intermittent radiation to his bilateral lower legs. Previous interventions included steroid injections in the neck, which were ineffective. The patient has been using [id number] lidocaine patches, which have provided inconsistent relief. The patient denies any neurological deficits or weakness in the legs, denies bladder or bowel dysfunction or saddle anesthesia. Patient continues to utilize Maalox or magnesium citrate as needed for constipation. Patient reports he had minimal constipation with morphine and requesting to switch to morphine. The patient continues to effectively use his CPAP machine and is stable in his current management plan. Denies any fever or chills, chest pain, shortness of breaths, headaches, palpitations, nausea, sedation, weakness or urinary retention except constipation. [facility] Medical History Muscle spasms of neck Degenerative cervical disc Shortness of breath Constipation Circadian rhythm sleep disorder Vision changes Personal history of nicotine dependence Tobacco abuse Obstructive sleep apnea on CPAP (~03/2015) Current use of skilled nursing anticoagulation Degenerative joint disease of cervical and lumbar spine Persistent atrial fibrillation (~2014) Peripheral vascular disease Obesity Insomnia COPD (chronic obstructive pulmonary disease) Bilateral primary osteoarthritis of knee Hypercholesterolemia Surgical History History of spinal surgery History of colonoscopy History of cardioversion (~2018) History of carpal tunnel release History of bilateral cataract extraction History of hip replacement, total History of removal of cyst History of vitrectomy (~11/2019) Family History Father Myocardial infarction Sister Multiple sclerosis Social History Household Members: Spouse Housing: House Alcohol intake: former Patient Tobacco Use Status: Former Tobacco user Tobacco use type: Cigarette Years Smoked: 54 on/off - 30pyh e-Cigarette/Vaping Use: Never Used Second Hand Smoke Exposure: Yes Current occupational status: retired Cognitive needs: No Hearing needs: No Vision needs: Yes Review of Systems Const All systems reviewed & are unremarkable except as noted in HPI and below Physical Exam Vital Signs: Last Vital Signs Pulse 83 12/23/24 10:35 BP 142/72 H 12/23/24 10:35 Pulse Ox 98 12/23/24 10:35 Oxygen Delivery Method Room Air 12/23/24 10:35 BMI result Body Mass Index 33.9 General: Appears afebrile. Alert and oriented. Mood and affect appropriate. Follows and participates in conversation appropriately. Respiratory effort is unlabored. No cough. Able to transition from sit to stand unassisted. Ambulates with bilaterally normal heel strike and toe off. Eyes General: appearance normal, both eyes and all related structures Neck Neck: Yes normal visual inspection, Yes no lymphadenopathy, Yes supple, No anterior neck swelling, Yes no JVD, No prominent supraclavicular fat pad and No prominent dorsocervical fat pad Resp Effort & Inspection: normal respiratory effort, able to speak in complete sentences, no cough, no respiratory distress and symmetric chest movement Back/Spine/Pelvis Cervical Spine: cervical muscular tenderness, pain with cervical ROM, Cervical spine scars present and No Cervical spine tenderness Thoracic/Lumbar Spine: thoracic and lumbar spine normal to inspection, Lasegue's sign positive bilateral and diffuse, pain with thoraco-lumbar ROM, No paraspinal muscle tenderness, thoraco-lumbar ROM limited, No thoracic spinal tenderness and No lumbar spinal tenderness Sacroiliac joints: bilaterally tender to palpation Psych Appearance: grossly normal and well kempt Mental Status: mental status grossly normal Speech and movement: Normal speech and movement present and Clear speech present Affect: normal affect Attitude: cooperative Thought process: Normal thought process present Thought content: Normal thought content present, suicidality (none), no hallucinations and No Depressive thoughts present Insight: Good insight present (Psych) Judgement: Good judgement present (Psych) Results Reviewed Results Reviewed: XR CERVICAL SPINE 12/23/22 FINDINGS: The visualized cervical vertebrae are intact with normal alignment. Odontoid process is intact with normal C1/C2 lateral masses alignment. Pre-dental interval is normal. Pre vertebral soft tissue is normal in thickness. Prominent bilateral apophyseal joints and uncovertebral joint osteophytes are present. Bilateral oblique x-rays of cervical spine show normal apophyseal joint alignment. However, evaluation of cervical neural foramina remains limited by suboptimal positioning. The left cervical neural foramina and right C2-C3 neural foramen appear patent. IMPRESSION: 1. Unchanged multilevel advanced cervical spondylosis. 2. No fracture or dislocation of cervical spine is seen. MR LUMBAR SPINE WITHOUT IV CONTRAST 10/07/2015 CLINICAL INFORMATION: Back pain and bruising in the right buttock and thigh. FINDINGS: There are 5 nonrib-bearing lumbar-type vertebral bodies. Lumbar alignment is normal. The vertebral body heights are maintained. There is moderate disc volume loss at L1-L2. Disc desiccation at L1-L2 and L3-L4. Mild Modic type I degenerative endplate changes anteriorly at L1-L2. There is no additional bone marrow edema. There are no acute fractures. Conus terminates at the T12-L1 disc level. There is left iliopsoas muscle atrophy that is partially imaged. No additional significant soft tissue findings. L1-L2: There is a small annular disc bulge and there is mild bilateral facet arthropathy with no central canal stenosis and no significant foraminal stenosis. L2-L3: The disc contour is normal. There is no central canal stenosis and there is no foraminal stenosis. L3-L4: Small annular disc bulge exhibiting a ventral annular fissure. There is moderate bilateral facet arthropathy. There is no central canal stenosis and there is mild foraminal narrowing bilaterally, slightly greater on the right side. L4-L5: There is a diffuse annular disc bulge and there is severe bilateral hypertrophic facet arthropathy and ligamentum flavum thickening. No central canal stenosis. No significant foraminal stenosis. L5-S1: There is a diffuse annular disc bulge and there is severe left and moderate right hypertrophic facet arthropathy. There is no central canal stenosis and there is no foraminal stenosis. IMPRESSION: - Small disc bulges at the L1-L2, L3-L4, L4-L5, and L5-S1 levels, at L3-L4 associated with a ventral annular fissure. There is severe bilateral hypertrophic facet arthropathy at L4-L5 and severe left and moderate right hypertrophic facet arthropathy at L5-S1. No severe central canal stenosis and no severe foraminal stenosis within the lumbar spine. - Severe left iliopsoas muscle atrophy. Assessment & Plan Assessment & Plan (1) Bilateral primary osteoarthritis of knee: Code(s): M17.0 - Bilateral primary osteoarthritis of knee Category: Medical (2) Degenerative joint disease of cervical and lumbar spine: Code(s): M47.812 - Spondylosis without myelopathy or radiculopathy, cervical region; M47.816 - Spondylosis without myelopathy or radiculopathy, lumbar region Category: Medical (3) Opioid contract exists: Code(s): Z79.891 - nursing home (current) use of opiate analgesic Category: Medical (4) Chronic pain syndrome: Code(s): G89.4 - Chronic pain syndrome Category: Medical (5) Cervical spondylosis: Code(s): M47.812 - Spondylosis without myelopathy or radiculopathy, cervical region Category: Medical (6) Degenerative cervical disc: Code(s): M50.30 - Other cervical disc degeneration, unspecified cervical region Category: Medical (7) Lumbar radiculopathy: Code(s): M54.16 - Radiculopathy, lumbar region Category: Medical Plan Patient has shown accountability for his medication regimen and the pill count was accurate. The patient reported no side effects. There is no evidence of misuse, abuse, or diversion at this time. [facility] reviewed. Patient will discontinue oxycodone due to increased constipation. Script sent for original script of morphine 15 mg Q6H prn with advanced date of 01/06/25, provided national shortage has resolved. Discussed with the patient the risks associated with benzodiazepine and opioid use. He is aware and verbalized an agreement to take the medications at least two hours apart. Patient has Narcan at home. All questions were answered and patient agreed with the plan. Follow up in 4-5 weeks for pill count and sooner if needed. Medications: Refilled morphine Partial Fill upon patient request. 15 mg PO Q6H PRN 120 tabs 0RF pain (scale score 7-10) 30 days MDD 4 G89.4 - Chronic pain syndrome, M17.0 - Bilateral primary osteoarthritis of knee, M47.812 - Spondylosis without myelopathy or radiculopathy, cervical region, M47.816 - Spondylosis without myelopathy or radiculopathy, lumbar region, Z79.891 - oysterman (current) use of opiate analgesic Discontinued oxycodone Partial Fill upon patient request. Discontinued Reason: Doctor's Order 10 mg PO Q6H 30 days PRN 120 tabs 0RF pain G89.4 - Chronic pain syndrome, M47.812 - Spondylosis without myelopathy or radiculopathy, cervical region, M47.816 - Spondylosis without myelopathy or radiculopathy, lumbar region, Z79.891 - nursing home (current) use of opiate analgesic Coding Level of Care Code Est Pt Level 4 (24058) Complex EM visit Add On G2211 Diagnoses Bilateral primary osteoarthritis of knee M17.0 Degenerative joint disease of cervical and lumbar spine M47.812; M47.816 Opioid contract exists Z79.891 Chronic pain syndrome G89.4 Cervical spondylosis M47.812 Degenerative cervical disc M50.30 Lumbar radiculopathy M54.16
[2024-12-23 10:35] VITALS: BP 142/72; PULSE 83; O2SAT 98; BMI 33.9
--- OUTSIDE RECORDS SUMMARY | 2024-12-23 12:35 | XMS_ITS | Patient Health Record ---
Author Organization [facility] Address [address] [place] [address] Care Team Providers Care Administrative Analyst Name Role Phone Hernesto Jaimes Primary Care [...] As direc jaun Orally Over the specified time.; Duration: 1 day(s) 07/31/2014 Active Neurontin 300 MG 2 capsule Orally Three times a day Active Immunizations Vaccine Route Administration Date Status Comme nts Flu vaccine no Preserv 3 and > Unknown 04/02/2014 Admin istered Problems Problem Type SNOMED Code ICD Code Onset Dates Problem Status W/U Status Risk Notes Problem Colon cancer screening (102415329) Colon cancer screening (V76.51) Active confirmed Problem Long-term drug therapy (220252149) Encounter for long-term (current) use of other high-risk medications (V58.69) Active confirmed Problem Hypertension (95454977) Hypertension (401.9) Active confirmed Plan Of Treatment Future Test Test Name Order Date COLONOSCOPY 07/31/2014 Insurance Providers Payer Name Payer Address Payer Phone Subscriber Number Group Number Insured Name Patient Relationship to Insured Coverage Start Date Coverage End Date MEDICARE OF [place] [address] [id number] CHARAN VASQUEZ Self - patient is the insured MEDICAID OF [facility] [address] [place] [address] [phone] [id number] CHARAN VASQUEZ Self - patient is the insured Medical (General) History Medical History History ICD Code hypertension degenerative joint disease COPD/asthma he denies cardiac disease Surgical History Surgery Date(Month/Year) left hip replacement 2005 right hip replacement 2010
== END 2024-12-23 10:39 | disposition home or self-care (01) ==
LOC: HO.PMC 10:28
PROVIDERS: PCP Internal Medicine; Visit Provider Nurse Practitioner Family
DX: M17.0 Bilateral primary osteoarthritis of knee (principal); M47.812 Spondylosis without myelopathy or radiculopathy, cervical region; M47.816 Spondylosis without myelopathy or radiculopathy, lumbar region; Z79.891 Long term (current) use of opiate analgesic; G89.4 Chronic pain syndrome; M50.30 Other cervical disc degeneration, unspecified cervical region; M54.16 Radiculopathy, lumbar region
CPT/HCPCS: 99214; G2211

== ENCOUNTER → 2024-12-23 10:27 | Outpatient (BNVA) | payer MEDICARE, SELFPAY | PROVIDERS: PCP Internal Medicine; Visit Provider Nurse Practitioner Family | DX: M17.0 Bilateral primary osteoarthritis of knee (principal); M47.812 Spondylosis without myelopathy or radiculopathy, cervical region; M47.816 Spondylosis without myelopathy or radiculopathy, lumbar region; Z79.891 Long term (current) use of opiate analgesic; G89.4 Chronic pain syndrome; M50.30 Other cervical disc degeneration, unspecified cervical region; M54.16 Radiculopathy, lumbar region | CPT/HCPCS: 99212 ==

== ENCOUNTER 2025-01-08 09:37 | Outpatient (AMB) | payer MEDICARE, SELFPAY ==
[2025-01-08 09:58] VITALS: BP 134/62; PULSE 84; O2SAT 94; BMI 34.3
--- NOTE | 2025-01-08 09:58 | A.OFFPC_ITS ---
Vital Signs 01/08/25 09:58 Height 5 ft 11 in Weight 246 lb BMI 34.3 BP 134/62 Blood Pressure Location Lt brachial Position Sitting Pulse 84 Pulse Source Pulse Oximeter Pulse Oximetry (%) 94 Oxygen Delivery Method Room Air Intake Visit Reasons: 3mth f/u Allergies No Known Allergies Allergy (Verified 01/08/25 09:59) Medication List - Last Reconciled 01/08/25 by Pauline Noriega MD albuterol sulfate 90 mcg/actuation (Ventolin HFA) 2 puffs inhalation Q6H PRN albuterol sulfate 2.5 mg (3 mL) inhalation Q4-6H PRN apixaban (Eliquis) 5 mg PO BID 90 days ascorbic acid (vitamin C) 500 mg PO .QD atorvastatin 40 mg PO DAILY baclofen 10 mg PO TID PRN bupropion HCl SR (Wellbutrin SR) 150 mg PO QAM [CPAP full face mask 14 cm h20 humidified Air As directed] dapagliflozin propanediol (Farxiga) 5 mg (1/2 x 10 mg) PO DAILY digoxin 125 mcg PO DAILY diltiazem HCl CD 240 mg PO DAILY ferrous sulfate (Feosol) 325 mg PO DAILY fluticasone furoate-vilanterol 100-25 mcg/dose (Breo Ellipta) 1 inh inhalation DAILY furosemide 80 mg (2 x 40 mg) PO DAILY 90 days gabapentin mg PO lidocaine 5% 1 patch topical DAILY 30 days lorazepam (Ativan) 0.5 mg PO DAILY PRN metoprolol succinate ER 50 mg PO DAILY morphine 15 mg PO Q6H PRN 30 days MDD 4 naloxone 4 mg/actuation (Narcan) 4 mg intranasal Q2M PRN polyethylene glycol 3350 (Miralax) 17 grams PO DAILY potassium chloride ER (Klor-Con M) 20 mEq PO DAILY tiotropium bromide (Spiriva with HandiHaler) 1 cap inhalation DAILY Tobacco use date assessed: 09/17/24 Fall risk assessment: No Falls in past year Last assessed Fall Risk: 01/08/25 Dental Screening Dental Screen Date: 09/17/24 HPI HPI Comments History of Present Illness Details History of Present Illness The patient is a 74-year-old obese male presenting for a follow-up visit for management of multiple chronic conditions. He has a history of COPD, hypercholesterolemia, asthma, atrial fibrillation, hypertension, obstructive sleep apnea managed with CPAP, coronary artery disease, congestive heart failure, and an anxiety disorder. His last visit was in August 2024, and his last colonoscopy was in 2014. The patient also has a history of osteoarthritis and lumbar spondylosis, for which he sees a paint trimmer pipe bowls and is on narcotic pain medication. Recent blood work from October 28 showed a normal blood count and electrolytes, creatinine increased to 1.2, blood sugar of 114 mg/dL, hemoglobin A1c of 6.1%, a BNP of 287 pg/mL, and an LDL of 61 mg/dL. Regarding his respiratory status, the patient reports using a rescue inhaler, Combivent, quite a bit lately due to increased shortness of breath. He expressed confusion over his multiple inhalers, which include Breo, Spiriva, and different rescue inhalers. Health Maintenance - Obstructive Sleep Apnea: Patient repor ts using his CPAP for more than 4 hours per night and notes benefit. - Colon Cancer Screening: Patient's last colonoscopy was in 2014. - Due to cost concerns, [facility], which will be mailed to his home. - A negative result is valid for three y ears. - Immunizations: Patient is scheduled to receive the influenza vaccine today. Social History - Substance Use: Patient is on narcotic pain medication for chronic pain, managed by a paint trimmer pipe bowls. - Financial/Insurance: Patient expressed concerns about the cost of a colonoscopy, stating, I don't have any coverage now. Results - Labs (October 28): - CBC: Normal. - Electrolytes: Normal. - Renal function: Creatinine increased t o 1.2. - Blood sugar: 114 mg/dL. - Hemoglobin A1c: 6.1%. - BNP: 287 pg/mL. - LDL: 61 mg/dL. 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 Degenerative joint disease of cervical and lumbar spine Persistent atrial fibrillation (~2014) Peripheral vascular disease Obesity Insomnia COPD (chronic obstructive pulmonary disease) Bilateral primary osteoarthritis of knee Hypercholesterolemia Surgical History History of spinal surgery History of colonoscopy History of cardioversion (~2019) History of carpal tunnel release History of bilateral cataract extraction History of hip replacement, total History of removal of cyst History of vitrectomy (~11/2019) Family History Father Myocardial infarction Sister Multiple sclerosis Social History Household Members: Spouse Housing: House Alcohol intake: former Patient Tobacco Use Status: Former Tobacco user Tobacco use type: Cigarette Years Smoked: 54 on/off - 30pyh e-Cigarette/Vaping Use: Never Used Second Hand Smoke Exposure: Yes Current occupational status: retired Cognitive needs: No Hearing needs: No Vision needs: Yes Questionnaire Thrive Questionnaire Date Thrive assessed: 02/27/24 LUCY-7 AMB Questionnaire LUCY-7 Date LUCY - 7 assessed: 02/27/24 Source: Developed by Drs. Alli Chen, Miya Oneil, Umair Whitten and colleagues, with an educational megha from [employer]. Review of Systems Narrative Review of Systems - Respiratory: Reports having dyspnea a lot for the past few days. - All other systems: Negative, per patient report. Physical exam (Primary Care) Vital Signs: Last Vital Signs Pulse 84 01/08/25 09:58 BP 134/62 01/08/25 09:58 Pulse Ox 94 01/08/25 09:58 Oxygen Delivery Method Room Air 01/08/25 09:58 BMI result Body Mass Index 34.3 Tobacco/Smoking Status: Tobacco use Status Tobacco use date assessed 09/17/24 01/08/25 10:04 Patient Tobacco Use Status Former Tobacco user 01/08/25 10:04 Tobacco use type Cigarette 01/08/25 10:04 e-Cigarette/Vaping Use Never Used 01/08/25 10:04 Thrive Assessment: Date of Thrive Assessment Date Thrive assessed 02/27/24 01/08/25 10:04 Narrative Physical Exam Const General: alert; No acute distress Eyes Conjunctivae: conjunctivae normal Resp Auscultation: clear to auscultation bilaterally Cardio Rate: regular rate Rhythm: regular rhythm GI Inspection: Yes normal to inspection Extrem General: Yes normal to inspection and No edema Office Procedures Flu Questionnaire Does the patient have a severe egg allergy?: No Does the patient have severe life threatening allergies?: No Does the patient have a fever or illness today?: No Has the patient ever had Guillain-[place] Syndrome?: No Has the patient ever had any past reaction to a flu shot?: No Immunizations Fluarix [id number] (PF) 45 mcg (15 mcg x 3)/0.5 mL IM syringe Performing Provider: Pauline Noriega MD [facility] Administered by: Jade Fall CMA on 01/08/25 10:43 Dose Route Admin Location Dispensed Lot Number Expiration Date NDC Jacquard Loom Weaver 0.5 mL IM Left Deltoid 0.5 mL [id number] 08/19/25 [id number] 3seventy VIS Given Date VIS Provided VIS Publication Date 01/08/25 Single Vaccine 24 Eligibility Eligibility Date Funding Source Not [facility] Eligible 01/08/25 Private Coding Level of Care Code Est Pt Level 4 (74475) Complex EM visit Add On G2211 Diagnoses 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 type: emphysema Emphysema type: panlobular YUNIEL on CPAP G47.33; Z99.89 Degenerative joint disease of cervical and lumbar spine M47.812; M47.816 Glucose intolerance (impaired glucose tolerance) R73.02 Class 1 obesity due to excess calories with serious comorbidity and body mass index (BMI) of 32.0 to 32.9 in adult E66.09; Z68.32 Body mass index: BMI 32.0-32.9 Obesity classification: adult class 1 (BMI 30 - 34.9) Obesity type: due to excess calories Serious obesity comorbidity presence: with serious comorbidity Atherosclerotic cardiovascular disease I25.10 Essential hypertension I10 Chronic diastolic (congestive) heart failure I50.32 Persistent atrial fibrillation I48.19 Hypercholesterolemia E78.00 Assessment & Plan Assessment & Plan (1) COPD (chronic obstructive pulmonary disease): Code(s): J44.9 - Chronic obstructive pulmonary disease, unspecified Category: Medical Qualifiers: COPD type: emphysema Emphysema type: panlobular Qualified Code(s): J43.1 - Panlobular emphysema Plan: Patient on albuterol inhaler with Breo and Spiriva (2) YUNIEL on CPAP: Comment: CPAP Code(s): G47.33 - Obstructive sleep apnea (adult) (pediatric); Z99.89 - Dependence on other enabling machines and devices Category: Medical Plan: Continue to use the CPAP more than 4 hours a night and benefits from this (3) Degenerative joint disease of cervical and lumbar spine: Code(s): M47.812 - Spondylosis without myelopathy or radiculopathy, cervical region; M47.816 - Spondylosis without myelopathy or radiculopathy, lumbar region Category: Medical Plan: Patient follows up with pain management on narcotic pain medication. (4) Glucose intolerance (impaired glucose tolerance): Code(s): R73.02 - Impaired glucose tolerance (oral) Category: Medical Plan: Decrease the amount of carbohydrate intake, pasta, bread, rice and potatoes are all sugar and that is aside from all the sweet stuff, remember that fruits are good but they are Sweet also. (5) Obesity: Code(s): E66.9 - Obesity, unspecified Category: Medical Qualifiers: Body mass index: BMI 32.0-32.9 Obesity classification: adult class 1 (BMI 30 - 34.9) Obesity type: due to excess calories Serious obesity comorbidity presence: with serious comorbidity Qualified Code(s): E66.09 - Other obesity due to excess calories; Z68.32 - Body mass index [BMI] 32.0-32.9, adult Plan: Diet and exercise (6) Atherosclerotic cardiovascular disease: Code(s): I25.10 - Atherosclerotic heart disease of three affiliated coronary artery without angina pectoris Category: Medical Plan: Control the cholesterol, weight, blood pressure, diabetes patient on anticoagulation with Eliquis (7) Essential hypertension: Code(s): I10 - Essential (primary) hypertension Category: Medical Plan: Continue with blood pressure medication. Decrease salt intake and exercise patient takes diltiazem 240 mg once a day metoprolol at 50 mg once a day (8) Chronic diastolic (congestive) heart failure: Code(s): I50.32 - Chronic diastolic (congestive) heart failure Category: Medical Plan: Continue with diuretics on digoxin and metoprolol (9) Persistent atrial fibrillation: Onset Date: ~2014 Code(s): I48.19 - Other persistent atrial fibrillation Category: Medical Plan: Continue with anticoagulation and is on diltiazem and metoprolol (10) Hypercholesterolemia: Code(s): E78.00 - Pure hypercholesterolemia, unspecified Category: Medical Plan: Avoid fried foods, chicken skin, eggs, butter margarine, pastries and meat. Be it pork or beef they have a lot of cholesterol patient is on atorvastatin Plan Plan Patient was informed and verbally consented to the use of an ambient scribe for clinic note documentation during this visit. 1. Copd/Asthma The patient's current medication regimen includes albuterol, Breo, and Spiriva. He reported increased use of a rescue inhaler (Combivent) recently due to shortness of breath. Patient education was provided to clarify that Breo and Spiriva are for daily maintenance, while rescue inhalers like Combivent or albuterol are for acute symptoms only. It was explained that Combivent is redundant if he is using Spiriva, and he should not use both. The patient was instructed to bring all of his inhalers to the next visit to avoid confusion. 2. Prediabetes With a recent hemoglobin A1c of 6.1%, the plan is to manage with diet and exercise. 3. Atrial Fibrillation Continue anticoagulation with Eliquis. Continue rate control with diltiazem 240 mg daily and metoprolol 50 mg daily. 4. Hypertension Continue current antihypertensive regimen including diltiazem and metoprolol. 5. Congestive Heart Failure Continue current treatment with diuretics, digoxin, and metoprolol. 6. Hypercholesterolemia Continue atorvastatin. Recent LDL of 61 mg/dL is at goal. 7. Osteoarthritis And Lumbar Spondylosis The patient will continue to follow up with pain management and continue his prescribed narcotic pain medication. 8. Health Maintenance: Colon Cancer Screening The patient's last colonoscopy was in 2014. Given the patient's concerns about cost, a Cologuard test will be ordered and a kit will be sent to his home. It was explained that a negative result is valid for three years. 9. Health Maintenance: Immunization The patient will receive his influenza vaccination today. Discussion Notes I addressed the patient's confusion regarding his multiple inhalers, clarifying the roles of his maintenance (Breo, Spiriva) and rescue (albuterol/Combivent) medications. I explained that because he takes Spiriva, the Combivent inhaler contains a redundant medication and he should use only one rescue inhaler. I instructed him to bring all his inhalers to his next visit for a complete review to prevent further confusion. We discussed colon cancer screening options. Given his last screening was in 2014 and his financial concerns about a colonoscopy, we have opted for a Cologuard test. I informed him a kit would be sent to his home, and if negative, the next screening would be in three years. I advised the patient that I am awaiting results from pending blood work. I confirmed he would receive his flu shot during today's visit. Patient Instructions - Continue to take your current medications for blood pressure, heart conditions, and cholesterol as prescribed. - For your breathing, use your Breo inhaler and Spiriva inhaler once every day. - Only use your rescue inhaler (like Combivent or albuterol) when you are actively short of breath. - Because you use Spiriva, you do not need to use the Combivent inhaler. - Please bring all of your inhalers to your next appointment so we can review them. - Focus on diet and exercise to help manage your blood sugar levels. - A Cologuard kit for colon cancer screening will be mailed to your house. - Please follow the instructions to complete the test and send it back. - You will receive a flu shot today in the office. - Please let the office know if you have any questions about your inhalers or need medication refills. Orders: Orders Influenza [id number] Immunization Today Z23 - Encounter for immunization Hemoglobin A1c Today R73.02 - Impaired glucose tolerance (oral) Referrals Cologuard Test Z12.11 - Encounter for screening for malignant neoplasm of colon, Z12.12 - Encounter for screening for malignant neoplasm of rectum Medications: Refilled lorazepam (Ativan) 0.5 mg PO DAILY PRN 20 tabs 0RF anxiety F41.1 - Generalized anxiety disorder
--- OUTSIDE RECORDS SUMMARY | 2025-01-08 17:49 | XMS_ITS | Clinical Summary ---
Author Organization [employer] Address [address] [place] [address] Care Team Providers Care Gymnastics Instructor Name Role Phone Unavailable Primary Care Provider [...] 75+ series) 08/14/2023 COVID-19 Vaccine (1 - 2024-2 6 season) 2024 Influenza Vaccine (#1) 2024 HIB [...]
--- OUTSIDE RECORDS SUMMARY | 2025-01-08 17:49 | XMS_ITS | Encounter Summary ---
Author Organization [employer] Address [address] [place] [address] Care Team Providers Care Pulp Bleacher Name Role Phone Unavailable Primary Care Provider Unavailabl e Encounter Details Date Type Department Care Team (Latest Contact Info) Description 04/10/2020 Abstract [facility] CONVERSIONS Dental, Provider, DDS Social History Tobacco [...]
--- OUTSIDE RECORDS SUMMARY | 2025-01-08 17:49 | XMS_ITS | Patient Health Record ---
Author Organization [facility] Address [address] [place] [address] Care Team Providers Care Broke Handler Name Role Phone Hernesto Jaimes Primary Care Provider Faustino Crockett Jr Unavailable Allergies Allergen (clinical drug ingredient) Drug/Non Drug Allergy documented on EMR Reaction Allergy Type Onset Date Status enviromental (uncoded) Unknown Allergy Active Reason For Referral No Information Medications Medication SIG (Take, Route, Frequency, Duration) Notes Start Date End Date Status Losartan Potassium 25 MG Tablet 1 Orally QD Active Advair HFA 45-21 MCG/ACT Aerosol 2 puffs Inhalation Twice a day Active Combivent Respimat 20-100 MCG/ACT Aerosol Solution 1 puff Inhalation Four times a day Active hydroCHLOROthiazide 25 MG Tablet 1 tablet Orally Once a day Active Colyte with Flavor Packs 240 GM Solution Reconstituted As directed Orally Over the specified time.; Duration: 1 day(s) 07/31/2014 Active Neurontin 300 MG Capsule 2 capsule Orall y Three times a day Active Immunizations Vaccine Route Administration Date Status Comme nts Flu vaccine no Preserv 3 and > Unknown 04/02/2014 Admin istered Social History Social History Additional Details Category Social Info Options Details Miscellaneous: Marital status: Occupation: retired Problems Problem Type SNOMED Code ICD Code Onset Dates Problem Status W/U Status Risk Notes Problem Colon cancer screening (414753476) Colon cancer screening (V76.51) Active confirmed Problem Long-term drug therapy (996477691) Encounter for long-term (current) use of other high-risk medications (V58.69) Active confirmed Problem Hypertension (68931271) Hypertension (401.9) Active confirmed Plan Of Treatment Future Test Test Name Order Date COLONOSCOPY 07/31/2014 Insurance Providers Payer Name Payer Address Payer Phone Subscriber Number Group Number Insured Name Patient Relationship to Insured Coverage Start Date Coverage End Date MEDICARE OF [place] [address] [place] [id number] [phone] [id number] CHARAN VASQUEZ Self - patient is the insured MEDICAID OF [facility] [address] [place] [address] [id number] CHARAN VASQUEZ Self - patient is the insured Medical (General) History Medical History History ICD Code hypertension degenerative joint disease COPD/asthma he denies cardiac disease Surgical History Surgery Date(Month/Year) left hip replacement 2005 right hip replacement 2010
== END 2025-01-08 10:50 | disposition home or self-care (01) ==
LOC: HO.HMCH 09:38
PROVIDERS: PCP Internal Medicine; Visit Provider Internal Medicine
DX: J43.1 Panlobular emphysema (principal); I11.0 Hypertensive heart disease with heart failure; I50.32 Chronic diastolic (congestive) heart failure; I48.19 Other persistent atrial fibrillation; G47.33 Obstructive sleep apnea (adult) (pediatric); Z99.89 Dependence on other enabling machines and devices; M47.812 Spondylosis without myelopathy or radiculopathy, cervical region; M47.816 Spondylosis without myelopathy or radiculopathy, lumbar region; R73.02 Impaired glucose tolerance (oral); E66.09 Other obesity due to excess calories; Z68.32 Body mass index [BMI] 32.0-32.9, adult; I25.10 Atherosclerotic heart disease of native coronary artery without angina pectoris; E78.00 Pure hypercholesterolemia, unspecified; Z23 Encounter for immunization

== ENCOUNTER → 2025-01-08 09:37 | Outpatient (BNVA) | payer MEDICARE, SELFPAY | PROVIDERS: PCP Internal Medicine; Visit Provider Internal Medicine | DX: J43.1 Panlobular emphysema (principal); G47.33 Obstructive sleep apnea (adult) (pediatric); Z99.89 Dependence on other enabling machines and devices; M47.812 Spondylosis without myelopathy or radiculopathy, cervical region; R73.02 Impaired glucose tolerance (oral); E66.09 Other obesity due to excess calories; Z68.32 Body mass index [BMI] 32.0-32.9, adult; I25.10 Atherosclerotic heart disease of native coronary artery without angina pectoris; I10 Essential (primary) hypertension; I50.32 Chronic diastolic (congestive) heart failure; I48.19 Other persistent atrial fibrillation; E78.00 Pure hypercholesterolemia, unspecified; Z23 Encounter for immunization | CPT/HCPCS: 90471; 90656; 99212 ==

== ENCOUNTER 2025-01-20 10:33 | Outpatient (AMB) | payer MEDICARE, SELFPAY ==
[2025-01-20 10:37] VITALS: BP 131/73; PULSE 88; RESP 16; O2SAT 96; BMI 34.2
--- NOTE | 2025-01-20 10:37 | MHC.OFFVIS ---
Vital Signs 01/20/25 10:37 Height 5 ft 11 in Weight 245 lb BMI 34.2 BP 131/73 Blood Pressure Location Lt brachial Position Sitting Respiration 16 Pulse 88 Pulse Source Pulse Oximeter Pulse Oximetry (%) 96 Oxygen Delivery Method Room Air Intake Visit Reasons: Pill Count Intake Note: Patient here for a pill count of Morphine per directions patient should have 68 pills. Patient presented 73 pills. Last took 7am Medical Records Field Technician Required: No Accompanied by: Self / Same As Patient Allergies No Known Allergies Allergy (Verified 01/20/25 10:43) HPI Comments Details: Patient presents today for a pill count and pain management. Patient is supposed to have oxycodone 10 mg #68 pills, in his possession has #73 pills. This demonstrates a responsible attitude in regards to the medication regimen. Patient reports mild to moderate analgesia on current regime, with his reported pain level being 6/10 mainly in his chronic neck and low back pain. Patient continues to utilize Maalox or magnesium citrate as needed for constipation. Patient reports he had minimal constipation with morphine and requesting to switch to morphine. The patient continues to effectively use his CPAP machine and is stable in his current management plan. Denies any fever or chills, chest pain, shortness of breaths, headaches, palpitations, nausea, sedation, weakness or urinary retention except constipation. [facility] Medical History Muscle spasms of neck Degenerative cervical disc Shortness of breath Constipation Circadian rhythm sleep disorder Vision changes Personal history of nicotine dependence Tobacco abuse Obstructive sleep apnea on CPAP (~03/2015) Current use of alf anticoagulation Degenerative joint disease of cervical and lumbar spine Persistent atrial fibrillation (~2014) Peripheral vascular disease Obesity Insomnia COPD (chronic obstructive pulmonary disease) Bilateral primary osteoarthritis of knee Hypercholesterolemia Surgical History History of spinal surgery History of colonoscopy History of cardioversion (~2018) History of carpal tunnel release History of bilateral cataract extraction History of hip replacement, total History of removal of cyst History of vitrectomy (~11/2019) Family History Father Myocardial infarction Sister Multiple sclerosis Social History Household Members: Spouse Housing: House Alcohol intake: former Patient Tobacco Use Status: Former Tobacco user Tobacco use type: Cigarette Years Smoked: 54 on/off - 30pyh e-Cigarette/Vaping Use: Never Used Second Hand Smoke Exposure: Yes Current occupational status: retired Cognitive needs: No Hearing needs: No Vision needs: Yes Review of Systems Const All systems reviewed & are unremarkable except as noted in HPI and below Physical Exam Vital Signs: Last Vital Signs Pulse 88 01/20/25 10:37 Resp 16 01/20/25 10:37 BP 131/73 01/20/25 10:37 Pulse Ox 96 01/20/25 10:37 Oxygen Delivery Method Room Air 01/20/25 10:37 BMI result Body Mass Index 34.2 General: Appears afebrile. Alert and oriented. Mood and affect appropriate. Follows and participates in conversation appropriately. Respiratory effort is unlabored. No cough. Able to transition from sit to stand unassisted. Ambulates with bilaterally normal heel strike and toe off. Eyes General: appearance normal, both eyes and all related structures Resp Effort & Inspection: normal respiratory effort, able to speak in complete sentences, no cough, no respiratory distress and symmetric chest movement Back/Spine/Pelvis Cervical Spine: cervical muscular tenderness, pain with cervical ROM, Cervical spine scars present, No Cervical spine tenderness and No step off deformity Thoracic/Lumbar Spine: thoracic and lumbar spine normal to inspection, Lasegue's sign positive bilateral and diffuse, pain with thoraco-lumbar ROM, No paraspinal muscle tenderness, thoraco-lumbar ROM limited, No thoracic spinal tenderness and No lumbar spinal tenderness Psych Appearance: grossly normal and well kempt Mental Status: mental status grossly normal Speech and movement: Normal speech and movement present and Clear speech present Affect: normal affect Attitude: cooperative Thought process: Normal thought process present Thought content: Normal thought content present, suicidality (none), no hallucinations and No Depressive thoughts present Insight: Good insight present (Psych) Judgement: Good judgement present (Psych) Results Reviewed Results Reviewed: XR CERVICAL SPINE 12/23/22 FINDINGS: The visualized cervical vertebrae are intact with normal alignment. Odontoid process is intact with normal C1/C2 lateral masses alignment. Pre-dental interval is normal. Pre vertebral soft tissue is normal in thickness. Prominent bilateral apophyseal joints and uncovertebral joint osteophytes are present. Bilateral oblique x-rays of cervical spine show normal apophyseal joint alignment. However, evaluation of cervical neural foramina remains limited by suboptimal positioning. The left cervical neural foramina and right C2-C3 neural foramen appear patent. IMPRESSION: 1. Unchanged multilevel advanced cervical spondylosis. 2. No fracture or dislocation of cervical spine is seen. MR LUMBAR SPINE WITHOUT IV CONTRAST 10/07/2015 CLINICAL INFORMATION: Back pain and bruising in the right buttock and thigh. FINDINGS: There are 5 nonrib-bearing lumbar-type vertebral bodies. Lumbar alignment is normal. The vertebral body heights are maintained. There is moderate disc volume loss at L1-L2. Disc desiccation at L1-L2 and L3-L4. Mild Modic type I degenerative endplate changes anteriorly at L1-L2. There is no additional bone marrow edema. There are no acute fractures. Conus terminates at the T12-L1 disc level. There is left iliopsoas muscle atrophy that is partially imaged. No additional significant soft tissue findings. L1-L2: There is a small annular disc bulge and there is mild bilateral facet arthropathy with no central canal stenosis and no significant foraminal stenosis. L2-L3: The disc contour is normal. There is no central canal stenosis and there is no foraminal stenosis. L3-L4: Small annular disc bulge exhibiting a ventral annular fissure. There is moderate bilateral facet arthropathy. There is no central canal stenosis and there is mild foraminal narrowing bilaterally, slightly greater on the right side. L4-L5: There is a diffuse annular disc bulge and there is severe bilateral hypertrophic facet arthropathy and ligamentum flavum thickening. No central canal stenosis. No significant foraminal stenosis. L5-S1: There is a diffuse annular disc bulge and there is severe left and moderate right hypertrophic facet arthropathy. There is no central canal stenosis and there is no foraminal stenosis. IMPRESSION: - Small disc bulges at the L1-L2, L3-L4, L4-L5, and L5-S1 levels, at L3-L4 associated with a ventral annular fissure. There is severe bilateral hypertrophic facet arthropathy at L4-L5 and severe left and moderate right hypertrophic facet arthropathy at L5-S1. No severe central canal stenosis and no severe foraminal stenosis within the lumbar spine. - Severe left iliopsoas muscle atrophy. 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 The patient reported no side effects. There is no evidence of misuse, abuse, or diversion at this time. [employer] reviewed. Patient will discontinue oxycodone due to increased constipation. Script sent for original script of morphine 15 mg Q6H prn with advanced date of 02/04/25, provided national shortage has resolved. Discussed with the patient the risks associated with benzodiazepine and opioid use. He is aware and verbalized an agreement to take the medications at least two hours apart. Patient has Narcan at home. All questions were answered and patient agreed with the plan. Follow up in 4-5 weeks for pill count and sooner if needed. Medications: Refilled morphine Partial Fill upon patient request. 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
--- OUTSIDE RECORDS SUMMARY | 2025-01-20 13:23 | XMS_ITS | Clinical Summary ---
Author Organization [facility] Address [address] [place] [address] Care Team Providers Care Test Rack Operator Name Role Phone Unavailable Primary Care [...]
--- OUTSIDE RECORDS SUMMARY | 2025-01-20 13:23 | XMS_ITS | Encounter Summary ---
Author Organization [employer] [facility] Address [address] [place] [address] Care Team Providers Care Supervisor Asbestos Removal Name Role Phone Unavailable Primary Care Provider Unavailabl e Encounter Details Date Type Department Care Team (Latest Contact Info) Description 04/10/[address] [facility] CONVERSIONS Dental, Provider, DDS Social History [...]
== END 2025-01-20 10:51 | disposition home or self-care (01) ==
LOC: HO.PMC 10:33
PROVIDERS: PCP Internal Medicine; Visit Provider Nurse Practitioner Family
DX: M17.0 Bilateral primary osteoarthritis of knee (principal); M47.812 Spondylosis without myelopathy or radiculopathy, cervical region; M47.816 Spondylosis without myelopathy or radiculopathy, lumbar region; Z79.891 Long term (current) use of opiate analgesic; G89.4 Chronic pain syndrome; M50.30 Other cervical disc degeneration, unspecified cervical region; M54.16 Radiculopathy, lumbar region
CPT/HCPCS: 99213; G2211

== ENCOUNTER → 2025-01-20 10:33 | Outpatient (BNVA) | payer MEDICARE, SELFPAY | PROVIDERS: PCP Internal Medicine; Visit Provider Nurse Practitioner Family | DX: Z51.81 Encounter for therapeutic drug level monitoring (principal); Z79.891 Long term (current) use of opiate analgesic; M17.0 Bilateral primary osteoarthritis of knee; G89.4 Chronic pain syndrome; M50.30 Other cervical disc degeneration, unspecified cervical region; M54.16 Radiculopathy, lumbar region | CPT/HCPCS: 99212 ==